=== PATIENT | female | born 1945 | race Caucasian/White ===

== ENCOUNTER → 2019-11-12 08:17 | Outpatient (CLI) | payer MEDICARE, SELFPAY ==
[2019-11-12 09:39] LABS: Alanine Aminotransferase 14 IU/L (<35); Albumin 4.3 g/dL (3.5-5.0); Albumin Globulin Ratio 1.3 (1.0-2.8); Alkaline Phosphatase 80 U/L (38-126); Aspartate Aminotransferase 23 IU/L (14-36); BUN Creatinine Ratio 14.1 (6-22); Bilirubin Total 0.4 mg/dL (0.2-1.3); Blood Urea Nitrogen 9 mg/dL (7-17); Calcium 9.6 mg/dL (8.4-10.2); Carbon Dioxide 24 mmol/L (22-32); Chloride 107 mmol/L (98-107); Cholesterol 284 mg/dL (140-199); Estimated Glomerular Filt Rate > 60.0 mL/min (>60); Globulin 3.3 g/dL (1.7-4.1); Glucose 107 mg/dL (80-110); HDL Cholesterol 42 mg/dL (40-60); HEMOLYSIS < 15 (0-50); LDL Cholesterol Calculated 180 mg/dL (<100); Potassium 4.6 mmol/L (3.4-5.1); Sodium 139 mmol/L (137-145); Total Protein 7.6 g/dL (6.3-8.2); Triglycerides 309 mg/dL (35-150)
[2019-11-12 10:16] LABS: Free T4, Direct Thyroxine 1.09 ng/dL (0.78-2.19)
[2019-11-12 10:29] LABS: Thyroid Stimulating Hormone 3.61 uIU/mL (0.47-4.68)
[2019-11-13 07:12] LABS: Triiodothyronine T3 Total 94 ng/dL (71-180)
== END ==
PROVIDERS: Referring Provider Internal Medicine; Visit Provider Internal Medicine
DX: I10 Essential (primary) hypertension (principal); E03.9 Hypothyroidism, unspecified; E78.5 Hyperlipidemia, unspecified
CPT/HCPCS: 36415; 80053; 80061; 84439; 84443; 84480

== ENCOUNTER → 2020-02-14 12:01 | Outpatient (CLI) | payer MEDICARE, SELFPAY ==
[2020-02-14 12:44] LABS: Hemoglobin A1C% w Est Avg Glu 5.1 % (4.0-6.0)
[2020-02-14 12:51] LABS: Erythrocyte Sedimentation Rate 8 MM/HR (0-20)
[2020-02-14 12:52] LABS: Alanine Aminotransferase 29 IU/L (<35); Albumin 4.1 g/dL (3.5-5.0); Albumin Globulin Ratio 1.1 (1.0-2.8); Alkaline Phosphatase 107 U/L (38-126); Aspartate Aminotransferase 24 IU/L (14-36); BUN Creatinine Ratio 14.1 (6-22); Bilirubin Total 0.7 mg/dL (0.2-1.3); Blood Urea Nitrogen 10 mg/dL (7-17); C-Reactive Protein Quant 4.9 mg/dL (<1.0); Calcium 8.9 mg/dL (8.4-10.2); Carbon Dioxide 25 mmol/L (22-32); Chloride 102 mmol/L (98-107); Estimated Glomerular Filt Rate > 60.0 mL/min (>60); Globulin 3.6 g/dL (1.7-4.1); Glucose 112 mg/dL (80-110); HEMOLYSIS < 15 (0-50); Potassium 4.6 mmol/L (3.4-5.1); Sodium 134 mmol/L (137-145); Total Protein 7.7 g/dL (6.3-8.2)
[2020-02-14 12:57] LABS: Add Manual Diff / Slide Review NO; Basophils Absolute Auto 100 /uL (0-100); Basophils Percent Auto 0.9 % (0-2); Eosinophils Absolute Auto 200 /uL (0-450); Eosinophils Percent Auto 1.5 % (2-4); Hematocrit 34.2 % (36-46); Hemoglobin 11.9 g/dL (12.0-16.0); Lymphocytes Absolute Auto 1400 /uL (1100-4500); Lymphocytes Percent Auto 13.5 % (25-40); Mean Corpuscular HGB Conc 34.7 % (30-36); Mean Corpuscular Hemoglobin 30.4 PG (26-34); Mean Corpuscular Volume 87.5 fL (80-100); Monocytes Absolute Auto 800 /uL (0-900); Monocytes Percent Auto 7.8 % (3-14); Neutrophils Absolute Auto 7800 /uL (1500-7000); Neutrophils Percent Auto 76.3 % (50-75); Platelet Count 285 X10^3/uL (150-400); Red Cell Distribution Width 13.2 % (11.6-14.8); White Blood Cell Count 10.2 X10^3/uL (4.5-11.0)
[2020-02-14 13:03] LABS: Procalcitonin < 0.05 ng/mL (<0.5)
[2020-02-14 13:43] LABS: TSH w/ Reflex to FT4 2.04 uIU/mL (0.47-4.68)
== END ==
PROVIDERS: PCP Physician Assistant; Referring Provider Physician Assistant; Visit Provider Physician Assistant
DX: R52 Pain, unspecified (principal); N30.01 Acute cystitis with hematuria
CPT/HCPCS: 36415; 80053; 83036; 84145; 84443; 85025; 85651; 86140; 87086

== ENCOUNTER 2020-02-22 17:40 | Emergency (ER) | payer MEDICARE, SELFPAY ==
[2020-02-22] VITALS (13 sets, daily range): BP systolic 107–134; BP diastolic 55–86; PULSE 69–92; RESP 14–35; TEMP 37.2; O2SAT 97–100; BMI 32.6
--- NOTE | 2020-02-22 18:24 | DI.RAD.S_ITS ---
PROCEDURE: XR ACUTE ABDOMEN SERIES INDICATIONS: Abdominal pain, back pain TECHNIQUE: One view chest and two views of the abdomen were acquired. COMPARISON: None. FINDINGS: Surgical changes and devices: None. Chest: Minimal hazy opacity at the left lung base. Heart size is normal. No pleural effusions. No pneumoperitoneum. Suspect small hiatal hernia. Abdomen: Scattered small bowel and colonic gas. No suspicious calcifications. Visualized solid organ contours appear normal. Bones: No suspicious bony lesions. Coarse calcification in the region of the left buttocks may represent an injection granuloma. IMPRESSION: 1. Hazy opacity at the left lung base. Favor atelectasis over aspiration or pneumonia. 2. Nonobstructive bowel gas pattern. Dictated by: Gilmer Carlson M.D. on 02/22/2020 at 20:15 Approved by: Gilmer Carlson M.D. on 02/22/2020 at 20:16
[2020-02-22 18:47] LABS: Creatine Kinase 34 U/L (30-135); Lactate (Lactic Acid) 1.2 mmol/L (0.7-2.1); Lipase 204 U/L (23-300); Troponin I < 0.012 ng/mL (0.01-0.034)
[2020-02-22 18:56] LABS: Add Manual Diff / Slide Review NO; Basophils Absolute Auto 0 /uL (0-100); Basophils Percent Auto 0.5 % (0-2); Eosinophils Absolute Auto 200 /uL (0-450); Eosinophils Percent Auto 2.1 % (2-4); Hematocrit 34.2 % (36-46); Hemoglobin 11.5 g/dL (12.0-16.0); Lymphocytes Absolute Auto 1400 /uL (1100-4500); Lymphocytes Percent Auto 14.5 % (25-40); Mean Corpuscular HGB Conc 33.8 % (30-36); Mean Corpuscular Hemoglobin 29.6 PG (26-34); Mean Corpuscular Volume 87.7 fL (80-100); Monocytes Absolute Auto 600 /uL (0-900); Neutrophils Absolute Auto 7700 /uL (1500-7000); Neutrophils Percent Auto 76.9 % (50-75); Platelet Count 356 X10^3/uL (150-400); Red Cell Distribution Width 12.8 % (11.6-14.8); White Blood Cell Count 9.9 X10^3/uL (4.5-11.0)
[2020-02-22] MEDS: KETOROLAC 60 MG/2 ML VIAL 15 MG IV (19:13)
[2020-02-22] MEDS: SODIUM CHLORIDE 0.9% 1,000 ML 1000 ML IV (19:13)
[2020-02-22] MEDS: LIDOCAINE PATCH 1 EACH ADH..PATCH TOP (19:14)
--- NOTE | 2020-02-22 19:40 | ED.NECK ---
HPI - Neck Pain/Injury General Chief Complaint: Abdominal Pain Stated Complaint: Abdominal pain Time Seen by Provider: 02/22/20 17:52 Source: patient Mode of arrival: Ambulatory Limitations: no limitations History of Present Illness HPI Narrative: 74F non smoker without significant medical history presents with her daughter and the chief complaint of right sided neck pain for the past few days. She denies any injury or neurologic complaint such as numbness, tingling, weakness or other. In the big picture she has felt unwell for a few weeks. It started with lower abdominal discomfort and flank pain and she was seen at the walk in clinic and given Toradol. She had a urine POC which was concerning but culture demonstrated no findings. She denies runny nose, sore throat or cough. She denies any chest pain or shortness of breath. She denies any ongoing abdominal pain or flank pain. MD complaint: neck pain Onset (ago): day(s) Place: home Radiation: right lateral Severity: moderate Quality: burning and sharp Duration: constant Relieving factors: remaining still Exacerbating factors: movement of neck Associated symptoms: none Treatments prior to arrival: none Related Data Previous Rx's Medication Instructions Recorded amoxicillin-pot clavulanate 1 tab PO BID #20 tab 02/22/20 [Augmentin] lidocaine [Lidoderm] 1 patch TOP DAILY #15 each 02/22/20 Allergies Allergy/AdvReac Type Severity Reaction Status Date / Time No Known Drug Allergies Allergy Verified 02/22/20 17:48 Review of Systems Constitutional Constitutional: Denies chills, Denies fatigue, Denies fever(s), Denies frequent falls, Denies lethargy and Denies weakness Eyes Eyes: Denies change in vision, Denies eye discharge, Denies irritation and Denies loss of vision ENT Ears, Nose, Mouth, and Throat: Denies change in voice, Denies dizziness, Reports neck pain, Denies sore throat and Denies throat swelling Cardiovascular Cardiovascular: Denies chest pain, Denies irregular heart rhythm, Denies lightheadedness, Denies palpitations, Denies dyspnea, Denies dyspnea on exertion and Denies orthopnea Respiratory Respiratory: Denies cough, Denies dyspnea, Denies dyspnea on exertion and Denies wheezing Gastrointestinal Gastrointestinal: Denies abdominal pain, Denies change in bowel habits, Denies diarrhea, Denies nausea and Denies vomiting Musculoskeletal Musculoskeletal: Reports neck pain and Denies numbness Integumentary/Breasts Skin/Breast: Denies pruritus, Denies erythema, Denies rash and Denies wounds Neurologic Neurologic: Denies behavioral changes, Denies confusion, Denies dizziness, Denies frequent falls, Denies loss of vision, Denies numbness and Denies weakness Psychiatric Psychiatric: Denies anxiety, Denies behavioral changes, Denies confusion, Denies depression, Denies homicidal ideation and Denies suicidal ideation Endocrine Endocrine: Denies fatigue, Denies flushing and Denies palpitations Hematologic/Lymphatic Hematologic/Lymphatic: Denies easy bruising Allergic/Immunologic Allergic/Immunologic: Denies urticaria, Denies throat swelling and Denies wheezing Patient History Medical History (Updated 02/22/20 @ 21:40 by Thanh Castro DO) Generalized body aches (Acute) UTI (urinary tract infection) (Acute) Social History Smoking Status: Never smoker Smoking Status: Never smoker alcohol intake frequency: holidays/special occasions only Substance Use Type: does not use Exam Narrative Exam Narrative: GENERAL: [74] year old patient appears stated age. Well-nourished, well-developed patient, in mild distress. HEAD: Atraumatic. Normocephalic. EYES: Pupils equal round and reactive. Extraocular motions intact. No scleral icterus. No injection or drainage. ENT: Nose without bleeding, purulent drainage. Throat without erythema, tonsillar hypertrophy or exudate. Airway patent. NECK: Trachea midline. Tenderness with range of motion and palpation of the right-sided paraspinal musculature. No midline or bony tenderness, no step-offs or crepitance. No pain turning her head to the right. No pain with axial loading. No associated upper extremity numbness, tingling, or weakness. CARDIOVASCULAR: Regular rate and rhythm without murmurs, gallops, or rubs. RESPIRATORY: Faint crackles in left base. No tachypnea or increased work of breathing. No supplemental oxygen requirements GASTROINTESTINAL: Abdomen soft, non-tender, nondistended. EXTREMITIES: No edema or joint tenderness. BACK: Nontender without deformity or crepitance. No flank tenderness. NEURO: AOx3. SKIN: No rash or erythema of visible areas Initial Vital Signs Initial Vital Signs: Vital Signs Temperature 99.0 F 02/22/20 17:40 Pulse Rate 92 H 02/22/20 17:40 Respiratory Rate 14 02/22/20 17:40 Blood Pressure 134/86 02/22/20 17:40 Pulse Oximetry 99 02/22/20 17:40 Course Orders Ordered: ED Orders 02/22/20 18:05 Complete Blood Count AUTO DIFF Stat Lactate (Lactic Acid) Stat Lipase Stat Troponin & CK Cardiac Panel Stat 02/22/20 18:12 EKG-12 Lead Stat 02/22/20 18:24 XR acute abdomen series Stat 02/22/20 19:19 Comprehensive Metabolic Panel Stat 02/22/20 20:27 COVID19 -ED/INPAT/OR/L&D Stat Discontinued Medications Sodium Chloride (Normal Saline 0.9%) 1,000 mls @ 1,000 mls/hr IV BOLUS ONE Stop: 02/22/20 19:51 Last Infusion: 02/22/20 20:23 Dose: 0 mls/hr Documented by: Admin: 02/22/20 19:13 Dose: 1,000 mls/hr Documented by: DASH Ceftriaxone Sodium/Dextrose (Rocephin) 1 gm in 50 mls @ 100 mls/hr IV NOW ONE Stop: 02/22/20 21:05 Last Infusion: 02/22/20 21:12 Dose: 100 mls/hr Documented by: Admin: 02/22/20 20:42 Dose: 100 mls/hr Documented by: DASH Ketorolac Tromethamine (Toradol) 15 mg IV NOW ONE Stop: 02/22/20 18:53 Last Admin: 02/22/20 19:13 Dose: 15 mg Documented by: DASH Lidocaine (Lidoderm) 1 each TOP NOW ONE Stop: 02/22/20 19:01 Last Admin: 02/22/20 19:14 Dose: 1 each Documented by: DASH Vital Signs Vital signs: Vital Signs - 8 hr 02/22/20 17:40 02/22/20 17:48 02/22/20 17:50 Temperature 99.0 F Pulse Rate 92 H 82 81 Respiratory Rate 14 17 20 Blood Pressure 134/86 128/79 Pulse Oximetry 99 99 02/22/20 18:00 02/22/20 18:30 02/22/20 19:00 Temperature Pulse Rate 79 74 70 Respiratory Rate 24 24 33 H Blood Pressure Pulse Oximetry 98 100 100 02/22/20 19:30 02/22/20 19:45 02/22/20 19:46 Temperature Pulse Rate 69 72 73 Respiratory Rate 22 24 35 H Blood Pressure 127/64 127/64 Pulse Oximetry 100 100 100 02/22/20 20:14 02/22/20 20:15 02/22/20 20:30 Temperature Pulse Rate 77 78 75 Respiratory Rate 23 23 18 Blood Pressure 131/60 107/56 L Pulse Oximetry 97 98 97 MDM - Neck Pain/Injury Lab Data Result diagrams: 02/22/20 18:05 02/22/20 19:19 Labs: Lab Results 02/22/20 02/22/20 02/22/20 Range/Units 18:05 18:05 18:05 WBC 9.9 (4.5-11.0) X10^3/uL RBC 3.90 L (4.0-5.2) X10^6/uL Hgb 11.5 L (12.0-16.0) g/dL Hct 34.2 L (36-46) % MCV 87.7 (80-100) fL MCH 29.6 (26-34) PG MCHC 33.8 (30-36) % RDW 12.8 (11.6-14.8) % Plt Count 356 (150-400) X10^3/uL Neut % (Auto) 76.9 H (50-75) % Lymph % (Auto) 14.5 L (25-40) % Lagrange % (Auto) 6.0 (3-14) % Eos % (Auto) 2.1 (2-4) % Baso % (Auto) 0.5 (0-2) % Neut # (Auto) 7700 H (5415-4675) /uL Lymph # (Auto) 1400 (9992-1626) /uL [place] # (Auto) 600 (0-900) /uL Eos # (Auto) 200 (0-450) /uL Baso # (Auto) 0 (0-100) /uL Sodium (137-145) mmol/L Potassium (3.4-5.1) mmol/L Chloride (98-107) mmol/L Carbon Dioxide (22-32) mmol/L BUN (7-17) mg/dL Creatinine (0.52-1.04) mg/dL Estimated GFR (>60) mL/min BUN/Creatinine Ratio (6-22) Glucose (80-110) mg/dL Lactate 1.2 (0.7-2.1) mmol/L Calcium (8.4-10.2) mg/dL Total Bilirubin (0.2-1.3) mg/dL AST (14-36) IU/L ALT (<35) IU/L Alkaline Phosphatase (38-126) U/L Total Creatine Kinase 34 (30-135) U/L CK-MB (CK-2) TNP CK-MB (CK-2) Rel Index TNP Troponin I < 0.012 (0.01-0.034) ng/mL Total Protein (6.3-8.2) g/dL Albumin (3.5-5.0) g/dL Globulin (1.7-4.1) g/dL Albumin/Globulin Ratio (1.0-2.8) Lipase 204 (23-300) U/L COVID-19 PCR (Negative) 02/22/20 02/22/20 Range/Units 19:19 20:27 WBC (4.5-11.0) X10^3/uL RBC (4.0-5.2) X10^6/uL Hgb (12.0-16.0) g/dL Hct (36-46) % MCV (80-100) fL MCH (26-34) PG MCHC (30-36) % RDW (11.6-14.8) % Plt Count (150-400) X10^3/uL Neut % (Auto) (50-75) % Lymph % (Auto) (25-40) % Lagrange % (Auto) (3-14) % Eos % (Auto) (2-4) % Baso % (Auto) (0-2) % Neut # (Auto) (5147-2443) /uL Lymph # (Auto) (5299-4405) /uL [place]range # (Auto) (0-900) /uL Eos # (Auto) (0-450) /uL Baso # (Auto) (0-100) /uL Sodium 136 L (137-145) mmol/L Potassium 4.1 (3.4-5.1) mmol/L Chloride 105 (98-107) mmol/L Carbon Dioxide 28 (22-32) mmol/L BUN 9 (7-17) mg/dL Creatinine 0.70 (0.52-1.04) mg/dL Estimated GFR > 60.0 (>60) mL/min BUN/Creatinine Ratio 12.9 (6-22) Glucose 97 (80-110) mg/dL Lactate (0.7-2.1) mmol/L Calcium 8.8 (8.4-10.2) mg/dL Total Bilirubin 0.5 (0.2-1.3) mg/dL AST 25 (14-36) IU/L ALT 24 (<35) IU/L Alkaline Phosphatase 91 (38-126) U/L Total Creatine Kinase (30-135) U/L CK-MB (CK-2) CK-MB (CK-2) Rel Index Troponin I (0.01-0.034) ng/mL Total Protein 6.8 (6.3-8.2) g/dL Albumin 3.6 (3.5-5.0) g/dL Globulin 3.2 (1.7-4.1) g/dL Albumin/Globulin Ratio 1.1 (1.0-2.8) Lipase (23-300) U/L COVID-19 PCR Negative (Negative) Urine Dip Bedside Urine Glucose Negative Bedside Urine Bilirubin - Negative Bedside Urine Ketone - Negative Urine Specific Bertrand 1.015 Bedside Urine Occult Blood - Negative Bedside Urine pH 7.5 Bedside Urine Protein - Negative Bedside Urine Urobilinogen - Negative Bedside Urine Nitrite - Negative Bedside Urine Leukocytes - Negative Esterase Imaging Data Chest x-ray: Radiologist's Impression: Samaria Pierre 74 [address] 1945 [place] [address] XRay Report Signed Patient: Samaria Pierre CMR#: [id number] : 5Acct:[id number] Age/Sex: 74 / FDate of Service: 02/22/20 Loc: ED Accession Number: [id number] Procedure: XR acute abdomen series Ordering Provider: Thanh Castro D.O. PROCEDURE: XR ACUTE ABDOMEN SERIES INDICATIONS: Abdominal pain, back pain TECHNIQUE: One view chest and two views of the abdomen were acquired. COMPARISON: None. FINDINGS: Surgical changes and devices: None. Chest: Minimal hazy opacity at the left lung base. Heart size is normal. No pleural effusions. No pneumoperitoneum. Suspect small hiatal hernia. Abdomen: Scattered small bowel and colonic gas. No suspicious calcifications. Visualized solid organ contours appear normal. Bones: No suspicious bony lesions. Coarse calcification in the region of the left buttocks may represent an injection granuloma. IMPRESSION: 1. Hazy opacity at the left lung base. Favor atelectasis over aspiration or pneumonia. 2. Nonobstructive bowel gas pattern. Dictated by: Gilmer Carlson M.D. on 02/22/2020 at 20:15 Approved by: Gilmer Carlson M.D. on 02/22/2020 at 20:16 [facility] Narrative Medical decision making narrative: Right-sided paraspinal neck pain likely inflammatory or spastic in nature, no pain turning her head to the right with shortening of the muscle belly. Other diagnoses such as meningitis considered but thought unlikely given lack of characteristic history or physical exam findings. Mild, likely early pneumonia noted on chest x-ray, faint crackles on exam. No signs of sepsis and certainly no sign of respiratory distress. Abdomen, soft and nontender on exam, reassuring labs and imaging. Extensive discussion at the bedside with patient and family and all questions have been answered to their apparent satisfaction. They understand the need for close follow-up, establishing care with a local primary care provider, and return precautions to the emergency department. Discharge Plan Departure Patient Disposition: Home Clinical Impression: Muscle spasms of neck Pneumonia Qualifiers: Pneumonia type: due to unspecified organism Laterality: left Lung location: lower lobe of lung Qualified Code(s): J18.9 - Pneumonia, unspecified organism Instructions: DI for Pneumonia -- Adult, DI for Neck Pain Activity Restrictions/Additional Instructions: *You have been diagnosed with [early pneumonia in the base of your left lung, muscle spasms in her neck.] *What to do: *Take medications as directed. Tonight you were given Rocephin 1 mg through the IV to initiate the treatment of your pneumonia. Additionally, you were given Toradol 15 mg IV to help with the aches and pains you mention. Finally, we put a lighted derm patch on your neck to help with the pain. You may take tylenol and/or motrin for aches and pains and it would be gonzalez to consider taking over the counter probiotics to help offset the potential GI consequences of taking antibiotics. * I have included contact information for the [facility] resource line, please call them tomorrow morning and let them know that you were seen in the emergency department and we a vast that you call them for help in establishing a primary care provider. *Return to ER if you should have any new, worsening or concerning symptoms, such as [difficulty breathing, chest pain, fever greater than 101, shaking chills, other bothersome symptoms] Prescriptions: New lidocaine [Lidoderm] 5 % adhesive patch,medicated 1 patch TOP DAILY Qty: 15 RF: 0 amoxicillin-pot clavulanate [Augmentin] 875-125 mg tablet 1 tab PO BID Qty: 20 RF: 0 Referrals: [facility] [Outside] Ivonne Bonilla PA-C [Primary Care Provider] -
[2020-02-22 20:06] LABS: Alanine Aminotransferase 24 IU/L (<35); Albumin 3.6 g/dL (3.5-5.0); Albumin Globulin Ratio 1.1 (1.0-2.8); Alkaline Phosphatase 91 U/L (38-126); Aspartate Aminotransferase 25 IU/L (14-36); BUN Creatinine Ratio 12.9 (6-22); Bilirubin Total 0.5 mg/dL (0.2-1.3); Blood Urea Nitrogen 9 mg/dL (7-17); Calcium 8.8 mg/dL (8.4-10.2); Carbon Dioxide 28 mmol/L (22-32); Chloride 105 mmol/L (98-107); Estimated Glomerular Filt Rate > 60.0 mL/min (>60); Globulin 3.2 g/dL (1.7-4.1); Glucose 97 mg/dL (80-110); HEMOLYSIS < 15 (0-50); Potassium 4.1 mmol/L (3.4-5.1); Sodium 136 mmol/L (137-145); Total Protein 6.8 g/dL (6.3-8.2)
--- NOTE | 2020-02-22 20:09 | PC.NURSE ---
pt ambulated to the bathroom with a steady gait
[2020-02-22] MEDS: CEFTRIAXONE 1 GM/50 ML FROZ.PIGGY IV (20:42)
[2020-02-22 20:48] LABS: COVID19 -Nasal RAPID Negative (Negative)
== END 2020-02-22 21:49 | disposition home or self-care (01) ==
PROVIDERS: Emergency Medicine; Emergency Provider Emergency Medicine; PCP Physician Assistant
DX: M62.838 Other muscle spasm (principal); J18.9 Pneumonia, unspecified organism
CPT/HCPCS: 36415; 74022; 80053; 81003; 82550; 83605; 83690; 84484; 85025; 87635; 93005; 93010; 96361; 96365; 96375; 99284; J1885

== ENCOUNTER → 2020-05-16 16:21 | Outpatient (CLI) | payer MEDICARE, SELFPAY ==
[2020-05-16 17:01] LABS: Influenza A - CEPHEID Flu A NEGATIVE (NEGATIVE); Influenza B - CEPHEID Flu B NEGATIVE (NEGATIVE)
[2020-05-16 17:20] LABS: COVID19 -Nasal RAPID Negative (Negative)
== END ==
PROVIDERS: PCP Internal Medicine; Visit Provider Physician Assistant
DX: Z20.822 Contact with and (suspected) exposure to COVID-19 (principal); R50.9 Fever, unspecified; N34.3 Urethral syndrome, unspecified
CPT/HCPCS: 87086; 87502; 87635

== ENCOUNTER 2020-06-23 13:10 | Inpatient (IN) | payer MEDICARE, SELFPAY ==
[2020-06-23] VITALS (20 sets, daily range): BP systolic 102–127; BP diastolic 46–69; PULSE 72–85; RESP 11–33; TEMP 36.2–37.7; O2SAT 81–100; BMI 32.5
--- NOTE | 2020-06-23 | PATH_ITS ---
[facility] Accession Number: [id number] . 01 Material submitted: . PART A: sigmoid colon - SIGMOID COLON PART B: colon - ILEUM, SMALL BOWEL . 01 Clinical history: . A: SIGMOID COLON, STITCH PROXIMAL END . 02 Diagnosis: A. Sigmoid Colon, Segmental Resection: Metastatic, poorly differentiated carcinoma, with an immunophenotype consistent with a Mullerian primary, favor ovarian phenotype. Carcinoma extends to serosal surface with perforation and serositis. Diverticulosis. Separately submitted fragments of fibroadipose tissue with chronic inflammation and neutrophilic abscess; negative for neoplasm. Please see comment. . B. Ileum, Segmental Resection: Small bowel with serosal inflammation and fibrinous adhesions. No evidence of neoplasm. [facility] 06/30/2020 1612 Local . 02 Comment: Four tumor nodules are identified. One of 13 pericolorectal lymph nodes is positive for metastatic carcinoma. . As part of routine supplier quality manager, Dr. Robledo also reviewed part A of this case and agrees with the interpretation. Dr. Berger discussed preliminary results of high grade carcinoma with Dr. Biswas on 06/29/2020 at 12 PM. . 02 Electronically signed: . Juana Berger MD, Pathologist NPI- [id number] . 01 Gross description: . A. The specimen is received in formalin, labeled sigmoid colon and consists of a 12 cm in length by 2.5 cm in diameter partially opened portion of colon with a suture designated proximal end. Both margins are stapled. The serosa is lazo-pink and smooth with a 6.0 x 5.0 x 2.5 cm disrupted hemorrhagic area coming to within 3.0 cm from the proximal margin and 7.5 cm from the distal margin. There is an abundant amount of attached adipose tissue. Opening reveals a 6.0 x 5.0 x 3.2 cm lazo-pink to lazo-green hemorrhagic and necrotic mass located 3.0 cm from the proximal margin and 7.5 cm from the distal margin. The mass extends to the muscularis propria into the attached adipose tissue to a maximum depth of 2.2 cm, abutting the serosa (in the area of disruption) and coming to within 5.0 m from the mesenteric margin. The remaining mucosa is lazo-pink with normal mucosal folds. There are multiple diverticula without the specimen. Sectioning through the adipose tissue reveals multiple lymph nodes ranging from 0.2 to 1.0 cm. Multiple additional lazo-pink to lazo-yellow fragments of soft tissue are received within the container measuring 5.0 x 4.0 x 3.0 cm in aggregate. [employer] sections are submitted. . A1: proximal margin, novelties sales representative perpendicular sections (blue). A2: distal margin, novelties sales representative perpendicular sections (black). A3: closest mesenteric margin, novelties sales representative perpendicular section (blue). A4-A6: mass in relation to serosa and area of disruption (blue). A7-A8: full-thickness section of mass, bisected. A9-A10: additional sections of mass. A11: novelties sales representative diverticulum. A12: one lymph node, serially sectioned. A13: intact candidate lymph nodes. A14: novelties sales representative additional tissue fragments. A15: additional intact lymph nodes following gross aid fixation. A16: 5 additional potential lymph nodes A17: 1 bisected potential lymph node A18: 1 bisected potential lymph node. A19: 5 additional potential lymph nodes. B. The specimen is received in formalin, labeled ileum, small bowel and consists of a 5.5 cm in length by 2.5 cm in diameter partially incised portion of small intestine with two stapled margins. The serosa is lazo-pink and smooth with focal areas of hemorrhage and adherent purulent exudate. Opening reveals a lazo-green mucosa with normal mucosal folds. The wall thickness measures 0.2 cm. A 0.4 x 0.3 x 0.3 cm lymph node is identified within the attached adipose tissue. [employer] sections are submitted. . B1: novelties sales representative stapled margins, perpendicular sections (blue and black). B2: novelties sales representative small intestine with purulent exudate. B3: one bisected lymph node. ([id number]) B4-6: Additional novelties sales representative sections. /MRV 06/30/2020 1612 Local . 02 Microscopic: . Immunohistochemical stains were performed on block A8 in order to further characterize the cells of interest. All control stains showed appropriate reactivity. . Results: Immunohistochemical stains were performed on block A8 in order to further characterize the cells of interest. All control stains showed appropriate reactivity. . TRINA: Uniformly positive. CK7: Negative. CK20: Negative. SATB2: Negative. CDX2: Negative. PAX8: Uniformly positive. WT1: Variably positive. Estrogen Receptor: Positive. P53: Diffuse nuclear staining, greater than 80%. Thyroglobulin: Negative. TTF-1: Negative. CD10: Negative. ALEX-3: Negative. MLH1: Intact nuclear expression. MSH2: Intact nuclear expression. MSH6: Intact nuclear expression. PMS2: Intact nuclear expression. . 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 The organ specific markers for colon, thyroid and bladder are not expressed. There is no loss of expression of mismatch repair proteins, MLH1, MSH2, MSH6 or PMS2 with intact internal and on-slide external controls. . * This test was developed and its performance characteristics determined by [employer]. It has not been cleared or approved by the U.S. Food and Drug Administration. The FDA has determined that such clearance or approval is not necessary. This test is used for clinical purposes. It should not be regarded as investigational or for research. . 02 Pathologist provided ICD-10: C78.5 . 02 CPT . 860347, 563630, F36909, X33348 Performed at: 01 [facility] [address] [place] [address], [place], [place] [id number] MD Ja Schmid MD Phone: [phone] Performed at: 02 [facility] [address] [place], [place] [id number] MD Juana Berger MD Phone: [phone]
--- NOTE | 2020-06-23 14:33 | ED.ABDPAIN ---
HPI - Abdominal Pain General Chief Complaint: Abdominal Pain Stated Complaint: lower abd pains, fever Time Seen by Provider: 06/23/20 13:50 Source: patient Mode of arrival: Ambulatory Limitations: no limitations History of Present Illness HPI narrative: Patient is a 74-year-old freddie female history of hypertension hypothyroid presenting with right lower quadrant pain ongoing for the last 5 days. She says it actually started across her lower abdomen and then localized in the right lower quadrant. She actually made an urgent fly rail operator appointment who she saw today day. It was determined not to be a fly rail operator issue seeing as though her abdomen was quite bloated she was sent to the ED for further evaluation. She says she has had significant decrease in appetite she has only had 1 banana hand very little to drink. She says she had fever only for 1 day however the patient seems to be getting worse. She has not had nausea or vomiting. She had 1 bowel movement that was not bloody. She has had no previous abdominal surgeries. MD complaint: abdominal pain Onset (ago): day(s) (5) Pain Consistency: constant Quality: stabbing Relieving factors: nothing Exacerbating factors: nothing Related Data Home Medications Medication Instructions Recorded Confirmed cholecalciferol (vitamin D3) 50 50 mcg PO DAILY 03/06/20 06/23/20 mcg (2,000 unit) capsule levothyroxine 25 mcg tablet 25 mcg PO DAILY 03/06/20 06/23/20 rosuvastatin 5 mg tablet 5 mg PO DAILY 03/06/20 06/23/20 Previous Rx's Medication Instructions Recorded carvedilol 3.125 mg tablet 3.125 mg PO BID #180 tab 05/08/20 Allergies Allergy/AdvReac Type Severity Reaction Status Date / Time No Known Drug Allergies Allergy Verified 06/23/20 17:27 Review of Systems Review of Systems ROS Unobtainable: All systems reviewed & are unremarkable except as noted in HPI and below Constitutional Constitutional: Denies chills, Denies fever(s), Denies lethargy and Denies weakness ENT Ears, Nose, Mouth, and Throat: Denies change in voice, Denies dizziness, Denies neck pain and Denies sore throat Cardiovascular Cardiovascular: Denies chest pain, Denies syncope, Denies irregular heart rhythm, Denies lightheadedness, Denies palpitations and Denies orthopnea Gastrointestinal Gastrointestinal: Reports as per HPI Genitourinary Genitourinary: Denies urinary hesitancy and Denies urinary urgency Genitourinary: Denies urinary hesitancy and Denies urinary urgency Musculoskeletal Musculoskeletal: Denies back pain, Denies myalgias and Denies neck pain Integumentary/Breasts Skin/Breast: Denies pruritus, Denies erythema, Denies rash and Denies wounds Neurologic Neurologic: Denies dizziness, Denies syncope and Denies weakness Endocrine Endocrine: Denies palpitations Patient History Medical History Acquired hypothyroidism Chicken pox Essential hypertension Febrile illness Has 3 children Measles Mixed hyperlipidemia UTI (urinary tract infection) Vision disorder Family History Father No problems noted. Mother Hypertension Grandfather Pneumonia Social History household members: other Smoking Status: Never smoker alcohol intake: current Smoking Status: Never smoker alcohol intake frequency: holidays/special occasions only Substance Use Type: does not use Exam Initial Vital Signs Initial Vital Signs: Vital Signs Temperature 99.8 F H 06/23/20 13:29 Pulse Rate 82 06/23/20 13:29 Respiratory Rate 16 06/23/20 13:29 Blood Pressure 112/66 06/23/20 13:29 Pulse Oximetry 97 06/23/20 13:29 GENERAL: Well-appearing, well-nourished and in no acute distress. HEENT: Head atraumatic,EOMI, pupils reactive, face symmetric, moist mucous membranes CARDIOVASCULAR: Regular rate and rhythm without murmurs, rubs or gallops. RESPIRATORY: Breath sounds equal bilaterally, no wheezes rales or rhonchi. ABDOMEN: Soft, distended tender in right lower quadrant hyperactive bowel sounds no guarding or rebound EXTREMITIES: Normal range of motion, no clubbing or edema. Neurovascularly intact NEUROLOGICAL: Alert and oriented x4.Normal gait and speech. SKIN: Warm, dry, no laceration, no petechiae, no rashes or lesions. Course Orders Ordered: ED Orders 06/23/20 13:34 EKG-12 Lead Stat 06/23/20 14:27 Complete Blood Count AUTO DIFF Stat Comprehensive Metabolic Panel Stat Lactate (Lactic Acid) Stat Lipase Stat Partial Thromboplastin Time Stat Prothrombin Time INR Stat 06/23/20 14:39 CT abdomen pelvis w con Stat 06/23/20 15:22 Urine Microscopic Stat 06/23/20 16:17 COVID19 Stat Fentanyl (Fentanyl 100 Mcg/2 Ml Inj) 0 mcg IV Q5MIN PRN PRN Reason: Pain, Severe (7-10) Hydromorphone HCl (Hydromorphone 2 Mg Inj) 0 mg IV Q5MIN PRN PRN Reason: Pain, Mild (1-3) Lactated Ringer's (Lactated Ringers) 1,000 mls @ 42 mls/hr IV CONT JU Last Admin: 06/23/20 17:37 Dose: 42 mls/hr Documented by: VINCE Lactated Ringer's (Lactated Ringers) 1,000 mls @ 120 mls/hr IV CONT JU Ondansetron HCl (Ondansetron 4 Mg/2 Ml Inj) 4 mg IV NOW PRN PRN Reason: Nausea And Vomiting Oxycodone HCl (Oxycodone Ir 5 Mg Tablet) 5 mg PO PACUNOW PRN PRN Reason: Mild or moderate pain Discontinued Medications Bupivacaine HCl/Epinephrine Bitart (Bupivacaine 0.5% W/ Epi (Pf) 30 Ml Vial) 30 ml INJ NOW ONE Stop: 06/23/20 18:37 Last Admin: 06/23/20 18:37 Dose: 30 ml Documented by: NOLAN Piperacillin/Tazobactam/Dextrose (Zosyn) 3.375 gm in 50 mls @ 100 mls/hr IV NOW ONE Stop: 06/23/20 16:28 Last Infusion: 06/23/20 16:58 Dose: 0 mls/hr Documented by: Admin: 06/23/20 16:17 Dose: 100 mls/hr Documented by: GUS Vital Signs Vital signs: Vital Signs - 8 hr 06/23/20 13:29 06/23/20 13:49 06/23/20 14:00 Temperature 99.8 F H Pulse Rate 82 84 81 Respiratory Rate 16 33 H 27 H Blood Pressure 112/66 Pulse Oximetry 97 94 96 06/23/20 14:01 06/23/20 14:30 06/23/20 15:00 Temperature Pulse Rate 81 80 80 Respiratory Rate 27 H 16 24 Blood Pressure 117/59 L 114/55 L 111/56 L Pulse Oximetry 95 97 93 MDM - Abdominal Pain Lab Data Attestation: I reviewed the patient's lab results. Result diagrams: 06/23/20 14:27 06/23/20 14:27 Labs: Lab Results 06/23/20 06/23/20 06/23/20 Range/Units 14:27 14:27 14:27 WBC 13.1 H (4.5-11.0) X10^3/uL RBC 3.51 L (4.0-5.2) X10^6/uL Hgb 10.4 L (12.0-16.0) g/dL Hct 30.1 L (36-46) % MCV 85.7 (80-100) fL MCH 29.7 (26-34) PG MCHC 34.7 (30-36) % RDW 14.0 (11.6-14.8) % Plt Count 270 (150-400) X10^3/uL Neut % (Auto) 80.7 H (50-75) % Lymph % (Auto) 10.3 L (25-40) % Hitchcock % (Auto) 6.8 (3-14) % Eos % (Auto) 0.7 L (2-4) % Baso % (Auto) 1.5 (0-2) % Neut # (Auto) 02790 H (5612-7888) /uL Lymph # (Auto) 1400 (5078-5809) /uL Hitchcock # (Auto) 900 (0-900) /uL Eos # (Auto) 100 (0-450) /uL Baso # (Auto) 200 H (0-100) /uL PT 14.9 H (10.1-12.7) SECONDS INR 1.3 (0.9-1.3) APTT 25 L (26.4-36.2) SECONDS Sodium 130 L (137-145) mmol/L Potassium 3.9 (3.4-5.1) mmol/L Chloride 96 L (98-107) mmol/L Carbon Dioxide 26 (22-32) mmol/L BUN 14 (7-17) mg/dL Creatinine 0.73 (0.52-1.04) mg/dL Estimated GFR > 60.0 (>60) mL/min BUN/Creatinine Ratio 19.2 (6-22) Glucose 99 (80-110) mg/dL Lactate (0.7-2.1) mmol/L Calcium 8.8 (8.4-10.2) mg/dL Total Bilirubin 0.7 (0.2-1.3) mg/dL AST 27 (14-36) IU/L ALT 19 (<35) IU/L Alkaline Phosphatase 87 (38-126) U/L Total Protein 7.4 (6.3-8.2) g/dL Albumin 4.0 (3.5-5.0) g/dL Globulin 3.4 (1.7-4.1) g/dL Albumin/Globulin Ratio 1.2 (1.0-2.8) Lipase 95 (23-300) U/L Urine RBC (0-5/HPF) Urine WBC (0-5/HPF) Ur Squamous Epith Cells (0-5/HPF) Ur Transition Epith Cell (0-5/HPF) Urine Bacteria (None) Urine Mucus (Negative) Ur Culture Indicated? SARS-CoV-2 (PCR) (Negative) 06/23/20 06/23/20 06/23/20 Range/Units 14:27 15:22 16:17 WBC (4.5-11.0) X10^3/uL RBC (4.0-5.2) X10^6/uL Hgb (12.0-16.0) g/dL Hct (36-46) % MCV (80-100) fL MCH (26-34) PG MCHC (30-36) % RDW (11.6-14.8) % Plt Count (150-400) X10^3/uL Neut % (Auto) (50-75) % Lymph % (Auto) (25-40) % Hitchcock % (Auto) (3-14) % Eos % (Auto) (2-4) % Baso % (Auto) (0-2) % Neut # (Auto) (6493-4759) /uL Lymph # (Auto) (5061-6224) /uL Hitchcock # (Auto) (0-900) /uL Eos # (Auto) (0-450) /uL Baso # (Auto) (0-100) /uL PT (10.1-12.7) SECONDS INR (0.9-1.3) APTT (26.4-36.2) SECONDS Sodium (137-145) mmol/L Potassium (3.4-5.1) mmol/L Chloride (98-107) mmol/L Carbon Dioxide (22-32) mmol/L BUN (7-17) mg/dL Creatinine (0.52-1.04) mg/dL Estimated GFR (>60) mL/min BUN/Creatinine Ratio (6-22) Glucose (80-110) mg/dL Lactate 1.1 (0.7-2.1) mmol/L Calcium (8.4-10.2) mg/dL Total Bilirubin (0.2-1.3) mg/dL AST (14-36) IU/L ALT (<35) IU/L Alkaline Phosphatase (38-126) U/L Total Protein (6.3-8.2) g/dL Albumin (3.5-5.0) g/dL Globulin (1.7-4.1) g/dL Albumin/Globulin Ratio (1.0-2.8) Lipase (23-300) U/L Urine RBC 0-1/hpf (0-5/HPF) Urine WBC 1-5/hpf (0-5/HPF) Ur Squamous Epith Cells 10-30 /hpf H (0-5/HPF) Ur Transition Epith Cell 1-5/hpf (0-5/HPF) Urine Bacteria Few (2-10) H (None) Urine Mucus 2+ H (Negative) Ur Culture Indicated? Cult not indicated SARS-CoV-2 (PCR) Negative (Negative) Point of care testing: Urine Dip Bedside Urine Glucose Negative Bedside Urine Bilirubin - Negative Bedside Urine Ketone + 15 Urine Specific [place] 1.015 Bedside Urine Occult Blood ++ Bedside Urine pH 6 Bedside Urine Protein +/- 15 Bedside Urine Urobilinogen - Negative Bedside Urine Nitrite - Negative Bedside Urine Leukocytes - Negative Esterase Imaging Data CT scan - abdomen/pelvis: Radiologist's Impression: PROCEDURE: CT ABDOMEN PELVIS W CON INDICATIONS: RLQ pain 5 days bloating TECHNIQUE: After the administration of intravenous contrast, 5 mm thick sections acquired from the diaphragm to the symphysis. 5 mm coronal and sagittal reformats were acquired. For radiation dose reduction, the following was used: automated exposure control, adjustment of mA and/or kV according to patient size. COMPARISON: None. FINDINGS: Image quality: Excellent. ABDOMEN: Lung bases: Lung bases are clear. Heart size is normal. Solid organs: A subtle low-density right lobe liver lesion measuring approximately 1.8 cm on image 15/2 is suspicious for a possible metastatic lesion. There is also a subtle small hypodensity in the right lobe of the liver on image 24/2, of uncertain etiology. Gallbladder is unremarkable. Biliary system is non dilated. Pancreas enhances normally. Spleen is normal in size and enhancement. No adrenal nodules. Kidneys demonstrate normal size and enhancement, without hydronephrosis. Peritoneum and bowel: There is a markedly abnormal appearance of the proximal sigmoid, which likely represents the presence of a necrotic wall neoplasm extending into the surrounding fat with a large defect in the normal wall of the sigmoid and associated perforation with abscess. The presumed neoplasm measures approximately 3.5 x 5.4 cm. The abscess measures approximately 4.9 x 3.9 cm. There is thickening of the fundus of the bladder which is likely a secondary inflammatory phenomenon secondary to the adjacent abscess. There is no air in the bladder. Nodes and vessels: No retroperitoneal or mesenteric adenopathy by size criteria. Aorta and inferior vena cava are normal in size. Miscellaneous: No ventral hernias. PELVIS: Genitourinary: Bladder wall thickness is normal. Miscellaneous: No inguinal hernias or adenopathy. Bones: No suspicious bony lesions. No vertebral body compression fractures. IMPRESSION: 1. 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 2. Question hepatics metastatic disease. Comment: Findings were discussed with Dr. Darby at the time of study dictation on 06/23/2020 at 1531 hours. Additional comment: Consider multiphase MRI of the liver on a nonemergent basis to evaluate the liver lesions. Dictated by: Margarito Felipe M.D. on 06/23/2020 at 15:26 ECG Data Attestation: I personally reviewed and interpreted this ECG as follows: Prior ECG tracings: available for review Interpretation: Normal sinus rhythm a rate 81, a AL interval 160 QRS 89 QTC 392 T-wave inversion noted in lead v3 and v2 similar to previous EKG MDM Narrative Medical decision making narrative: Patient is found to have perforation on her CT but is overall hemodynamically stable. I have called is in spoken with patient and her son on speaker phone. Updated them on test results and need for emergent surgery. Son Jose Enrique [phone] Campbell updated on CT results hand patient's symptoms. She will take patient to the OR this evening and recommends Zosyn. It seems the patient has had some abdominal discomfort since May. She was seen evaluated at walk-in clinic thought to have UTI and started on Bactrim however urine did not grow bacteria at that time. Discharge Plan Departure Patient Disposition: Admitted As Inpatient Clinical Impression: Perforated sigmoid colon Admit Date/Time: 06/23/20 16:47 Admit Provider: Yoli Biswas
--- NOTE | 2020-06-23 14:39 | DI.CT.S_ITS ---
PROCEDURE: CT ABDOMEN PELVIS W CON INDICATIONS: RLQ pain 5 days bloating TECHNIQUE: After the administration of intravenous contrast, 5 mm thick sections acquired from the diaphragm to the symphysis. 5 mm coronal and sagittal reformats were acquired. For radiation dose reduction, the following was used: automated exposure control, adjustment of mA and/or kV according to patient size. COMPARISON: None. FINDINGS: Image quality: Excellent. ABDOMEN: Lung bases: Lung bases are clear. Heart size is normal. Solid organs: A subtle low-density right lobe liver lesion measuring approximately 1.8 cm on image 15/2 is suspicious for a possible metastatic lesion. There is also a subtle small hypodensity in the right lobe of the liver on image 24/2, of uncertain etiology. Gallbladder is unremarkable. Biliary system is non dilated. Pancreas enhances normally. Spleen is normal in size and enhancement. No adrenal nodules. Kidneys demonstrate normal size and enhancement, without hydronephrosis. Peritoneum and bowel: There is a markedly abnormal appearance of the proximal sigmoid, which likely represents the presence of a necrotic wall neoplasm extending into the surrounding fat with a large defect in the normal wall of the sigmoid and associated perforation with abscess. The presumed neoplasm measures approximately 3.5 x 5.4 cm. The abscess measures approximately 4.9 x 3.9 cm. There is thickening of the fundus of the bladder which is likely a secondary inflammatory phenomenon secondary to the adjacent abscess. There is no air in the bladder. Nodes and vessels: No retroperitoneal or mesenteric adenopathy by size criteria. Aorta and inferior vena cava are normal in size. Miscellaneous: No ventral hernias. PELVIS: Genitourinary: Bladder wall thickness is normal. Miscellaneous: No inguinal hernias or adenopathy. Bones: No suspicious bony lesions. No vertebral body compression fractures. IMPRESSION: 1. 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 2. Question hepatics metastatic disease. Comment: Findings were discussed with Dr. Darby at the time of study dictation on 06/23/2020 at 1531 hours. Additional comment: Consider multiphase MRI of the liver on a nonemergent basis to evaluate the liver lesions. Dictated by: Margarito Felipe M.D. on 06/23/2020 at 15:26 Approved by: Margarito Felipe M.D. on 06/23/2020 at 15:39
[2020-06-23 14:48] LABS: INR 1.3 (0.9-1.3); Prothrombin Time 14.9 SECONDS (10.1-12.7)
[2020-06-23 14:51] LABS: PTT Partial Thromboplastin Tim 25 SECONDS (26.4-36.2)
[2020-06-23 14:54] LABS: Lactate (Lactic Acid) 1.1 mmol/L (0.7-2.1)
[2020-06-23 14:55] LABS: Alanine Aminotransferase 19 IU/L (<35); Albumin Globulin Ratio 1.2 (1.0-2.8); Alkaline Phosphatase 87 U/L (38-126); Aspartate Aminotransferase 27 IU/L (14-36); BUN Creatinine Ratio 19.2 (6-22); Bilirubin Total 0.7 mg/dL (0.2-1.3); Blood Urea Nitrogen 14 mg/dL (7-17); Calcium 8.8 mg/dL (8.4-10.2); Carbon Dioxide 26 mmol/L (22-32); Chloride 96 mmol/L (98-107); Estimated Glomerular Filt Rate > 60.0 mL/min (>60); Globulin 3.4 g/dL (1.7-4.1); Glucose 99 mg/dL (80-110); HEMOLYSIS < 15 (0-50); Lipase 95 U/L (23-300); Potassium 3.9 mmol/L (3.4-5.1); Sodium 130 mmol/L (137-145); Total Protein 7.4 g/dL (6.3-8.2)
[2020-06-23 15:01] LABS: Add Manual Diff / Slide Review NO; Basophils Absolute Auto 200 /uL (0-100); Basophils Percent Auto 1.5 % (0-2); Eosinophils Absolute Auto 100 /uL (0-450); Eosinophils Percent Auto 0.7 % (2-4); Hematocrit 30.1 % (36-46); Hemoglobin 10.4 g/dL (12.0-16.0); Lymphocytes Absolute Auto 1400 /uL (1100-4500); Lymphocytes Percent Auto 10.3 % (25-40); Mean Corpuscular HGB Conc 34.7 % (30-36); Mean Corpuscular Hemoglobin 29.7 PG (26-34); Mean Corpuscular Volume 85.7 fL (80-100); Monocytes Absolute Auto 900 /uL (0-900); Monocytes Percent Auto 6.8 % (3-14); Neutrophils Absolute Auto 10600 /uL (1500-7000); Neutrophils Percent Auto 80.7 % (50-75); Platelet Count 270 X10^3/uL (150-400); Red Blood Cell Count 3.51 X10^6/uL (4.0-5.2); White Blood Cell Count 13.1 X10^3/uL (4.5-11.0)
[2020-06-23 16:02] LABS: Bacteria Urine Few (2-10); Culture Indicated Urine Cult Not Indicated; Mucus Urine 2+ (Negative); RBC Urine 0-1/HPF (0-5/HPF); Squamous Epithelial Cell Urine 10-30 /HPF (0-5/HPF); Transitional Epi Cells Urine 1-5/HPF (0-5/HPF); WBC Urine 1-5/HPF (0-5/HPF)
[2020-06-23] MEDS: PIPERACILLIN-TAZO 3.375 GM/50 ML FROZ.PIGGY IV (16:17)
--- NOTE | 2020-06-23 16:39 | P.HP_ITS ---
History of Present Illness History of Present Illness Date Patient Seen: 06/23/20 Time Patient Seen: 16:39 Chief complaint: lower abd pains, fever Narrative: This is a 74 yo woman with history of hypothyroid, hypertension, and obesity (BMI 32). She came into the ER this afternoon with c/o five days of mid abdominal pain. This is the 3rd time she has had this pain. She says that on the 2 previous times she was given antibiotics at the Urgent Care, for a puta tive urinary tract infection/bladder infection. The pain did resolve each time after getting antibiotics. She says the pain began this time about 5 days ago. It was generalized abdominal pain, most significant in the left and right lower quadrants. She went in to see Dr. Mcgregor today thinking it may be a customer liaison issue. Dr. Mcgregor directed her to the ER. She has never had a colonoscopy. She has never had any abdominal surgery. She denies any heart or lung problems, other than her hypertension. In the ER she was found to have a white blood cell count of 13.1 with a left shift. CT scan shows a large perforated mass coming off of the sigmoid colon, suspicious for a perforated cancer. ROS: Constitutional: Denies chills, Denies fever(s), Denies lethargy and Denies weakness Ears, Nose, Mouth, and Throat: Denies change in voice, Denies dizziness, Denies neck pain and Denies sore throat Cardiovascular: Denies chest pain, Denies syncope, Denies irregular heart rhythm, Denies lightheadedness, Denies palpitations and Denies orthopnea Gastrointestinal: Reports as per HPI Genitourinary: Denies urinary hesitancy and Denies urinary urgency Musculoskeletal: Denies back pain, Denies myalgias and Denies neck pain Skin/Breast: Denies pruritus, Denies erythema, Denies rash and Denies wounds Neurologic: Denies dizziness, Denies syncope and Denies weakness Psych: denies hallucinations, delusions; denies anxiety, depression PE: GENERAL: Well groomed and cooperative. Appears stated age. Answers questions promptly and appropriately. Vital signs noted. HENT: Normocephalic, atraumatic. Hearing intact. EYES: Conjunctiva pink, sclera white, no periorbital swelling. CARDIOVASCULAR: Regular rate. No pedal edema. RESPIRATORY: Non-tachypneic, breathing comfortably on room air. GASTROINTESTINAL: Abdomen soft and non-distended GENITALURINARY: No flank tenderness. MUSCULOSKELETAL: Equal tone and mass bilaterally. SKIN: Warm, dry, soft, appropriate color for ethnicity. No other lesions, rashes, or wounds. NEURO: Alert and Oriented X 3. No gross sensory deficits, or cognitive issues. PSYCH: Appropriate affect and mood. Patient History Medical History Acquired hypothyroidism Chicken pox Essential hypertension Febrile illness Has 3 children Measles Mixed hyperlipidemia UTI (urinary tract infection) Vision disorder Family & Social History Family History Father No problems noted. Mother Hypertension Grandfather Pneumonia Safety & Behavioral: Feels Safe in Current Yes Environment Been Physically Hurt or No Threatened By a Person Tobacco & Substance use: Smoking Status Never smoker alcohol intake frequency holiday/special occasion Substance Use Type does not use Meds Home Medications and Allergies Home Medications Medication Instructions Recorded Confirmed Type cholecalciferol (vitamin D3) 50 50 mcg PO DAILY 03/06/20 06/23/20 History mcg (2,000 unit) capsule levothyroxine 25 mcg tablet 25 mcg PO DAILY 03/06/20 06/23/20 History rosuvastatin 5 mg tablet 5 mg PO DAILY 03/06/20 06/23/20 History carvedilol 3.125 mg tablet 3.125 mg PO BID #180 tab 05/08/20 06/23/20 Rx Allergies Allergy/AdvReac Type Severity Reaction Status Date / Time No Known Drug Allergies Allergy Verified 06/23/20 13:33 Exam Vital Signs (past 8 hours): - 06/23/20 13:29 06/23/20 13:49 06/23/20 14:00 Temperature 99.8 F H Pulse Rate 82 84 81 Respiratory Rate 16 33 H 27 H Blood Pressure 112/66 Pulse Oximetry 97 94 96 06/23/20 14:01 06/23/20 14:30 06/23/20 15:00 Temperature Pulse Rate 81 80 80 Respiratory Rate 27 H 16 24 Blood Pressure 117/59 L 114/55 L 111/56 L Pulse Oximetry 95 97 93 Oxygen Delivery Method Room Air Objective Imaging CT scan - abdomen: Radiologist's impression: [address] [id number] Scan ReportSigned Patient: Samaria Pierre CMR#: [id number]: 5Acct:[id number]/Sex: 74 / FDate of Service: 06/23/20Loc: EDAccession Number: [id number] Procedure: CT abdomen pelvis w con Ordering Provider: Wendy Darby D.O. PROCEDURE: CT ABDOMEN PELVIS W CON INDICATIONS: RLQ pain 5 days bloating TECHNIQUE: After the administration of intravenous contrast, 5 mm thick sections acquired from the diaphragm to the symphysis. 5 mm coronal and sagittal reformats were acquired. For radiation dose reduction, the following was used: automated exposure control, adjustment of mA and/or kV according to patient size. COMPARISON: None. FINDINGS: Image quality: Excellent. ABDOMEN: Lung bases: Lung bases are clear. Heart size is normal. Solid organs: A subtle low-density right lobe liver lesion measuring approximately 1.8 cm on image 15/2 is suspicious for a possible metastatic lesion. There is also a subtle small hypodensity in the right lobe of the liver on image 24/2, of uncertain etiology. Gallbladder is unremarkable. Biliary system is non dilated. Pancreas enhances normally. Spleen is normal in size and enhancement. No adrenal nodules. Kidneys demonstrate normal size and enhancement, without hydronephrosis. Peritoneum and bowel: There is a markedly abnormal appearance of the proximal sigmoid, which likely represents the presence of a necrotic wall neoplasm extending into the surrounding fat with a large defect in the normal wall of the sigmoid and associated perforation with abscess. The presumed neoplasm measures approximately 3.5 x 5.4 cm. The abscess measures approximately 4.9 x 3.9 cm. There is thickening of the fundus of the bladder which is likely a secondary inflammatory phenomenon secondary to the adjacent abscess. There is no air in the bladder. Nodes and vessels: No retroperitoneal or mesenteric adenopathy by size criteria. Aorta and inferior vena cava are normal in size. Miscellaneous: No ventral hernias. PELVIS: Genitourinary: Bladder wall thickness is normal. Miscellaneous: No inguinal hernias or adenopathy. Bones: No suspicious bony lesions. No vertebral body compression fractures. IMPRESSION: 1. 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 2. Question hepatics metastatic disease. Comment: Findings were discussed with Dr. Darby at the time of study dictation on 06/23/2020 at 1531 hours. Additional comment: Consider multiphase MRI of the liver on a nonemergent basis to evaluate the liver lesions. Dictated by: Margarito Felipe M.D. on 06/23/2020 at 15:26 Approved by: Margarito Felipe M.D. on 06/23/2020 at 15:39 Labs Result Diagrams: 06/23/20 14:27 06/23/20 14:27 Labs: Laboratory Results - last 24 hr 06/23/20 06/23/20 06/23/20 14:27 14:27 14:27 WBC 13.1 H RBC 3.51 L Hgb 10.4 L Hct 30.1 L MCV 85.7 MCH 29.7 MCHC 34.7 RDW 14.0 Plt Count 270 Neut % (Auto) 80.7 H Lymph % (Auto) 10.3 L [place] % (Auto) 6.8 Eos % (Auto) 0.7 L Baso % (Auto) 1.5 Neut # (Auto) 88873 H Lymph # (Auto) 1400 [place] # (Auto) 900 Eos # (Auto) 100 Baso # (Auto) 200 H PT 14.9 H INR 1.3 APTT 25 L Sodium 130 L Potassium 3.9 Chloride 96 L Carbon Dioxide 26 BUN 14 Creatinine 0.73 Estimated GFR > 60.0 BUN/Creatinine Ratio 19.2 Glucose 99 Lactate Calcium 8.8 Total Bilirubin 0.7 AST 27 ALT 19 Alkaline Phosphatase 87 Total Protein 7.4 Albumin 4.0 Globulin 3.4 Albumin/Globulin Ratio 1.2 Lipase 95 Urine RBC Urine WBC Ur Squamous Epith Cells Ur Transition Epith Cell Urine Bacteria Urine Mucus Ur Culture Indicated? 06/23/20 06/23/20 14:27 15:22 WBC RBC Hgb Hct MCV MCH MCHC RDW Plt Count Neut % (Auto) Lymph % (Auto) [place] % (Auto) Eos % (Auto) Baso % (Auto) Neut # (Auto) Lymph # (Auto) [place] # (Auto) Eos # (Auto) Baso # (Auto) PT INR APTT Sodium Potassium Chloride Carbon Dioxide BUN Creatinine Estimated GFR BUN/Creatinine Ratio Glucose Lactate 1.1 Calcium Total Bilirubin AST ALT Alkaline Phosphatase Total Protein Albumin Globulin Albumin/Globulin Ratio Lipase Urine RBC 0-1/hpf Urine WBC 1-5/hpf Ur Squamous Epith Cells 10-30 /hpf H Ur Transition Epith Cell 1-5/hpf Urine Bacteria Few (2-10) H Urine Mucus 2+ H Ur Culture Indicated? Cult not indicated Assessment & Plan Assessment and plan (1) Perforated sigmoid colon: Status: Acute (2) Essential hypertension: Status: Chronic (3) Acquired hypothyroidism: Status: Chronic Assessment & Plan narrative: This is a 74-year-old woman with history of several episodes of abdominal pain, who came into the ER today was found to have a looks like a perforated colon cancer. Risks and benefits of laparotomy, colon resection, colostomy, possible on-table colonoscopy were discussed including risk of bleeding, infection, damage to nearby structures, need for additional procedures, advanced colon cancer, prolonged recovery, need for additional treatments such as chemotherapy, radiation, or additional surgery. I with the patient and her son was on the phone as well. They verbalized agreement and understanding of this plan. Plan: NPO, IV fluids, preop COVID test IV antibiotics Proceed to the OR as soon as possible for laparotomy, bowel resection, possible colostomy, possible colonoscopy COVID-19 COVID-19 status: Negative Result date/Date tested (Pos, Neg/Pending): 06/23/20 Time Spent With Patient Time with patient: 25 - 35 minutes Quality VTE Deep Vein Thrombosis/Pulmonary Embolism Present on Admission: No
[2020-06-23 16:47] LABS: COVID19 -Nasal RAPID Negative (Negative)
[2020-06-23] MEDS: LACTATED RINGERS 1,000 ML 42 ML IV ×2 (17:37→19:30)
--- NOTE | 2020-06-23 18:33 | SUR.OPER ---
Lithotomy on padded OR bed. [place] Pad Positioner under torso. Head on pillow, arms padded and tucked at sides. Legs secured in padded yellow fins stirrups.
[2020-06-23] MEDS: BUPIVACAINE 0.5% W/ EPI (PF) 30 ML VIAL INJ ×2 (18:37→20:47)
[2020-06-23] MEDS: METHYLENE BLUE 50 MG/10 ML VIAL 80 MG INJ (20:02)
[2020-06-23] MEDS: BUPIVACAINE LIPOSOME 266 MG/20 ML VIAL INJ (20:47)
--- NOTE | 2020-06-23 21:51 | P.OP_ITS ---
Operative Date/Time/Diagnoses Date of procedure: 06/23/20 Time of procedure: 21:51 Pre-op diagnosis: Perforated colon cancer Post-op diagnosis: other (Perforated colon cancer, with associated abscess, invading anterior abdominal wall and bladder, with adherent small bowel) Procedure & Clinicians Procedure: Emergency exploratory laparotomy, sigmoid colectomy, end colostomy (Herminia's procedure), small-bowel resection with enteroenterostomy; modifier 22 Same procedure as scheduled: Yes Indications: This is a 74-year-old woman who came into the ER with severe abdominal pain, and was found to have a perforated colon cancer on CT scan. She was taken emergently to the OR because of high risk of sepsis and . 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 A loop of mid ileum was densely adherent to the sigmoid cancer, and had to be resected. The sigmoid colon was found to be invading into the abdominal wall, and possibly the bladder. Specimen(s): other (Sigmoid colon, small intestine, abdominal wall) Applied: drain(s) (19 round Shaheed drain) Estimated Blood Loss (mL): 75 Blood products transfused: none Procedure in detail: The patient was brought into the operating room and placed supine on the OR table. Sequential compression devices were placed on both legs and turned on. Appropriate perioperative antibiotics were given prior to the start of surgery. General anesthesia was induced the patient was intubated. The patient was placed in low lithotomy, modified Danis Rasmussen position. Milligan catheter was placed in sterile fashion in the bladder. The abdomen was prepped and draped in sterile fashion. Surgical time-out was conducted. Local anesthetic was injected under the skin in the lower midline and a 25 cm vertical midline incision was made in the skin at this site. Dissection was carried down through very thick subcutaneous fat to the fascia. The subcutaneous fat was approximately 3 in thick. Once we reached the fascia, a hard mass was palpable beneath the abdominal wall. Careful dissection was continued through the fascia, the muscle, and dividing the posterior fascia and opening the peritoneum. The peritoneum was opened for the full length of the incision, and at the lower end of the incision we found that the colon was densely adherent and was invading into the abdominal wall just to the left of the lower midline. The Bookwalter was positioned, and most of the small bowel was packed into the upper abdomen, however there was a loop of small bowel densely adherent to the colon mass which was adherent and invading into the abdominal wall. The small bowel was carefully dissected free from the colon mass, and was found to be severely damaged from invading cancer, and dense adhesions. All of the small bowel was then packed into the upper abdomen and attention was turned to the sigmoid colon mass. With gentle pressure I carefully took down the mass from i ts adherence to the anterior abdominal wall. Upon doing so, an abscess cavity was entered, and thick murky fluid was suctioned out. A specimen of this fluid was sent for culture. Once all of the pus was suctioned out, the mass was bluntly taken down from the abdominal wall with gentle finger fracture. Once it was finally freed from the abdominal wall, I took down the white line of Toldt along the left gutter, and palpated the mass to identify its proximal and distal extent. I dissected down dividing the very thick mesentery associated with the rectum in order to elevate the involved colon out of the pelvis. Once the entire part of the involved sigmoid colon was elevated, I divided it using to 75 mm blue loads of KIM stapler. The thickened mesentery was divided using LigaSure, and the entire mass and associated colon was passed off the field. Hemostasis was achieved using LigaSure and cautery. Attention was then turned to the anterior abdominal wall, which was severely damaged by the invading colon cancer, and it was unclear whether the bladder was involved. The bladder felt very firm and thickened, and the entire abdominal wall in this area felt very firm and thickened. Was not entirely clear whether this is inflammatory reaction, or all of it is invading cancer. I suspect that a significant portion of this is inflammatory reaction. I took a segment of the abdominal wall, and dissected it free and passed off the table for pathology. We filled the bladder with methylene blue and saline, and I saw no leakage from the wound. At this point I felt it was prudent to cauterize the wound for hemostasis, but not do any extensive dissection, since it was not entirely clear how much of this is cancer and how much is inflammatory reaction, and whether dissecting all of this out would actually contribute to her survival. At this point hemostasis was achieved on the wound, and a piece of Interceed was placed over the abdominal wall wound to prevent adherence of the small bowel to this wound. Attention was then turned to the small bowel, I ran the entire small bowel and found no other injured bowel other than the segment that had been invaded by the colon cancer and adherent to the colon cancer. This segment was about 30 cm from the terminal ileum. A 10 cm segment was resected using 2 blue loads of KIM stapler 75 mm. The mesentery was divided with LigaSure. A [id number] functional end-to-end anastomosis was created using blue load of KIM stapler, and over-sewing the open ends with 3-0 PDS, and dunking the ends with 3-0 silk Lembert sutures. I then reached up and palpated the stomach and identified the NG tube was in good position. I palpated the liver, and could not feel any palpable metastatic disease. I then placed a 19 round Shaheed drain in the pelvis, exiting through the abdominal wall in the right lower quadrant. This was secured with 3-0 nylon suture. At this point local anesthetic was injected into the fascial incision using 0.5% Marcaine with epi for a total of 40 mL for the case, and 20 mL of Exparel. The stapled end of the descending colon was then brought up to the abdominal wall and an appropriate position on the left mid upper abdomen, and an ostomy incision was performed at that site. A circular incision in the skin was then carried down to the fascia, and the fascia was opened in a cruciate fashion in the anterior fascia, and the muscle was split deep to that, and then the peritoneum was opened with cautery. I was able to fit 2 fingers in the opening, and I brought up the end of the descending colon through that site. The abdominal wall was very thick, making it difficult to bring up the ostomy, but we did bring it up without any significant tension, and it appeared relatively well blood supplied. The fascia was then closed with running 0 PDS, and reinforced with 0 Vicryl [id number], and the skin was closed with skin lena. The colostomy was then brooked in the usual fashion, and an ostomy appliance was placed. The Milligan was left in place. Needle sponge and instrument counts were correct x2 at the end of the procedure. The patient tolerated the procedure well. Patient was awakened from anesthesia and extubated. She was transferred to the postanesthesia care unit in stable condition. Complications: none Post-operative Condition: stable Disposition: PACU
[2020-06-24] VITALS (9 sets, daily range): BP systolic 99–143; BP diastolic 52–74; PULSE 63–76; RESP 15–19; TEMP 35.8–36.7; O2SAT 94–98; BMI 32.5
--- NOTE | 2020-06-24 00:33 | PC.NURSE ---
Evening Shift Note- Patient arrived to room via bed from PACU at 2240. Patient awake and oriented to self. Speech mumbled. IV fluids started, SCD's applied, Tele monitor placed and paperwork filled out, NG tube set to low intermit suction as ordered, continuous pulse ox applied. Attempted to teach patient about call pike, patient will need reorienting. Bed alarm activated for safety.
[2020-06-24] MEDS: PIPERACILLIN-TAZO 3.375 GM/50 ML FROZ.PIGGY IV ×5 (01:40→21:45)
[2020-06-24] MEDS: SODIUM CHLORIDE 0.9% 1,000 ML 100 ML IV ×3 (01:41→21:51)
[2020-06-24] MEDS: ACETAMINOPHEN 325 MG TABLET 650 MG PO ×3 (01:41→11:58)
[2020-06-24] MEDS: MORPHINE 4 MG/ML INJ IV ×3 (04:12→18:08)
[2020-06-24 05:51] LABS: BUN Creatinine Ratio 22.8 (6-22); Blood Urea Nitrogen 13 mg/dL (7-17); Calcium 8.1 mg/dL (8.4-10.2); Carbon Dioxide 27 mmol/L (22-32); Chloride 101 mmol/L (98-107); Estimated Glomerular Filt Rate > 60.0 mL/min (>60); Glucose 165 mg/dL (80-110); HEMOLYSIS < 15 (0-50); Magnesium 2.2 mg/dL (1.6-2.3); Phosphorous 4.1 mg/dL (2.8-4.1); Sodium 134 mmol/L (137-145)
[2020-06-24 06:43] LABS: Add Manual Diff / Slide Review NO; Basophils Absolute Auto 0 /uL (0-100); Basophils Percent Auto 0.1 % (0-2); Eosinophils Absolute Auto 0 /uL (0-450); Hematocrit 29.5 % (36-46); Hemoglobin 10.1 g/dL (12.0-16.0); Lymphocytes Absolute Auto 300 /uL (1100-4500); Lymphocytes Percent Auto 2.6 % (25-40); Mean Corpuscular HGB Conc 34.1 % (30-36); Mean Corpuscular Hemoglobin 28.9 PG (26-34); Mean Corpuscular Volume 84.7 fL (80-100); Monocytes Absolute Auto 400 /uL (0-900); Monocytes Percent Auto 3.2 % (3-14); Neutrophils Absolute Auto 11400 /uL (1500-7000); Neutrophils Percent Auto 94.1 % (50-75); Platelet Count 243 X10^3/uL (150-400); Red Blood Cell Count 3.48 X10^6/uL (4.0-5.2); Red Cell Distribution Width 14.1 % (11.6-14.8); White Blood Cell Count 12.1 X10^3/uL (4.5-11.0)
--- NOTE | 2020-06-24 07:03 | DI.RAD.S_ITS ---
PROCEDURE: XR CHEST 1V INDICATIONS: NGT position TECHNIQUE: One view of the chest was acquired. COMPARISON: [facility], CT, CT ABDOMEN PELVIS W CON, 06/23/2020, 15:03. FINDINGS: Surgical changes and devices: The gastric tube can be seen overlying the proximal stomach. Lungs and pleura: Low lung volumes are noted. This causes a crowded appearance to the lung markings and limits evaluation. Mediastinum: Mediastinal contours appear normal. Heart size is normal. Bones and chest wall: No suspicious bony lesions. Age-appropriate bony degenerative changes are seen. Overlying soft tissues appear unremarkable. IMPRESSION: The tip of the gastric tube is seen overlying the proximal stomach. Low lung volumes. Dictated by: Lake Moore M.D. on 06/24/2020 at 7:07 Approved by: Lake Moore M.D. on 06/24/2020 at 7:10
[2020-06-24 07:07] LABS: Procalcitonin 0.49 ng/mL (<0.5)
--- NOTE | 2020-06-24 08:49 | P.PN_ITS ---
Subjective Subjective Date Patient Seen: 06/24/20 Time Patient Seen: 10:05 Interval history: Pain controlled with IV morphine; pt denies nausea. No gas or stool in the ostomy bag. Exam Vital Signs (past 8 hours): - 06/24/20 04:13 06/24/20 06:24 06/24/20 07:19 Temperature 97.9 F 96.4 F L Pulse Rate 76 63 66 Respiratory Rate 18 16 19 Blood Pressure 117/52 L 99/58 L Pulse Oximetry 97 95 97 Oxygen Delivery Method Room Air Oxygen Flow Rate 1 Narrative Exam Narrative: GENERAL: Alert, comfortable. Appears stated age. Answers questions promptly and appropriately. Vital signs noted. HENT: Normocephalic, atraumatic. Hearing intact. NGT in place and sumping. CARDIOVASCULAR: Regular rate. No pedal edema. RESPIRATORY: Non-tachypneic, breathing comfortably on room air. GASTROINTESTINAL: Abdomen soft and non-distended; appropriately TTP, dressings c/d/i, ostomy maroon, budded, no gas or stool in the bag; kalli drain with serosanguinous output GENITALURINARY: No flank tenderness. lacey in place with clear urine MUSCULOSKELETAL: Equal tone and mass bilaterally. SKIN: Warm, dry, soft, appropriate color for ethnicity. No other lesions, rashes, or wounds. NEURO: Alert and Oriented X 3. No gross sensory deficits, or cognitive issues. PSYCH: Appropriate affect and mood. Objective Labs Result Diagrams: 06/24/20 05:15 06/24/20 05:09 Labs: Laboratory Results - last 24 hr 06/23/20 06/23/20 06/23/20 14:27 14:27 14:27 WBC 13.1 H RBC 3.51 L Hgb 10.4 L Hct 30.1 L MCV 85.7 MCH 29.7 MCHC 34.7 RDW 14.0 Plt Count 270 Neut % (Auto) 80.7 H Lymph % (Auto) 10.3 L [place] % (Auto) 6.8 Eos % (Auto) 0.7 L Baso % (Auto) 1.5 Neut # (Auto) 19401 H Lymph # (Auto) 1400 [place] # (Auto) 900 Eos # (Auto) 100 Baso # (Auto) 200 H PT 14.9 H INR 1.3 APTT 25 L Sodium 130 L Potassium 3.9 Chloride 96 L Carbon Dioxide 26 BUN 14 Creatinine 0.73 Estimated GFR > 60.0 BUN/Creatinine Ratio 19.2 Glucose 99 Lactate Calcium 8.8 Phosphorus Magnesium Total Bilirubin 0.7 AST 27 ALT 19 Alkaline Phosphatase 87 Total Protein 7.4 Albumin 4.0 Globulin 3.4 Albumin/Globulin Ratio 1.2 Lipase 95 Procalcitonin Urine RBC Urine WBC Ur Squamous Epith Cells Ur Transition Epith Cell Urine Bacteria Urine Mucus Ur Culture Indicated? SARS-CoV-2 (PCR) 06/23/20 06/23/20 06/23/20 14:27 15:22 16:17 WBC RBC Hgb Hct MCV MCH MCHC RDW Plt Count Neut % (Auto) Lymph % (Auto) [place] % (Auto) Eos % (Auto) Baso % (Auto) Neut # (Auto) Lymph # (Auto) [place] # (Auto) Eos # (Auto) Baso # (Auto) PT INR APTT Sodium Potassium Chloride Carbon Dioxide BUN Creatinine Estimated GFR BUN/Creatinine Ratio Glucose Lactate 1.1 Calcium Phosphorus Magnesium Total Bilirubin AST ALT Alkaline Phosphatase Total Protein Albumin Globulin Albumin/Globulin Ratio Lipase Procalcitonin Urine RBC 0-1/hpf Urine WBC 1-5/hpf Ur Squamous Epith Cells 10-30 /hpf H Ur Transition Epith Cell 1-5/hpf Urine Bacteria Few (2-10) H Urine Mucus 2+ H Ur Culture Indicated? Cult not indicated SARS-CoV-2 (PCR) Negative 06/24/20 06/24/20 06/24/20 05:09 05:15 05:45 WBC 12.1 H RBC 3.48 L Hgb 10.1 L Hct 29.5 L MCV 84.7 MCH 28.9 MCHC 34.1 RDW 14.1 Plt Count 243 Neut % (Auto) 94.1 H Lymph % (Auto) 2.6 L [place] % (Auto) 3.2 Eos % (Auto) 0.0 L Baso % (Auto) 0.1 Neut # (Auto) 32254 H Lymph # (Auto) 300 L [place] # (Auto) 400 Eos # (Auto) 0 Baso # (Auto) 0 PT INR APTT Sodium 134 L Potassium 4.0 Chloride 101 Carbon Dioxide 27 BUN 13 Creatinine 0.57 Estimated GFR > 60.0 BUN/Creatinine Ratio 22.8 H Glucose 165 H Lactate Calcium 8.1 L Phosphorus 4.1 Magnesium 2.2 Total Bilirubin AST ALT Alkaline Phosphatase Total Protein Albumin Globulin Albumin/Globulin Ratio Lipase Procalcitonin 0.49 Urine RBC Urine WBC Ur Squamous Epith Cells Ur Transition Epith Cell Urine Bacteria Urine Mucus Ur Culture Indicated? SARS-CoV-2 (PCR) [facility] Medical History Acquired hypothyroidism Chicken pox Essential hypertension Febrile illness Has 3 children Measles Mixed hyperlipidemia UTI (urinary tract infection) Vision disorder Family History Father No problems noted. Mother Hypertension Grandfather Pneumonia Social History household members: other Smoking Status: Never smoker alcohol intake: current Assessment & Plan Assessment and plan (1) Perforated sigmoid colon: Status: Acute (2) Essential hypertension: Status: Chronic (3) Acquired hypothyroidism: Status: Chronic (4) Obesity (BMI 30.0-34.9): Problem details: The patient's abdominal obesity significantly increased the complexity and difficulty of her laparotomy and to bring up her end colostomy, because her abdominal wall was 2-3 inches thick. Her obesity also complicates her post op course because it increases the risk of wound infection, hernia, fascial dehiscense, ostomy ischemia, and ostomy retraction. Status: Acute (5) Colon cancer: Problem details: Perforated sigmoid colon cancer with local invasion into the anterior abdominal wall and invasion into a loop of small bowel. Pt will need to recover from surgery, and then have staging workup. Status: Acute (6) Abdominal wall defect: Status: Acute (7) Peritoneal abscess: Status: Acute Assessment & Plan narrative: This is a 74-year-old woman who is post op day 1 from laparotomy, sigmoid resection, evacuation of abdominal abscess associated with perforation of the colon, small bowel resection, and end colostomy creation. The ostomy looks ok, but has not produced any gas or stool yet. The patient is bothered by the NGT, but we will need to leave it in until she puts out something from the ostomy. It is protecting the small bowel anastomosis at this point. We can give her PO meds through the tube and clamp it 30 minutes for meds and for ambulation. Once she can ambulate the lacey can be removed. She may wear an abdominal binder for support during ambulation, and we will ask PT to work with her to help with ambulation. Plan: NPO except for ice chips and meds IV fluids daily labs DVT ppx with heparin and SCDs IV antibiotics, will continue zosyn and await culture results from OR Ambulate as tolerated Abdominal binder as needed for ambulation Ostomy teaching COVID-19 COVID-19 status: Negative Result date/Date tested (Pos, Neg/Pending): 06/23/20 Time Spent With Patient Time with patient: 25 - 35 minutes Quality VTE Deep Vein Thrombosis/Pulmonary Embolism Present on Admission: No
--- NOTE | 2020-06-24 09:30 | PC.NURSE ---
Day shift: Per Dr Ordaz the order for RN to collect fluid was done in OR. That order has been d/c'd at this time.
[2020-06-24] MEDS: HEPARIN 5,000 UNIT/ML VIAL 5000 UNIT SUBCUT ×2 (09:59→21:45)
[2020-06-24] MEDS: PANTOPRAZOLE 40 MG VIAL IV (09:59)
[2020-06-24] MEDS: GABAPENTIN 300 MG CAPSULE PO ×2 (10:00→21:45)
[2020-06-24] MEDS: BENZOCAINE/MENTHOL 1 LOZ PKT 1 EACH PO ×2 (11:25→21:45)
--- NOTE | 2020-06-24 11:32 | PT.IIE ---
Current Diagnoses Malignant neoplasm of colon, unspecified (06/23/20) Hypothyroidism, unspecified (06/23/20) Obesity, unspecified (06/23/20) Essential (primary) hypertension (06/23/20) Perforation of intestine (nontraumatic) (06/23/20) Peritoneal abscess (06/23/20) Surgery Performed Operation Date: 06/23/20 07:00 <No data on this case meets the specified criteria> Operation Date: 06/23/20 17:30 Actual Procedures p Exploratory Laparotomy GEN with sigmoid and small bowel resection and colostomy - Yoli Biswas MD Medical History (Last Reviewed 06/24/20 @ 10:11 by Yoli Biswas MD) Acquired hypothyroidism Chicken pox Essential hypertension Febrile illness Has 3 children Measles Mixed hyperlipidemia UTI (urinary tract infection) Vision disorder Physical Therapy Inpatient Evaluation/Re-Eval M1 PT/OT-IP Prior Functional Status Start: 06/24/20 13:59 Freq: NEEDED Status: Active Protocol: Document 06/24/20 11:32 AB (Rec: 06/24/20 14:09 AB [email or web address]) Medical Review Prior Functional Status Medical History Reviewed Yes Diet/Fluid Consistency NPO Communication able to make needs known Mobility and Gait pt stated that she is independent with all mobilities and ambulation without AD Social History Household Members other Living Arrangements RV Number of Floors (Floors) Two Floors Number of Stairs To Enter/Railing? pt plans to stay at her niece' s house upon d/c and stated that her niece will be able to assist her. info will be regarding pt's niece's house set up 14 steps L rail to bed room level 3 steps R rail to enter Additional Social History Comment pt stated that her niece just renovated their house and pt does not know regarding toilet /shower set up M2 PT-IP Current Condition Start: 06/24/20 13:59 Freq: NEEDED Status: Active Protocol: Document 06/24/20 11:32 AB (Rec: 06/24/20 14:09 AB [email or web address]) Physical Therapy Current Condition Current Condition Evaluation Date 06/24/20 Treatment Diagnosis s/p colectomy; difficulty in walking Onset Date 06/23/20 Precautions Abdominal Surgery Precautions Log Roll,Lifting Restrictions, Gait Belt above Incisional Area M3 PT-IP Subjective Start: 06/24/20 13:59 Freq: NEEDED Status: Active Protocol: Document 06/24/20 11:32 AB (Rec: 06/24/20 14:09 AB [id number]) Subjective Physical Therapy Visit Type Type Initial Evaluation Visit Start Time 11:32 Visit Stop Time 12:08 Total Visit Minutes 36 Number of LIGHTER CAPTAIN Visits 0 Physical Therapy Visit Comments Patient Comments pt is agreeable to do PT Therapy Pain Assessment Pain When Pain Assessed During Mobility Pain Present Pain Present Pain Reported Location abd Scale Used pain scale not stated M4 PT-IP Mobility and Gait Start: 06/24/20 13:59 Freq: NEEDED Status: Active Protocol: Document 06/24/20 11:32 AB (Rec: 06/24/20 14:09 AB [id number]) PT-Bed Mobility Assessment Rolling Type of Rolling Log Rolling Level of Assist Minimal Assistance Supine to Sit Supine to Sit Minimal Assistance PT-Transfer Assessment Sit to and From Stand Sit to and from Stand Contact Guard Assistance,1 Person Assistance,Use of Upper Extremities Equipment Transfer Assistive Device Gait Belt,Front Wheeled Walker Orthotic/Prosthetic Devices or Brace: No Transfers Transfer Destination Chair Transfer Technique ambulated using FWW Transfer Ability Level of Assist Contact Guard Assistance,1 Person Assistance,Use of Upper Extremities Comments Mobility Comments educated pt regarding abdominal precautions and log roll bed mobility. pt completed supine to sit SBA with use of bed rail. pt was able to sit on EOB SBA. initial c/o dizziness but dissipated. completed sit to stand CGA and ambulated in room ~ 80 ft using FWW CGA. agreed to sit up on chair. call light and table placed within reach. Gait Assessment Gait Gait Assistance Required: Contact Guard Assist Distance (Feet) 80 Able to Maintain Weight Bearing Status Yes During Gait Assistive Devices Assistive Device Gait Belt,Front Wheeled Walker Orthotic/Prosthetic Devices or Brace: No Gait Deviations General Gait Pattern Decreased Stride Length, Decreased Feet Clearance Factors Limiting Gait Function Factors Limiting Gait Function Decreased Activity Tolerance, Decreased Strength,Limited Range of Motion,Pain,Poor Balance,Poor Safety Awareness PT-Balance Assessment Sitting Balance and Reactions Static Sitting Balance Ability Good Dynamic Sitting Balance Ability Good Standing Balance and Reactions Static Standing Balance Ability Fair Dynamic Standing Balance Ability Fair Device Used FWW M5 PT-IP Objective Assessments Start: 06/24/20 13:59 Freq: NEEDED Status: Active Protocol: Document 06/24/20 11:32 AB (Rec: 06/24/20 14:09 AB [email or web address]) Orientation Orientation/Cognition Level of Alertness Alert Orientation Name,Place,Situation Language Function Ability No Deficits Noted Safety Awareness Understands Safety Issues Memory Description No Deficits Noted Gross Range of Motion Lower Extremity ROM Assessment Within Functional Limits Strength Lower Extremity Strength Assessment Within Functional Limits Coordination Assessment Gross Coordination Gross Coordination WNL Sensation Assessment Sensation Gross Sensation WNL Muscle Tone Muscle Tone WNL Yes M6 PT-IP Treatment Start: 06/24/20 13:59 Freq: NEEDED Status: Active Protocol: Document 06/24/20 11:32 AB (Rec: 06/24/20 14:09 AB [id number]) Physical Therapy Treatment Education Education Provided Precautions,Safety M7 PT-IP Assessment and Plan Start: 06/24/20 13:59 Freq: NEEDED Status: Active Protocol: Document 06/24/20 11:32 AB (Rec: 06/24/20 14:09 AB [email or web address]) PT Summary Assessment and Plan Potential Rehabilitation Potential Good Status of Condition at Evaluation Evolving Summary Impairments Pain,ROM,Strength,Balance, Coordination,Sensation,Tone, Cognition,Bed Mobility, Transfers,Gait,Activity Tolerance Assessment Summary pt requiring CGA with mobility . pt will likely progress during hospital stay and plans to go home with her niece to assist her. will continue to assess progress. Goals Bed Mobility Goal Independent Transfer Goal Independent,Front Wheeled Walker Gait Goal Independent,Front Wheel Walker Gait Distance 150 Other Goals improve ambulation without AD 250 ft mod i up/down 3 steps R rails; 14 steps L rail SBA Days to Meet Goals 10 Frequency of Treatment Frequency Of Treatment Once a Day Treatment Plan Physical Therapy Treatment Plan Bed Mobility Training,Transfer Training,Gait Training, Therapeutic Exercise,Balance Retraining,Post Op Education, Discharge Planning,Hot or Cold Pack,Neuromuscular Re-ed, Coordination Retraining Recommendations To Nursing Amount of Assist Needed 1 Person Assist Discharge Recommendations PT Discharge Recommendations Home with Assistance,Home Health Equipment Needed for Home Before FWW if not safe withotu AD Discharge Transportation Needs at Discharge Private Vehicle
--- NOTE | 2020-06-24 11:32 | PC.NURSE ---
Day shift: Pt having 7/10 pain RUQ. Medicated per JUL. Pt to get OOB w/ PT at this time (1130) and if Pt moves well the [facility] will be d/c'd per . NG to suction and patent. Pt denies any nausea. Given Cepacol throat lozenge for c/o throat pain. Makes needs known proper. Call light in reach. Will continue w/ plan of care.
--- NOTE | 2020-06-24 15:36 | CM.IDA ---
Initial DCP Assessment Note Patient is a 74 yo female, has been traveling in her RV, visiting family and friends, presents w/ongoing sickness and fever and found to have a perforated sigmoid colon and now post op day 1 from laparotomy, sigmoid resection, evacuation of abdominal abscess associated with perforation of the colon, small bowel resection, and end colostomy creation PCP: Dr Manuel Dawson Payer: DAVIS RUELAS Spoke w/ Dr Biswas this morning, she suspects that patient likely has an advanced colon cancer but she will need to see oncology for f/u and staging. Dr Biswas states patient will require Ostomy teaching by herself and nursing staff, unless a contracted Ostomy Nurse is available at ([facility] Met w/patient to introduce role. Patient is in very good spirits. Patient is from [place] and reviews some of her life history w/this QUALITY CONTROL. Patient has spent the last few months traveling in her RV w/her dog Nithin. Patient has been indp, active, and has 3 adult children, one in [place], one in [place] and one in [place]. Patient plans to DC with her leighann Mera who lives in [place], near the [facility]. Leighann Mera Day P# [phone] is taking care of patient's dog and will plan to transport patient back to her home to care for her. Address: [address] [place] [address] This QUALITY CONTROL asks if patient is nervous about upcoming recovery process, management of new ostomy, and f/u w/oncology... and patient states she has never been sick in her life, that she has lived a good life and feels if it's my time it's my time. Patient states she is not scared at this time maybe I'm in denial, I don't know! Discussed home health nursing and patient thought this would be beneficial. This QUALITY CONTROL unable to get F2F signed and make HH referral today ([facility] ?). DCP team will need to follow closely as medical POC unfolds. JAHAIRA Chavez Discharge Planning/Care Management CM Discharge Assessment Start: 06/24/20 15:34 Freq: Status: Active Protocol: Document 06/24/20 15:34 TAMAR (Rec: 06/24/20 15:36 JW [id number]) Discharge Planning Assessment Assigned Records Custodian JAHAIRA Ramsey DPOA/Assigned Designee Name leighann Mejia Contact Information [phone] Advance Directives? No History Provided By Patient Prior Living Arrangements RV Household Members other Type of transporation used prior to Drives own vehicle admit Independent with ADL's Yes Is patient alert and oriented? Yes Patient/Family Preference Home with Home Health
[2020-06-24] MEDS: LEVOTHYROXINE INJ 100 MCG/5 ML VIAL 12.5 MCG IV (17:40)
[2020-06-25] VITALS (7 sets, daily range): BP systolic 110–144; BP diastolic 57–75; PULSE 63–78; RESP 14–18; TEMP 35.2–37.3; O2SAT 95–96
[2020-06-25] MEDS: ACETAMINOPHEN 325 MG TABLET 650 MG PO ×3 (00:24→13:13)
[2020-06-25] MEDS: PIPERACILLIN-TAZO 3.375 GM/50 ML FROZ.PIGGY IV (04:46)
[2020-06-25 06:09] LABS: BUN Creatinine Ratio 28.6 (6-22); Blood Urea Nitrogen 14 mg/dL (7-17); Calcium 7.8 mg/dL (8.4-10.2); Carbon Dioxide 28 mmol/L (22-32); Chloride 106 mmol/L (98-107); Estimated Glomerular Filt Rate > 60.0 mL/min (>60); Glucose 129 mg/dL (80-110); HEMOLYSIS < 15 (0-50); Magnesium 2.6 mg/dL (1.6-2.3); Phosphorous 2.6 mg/dL (2.8-4.1); Potassium 3.5 mmol/L (3.4-5.1); Sodium 138 mmol/L (137-145)
[2020-06-25 06:20] LABS: Add Manual Diff / Slide Review NO; Basophils Absolute Auto 0 /uL (0-100); Basophils Percent Auto 0.1 % (0-2); Eosinophils Absolute Auto 0 /uL (0-450); Hematocrit 26.3 % (36-46); Lymphocytes Absolute Auto 500 /uL (1100-4500); Lymphocytes Percent Auto 4.5 % (25-40); Mean Corpuscular HGB Conc 34.4 % (30-36); Mean Corpuscular Hemoglobin 29.2 PG (26-34); Monocytes Absolute Auto 600 /uL (0-900); Monocytes Percent Auto 5.5 % (3-14); Neutrophils Absolute Auto 9200 /uL (1500-7000); Neutrophils Percent Auto 89.9 % (50-75); Platelet Count 287 X10^3/uL (150-400); Red Blood Cell Count 3.09 X10^6/uL (4.0-5.2); Red Cell Distribution Width 14.1 % (11.6-14.8); White Blood Cell Count 10.2 X10^3/uL (4.5-11.0)
[2020-06-25] MEDS: POTASSIUM PHOSPHATE 15 MMOL in DEXTROSE 5% IN WATER 250 ML 63.75 ML IV ×2 (07:45→17:13)
--- NOTE | 2020-06-25 09:10 | P.PN_ITS ---
Subjective Subjective Date Patient Seen: 06/25/20 Time Patient Seen: 09:23 Interval history: No acute events overnight. There is some equivocal report of possible gas in the bag overnight, but the patient does not recall this happening. She says she has been up and walking, and has spoken to all of her family in [place], and has been sitting up in the chair, and her pain has been reasonably well controlled with just Tylenol. Exam Vital Signs (past 8 hours): - 06/25/20 05:30 06/25/20 07:59 Temperature 97.6 F 98.1 F Pulse Rate 63 66 Respiratory Rate 14 18 Blood Pressure 110/57 L 115/65 Pulse Oximetry 95 95 Oxygen Delivery Method Room Air Oxygen Flow Rate 0 Narrative Exam Narrative: GENERAL: Alert, comfortable. Appears stated age. Answers questions promptly and appropriately. Vital signs noted. HENT: Normocephalic, atraumatic. Hearing intact. NGT in place and sumping. CARDIOVASCULAR: Regular rate. No pedal edema. RESPIRATORY: Non-tachypneic, breathing comfortably on room air. GASTROINTESTINAL: Abdomen soft and non-distended; appropriately TTP, incision c/d/i, ostomy maroon, budded, no gas or stool in the bag; kalli drain with serosanguinous output GENITALURINARY: No flank tenderness. MUSCULOSKELETAL: Equal tone and mass bilaterally. SKIN: Warm, dry, soft, appropriate color for ethnicity. No other lesions, rashes, or wounds. NEURO: Alert and Oriented X 3. No gross sensory deficits, or cognitive issues. PSYCH: Appropriate affect and mood. Objective Labs Result Diagrams: 06/25/20 05:38 06/25/20 05:38 Labs: Laboratory Results - last 24 hr 06/25/20 06/25/20 05:38 05:38 WBC 10.2 RBC 3.09 L Hgb 9.0 L Hct 26.3 L MCV 85.0 MCH 29.2 MCHC 34.4 RDW 14.1 Plt Count 287 Neut % (Auto) 89.9 H Lymph % (Auto) 4.5 L [place] % (Auto) 5.5 Eos % (Auto) 0.0 L Baso % (Auto) 0.1 Neut # (Auto) 9200 H Lymph # (Auto) 500 L [place] # (Auto) 600 Eos # (Auto) 0 Baso # (Auto) 0 Sodium 138 Potassium 3.5 Chloride 106 Carbon Dioxide 28 BUN 14 Creatinine 0.49 L Estimated GFR > 60.0 BUN/Creatinine Ratio 28.6 H Glucose 129 H Calcium 7.8 L Phosphorus 2.6 L D Magnesium 2.6 H PFSH Medical History Acquired hypothyroidism Chicken pox Essential hypertension Febrile illness Has 3 children Measles Mixed hyperlipidemia UTI (urinary tract infection) Vision disorder Family History Father No problems noted. Mother Hypertension Grandfather Pneumonia Social History household members: other Smoking Status: Never smoker alcohol intake: current Assessment & Plan Assessment and plan (1) Perforated sigmoid colon: Status: Acute (2) Essential hypertension: Status: Chronic (3) Acquired hypothyroidism: Status: Chronic (4) Obesity (BMI 30.0-34.9): Problem details: The patient's abdominal obesity significantly increased the complexity and difficulty of her laparotomy and to bring up her end colostomy, because her abdominal wall was 2-3 inches thick. Her obesity also complicates her post op course because it increases the risk of wound infection, hernia, fascial dehiscense, ostomy ischemia, and ostomy retraction. Status: Acute (5) Colon cancer: Problem details: Perforated sigmoid colon cancer with local invasion into the anterior abdominal wall and invasion into a loop of small bowel. Pt will need to recover from surgery, and then have staging workup. Status: Acute (6) Abdominal wall defect: Status: Acute (7) Peritoneal abscess: Status: Acute Assessment & Plan narrative: This is a 74-year-old woman who is post op day 2 from laparotomy, sigmoid resection, evacuation of abdominal abscess associated with perforation of the colon, small bowel resection, and end colostomy creation. The ostomy looks ok, but has not produced any gas or stool yet. We will need to leave the NG tube in until she puts out something from the ostomy. It is protecting the small bowel anastomosis at this point. We can continue to give her PO meds through the tube and clamp it 30 minutes for meds and for ambulation. She should continue to ambulate as much as possible. She may wear an abdominal binder for support during ambulation. We will replace her phosphorus, as it is low. We will continue of things largely the same until she has some return of bowel function Plan: NPO except for ice chips and meds IV fluids daily labs Replete phos Recheck BMP and phos this afternoon DVT ppx with heparin and SCDs DC antibiotics, as procalcitonin was normal, and white count has come down to normal Ambulate as tolerated Abdominal binder as needed for ambulation Ostomy teaching COVID-19 COVID-19 status: Negative Result date/Date tested (Pos, Neg/Pending): 06/23/20 Time Spent With Patient Time with patient: 25 - 35 minutes Quality VTE Deep Vein Thrombosis/Pulmonary Embolism Present on Admission: No
[2020-06-25] MEDS: PANTOPRAZOLE 40 MG VIAL IV (09:17)
[2020-06-25] MEDS: GABAPENTIN 300 MG CAPSULE PO (09:17)
[2020-06-25] MEDS: HEPARIN 5,000 UNIT/ML VIAL 5000 UNIT SUBCUT ×2 (09:17→21:35)
[2020-06-25] MEDS: BENZOCAINE/MENTHOL 1 LOZ PKT 1 EACH PO ×3 (10:22→21:36)
--- NOTE | 2020-06-25 11:10 | PT.IPTN ---
Current Diagnoses Malignant neoplasm of colon, unspecified (06/23/20) Hypothyroidism, unspecified (06/23/20) Obesity, unspecified (06/23/20) Essential (primary) hypertension (06/23/20) Perforation of intestine (nontraumatic) (06/23/20) Peritoneal abscess (06/23/20) Surgery Performed Operation Date: 06/23/20 07:00 <No data on this case meets the specified criteria> Operation Date: 06/23/20 17:30 Actual Procedures p Exploratory Laparotomy GEN with sigmoid and small bowel resection and colostomy - Yoli Biswas MD Physical Therapy Treatment Note M2 PT-IP Current Condition Start: 06/24/20 13:59 Freq: NEEDED Status: Active Protocol: Document 06/24/20 11:32 AB (Rec: 06/24/20 14:09 AB [id number]) Physical Therapy Current Condition Current Condition Evaluation Date 06/24/20 Treatment Diagnosis s/p colectomy; difficulty in walking Onset Date 06/23/20 Precautions Abdominal Surgery Precautions Log Roll,Lifting Restrictions, Gait Belt above Incisional Area M3 PT-IP Subjective Start: 06/24/20 13:59 Freq: NEEDED Status: Active Protocol: Document 06/25/20 10:51 HIRAM (Rec: 06/25/20 11:10 HIRAM [id number]) Subjective Physical Therapy Visit Type Type Treatment Note Visit Start Time 10:14 Visit Stop Time 11:00 Total Visit Minutes 46 Physical Therapy Visit Comments Patient Comments pt is agreeable to do PT Therapy Pain Assessment Pain When Pain Assessed During Mobility Pain Present Pain Present Pain Reported M4 PT-IP Mobility and Gait Start: 06/24/20 13:59 Freq: NEEDED Status: Active Protocol: Document 06/25/20 10:51 HIRAM (Rec: 06/25/20 11:10 HIRAM [id number]) PT-Transfer Assessment Sit to and From Stand Sit to and from Stand Contact Guard Assistance,1 Person Assistance,Use of Upper Extremities Equipment Transfer Assistive Device Gait Belt,Front Wheeled Walker Orthotic/Prosthetic Devices or Brace: No Transfers Transfer Destination Chair Transfer Technique ambulated using FWW Transfer Ability Level of Assist Contact Guard Assistance,1 Person Assistance,Use of Upper Extremities Comments Mobility Comments Pt required assist with IV lines but able to transfer from chair to BSC and again to chair after ambulation with CGA and use of UEs. Gait Assessment Gait Gait Assistance Required: Standby Assistance,Contact Guard Assist,1 Person Assist Distance (Feet) 400 Able to Maintain Weight Bearing Status Yes During Gait Assistive Devices Assistive Device None,Straight Cane,Front Wheeled Walker Orthotic/Prosthetic Devices or Brace: No Gait Deviations General Gait Pattern Decreased Stride Length, Decreased Feet Clearance Factors Limiting Gait Function Factors Limiting Gait Function Decreased Activity Tolerance, Decreased Strength,Limited Range of Motion,Pain,Poor Balance Comments Gait Comments Pt ambulated in hallway x2 laps around entire acute valencia SBA and CGA and assist with IV pole. Pt ambulated without AD SBA 100' in hallway prior to returning to room. Pt is steady with slight lateral sway and shortened steps. Returned to chair with all needs within reach. M5 PT-IP Objective Assessments Start: 06/24/20 13:59 Freq: NEEDED Status: Active Protocol: Document 06/24/20 11:32 AB (Rec: 06/24/20 14:09 AB [email or web address]) Orientation Orientation/Cognition Level of Alertness Alert Orientation Name,Place,Situation Language Function Ability No Deficits Noted Safety Awareness Understands Safety Issues Memory Description No Deficits Noted Gross Range of Motion Lower Extremity ROM Assessment Within Functional Limits Strength Lower Extremity Strength Assessment Within Functional Limits Coordination Assessment Gross Coordination Gross Coordination WNL Sensation Assessment Sensation Gross Sensation WNL Muscle Tone Muscle Tone WNL Yes M6 PT-IP Treatment Start: 06/24/20 13:59 Freq: NEEDED Status: Active Protocol: Document 06/25/20 10:51 HIRAM (Rec: 06/25/20 11:10 HIRAM [id number]) Physical Therapy Treatment Education Education Provided Precautions,Safety M7 PT-IP Assessment and Plan Start: 06/24/20 13:59 Freq: NEEDED Status: Active Protocol: Document 06/25/20 10:51 HIRAM (Rec: 06/25/20 11:10 HIRAM [id number]) PT Summary Assessment and Plan Potential Rehabilitation Potential Good Status of Condition at Evaluation Evolving Summary Impairments Pain,ROM,Strength,Balance, Coordination,Sensation,Tone, Cognition,Bed Mobility, Transfers,Gait,Activity Tolerance Assessment Summary Pt progressing well with ambulation distance and ability. She was able to ambulate in hallway roughly 100 feet without AD and SBA. Goals Bed Mobility Goal Independent Transfer Goal Independent,Front Wheeled Walker Gait Goal Independent,Front Wheel Walker Gait Distance 150 Other Goals improve ambulation without AD 250 ft mod i up/down 3 steps R rails; 14 steps L rail SBA Days to Meet Goals 10 Frequency of Treatment Frequency Of Treatment Once a Day Treatment Plan Physical Therapy Treatment Plan Bed Mobility Training,Transfer Training,Gait Training, Therapeutic Exercise,Balance Retraining,Post Op Education, Discharge Planning,Hot or Cold Pack,Neuromuscular Re-ed, Coordination Retraining Other Recommendations and Next Treatment stair training and progressing Focus distance w/o AD Recommendations To Nursing Amount of Assist Needed 1 Person Assist Discharge Recommendations PT Discharge Recommendations Home with Assistance,Home Health
--- NOTE | 2020-06-25 12:07 | PC.NURSE ---
Day shift: Pt denies pain and did not want the Tylenol at noon today. Ambulated in the halls w/ PT and tolerated very well. Denies any nausea. Colostomy bag patent w/ no stool or flatus present as this is written ([id number]). Pt remains in good spirits and has been very talkative today. NG tube patent and set per MD instructions. Makes need known proper. Is sitting in chair now and doing stuff w/ her IPhone. Call light in reach. Voiding ok. Tolerating IV fluids. Remains on room air w/ good O2 sats. Will continue w/ plan of care.
--- NOTE | 2020-06-25 13:07 | CM.DPC ---
DCP HH Planning: Per Surgeon, pt seems to have adequate pain control and has been ambulating halls but still no ostomy output so will continue with NGT for now and wait for ostomy function confirmation and bedside teaching. Per PT, recommending home with assist and HH. Pt in quite good spirits still and no HH preference after reviewing HH Choice List and SW made [facility] referral based on vendor calendar and confirmed that they cover [place], [place] ([facility] is [facility]) where pt will discharge to when stable to her [facility] for a while for the additional assist as pt resides in her RV currently traveling to see family and friends. SW faxed clinicals to [facility] for review and completed F2F but missed Surgeon today to get signature on F2F. Plan: SW to follow closely for Surgeon signature on F2F for PT/RN at d/c at [facility] for strengthening and new ostomy care and for pt's progress with ostomy output prior to d/c. JAHAIRA Giron
[2020-06-25] MEDS: SODIUM CHLORIDE 0.9% 1,000 ML 100 ML IV ×2 (13:13→23:36)
[2020-06-25 15:09] LABS: Blood Urea Nitrogen 11 mg/dL (7-17); Calcium 8.2 mg/dL (8.4-10.2); Carbon Dioxide 30 mmol/L (22-32); Chloride 106 mmol/L (98-107); Estimated Glomerular Filt Rate > 60.0 mL/min (>60); Glucose 106 mg/dL (80-110); HEMOLYSIS < 15 (0-50); Magnesium 2.7 mg/dL (1.6-2.3); Phosphorous 2.4 mg/dL (2.8-4.1); Potassium 3.4 mmol/L (3.4-5.1); Sodium 139 mmol/L (137-145)
[2020-06-25] MEDS: LEVOTHYROXINE INJ 100 MCG/5 ML VIAL 12.5 MCG IV (17:13)
[2020-06-26 00:09] VITALS: BP 134/73; PULSE 76; RESP 18; TEMP 36.4; O2SAT 96
[2020-06-26] MEDS: ACETAMINOPHEN 325 MG TABLET 650 MG PO ×4 (01:26→19:31)
[2020-06-26] MEDS: MORPHINE 2 MG/ML INJ IV (02:56)
[2020-06-26 03:49] VITALS: BP 129/87; PULSE 74; RESP 18; TEMP 36.6; O2SAT 96
[2020-06-26 07:36] LABS: Add Manual Diff / Slide Review NO; Basophils Absolute Auto 0 /uL (0-100); Basophils Percent Auto 0.3 % (0-2); Eosinophils Absolute Auto 0 /uL (0-450); Eosinophils Percent Auto 0.1 % (2-4); Hematocrit 26.7 % (36-46); Hemoglobin 9.3 g/dL (12.0-16.0); Lymphocytes Absolute Auto 1100 /uL (1100-4500); Lymphocytes Percent Auto 17.6 % (25-40); Mean Corpuscular HGB Conc 34.8 % (30-36); Mean Corpuscular Hemoglobin 31.2 PG (26-34); Mean Corpuscular Volume 89.7 fL (80-100); Monocytes Absolute Auto 500 /uL (0-900); Monocytes Percent Auto 7.8 % (3-14); Neutrophils Absolute Auto 4800 /uL (1500-7000); Neutrophils Percent Auto 74.2 % (50-75); Platelet Count 299 X10^3/uL (150-400); Red Blood Cell Count 2.97 X10^6/uL (4.0-5.2); White Blood Cell Count 6.5 X10^3/uL (4.5-11.0)
[2020-06-26 07:49] LABS: BUN Creatinine Ratio 16.7 (6-22); Blood Urea Nitrogen 7 mg/dL (7-17); Calcium 7.8 mg/dL (8.4-10.2); Carbon Dioxide 29 mmol/L (22-32); Chloride 108 mmol/L (98-107); Estimated Glomerular Filt Rate > 60.0 mL/min (>60); Glucose 86 mg/dL (80-110); HEMOLYSIS < 15 (0-50); Magnesium 2.2 mg/dL (1.6-2.3); Phosphorous 2.4 mg/dL (2.8-4.1); Potassium 3.3 mmol/L (3.4-5.1); Sodium 140 mmol/L (137-145)
[2020-06-26 08:00] VITALS: BP 126/76; PULSE 67; RESP 16; TEMP 36.4; O2SAT 95
--- NOTE | 2020-06-26 09:31 | PT.IPTN ---
Current Diagnoses Malignant neoplasm of colon, unspecified (06/23/20) Hypothyroidism, unspecified (06/23/20) Obesity, unspecified (06/23/20) Essential (primary) hypertension (06/23/20) Perforation of intestine (nontraumatic) (06/23/20) Peritoneal abscess (06/23/20) Surgery Performed Operation Date: 06/23/20 07:00 <No data on this case meets the specified criteria> Operation Date: 06/23/20 17:30 Actual Procedures p Exploratory Laparotomy GEN with sigmoid and small bowel resection and colostomy - Yoli Biswas MD Physical Therapy Treatment Note M2 PT-IP Current Condition Start: 06/24/20 13:59 Freq: NEEDED Status: Active Protocol: Document 06/24/20 11:32 AB (Rec: 06/24/20 14:09 AB [email or web address]) Physical Therapy Current Condition Current Condition Evaluation Date 06/24/20 Treatment Diagnosis s/p colectomy; difficulty in walking Onset Date 06/23/20 Precautions Abdominal Surgery Precautions Log Roll,Lifting Restrictions, Gait Belt above Incisional Area M3 PT-IP Subjective Start: 06/24/20 13:59 Freq: NEEDED Status: Active Protocol: Document 06/26/20 08:53 LJ (Rec: 06/26/20 09:31 LJ [id number]) Subjective Physical Therapy Visit Type Type Treatment Note Visit Start Time 08:53 Visit Stop Time 09:10 Total Visit Minutes 17 Physical Therapy Visit Comments Patient Comments pt is agreeable to do PT Therapy Pain Assessment Pain When Pain Assessed During Mobility Pain Present Pain Present Pain Reported M4 PT-IP Mobility and Gait Start: 06/24/20 13:59 Freq: NEEDED Status: Active Protocol: Document 06/26/20 08:53 LJ (Rec: 06/26/20 09:31 LJ [id number]) PT-Transfer Assessment Sit to and From Stand Sit to and from Stand Contact Guard Assistance,1 Person Assistance,Use of Upper Extremities Equipment Transfer Assistive Device Gait Belt Orthotic/Prosthetic Devices or Brace: No Transfer Ability Level of Assist Contact Guard Assistance,1 Person Assistance,Use of Upper Extremities Comments Mobility Comments Pt free from IV during tx. Safely transfered sit<>stand from/to chair using UEs with good control. Pt stood for several seconds prior to biginning ambulation to gently stretch her abdominal muscules. She stood without support without LOB or wobbling Gait Assessment Gait Gait Assistance Required: Standby Assistance,Contact Guard Assist,1 Person Assist Distance (Feet) 400 Able to Maintain Weight Bearing Status Yes During Gait Assistive Devices Assistive Device Gait Belt Orthotic/Prosthetic Devices or Brace: No Gait Deviations General Gait Pattern Decreased Stride Length, Decreased Feet Clearance Factors Limiting Gait Function Factors Limiting Gait Function Decreased Activity Tolerance, Decreased Strength,Limited Range of Motion,Pain Comments Gait Comments Pt ambulated in hallway around acute care floor without AD. Pace has gotten slightly faster than yesterday and pt is steady on her feet even with limited motion of her head due to NG tube. Able to carry on conversation while walking. Stair Climbing Assessment Evaluation Level of Assist On Stairs Standby Assistance Devices Stair Climbing Assistive Devices Left Railing,Right Railing Technique/Endurance Stair Climbing Direction Ascend and Descend Stair Climbing Technique Step Over Step Number of Steps Climbed 3 Stair Climbing Set # Repetitions (reps) 2 Comments Stair Climbing Comments Pt had no trouble using stairs while lightly holding onto rails. M5 PT-IP Objective Assessments Start: 06/24/20 13:59 Freq: NEEDED Status: Active Protocol: Document 06/24/20 11:32 AB (Rec: 06/24/20 14:09 AB [email or web address]) Orientation Orientation/Cognition Level of Alertness Alert Orientation Name,Place,Situation Language Function Ability No Deficits Noted Safety Awareness Understands Safety Issues Memory Description No Deficits Noted Gross Range of Motion Lower Extremity ROM Assessment Within Functional Limits Strength Lower Extremity Strength Assessment Within Functional Limits Coordination Assessment Gross Coordination Gross Coordination WNL Sensation Assessment Sensation Gross Sensation WNL Muscle Tone Muscle Tone WNL Yes M6 PT-IP Treatment Start: 06/24/20 13:59 Freq: NEEDED Status: Active Protocol: Document 06/26/20 08:53 LJ (Rec: 06/26/20 09:31 LJ [id number]) Physical Therapy Treatment Education Education Provided Precautions,Safety Other Treatments Other Treatment Performed education on safe techniques to gently stretch core musculature. M7 PT-IP Assessment and Plan Start: 06/24/20 13:59 Freq: NEEDED Status: Active Protocol: Document 06/26/20 08:53 LJ (Rec: 06/26/20 09:31 LJ [id number]) PT Summary Assessment and Plan Potential Rehabilitation Potential Good Status of Condition at Evaluation Evolving Summary Impairments Pain,ROM,Strength,Balance, Coordination,Sensation,Tone, Cognition,Bed Mobility, Transfers,Gait,Activity Tolerance Assessment Summary Pt not using AD for 400+' ambulation. Able to use stairs without difficulty. She has met current PT goals and would benefit from continued therapy to address improving her balance and strength to return her to her previous functional level after reassessment. Goals Bed Mobility Goal Independent Transfer Goal Independent,Front Wheeled Walker Gait Goal Independent,Front Wheel Walker Gait Distance 150 Other Goals improve ambulation without AD 250 ft mod i up/down 3 steps R rails; 14 steps L rail SBA Days to Meet Goals 10 Frequency of Treatment Frequency Of Treatment Once a Day Treatment Plan Physical Therapy Treatment Plan Bed Mobility Training,Transfer Training,Gait Training, Therapeutic Exercise,Balance Retraining,Post Op Education, Discharge Planning,Hot or Cold Pack,Neuromuscular Re-ed, Coordination Retraining Other Recommendations and Next Treatment advanced balance training Focus core musculature rehab Recommendations To Nursing Amount of Assist Needed 1 Person Assist Discharge Recommendations PT Discharge Recommendations Home with Assistance,Home Health Transportation Needs at Discharge Private Vehicle
[2020-06-26] MEDS: POTASSIUM PHOSPHATE 15 MMOL in DEXTROSE 5% IN WATER 250 ML 63.75 ML IV (09:34)
[2020-06-26] MEDS: PANTOPRAZOLE 40 MG VIAL IV (09:35)
[2020-06-26] MEDS: BENZOCAINE/MENTHOL 1 LOZ PKT 1 EACH PO ×2 (09:51→23:31)
[2020-06-26] MEDS: HEPARIN 5,000 UNIT/ML VIAL 5000 UNIT SUBCUT ×2 (09:59→23:25)
--- NOTE | 2020-06-26 10:46 | PC.NURSE ---
Day shift: The 2 IV fluids given this AM caused burning sensation at IV site. Fluids slowed and pain still present. SENIOR UX DESIGNER Rose Mary asked if IV could be started but she stated the veins did not look good. Dr Welch contacted and made aware. Phone order taken and placed for 2 lumen PICC. At this time K+ phos fluid is running at 500ml/hr w/ NS at 50ml/hr and Pt is tolerating well. Per PICC RN the PICC will be placed today at approx 1530. Will continue to monitor and continue w/ plan of care. Pt sitting in chair at this time (1050) w/ no c/o pain or discomfort. Call ligt in reach.
[2020-06-26 12:30] VITALS: BP 140/80; PULSE 73; RESP 16; TEMP 36.9; O2SAT 95
[2020-06-26 15:21] VITALS: BP 148/77; PULSE 78; RESP 18; TEMP 36.7; O2SAT 98
--- NOTE | 2020-06-26 15:36 | CM.DPC ---
DCP Continued: EMERGENCY MANAGEMENT SPECIALIST Student met with patient received sitting in chair she was pleasant alert and oriented. Educated on role of SW in d/c planning and provided contact number. Patient reported she prefers to d/c home with leighann Mera who will provide transportation. She is aware potential D/C date of 06/27/20. Patient anticipates being able to navigate entry into home environment. Patient continues to be in agreement to HH ([facility] has been contacted) for RN/PT. Provided RN with F2F for Dr. Campbell to sign. PLAN: CM Team to continue to follow patient. Will call [facility] upon D/C. JAHAIRA Schmidt MSW Student
[2020-06-26] MEDS: POTASSIUM CHLORIDE 30 MEQ in SODIUM CHLORIDE 0.9% 250 ML 88.333 ML IV (16:26)
--- NOTE | 2020-06-26 18:36 | P.PN_ITS ---
Subjective Subjective Date Patient Seen: 06/26/20 Time Patient Seen: 18:36 Interval history: The patient was seen earlier today and again this evening. Her NG bothers her nose but she has been up to the bathroom. No bowel function. No ostomy output that is apparent to her. Has pain but it seems to be reasonably controlled. Exam Vital Signs (past 8 hours): - 06/26/20 12:30 06/26/20 15:21 Temperature 98.4 F 98.1 F Pulse Rate 73 78 Respiratory Rate 16 18 Blood Pressure 140/80 148/77 H Pulse Oximetry 95 98 Oxygen Delivery Method Room Air Oxygen Flow Rate 0 Narrative Exam Narrative: Dressing is intact. Lungs are clear. Good effort when sitting up. Good movement of air into the bases. Heart regular rate and rhythm. Abdomen is distended soft. Ostomy is little dusky but it seems to be viable. No output. Midline dressing was left intact. There was a small amount of blood staining on it. Objective Labs Result Diagrams: 06/26/20 07:25 06/26/20 07:25 Labs: Laboratory Results - last 24 hr 06/26/20 06/26/20 07:25 07:25 WBC 6.5 RBC 2.97 L Hgb 9.3 L Hct 26.7 L MCV 89.7 D MCH 31.2 MCHC 34.8 RDW 14.0 Plt Count 299 Neut % (Auto) 74.2 Lymph % (Auto) 17.6 L [place] % (Auto) 7.8 Eos % (Auto) 0.1 L Baso % (Auto) 0.3 Neut # (Auto) 4800 Lymph # (Auto) 1100 [place] # (Auto) 500 Eos # (Auto) 0 Baso # (Auto) 0 Sodium 140 Potassium 3.3 L Chloride 108 H Carbon Dioxide 29 BUN 7 Creatinine 0.42 L Estimated GFR > 60.0 BUN/Creatinine Ratio 16.7 Glucose 86 Calcium 7.8 L Phosphorus 2.4 L Magnesium 2.2 PFSH Medical History Acquired hypothyroidism Chicken pox Essential hypertension Febrile illness Has 3 children Measles Mixed hyperlipidemia UTI (urinary tract infection) Vision disorder Family History Father No problems noted. Mother Hypertension Grandfather Pneumonia Social History household members: other Smoking Status: Never smoker alcohol intake: current Assessment & Plan Post-op Postoperative Procedures: Procedures Operation Date: 06/23/20 07:00 <No data on this case meets the specified criteria> Operation Date: 06/23/20 17:30 Actual Procedures Side Surgeon p Exploratory Laparotomy GEN with sigmoid and small bowel resection and colostomy Yoli Biswas MD Postoperative status narrative: Culture results noted. She appears to be on appropriate antibiotics. If does not continue to improve would consider adding additional anaerobic coverage. However at present she seems to be doing okay. Her white blood cell count is down. Still has a preponderance of segs. Patient had a PICC line placed as she was not tolerating infusions of potassium well. Postoperative plan narrative: Seems to be doing okay. Will have to keep a cautious eye on the ostomy. Repeat labs in the morning. Pain seems to be adequately controlled Quality VTE Deep Vein Thrombosis/Pulmonary Embolism Present on Admission: No
[2020-06-26] MEDS: MORPHINE 4 MG/ML INJ IV (19:32)
[2020-06-26 20:28] VITALS: BP 133/74; PULSE 80; RESP 18; TEMP 36.8; O2SAT 96
[2020-06-26] MEDS: POTASSIUM CHLORIDE 30 MEQ in SODIUM CHLORIDE 0.9% 250 ML 88.33 ML IV (23:25)
[2020-06-27] VITALS (8 sets, daily range): BP systolic 114–156; BP diastolic 69–87; PULSE 72–81; RESP 15–18; TEMP 36.1–36.9; O2SAT 94–97
[2020-06-27] MEDS: METOPROLOL TARTRATE 5 MG/5 ML INJ IV ×4 (01:48→21:45)
[2020-06-27] MEDS: ACETAMINOPHEN 325 MG TABLET 650 MG PO ×2 (05:42)
[2020-06-27 06:23] LABS: Add Manual Diff / Slide Review NO; Basophils Absolute Auto 0 /uL (0-100); Basophils Percent Auto 0.3 % (0-2); Eosinophils Absolute Auto 100 /uL (0-450); Eosinophils Percent Auto 1.2 % (2-4); Hematocrit 27.7 % (36-46); Hemoglobin 9.4 g/dL (12.0-16.0); Lymphocytes Absolute Auto 1300 /uL (1100-4500); Lymphocytes Percent Auto 20.9 % (25-40); Mean Corpuscular HGB Conc 34.1 % (30-36); Monocytes Absolute Auto 400 /uL (0-900); Monocytes Percent Auto 6.8 % (3-14); Neutrophils Absolute Auto 4200 /uL (1500-7000); Neutrophils Percent Auto 70.8 % (50-75); Platelet Count 331 X10^3/uL (150-400); Red Blood Cell Count 3.14 X10^6/uL (4.0-5.2); Red Cell Distribution Width 14.1 % (11.6-14.8)
[2020-06-27 06:33] LABS: Alanine Aminotransferase 18 IU/L (<35); Alkaline Phosphatase 91 U/L (38-126); Aspartate Aminotransferase 32 IU/L (14-36); BUN Creatinine Ratio 12.2 (6-22); Bilirubin Total 0.2 mg/dL (0.2-1.3); Blood Urea Nitrogen 5 mg/dL (7-17); Calcium 8.3 mg/dL (8.4-10.2); Carbon Dioxide 29 mmol/L (22-32); Chloride 107 mmol/L (98-107); Estimated Glomerular Filt Rate > 60.0 mL/min (>60); Globulin 2.9 g/dL (1.7-4.1); Glucose 83 mg/dL (80-110); HEMOLYSIS < 15 (0-50); Phosphorous 3.1 mg/dL (2.8-4.1); Potassium 3.9 mmol/L (3.4-5.1); Sodium 139 mmol/L (137-145); Total Protein 5.9 g/dL (6.3-8.2)
--- NOTE | 2020-06-27 06:42 | PC.NURSE ---
Pt. refused to take thyroid pill. States yesterday the pill I took stays in my throat, I don't want to swallow a pill. Will report to day RN.
[2020-06-27] MEDS: HEPARIN 5,000 UNIT/ML VIAL 5000 UNIT SUBCUT ×2 (09:07→22:20)
[2020-06-27] MEDS: PANTOPRAZOLE 40 MG VIAL IV (09:07)
[2020-06-27] MEDS: SODIUM CHLORIDE 0.9% 1,000 ML 100 ML IV ×2 (09:07→21:00)
--- NOTE | 2020-06-27 10:05 | PT.IPTN ---
Current Diagnoses Malignant neoplasm of colon, unspecified (06/23/20) Hypothyroidism, unspecified (06/23/20) Obesity, unspecified (06/23/20) Essential (primary) hypertension (06/23/20) Perforation of intestine (nontraumatic) (06/23/20) Peritoneal abscess (06/23/20) Surgery Performed Operation Date: 06/23/20 07:00 <No data on this case meets the specified criteria> Operation Date: 06/23/20 17:30 Actual Procedures p Exploratory Laparotomy GEN with sigmoid and small bowel resection and colostomy - Yoli Biswas MD Physical Therapy Treatment Note M2 PT-IP Current Condition Start: 06/24/20 13:59 Freq: NEEDED Status: Active Protocol: Document 06/24/20 11:32 AB (Rec: 06/24/20 14:09 AB [id number]) Physical Therapy Current Condition Current Condition Evaluation Date 06/24/20 Treatment Diagnosis s/p colectomy; difficulty in walking Onset Date 06/23/20 Precautions Abdominal Surgery Precautions Log Roll,Lifting Restrictions, Gait Belt above Incisional Area M3 PT-IP Subjective Start: 06/24/20 13:59 Freq: NEEDED Status: Active Protocol: Document 06/27/20 10:05 AB (Rec: 06/27/20 11:57 AB [id number]) Subjective Physical Therapy Visit Type Type Treatment Note Visit Start Time 10:05 Visit Stop Time 10:33 Total Visit Minutes 28 Number of UNDER TRIMMER Visits 0 Physical Therapy Visit Comments Patient Comments pt is agreeable to do PT Therapy Pain Assessment Pain When Pain Assessed During Mobility Pain Present Pain Present Pain Reported Location abd Scale Used pain scale not stated Pain Management Techniques Distraction,Modification of Treatment,Re-positioning, Timing of Activity with Medications M4 PT-IP Mobility and Gait Start: 06/24/20 13:59 Freq: NEEDED Status: Active Protocol: Document 06/27/20 10:05 AB (Rec: 06/27/20 11:57 AB [id number]) PT-Bed Mobility Assessment Rolling Type of Rolling Log Rolling Level of Assist Minimal Assistance Supine to Sit Supine to Sit Minimal Assistance,Head of Bed Elevated,Bedrails Sit to Supine Sit to Supine Head of Bed Elevated PT-Transfer Assessment Sit to and From Stand Sit to and from Stand Standby Assistance Equipment Transfer Assistive Device Gait Belt Orthotic/Prosthetic Devices or Brace: No Transfers Transfer Destination Toilet Transfer Technique ambulated without AD Comments Mobility Comments requested nurse to clamp NG tube for PT to ambulate pt in hallway. reviewed abdominal precautions with pt and log roll. pt stated that she does not know that she has to do log roll bed mobility. Pt completed supine to sit min A and cues for log roll bed mobility. pt stated that they just put in PICC line and was told not to put any strain on RUE for 72 hours therefore, pt was not able to use RUE during bed mobility and requiring more assistance. pt completed sit to stand SBA and ambulated to the toilet without AD SBA. was able to complete toileting without assistance. ambulated towards the sink without AD SBA and was able to maintain standing balance without AD SBA while completing handwashing. pt ambulated in the hallway towards the stairs and completed up/down steps initially using B rails and completed again with just one rail SBA. pt ambulated more in the hallway ~ 500 ft SBA without AD SBA. pt went back to her room. refused to sit on chair and stated that the chair is uncomfortable and makes her back hurt. completed sit to supine log roll min A and cues. positioned in bed. call light and table placed within reach . Gait Assessment Gait Gait Assistance Required: Standby Assistance Distance (Feet) 500 Able to Maintain Weight Bearing Status Yes During Gait Assistive Devices Assistive Device None,Gait Belt Orthotic/Prosthetic Devices or Brace: No Factors Limiting Gait Function Factors Limiting Gait Function Decreased Activity Tolerance, Decreased Strength,Pain Stair Climbing Assessment Evaluation Level of Assist On Stairs Standby Assistance Devices Stair Climbing Assistive Devices Left Railing,Right Railing Technique/Endurance Stair Climbing Direction Ascend and Descend Stair Climbing Technique Step Over Step Number of Steps Climbed 3 Stair Climbing Set # Repetitions (reps) 2 Comments Stair Climbing Comments pls refer to mobility section for details M5 PT-IP Objective Assessments Start: 06/24/20 13:59 Freq: NEEDED Status: Active Protocol: Document 06/24/20 11:32 AB (Rec: 06/24/20 14:09 AB [id number]) Orientation Orientation/Cognition Level of Alertness Alert Orientation Name,Place,Situation Language Function Ability No Deficits Noted Safety Awareness Understands Safety Issues Memory Description No Deficits Noted Gross Range of Motion Lower Extremity ROM Assessment Within Functional Limits Strength Lower Extremity Strength Assessment Within Functional Limits Coordination Assessment Gross Coordination Gross Coordination WNL Sensation Assessment Sensation Gross Sensation WNL Muscle Tone Muscle Tone WNL Yes M6 PT-IP Treatment Start: 06/24/20 13:59 Freq: NEEDED Status: Active Protocol: Document 06/27/20 10:05 AB (Rec: 06/27/20 11:57 AB [id number]) Physical Therapy Treatment Education Education Provided Precautions,Safety M7 PT-IP Assessment and Plan Start: 06/24/20 13:59 Freq: NEEDED Status: Active Protocol: Document 06/27/20 10:05 AB (Rec: 06/27/20 11:57 AB [id number]) PT Summary Assessment and Plan Potential Rehabilitation Potential Good Summary Impairments Pain,ROM,Strength,Balance, Coordination,Sensation,Tone, Cognition,Bed Mobility, Transfers,Gait,Activity Tolerance Progress Towards Goals Progressing Toward Goals Assessment Summary pt requiring min A with mobility but only requires SBA for transfers and ambulation without AD. pt plans to go to her niece's house and stated that she can stay on main level of the house and does not need to go upstairs. will continue to assess progress. Goals Bed Mobility Goal Independent Transfer Goal Independent Gait Goal Independent Gait Distance 300 Other Goals up/down 3 steps R rails; 14 steps L rail SBA Days to Meet Goals 10 Frequency of Treatment Frequency Of Treatment Once a Day Treatment Plan Physical Therapy Treatment Plan Bed Mobility Training,Transfer Training,Gait Training, Therapeutic Exercise,Balance Retraining,Post Op Education, Discharge Planning,Hot or Cold Pack,Neuromuscular Re-ed, Coordination Retraining Recommendations To Nursing Amount of Assist Needed 1 Person Assist Discharge Recommendations PT Discharge Recommendations Home with Assistance,Home Health Transportation Needs at Discharge Private Vehicle
--- NOTE | 2020-06-27 12:04 | DIET.PN ---
Addendum entered by Liliana Jennings 06/27/20 12:20: Recc initiating continuous TPN conservatively @ 15mL/h for first 12h, titrating up by 10-20mL q12h as tolerated until reaching goal rate of 80mL/h. Please watch for refeeding syndrome and replete Mg, K+ and phos per surgery. Goal feeding provides 1,689kcal (20kcal/kg) and 96g PRO (1.2g/kg) with total TPN volume of 1,920mL. 2. Recc holding lipids until pt at goal rate, then give 250mL IVFE every other day adding 500kcals each. 3. Daily weights please Original Note: Dietary Progress Note Assessment: 74y vegetarian F d4 s/p emergency colon resection for perforated invasive sigmoid colon cancer referred to nutrition for TPN reccs. Pt had not eaten more than water and orange juice the 5d prior to emergency surgery and has not had return of bowel function for a total of 9d with no meaningful POs. Pt has PICC placed and is high risk for refeeding syndrome. Pts K+ and phos have been low, Mg high to normal. HT: 157.4cm WT: 80.7kg UBW: 83.4kg (-3.3% over 5d per [facility] records, severe) BMI: 32.6 Labs: hgb 9.4 L, BUN 5 L, Cr 0.41 L MNA: 11 @ risk Vaibhav: 23 Nutrition Diagnosis: Severe Acute PCM r/t inadequate oral intake and new dx perforated invasive sigmoid colon cancer aeb 3.3% unintentional weight loss in <1w (severe), no meaningful oral intake x9d, new ostomy without return of bowl function, surgery requesting TPN initiation. Interventions: 1. Recc initiating continuous TPN conservatively @ 15mL/h for first 12h, titrating up by 10-20mL q12h as tolerated until reaching goal rate of 80mL/h. Please watch for refeeding syndrome and replete Mg, K+ and phos per surgery. Goal feeding provides 1,689kcal (20kcal/kg) and 96g PRO (1.2g/kg) with total TPN volume of 1,920mL. 2. Recc holding lipids until pt at goal rate, then give 250mL IVFE every other day adding 500kcals each. 3. Daily weights please Diet Order: NPO EER: 1700kcal (20kcal/kg, overweight PCM), 96g PRO (1.2g/kg per PCM, post-surgical) Monitoring/Evaluations: feed tolerance, rate advancement, weights, labs
[2020-06-27] MEDS: BENZOCAINE/MENTHOL 1 LOZ PKT 1 EACH PO ×2 (12:34→17:21)
[2020-06-27] MEDS: ACETAMINOPHEN SUSP 650 MG/20.3 ML UDC PO (12:45)
--- NOTE | 2020-06-27 14:32 | P.PN_ITS ---
Subjective Subjective Date Patient Seen: 06/27/20 Time Patient Seen: 09:02 Interval history: This is a 74-year-old woman who is postop day 4 status post emergency laparotomy and sigmoid colectomy for perforated colon cancer with abscess, invading the abdominal wall. Her pain is well controlled. She still has NG tube in. She denies nausea. She denies any flatus in the bag. Exam Vital Signs (past 8 hours): - 06/27/20 08:05 06/27/20 11:59 Temperature 97.6 F 98.4 F Pulse Rate 75 80 Respiratory Rate 15 17 Blood Pressure 143/79 H 151/78 H Pulse Oximetry 96 96 Oxygen Delivery Method Room Air Oxygen Flow Rate 0 Narrative Exam Narrative: GENERAL: Alert, comfortable. Appears stated age. Answers questions promptly and appropriately. Vital signs noted. HENT: Normocephalic, atraumatic. Hearing intact. NGT in place and sumping. CARDIOVASCULAR: Regular rate. No pedal edema. RESPIRATORY: Non-tachypneic, breathing comfortably on room air. GASTROINTESTINAL: Abdomen soft and non-distended; appropriately TTP, incision c/d/i, ostomy maroon, budded, no gas or stool in the bag; kalli drain with serosanguinous output, digitized ostomy during exam. GENITALURINARY: No flank tenderness. MUSCULOSKELETAL: Equal tone and mass bilaterally. SKIN: Warm, dry, soft, appropriate color for ethnicity. No other lesions, rashes, or wounds. NEURO: Alert and Oriented X 3. No gross sensory deficits, or cognitive issues. PSYCH: Appropriate affect and mood. Objective Labs Result Diagrams: 06/27/20 06:10 06/27/20 06:10 Labs: Laboratory Results - last 24 hr 06/27/20 06/27/20 06:10 06:10 WBC 6.0 RBC 3.14 L Hgb 9.4 L Hct 27.7 L MCV 88.0 MCH 30.0 MCHC 34.1 RDW 14.1 Plt Count 331 Neut % (Auto) 70.8 Lymph % (Auto) 20.9 L [place] % (Auto) 6.8 Eos % (Auto) 1.2 L Baso % (Auto) 0.3 Neut # (Auto) 4200 Lymph # (Auto) 1300 [place] # (Auto) 400 Eos # (Auto) 100 Baso # (Auto) 0 Sodium 139 Potassium 3.9 Chloride 107 Carbon Dioxide 29 BUN 5 L Creatinine 0.41 L Estimated GFR > 60.0 BUN/Creatinine Ratio 12.2 Glucose 83 Calcium 8.3 L Phosphorus 3.1 Magnesium 2.0 Total Bilirubin 0.2 AST 32 ALT 18 Alkaline Phosphatase 91 Total Protein 5.9 L Albumin 3.0 L Globulin 2.9 Albumin/Globulin Ratio 1.0 [facility] Medical History Acquired hypothyroidism Chicken pox Essential hypertension Febrile illness Has 3 children Measles Mixed hyperlipidemia UTI (urinary tract infection) Vision disorder Family History Father No problems noted. Mother Hypertension Grandfather Pneumonia Social History household members: other Smoking Status: Never smoker alcohol intake: current Assessment & Plan Assessment and plan (1) Perforated sigmoid colon: Status: Acute (2) Essential hypertension: Status: Chronic (3) Acquired hypothyroidism: Status: Chronic (4) Obesity (BMI 30.0-34.9): Problem details: The patient's abdominal obesity significantly increased the complexity and difficulty of her laparotomy and to bring up her end colostomy, because her abdominal wall was 2-3 inches thick. Her obesity also complicates her post op course because it increases the risk of wound infection, hernia, fascial dehiscense, ostomy ischemia, and ostomy retraction. Status: Acute (5) Colon cancer: Problem details: Perforated sigmoid colon cancer with local invasion into the anterior abdominal wall and invasion into a loop of small bowel. Pt will need to recover from surgery, and then have staging workup. Status: Acute (6) Abdominal wall defect: Status: Acute (7) Peritoneal abscess: Status: Acute Assessment & Plan narrative: This is a 74-year-old woman who is post op day 4 from laparotomy, sigmoid resection, evacuation of abdominal abscess associated with perforation of the colon, small bowel resection, and end colostomy creation. The ostomy looks ok, but has not produced any gas or stool yet. We will need to leave the NG tube in until she puts out something from the ostomy. It is protecting the small bowel anastomosis at this point. She got a PICC line yesterday for difficult IV access. Today we will start TPN through the PICC line. We will recheck her labs tonight a few hours after starting TPN, and again in the morning, to watch for significant changes in her electrolytes/repeating syndrome. Who scoped approximately 9 days without food this point (5 days prior to surgery, in 4 days since surgery). Plan: NPO except for ice chips and meds IV fluids daily labs DVT ppx with heparin and SCDs Ambulate as tolerated Abdominal binder as needed for ambulation Ostomy teaching COVID-19 COVID-19 status: Negative Result date/Date tested (Pos, Neg/Pending): 06/23/20 Time Spent With Patient Time with patient: 25 - 35 minutes Quality VTE Deep Vein Thrombosis/Pulmonary Embolism Present on Admission: No
--- NOTE | 2020-06-27 16:01 | DI.RAD.S_ITS ---
PROCEDURE: XR KUB INDICATIONS: Evaluate bowel for ileus/obstructive picture TECHNIQUE: One view of the abdomen acquired. COMPARISON: [facility], CR, XR CHEST FOR PICC 1V, 06/26/2020, 17:18. [facility], CR, XR CHEST 1V, 06/24/2020, 7:39. [facility], CT, CT ABDOMEN PELVIS W CON, 06/23/2020, 15:03. FINDINGS: Surgical changes and devices: There is a nasogastric tube with the tip curled inside epigastric area. Skin lena are seen at midline. A catheter projecting to the lower abdomen, presumably a surgical drain. Bowel: Small intestine is mildly distended measuring up to 3.6 cm. There is a small amount of colonic gas in the cecum. Soft tissues: No suspicious abdominal calcifications. Visualized solid organ contours appear normal in size. Bones: No suspicious bony lesions. IMPRESSION: Mild small bowel dilation. Differential diagnosis include ileus versus partial obstruction. Dictated by: Jd Whittington M.D. on 06/27/2020 at 16:53 Approved by: Jd Whittington M.D. on 06/27/2020 at 16:55
[2020-06-27] MEDS: MORPHINE 4 MG/ML INJ IV ×2 (17:14→22:25)
[2020-06-27] MEDS: LEVOTHYROXINE 25 MCG TABLET PO (17:21)
[2020-06-27] MEDS: AA 5 %/CALCIUM/LYTES/DEXT 20 % 1,000 ML with MULTIVITAMIN 10 ML, TRACE ELEMENTS 1 ML 15 ML IV (17:53)
[2020-06-27 18:49] LABS: BUN Creatinine Ratio 12.5 (6-22); Blood Urea Nitrogen 5 mg/dL (7-17); Calcium 8.4 mg/dL (8.4-10.2); Carbon Dioxide 28 mmol/L (22-32); Chloride 107 mmol/L (98-107); Estimated Glomerular Filt Rate > 60.0 mL/min (>60); Glucose 77 mg/dL (80-110); Phosphorous 3.4 mg/dL (2.8-4.1); Sodium 136 mmol/L (137-145)
[2020-06-27 18:50] LABS: HEMOLYSIS 107 (0-50)
[2020-06-27 22:33] LABS: Magnesium 2.1 mg/dL (1.6-2.3)
[2020-06-27 22:34] LABS: BUN Creatinine Ratio 8.5 (6-22); Blood Urea Nitrogen 4 mg/dL (7-17); Calcium 8.6 mg/dL (8.4-10.2); Carbon Dioxide 26 mmol/L (22-32); Chloride 106 mmol/L (98-107); Estimated Glomerular Filt Rate > 60.0 mL/min (>60); Glucose 251 mg/dL (80-110); HEMOLYSIS < 15 (0-50); Potassium 3.8 mmol/L (3.4-5.1); Sodium 136 mmol/L (137-145)
[2020-06-28] VITALS (8 sets, daily range): BP systolic 125–144; BP diastolic 73–96; PULSE 68–81; RESP 15–20; TEMP 36.1–37.1; O2SAT 93–98
[2020-06-28] MEDS: METOPROLOL TARTRATE 5 MG/5 ML INJ IV ×3 (03:12→13:29)
[2020-06-28] MEDS: LEVOTHYROXINE 25 MCG TABLET PO (06:47)
[2020-06-28 06:58] LABS: BUN Creatinine Ratio 13.2 (6-22); Blood Urea Nitrogen 5 mg/dL (7-17); Calcium 8.6 mg/dL (8.4-10.2); Carbon Dioxide 26 mmol/L (22-32); Chloride 105 mmol/L (98-107); Estimated Glomerular Filt Rate > 60.0 mL/min (>60); Glucose 100 mg/dL (80-110); HEMOLYSIS < 15 (0-50); Phosphorous 3.3 mg/dL (2.8-4.1); Potassium 3.8 mmol/L (3.4-5.1); Sodium 136 mmol/L (137-145)
--- NOTE | 2020-06-28 07:19 | DI.RAD.S_ITS ---
PROCEDURE: FL SMALL BOWEL FOLLOW THROUGH INDICATIONS: delayed return of bowel function COMPARISON: None. FINDINGS: KUB: Colostomy and enteric tube present. A abdominal surgical drain is present. Skin lena present. Small bowel: There is normal transit time of barium through the small bowel. Contrast reaches the colon by the 2 hour 15 minutes time point. No definite transition point is seen Small bowel loops are of normal caliber throughout. Mucosal folds are smooth and of normal thickness. No strictures, intraluminal masses, or extrinsic mass effects are noted. IMPRESSION: No transition point identified. Dictated by: Tavon Tena M.D. on 06/28/2020 at 12:14 Approved by: Tavon Tena M.D. on 06/28/2020 at 12:42
[2020-06-28] MEDS: PANTOPRAZOLE 40 MG VIAL IV (08:03)
[2020-06-28] MEDS: HEPARIN 5,000 UNIT/ML VIAL 5000 UNIT SUBCUT ×2 (08:03→21:20)
[2020-06-28] MEDS: MORPHINE 2 MG/ML INJ IV (10:59)
--- NOTE | 2020-06-28 11:02 | DIET.PN ---
Dietary Progress Note Pt tolerating TPN, rate advanced by NOC nurse to 30mL/hr. Still no return of bowel function. Refeeding labs WNL. Nutrition Diagnosis: Ongoing Severe Acute PCM r/t inadequate oral intake and new dx perforated invasive sigmoid colon cancer aeb 3.3% unintentional weight loss in <1w (severe), no meaningful oral intake x9d, new ostomy without return of bowl function, surgery requesting TPN initiation. Interventions: 1. Continue titrating continuous TPN conservatively @ 30mL/h for first 12h, titrating up by 10-20mL q12h as tolerated until reaching goal rate of 80mL/h. Please watch for refeeding syndrome and replete Mg, K+ and phos per surgery. Goal feeding provides 1,689kcal (20kcal/kg) and 96g PRO (1.2g/kg) with total TPN volume of 1,920mL. 2. Recc holding lipids until pt at goal rate, then give 250mL IVFE every other day adding 500kcals each. 3. Daily weights please Diet Order: NPO EER: 1700kcal (20kcal/kg, overweight PCM), 96g PRO (1.2g/kg per PCM, post-surgical) Monitoring/Evaluations: feed tolerance, rate advancement, weights, labs
--- NOTE | 2020-06-28 11:09 | PT-IP ANOTE ---
Pt refused to participate with therapy this am due to increased abdominal pain 7-8/10 pain, just recently had a GI diagnostic, requested and received pain meds from nursing to assist with pain control. Pt stated she normally does alot of walking but can't at this time. SKI PATROL DIRECTOR verbalized understanding and provided education benefits of mobiltiy within pain control which patient understood. SKI PATROL DIRECTOR suggested will return in pm to reassess mobility.
--- NOTE | 2020-06-28 11:47 | PM.PN.1 ---
Subjective Subjective Date Patient Seen: 06/28/20 Time Patient Seen: 17:03 Interval history: No acute events overnight. No gas in the bag this morning. Small-bowel follow-through was performed today and copious stool was then seen in the ostomy bag shortly thereafter. NG tube was removed. Patient is gradually advancing her diet. Exam Vital Signs (past 8 hours): - 06/28/20 03:54 06/28/20 08:45 Temperature 97.5 F L Pulse Rate 68 81 Respiratory Rate 17 Blood Pressure 134/75 134/96 H Pulse Oximetry 98 Oxygen Delivery Method Room Air Oxygen Flow Rate 0 Narrative Exam Narrative: GENERAL: Alert, comfortable. Appears stated age. Answers questions promptly and appropriately. Vital signs noted. HENT: Normocephalic, atraumatic. Hearing intact. CARDIOVASCULAR: Regular rate. No pedal edema. RESPIRATORY: Non-tachypneic, breathing comfortably on room air. GASTROINTESTINAL: Abdomen soft and non-distended; appropriately TTP, incision c/d/i, ostomy maroon, budded, copious stool in the bag MUSCULOSKELETAL: Equal tone and mass bilaterally. SKIN: Warm, dry, soft, appropriate color for ethnicity. No other lesions, rashes, or wounds. NEURO: Alert and Oriented X 3. No gross sensory deficits, or cognitive issues. PSYCH: Appropriate affect and mood. Objective Labs Result Diagrams: 06/27/20 06:10 06/28/20 16:00 Labs: Laboratory Results - last 24 hr 06/27/20 06/27/20 06/27/20 18:10 18:10 20:10 Sodium 136 L 136 L Potassium TNP 3.8 Chloride 107 106 Carbon Dioxide 28 26 BUN 5 L 4 L Creatinine 0.40 L 0.47 L Estimated GFR > 60.0 > 60.0 BUN/Creatinine Ratio 12.5 8.5 Glucose 77 L 251 H D Calcium 8.4 8.6 Phosphorus 3.4 Magnesium 2.0 06/27/20 06/28/20 06/28/20 20:10 05:45 05:45 Sodium 136 L Potassium 3.8 Chloride 105 Carbon Dioxide 26 BUN 5 L Creatinine 0.38 L Estimated GFR > 60.0 BUN/Creatinine Ratio 13.2 Glucose 100 D Calcium 8.6 Phosphorus 3.3 Cancelled Magnesium 2.1 2.0 [facility] Medical History Acquired hypothyroidism Chicken pox Essential hypertension Febrile illness Has 3 children Measles Mixed hyperlipidemia UTI (urinary tract infection) Vision disorder Family History Father No problems noted. Mother Hypertension Grandfather Pneumonia Social History household members: other Smoking Status: Never smoker alcohol intake: current Assessment & Plan Assessment and plan (1) Perforated sigmoid colon: Status: Acute (2) Essential hypertension: Status: Chronic (3) Acquired hypothyroidism: Status: Chronic (4) Obesity (BMI 30.0-34.9): Problem details: The patient's abdominal obesity significantly increased the complexity and difficulty of her laparotomy and to bring up her end colostomy, because her abdominal wall was 2-3 inches thick. Her obesity also complicates her post op course because it increases the risk of wound infection, hernia, fascial dehiscense, ostomy ischemia, and ostomy retraction. Status: Acute (5) Colon cancer: Problem details: Perforated sigmoid colon cancer with local invasion into the anterior abdominal wall and invasion into a loop of small bowel. Pt will need to recover from surgery, and then have staging workup. Status: Acute (6) Abdominal wall defect: Status: Acute (7) Peritoneal abscess: Status: Acute Assessment & Plan narrative: This is a 74-year-old woman who is post op day 5 from laparotomy, sigmoid resection, evacuation of abdominal abscess associated with perforation of the colon, small bowel resection, and end colostomy creation. She is now having stool output from the ostomy and her NG tube has been removed. She has begun ostomy teaching, and she is still on TPN. We will keep her on TPN until she has good tolerance of p.o. intake and is close to discharge. Plan: P.o. clears, advanced as tolerated DC IV fluids daily labs DVT ppx with heparin and SCDs Ambulate as tolerated Abdominal binder as needed for ambulation Ostomy teaching Continue TPN for now COVID-19 COVID-19 status: Negative Result date/Date tested (Pos, Neg/Pending): 06/23/20 Time Spent With Patient Time with patient: 25 - 35 minutes Quality VTE Deep Vein Thrombosis/Pulmonary Embolism Present on Admission: No
--- NOTE | 2020-06-28 14:12 | PT-IP ANOTE ---
Pt refused PT. stated that she they did lots of tests with her this morning and has 4 xrays one and just has lots of pain and wants to just rest but wants to do PT tomorrow. will f/u tomorrow.
[2020-06-28 14:49] LABS: PTT Partial Thromboplastin Tim 30 SECONDS (26.4-36.2)
[2020-06-28 16:58] LABS: BUN Creatinine Ratio 11.9 (6-22); Blood Urea Nitrogen 5 mg/dL (7-17); Carbon Dioxide 29 mmol/L (22-32); Chloride 109 mmol/L (98-107); Estimated Glomerular Filt Rate > 60.0 mL/min (>60); Glucose 131 mg/dL (80-110); HEMOLYSIS < 15 (0-50); Magnesium 2.1 mg/dL (1.6-2.3); Phosphorous 3.2 mg/dL (2.8-4.1); Potassium 3.7 mmol/L (3.4-5.1); Sodium 140 mmol/L (137-145)
[2020-06-28] MEDS: INSULIN ASPART 100 UNIT/ML INSULN PEN SUBCUT (17:19)
[2020-06-28] MEDS: ACETAMINOPHEN SUSP 650 MG/20.3 ML UDC PO (17:32)
[2020-06-28] MEDS: FAT EMULSIONS 50 GM/250 ML EMULSION IV (18:35)
[2020-06-28] MEDS: AA 5 %/CALCIUM/LYTES/DEXT 20 % 1,500 ML with MULTIVITAMIN 10 ML, TRACE ELEMENTS 1 ML 60 ML IV (18:35)
[2020-06-29] VITALS (8 sets, daily range): BP systolic 133–150; BP diastolic 75–95; PULSE 70–94; RESP 14–20; TEMP 36.1–36.9; O2SAT 95–99
[2020-06-29] MEDS: METOPROLOL TARTRATE 5 MG/5 ML INJ IV (03:53)
[2020-06-29 06:03] LABS: BUN Creatinine Ratio 21.1 (6-22); Blood Urea Nitrogen 8 mg/dL (7-17); Calcium 8.7 mg/dL (8.4-10.2); Carbon Dioxide 29 mmol/L (22-32); Chloride 107 mmol/L (98-107); Estimated Glomerular Filt Rate > 60.0 mL/min (>60); Glucose 142 mg/dL (80-110); HEMOLYSIS < 15 (0-50); Magnesium 1.9 mg/dL (1.6-2.3); Phosphorous 3.3 mg/dL (2.8-4.1); Potassium 3.2 mmol/L (3.4-5.1); Sodium 138 mmol/L (137-145)
[2020-06-29] MEDS: HEPARIN 5,000 UNIT/ML VIAL 5000 UNIT SUBCUT ×2 (07:46→21:12)
[2020-06-29] MEDS: ACETAMINOPHEN SUSP 650 MG/20.3 ML UDC PO (07:46)
[2020-06-29] MEDS: carvediloL 3.125 MG TABLET PO ×2 (07:46→21:11)
[2020-06-29] MEDS: INSULIN ASPART 100 UNIT/ML INSULN PEN SUBCUT ×3 (07:47→17:32)
[2020-06-29] MEDS: LEVOTHYROXINE 25 MCG TABLET PO (07:47)
--- NOTE | 2020-06-29 08:20 | PC.NURSE ---
Addendum entered by Vickie Day R.N. 06/29/20 12:45: Changed ostomy wafer and bag, stoma has two black areas of tissue noted and one dime sized area of pink tissue. Dr Biswas aware. Original Note: Patient alert, oriented rates pain to RLQ 8/10, requesting tylenol, 650mg oral suspension given. Pain described as sharp. BT+, patient passing flatus, ostomy with liquid brown stool. SBA to bathroom, gait steady.
[2020-06-29] MEDS: PANTOPRAZOLE 40 MG TABLET PO (08:31)
[2020-06-29] MEDS: POTASSIUM CHLORIDE 30 MEQ in SODIUM CHLORIDE 0.9% 250 ML 88.333 ML IV ×2 (08:31→11:52)
--- NOTE | 2020-06-29 10:09 | PM.PN.1 ---
Subjective Subjective Date Patient Seen: 06/29/20 Time Patient Seen: 10:29 Interval history: No acute events overnight. Copious stool output last night. Pt tolerating some clears but reports minimal appetite. Exam Vital Signs (past 8 hours): - 06/29/20 03:30 06/29/20 03:53 06/29/20 08:18 Temperature 97.1 F L 97.0 F L Pulse Rate 70 80 72 Respiratory Rate 18 20 Blood Pressure 143/79 H 145/79 H 142/92 H Pulse Oximetry 95 98 Oxygen Delivery Method Room Air Oxygen Flow Rate 0 Narrative Exam Narrative: GENERAL: Alert, comfortable. Appears stated age. Answers questions promptly and appropriately. Vital signs noted. HENT: Normocephalic, atraumatic. Hearing intact. CARDIOVASCULAR: Regular rate. No pedal edema. RESPIRATORY: Non-tachypneic, breathing comfortably on room air. GASTROINTESTINAL: Abdomen soft and non-distended; appropriately TTP, incision c/d/i, ostomy dark maroon; BARBARA drain removed during exam MUSCULOSKELETAL: Equal tone and mass bilaterally. SKIN: Warm, dry, soft, appropriate color for ethnicity. No other lesions, rashes, or wounds. NEURO: Alert and Oriented X 3. No gross sensory deficits, or cognitive issues. PSYCH: Appropriate affect and mood. Objective Labs Result Diagrams: 06/27/20 06:10 06/29/20 05:30 Labs: Laboratory Results - last 24 hr 06/28/20 06/28/20 06/29/20 14:38 16:00 05:30 APTT 30 D Sodium 140 138 Potassium 3.7 3.2 L Chloride 109 H 107 Carbon Dioxide 29 29 BUN 5 L 8 Creatinine 0.42 L 0.38 L Estimated GFR > 60.0 > 60.0 BUN/Creatinine Ratio 11.9 21.1 Glucose 131 H 142 H Calcium 9.0 8.7 Phosphorus 3.2 3.3 Magnesium 2.1 1.9 [facility] Medical History Acquired hypothyroidism Chicken pox Essential hypertension Febrile illness Has 3 children Measles Mixed hyperlipidemia UTI (urinary tract infection) Vision disorder Family History Father No problems noted. Mother Hypertension Grandfather Pneumonia Social History household members: other Smoking Status: Never smoker alcohol intake: current Assessment & Plan Assessment and plan (1) Perforated sigmoid colon: Status: Acute (2) Essential hypertension: Status: Chronic (3) Acquired hypothyroidism: Status: Chronic (4) Obesity (BMI 30.0-34.9): Problem details: The patient's abdominal obesity significantly increased the complexity and difficulty of her laparotomy and to bring up her end colostomy, because her abdominal wall was 2-3 inches thick. Her obesity also complicates her post op course because it increases the risk of wound infection, hernia, fascial dehiscense, ostomy ischemia, and ostomy retraction. Status: Acute (5) Colon cancer: Problem details: Perforated sigmoid colon cancer with local invasion into the anterior abdominal wall and invasion into a loop of small bowel. Pt will need to recover from surgery, and then have staging workup. Status: Acute (6) Abdominal wall defect: Status: Acute (7) Peritoneal abscess: Status: Acute Assessment & Plan narrative: This is a 74-year-old woman who is post op day 6 from laparotomy, sigmoid resection, evacuation of abdominal abscess associated with perforation of the colon, small bowel resection, and end colostomy creation. She is now having stool output from the ostomy and tolerating a little bit of clears. She does not have much appetite. BARBARA drain was removed today. Pathologist reports preliminarily that the findings are consistent with cancer, but the type of cancer is not primary colon and is not clear yet from the studies that have been done on it. Plan: P.o. clears, advanced as tolerated daily labs DVT ppx with heparin and SCDs Ambulate as tolerated Abdominal binder as needed for ambulation Ostomy teaching Continue TPN for now COVID-19 COVID-19 status: Negative Result date/Date tested (Pos, Neg/Pending): 06/23/20 Time Spent With Patient Time with patient: 25 - 35 minutes Quality VTE Deep Vein Thrombosis/Pulmonary Embolism Present on Admission: No
--- NOTE | 2020-06-29 10:31 | CM.DPC ---
DCP Planning: Per Surgeon, pt remains on TPN until closer to d/c which likely will be this w/e or Friday if pt continues to make progress. Pt still on clear liquids but no NG tube anymore and dietary following closely and working with pt. Per PT, pt ambulating well and pt's plan is still to her niece's house in [facility] at d/c for extra support at d/c. Surgeon agreeable with ILEANA RN but PT not needed and signed the F2F and SW updated that Joan TEJEDA confirmed this morning that they will begin working on getting ostomy supplies ready for pt in case she discharges over the weekend but pt may need a day or two of supplies sent with her at d/c from hospital. SW updated freelance copywriter and CM Yam Curer Rayne on the plan for ostomy supplies for d/c. Plan: SW to follow for plan of home with [facility] in [place] and new Joan TEJEDA RN for ostomy care and supplies when medically stable. F2F, orders, and d/c summary need to be faxed to Joan at d/c. JAHAIRA Giron
--- NOTE | 2020-06-29 12:35 | PT.IPTN ---
Current Diagnoses Malignant neoplasm of colon, unspecified (06/23/20) Hypothyroidism, unspecified (06/23/20) Obesity, unspecified (06/23/20) Essential (primary) hypertension (06/23/20) Perforation of intestine (nontraumatic) (06/23/20) Peritoneal abscess (06/23/20) Surgery Performed Operation Date: 06/23/20 07:00 <No data on this case meets the specified criteria> Operation Date: 06/23/20 17:30 Actual Procedures p Exploratory Laparotomy GEN with sigmoid and small bowel resection and colostomy - Yoli Biswas MD Physical Therapy Treatment Note M2 PT-IP Current Condition Start: 06/24/20 13:59 Freq: NEEDED Status: Active Protocol: Document 06/24/20 11:32 AB (Rec: 06/24/20 14:09 AB [email or web address]) Physical Therapy Current Condition Current Condition Evaluation Date 06/24/20 Treatment Diagnosis s/p colectomy; difficulty in walking Onset Date 06/23/20 Precautions Abdominal Surgery Precautions Log Roll,Lifting Restrictions, Gait Belt above Incisional Area M3 PT-IP Subjective Start: 06/24/20 13:59 Freq: NEEDED Status: Active Protocol: Document 06/29/20 12:35 AB (Rec: 06/29/20 13:19 AB [email or web address]) Subjective Physical Therapy Visit Type Type Treatment Note Visit Start Time 12:35 Visit Stop Time 13:03 Total Visit Minutes 28 Number of LOG CHECK SCALER Visits 0 Physical Therapy Visit Comments Patient Comments pt is agreeable to do PT Therapy Pain Assessment Pain When Pain Assessed At Rest Pain Present Pain Present Pain Reported Location abd Intensity 2 Pain Management Techniques Distraction,Modification of Treatment,Re-positioning, Timing of Activity with Medications M4 PT-IP Mobility and Gait Start: 06/24/20 13:59 Freq: NEEDED Status: Active Protocol: Document 06/29/20 12:35 AB (Rec: 06/29/20 13:19 AB [email or web address]) PT-Bed Mobility Assessment Supine to Sit Supine to Sit Standby Assistance,Head of Bed Elevated,Bedrails Sit to Supine Sit to Supine Minimal Assistance PT-Transfer Assessment Sit to and From Stand Sit to and from Stand Standby Assistance Equipment Transfer Assistive Device Gait Belt Orthotic/Prosthetic Devices or Brace: No Transfers Transfer Destination Toilet Transfer Technique ambulated using FWW Transfer Ability Level of Assist Standby Assistance Comments Mobility Comments pt agreed to do PT. educated pt on log roll bed mobility and stated that she can do it but then pt manages her bed and elevated HOB up for supine to sit and used bed rail SBA. pt stated that she has to use the toilet and completed sit to stand SBA and ambulated to the toilet without AD SBA. pt was able to complete hygiene care without assistance. ambulated towards the sink SBA and was able to maintain standing SBA without AD while completing handwashing. ambulated in the hallway ~ 500 ft SBA without AD with slow daria and guarded steps but without LOB. completed up/down steps using 1 rail x 2 set SBA. educated pt on importance of log roll bed mobility. completed sit to supine log roll min A and max cues. pt stated that she is tired and wants to rest and to do bed mobility training tomorrow. positioned pt in bed. call light and table placed within reach. pt also mentioned about an abdominal binder and wants it on tomorrow for ambulation. nurse stated that abdominal binder is for comfort. Gait Assessment Gait Gait Assistance Required: Standby Assistance Distance (Feet) 500 Able to Maintain Weight Bearing Status Yes During Gait Assistive Devices Assistive Device None,Gait Belt Orthotic/Prosthetic Devices or Brace: No Gait Deviations General Gait Pattern Antalgic,Decreased Stride Length,Decreased Feet Clearance Factors Limiting Gait Function Factors Limiting Gait Function Decreased Activity Tolerance, Decreased Strength,Pain,Poor Balance Stair Climbing Assessment Evaluation Level of Assist On Stairs Standby Assistance Devices Stair Climbing Assistive Devices Left Railing,Right Railing Technique/Endurance Stair Climbing Direction Ascend and Descend Stair Climbing Technique Step Over Step Number of Steps Climbed 3 Stair Climbing Set # Repetitions (reps) 1 Comments Stair Climbing Comments completed steps using R rail and completed another set using L rail SBA M5 PT-IP Objective Assessments Start: 06/24/20 13:59 Freq: NEEDED Status: Active Protocol: Document 06/24/20 11:32 AB (Rec: 06/24/20 14:09 AB [email or web address]) Orientation Orientation/Cognition Level of Alertness Alert Orientation Name,Place,Situation Language Function Ability No Deficits Noted Safety Awareness Understands Safety Issues Memory Description No Deficits Noted Gross Range of Motion Lower Extremity ROM Assessment Within Functional Limits Strength Lower Extremity Strength Assessment Within Functional Limits Coordination Assessment Gross Coordination Gross Coordination WNL Sensation Assessment Sensation Gross Sensation WNL Muscle Tone Muscle Tone WNL Yes M6 PT-IP Treatment Start: 06/24/20 13:59 Freq: NEEDED Status: Active Protocol: Document 06/29/20 12:35 AB (Rec: 06/29/20 13:19 AB [email or web address]) Physical Therapy Treatment Education Education Provided Precautions,Safety M7 PT-IP Assessment and Plan Start: 06/24/20 13:59 Freq: NEEDED Status: Active Protocol: Document 06/29/20 12:35 AB (Rec: 06/29/20 13:19 AB [email or web address]) PT Summary Assessment and Plan Potential Rehabilitation Potential Good Summary Impairments Pain,ROM,Strength,Balance, Cognition,Bed Mobility, Transfers,Gait,Activity Tolerance Progress Towards Goals Progressing Toward Goals Assessment Summary pt is doing well with mobility but continues to require assist with bed mobility. will continue PT intervention to work towards goals. pt plans to go home and her niece to assist her. pt stated that her niece has set up a bed on main level of the house and that she does not need to climb up 1 flight of steps. Goals Bed Mobility Goal Independent Transfer Goal Independent Gait Goal Independent Gait Distance 500 Other Goals up/down 3 steps R rails Days to Meet Goals 10 Frequency of Treatment Frequency Of Treatment Once a Day Treatment Plan Physical Therapy Treatment Plan Bed Mobility Training,Transfer Training,Gait Training, Therapeutic Exercise,Balance Retraining,Post Op Education, Discharge Planning,Hot or Cold Pack,Neuromuscular Re-ed, Coordination Retraining Recommendations To Nursing Amount of Assist Needed 1 Person Assist Discharge Recommendations PT Discharge Recommendations Home with Assistance,Home Health Transportation Needs at Discharge Private Vehicle
[2020-06-29] MEDS: OXYCODONE IR 5 MG TABLET PO ×3 (15:30→23:36)
[2020-06-29] MEDS: AA 5 %/CALCIUM/LYTES/DEXT 20 % 2,000 ML with MULTIVITAMIN 10 ML, TRACE ELEMENTS 1 ML 80 ML IV (17:33)
--- NOTE | 2020-06-29 23:47 | PC.NURSE ---
Ostomy Teaching Ostomy teaching for discharge home done with this patient to nurses best ability. Patient given booklet on ostomy teaching and step by step chart/diagram on changing appliance. This RN offered patient to change appliance with nurse supervision. Patient declined this shift, patient expressed being exhausted from long day and previous appliance change earlier due to leakage. Patient agreeable to teaching and one appliance change with nurse supervision prior to discharge. Patient given take home packet with supplies to bridge until home health visit. These supplies included stoma measuring guide, skin prep packages, several ostomy wafers/bags, Stomahesive powder, Stomahesive paste and ostomy appliance belt. Demonstrated/described use of all supplies. Questions/concerns answered to nurses best ability. Take home package at patients bedside.
[2020-06-30 04:15] VITALS: BP 127/89; PULSE 75; RESP 16; TEMP 36.9; O2SAT 94
--- NOTE | 2020-06-30 05:27 | PC.NURSE ---
Labs drawn from PICC line. Cap changed and heparin flushed. Pt tolerated well.
[2020-06-30 05:49] LABS: BUN Creatinine Ratio 27.3 (6-22); Blood Urea Nitrogen 12 mg/dL (7-17); Calcium 8.7 mg/dL (8.4-10.2); Carbon Dioxide 30 mmol/L (22-32); Chloride 108 mmol/L (98-107); Estimated Glomerular Filt Rate > 60.0 mL/min (>60); Glucose 108 mg/dL (80-110); HEMOLYSIS < 15 (0-50); Phosphorous 4.1 mg/dL (2.8-4.1); Potassium 3.6 mmol/L (3.4-5.1); Sodium 138 mmol/L (137-145)
[2020-06-30] MEDS: PANTOPRAZOLE 40 MG TABLET PO (06:09)
[2020-06-30] MEDS: LEVOTHYROXINE 25 MCG TABLET PO (06:09)
[2020-06-30 07:47] VITALS: BP 127/59; PULSE 78; RESP 22; TEMP 36.8; O2SAT 96
[2020-06-30] MEDS: carvediloL 3.125 MG TABLET PO ×2 (09:13→20:57)
[2020-06-30] MEDS: HEPARIN 5,000 UNIT/ML VIAL 5000 UNIT SUBCUT ×2 (10:19→20:57)
[2020-06-30] MEDS: INSULIN ASPART 100 UNIT/ML INSULN PEN SUBCUT (10:20)
--- NOTE | 2020-06-30 11:28 | PC.NURSE ---
Patient A/O x 4, ambulating to restroom with SBA using FWW. Patient colostomy intact, minimal drainage noted around dressing, draining kierra, liquid stool. Stoma is sunken, dark red with areas of purple/black. Patient c/o pain in abdomen with palpitation. BT absent in RLQ, hypoactive in other quadrants.Incision is CDI, partially covered with duoderm to prevent irritation if colostomy leaks. TPN infusing, MD ordered titration of 10mls/hour. Starting at 1020 decreased TPN 80mls/hour to 70mls/hour, at 1145 60mls/hour, at 1250 50mls/hour. Patient still does not have much of an appetite. Attempted to place abdominal binder when working with PT. Patient unable to toleratea size. SCD's removed for an hour. Reapplied bilaterally. Call light in reach.
--- NOTE | 2020-06-30 11:32 | PT.IPTN ---
Current Diagnoses Malignant neoplasm of colon, unspecified (06/23/20) Hypothyroidism, unspecified (06/23/20) Obesity, unspecified (06/23/20) Essential (primary) hypertension (06/23/20) Perforation of intestine (nontraumatic) (06/23/20) Peritoneal abscess (06/23/20) Surgery Performed Operation Date: 06/23/20 07:00 <No data on this case meets the specified criteria> Operation Date: 06/23/20 17:30 Actual Procedures p Exploratory Laparotomy GEN with sigmoid and small bowel resection and colostomy - Yoli Biswas MD Physical Therapy Treatment Note M2 PT-IP Current Condition Start: 06/24/20 13:59 Freq: NEEDED Status: Active Protocol: Document 06/24/20 11:32 AB (Rec: 06/24/20 14:09 AB [email or web address]) Physical Therapy Current Condition Current Condition Evaluation Date 06/24/20 Treatment Diagnosis s/p colectomy; difficulty in walking Onset Date 06/23/20 Precautions Abdominal Surgery Precautions Log Roll,Lifting Restrictions, Gait Belt above Incisional Area M3 PT-IP Subjective Start: 06/24/20 13:59 Freq: NEEDED Status: Active Protocol: Document 06/30/20 11:00 CLB (Rec: 06/30/20 12:27 CLB [id number]) Subjective Physical Therapy Visit Type Type Treatment Note Visit Start Time 11:00 Visit Stop Time 11:32 Total Visit Minutes 32 Number of WOOL CLEANER Visits 1 Physical Therapy Visit Comments Patient Comments pt is agreeable to do PT Therapy Pain Assessment Pain When Pain Assessed At Rest Pain Present Pain Present Pain Reported M4 PT-IP Mobility and Gait Start: 06/24/20 13:59 Freq: NEEDED Status: Active Protocol: Document 06/30/20 11:00 CLB (Rec: 06/30/20 12:27 CLB [id number]) PT-Bed Mobility Assessment Rolling Type of Rolling Log Rolling Level of Assist Standby Assistance Supine to Sit Supine to Sit Standby Assistance,Head of Bed Elevated,Bedrails Sit to Supine Sit to Supine Standby Assistance,Head of Bed Elevated PT-Transfer Assessment Sit to and From Stand Sit to and from Stand Standby Assistance Equipment Transfer Assistive Device Gait Belt Orthotic/Prosthetic Devices or Brace: No Transfers Transfer Destination Bed,Toilet Transfer Technique ambulated without AD Transfer Ability Level of Assist Standby Assistance Comments Mobility Comments Pt in bed wanting to get up for a walk, needing to use BR. Pt requires SBA for all mobility during bed moblity, transfers and gait. Pt ambulated in [place] ~500ft w/o AD . Pt has steady gait requiring assist with IV pole. Pt returned to room requiring SBA to get back into bed. Left pt in bed with all needs within reach alarm on. Gait Assessment Gait Gait Assistance Required: Standby Assistance Distance (Feet) 500 Able to Maintain Weight Bearing Status Yes During Gait Assistive Devices Assistive Device None,Gait Belt Orthotic/Prosthetic Devices or Brace: No Gait Deviations General Gait Pattern Antalgic,Decreased Stride Length,Decreased Feet Clearance Factors Limiting Gait Function Factors Limiting Gait Function Decreased Activity Tolerance, Decreased Strength,Pain,Poor Balance Stair Climbing Assessment Evaluation Level of Assist On Stairs Standby Assistance Devices Stair Climbing Assistive Devices Right Railing Technique/Endurance Stair Climbing Direction Ascend and Descend Stair Climbing Technique Step Over Step Number of Steps Climbed 3 Stair Climbing Set # Repetitions (reps) 2 Comments Stair Climbing Comments step over step using right rail ascending/descending M5 PT-IP Objective Assessments Start: 06/24/20 13:59 Freq: NEEDED Status: Active Protocol: Document 06/24/20 11:32 AB (Rec: 06/24/20 14:09 AB [email or web address]) Orientation Orientation/Cognition Level of Alertness Alert Orientation Name,Place,Situation Language Function Ability No Deficits Noted Safety Awareness Understands Safety Issues Memory Description No Deficits Noted Gross Range of Motion Lower Extremity ROM Assessment Within Functional Limits Strength Lower Extremity Strength Assessment Within Functional Limits Coordination Assessment Gross Coordination Gross Coordination WNL Sensation Assessment Sensation Gross Sensation WNL Muscle Tone Muscle Tone WNL Yes M6 PT-IP Treatment Start: 06/24/20 13:59 Freq: NEEDED Status: Active Protocol: Document 06/29/20 12:35 AB (Rec: 06/29/20 13:19 AB [email or web address]) Physical Therapy Treatment Education Education Provided Precautions,Safety M7 PT-IP Assessment and Plan Start: 06/24/20 13:59 Freq: NEEDED Status: Active Protocol: Document 06/30/20 11:00 CLB (Rec: 06/30/20 12:27 CLB [id number]) PT Summary Assessment and Plan Potential Rehabilitation Potential Good Summary Impairments Pain,ROM,Strength,Balance, Cognition,Bed Mobility, Transfers,Gait,Activity Tolerance Progress Towards Goals Progressing Toward Goals Assessment Summary Pt improving with mobility able to get LE's onto bed SBA with HOB elevated. Goals Bed Mobility Goal Independent Transfer Goal Independent Gait Goal Independent Gait Distance 500 Other Goals up/down 3 steps R rails Days to Meet Goals 10 Frequency of Treatment Frequency Of Treatment Once a Day Treatment Plan Physical Therapy Treatment Plan Bed Mobility Training,Transfer Training,Gait Training, Therapeutic Exercise,Balance Retraining,Post Op Education, Discharge Planning,Hot or Cold Pack,Neuromuscular Re-ed, Coordination Retraining Recommendations To Nursing Amount of Assist Needed 1 Person Assist Discharge Recommendations PT Discharge Recommendations Home with Assistance,Home Health Transportation Needs at Discharge Private Vehicle
[2020-06-30 11:39] VITALS: BP 113/69; PULSE 78; RESP 20; TEMP 36.5; O2SAT 97
--- NOTE | 2020-06-30 12:05 | P.PN_ITS ---
Subjective Subjective Date Patient Seen: 06/30/20 Time Patient Seen: 17:00 Interval history: No acute events overnight. Patient has decided that she is not comfortable managing her ostomy at home with her niece, and she would like to have more help with by staying in a long term facility until she is able to manage independently. She is tolerating small amounts of p.o., but taking in very little generally. Exam Vital Signs (past 8 hours): - 06/30/20 04:15 06/30/20 07:47 06/30/20 11:39 Temperature 98.5 F 98.2 F 97.7 F Pulse Rate 75 78 78 Respiratory Rate 16 22 20 Blood Pressure 127/89 127/59 L 113/69 Pulse Oximetry 94 96 97 Oxygen Delivery Method Room Air Oxygen Flow Rate 0 Narrative Exam Narrative: GENERAL: Alert, comfortable. Appears stated age. Answers questions promptly and appropriately. Vital signs noted. HENT: Normocephalic, atraumatic. Hearing intact. CARDIOVASCULAR: Regular rate. No pedal edema. RESPIRATORY: Non-tachypneic, breathing comfortably on room air. GASTROINTESTINAL: Abdomen soft and non-distended; appropriately TTP, incision c/d/i, ostomy is p/p/p, has dark maroon mucosa, with a few patches of necrosis in friable mucosa. Ostomy appears viable, and is patent on digital exam MUSCULOSKELETAL: Equal tone and mass bilaterally. SKIN: Warm, dry, soft, appropriate color for ethnicity. No other lesions, rashes, or wounds. NEURO: Alert and Oriented X 3. No gross sensory deficits, or cognitive issues. PSYCH: Appropriate affect and mood. Objective Labs Result Diagrams: 06/27/20 06:10 06/30/20 05:05 Labs: Laboratory Results - last 24 hr 06/30/20 05:05 Sodium 138 Potassium 3.6 Chloride 108 H Carbon Dioxide 30 BUN 12 Creatinine 0.44 L Estimated GFR > 60.0 BUN/Creatinine Ratio 27.3 H Glucose 108 Calcium 8.7 Phosphorus 4.1 Magnesium 2.0 PFSH Medical History Acquired hypothyroidism Chicken pox Essential hypertension Febrile illness Has 3 children Measles Mixed hyperlipidemia UTI (urinary tract infection) Vision disorder Family History Father No problems noted. Mother Hypertension Grandfather Pneumonia Social History household members: other Smoking Status: Never smoker alcohol intake: current Assessment & Plan Assessment and plan (1) Perforated sigmoid colon: Status: Acute (2) Essential hypertension: Status: Chronic (3) Acquired hypothyroidism: Status: Chronic (4) Obesity (BMI 30.0-34.9): Problem details: The patient's abdominal obesity significantly increased the complexity and difficulty of her laparotomy and to bring up her end colostomy, because her abdominal wall was 2-3 inches thick. Her obesity also complicates her post op course because it increases the risk of wound infection, hernia, fascial dehiscense, ostomy ischemia, and ostomy retraction. Status: Acute (5) Colon cancer: Problem details: Perforated sigmoid colon cancer with local invasion into the anterior abdominal wall and invasion into a loop of small bowel. Pt will need to recover from surgery, and then have staging workup. Status: Acute (6) Abdominal wall defect: Status: Acute (7) Peritoneal abscess: Status: Acute Assessment & Plan narrative: This is a 74-year-old woman who is post op day 7 from laparotomy, sigmoid resection, evacuation of abdominal abscess associated with perforation of the colon, small bowel resection, and end colostomy creation. She is now having stool output from the ostomy and tolerating a little bit of clears. She does not have much appetite. Pathologist reports preliminarily that the findings are consistent with cancer, but the type of cancer is not primary colon and is not clear yet from the studies that have been done on it. Update on pathology report today indicates that it may be an ovarian primary. Final pathology results pending. The patient is currently advancing her diet, but tolerating very little p.o.. We are weaning off her TPN, as tolerated. If she is not able to take in adequate p.o., some may continue to need the TPN. Tonight will be a trial run to see if we can get her off of it and have her eating and drinking adequately. She is not capable of managing her ostomy at home, nor does she have any family this able to manage it. At this point she will need transfer to long term facility for further management until she is able to care for the ostomy independently. Plan: P.o. clears in fulls as tolerated daily labs DVT ppx with heparin and SCDs Ambulate as tolerated Continue Ostomy teaching Wean off TPN COVID-19 COVID-19 status: Negative Result date/Date tested (Pos, Neg/Pending): 06/23/20 Time Spent With Patient Time with patient: 25 - 35 minutes Quality VTE Deep Vein Thrombosis/Pulmonary Embolism Present on Admission: No
--- NOTE | 2020-06-30 12:17 | PC.NURSE ---
carvedilol was given with the nurse
--- NOTE | 2020-06-30 13:57 | DIET.PN ---
Dietary Progress Note RD educated pt on ostomy diet using ostomy booklet including list of approved foods and foods to be avoided for the next 4-6w. Pt feels comfortable she can follow diet. Because pt is vegetarian and needs low residue diet while at hospital, went over menu, pts preferences and came up with list of acceptable foods. Pt is being titrated off of TPN today to encourage PO intake. Pt endorses not being hungry, likely due to 100% of needs being met by TPN. Pt will eat dairy and fish so okay for plain yogurt, salmon, salmon salad, cheese. Pt happy to drink ONS Eyad to support her protein needs for healing.
--- NOTE | 2020-06-30 14:07 | CM.DPNOTE ---
Addendum entered by Rayne Shaffer R.N. 06/30/20 18:04: Just stopped into patient's room to explain that I spoke to Bryce (son) by phone and updated him, but when I stopped in the room Bryce was there. He was moving her RV and stopped in because he was missing a second cormier. While talking to the patient it became clear that she did not intend to continue seeing physicians or receiving care her at after her discharge because driving would be too much of a hardship on her family. I asked her if she would prefer us looking into SNF options closer to [place] or [place]? Patient was uncertain what to do. I explained that she didn't have to decide tonight. She and Bryce could talk more about options and [employer] desk will continue to follow daily. I did explain that the sooner we have a plan for location the better for DCP purposes and they explained they understood. I also encouraged her to talk to her physicians about her need to find medical care/follow up closer to her new home. She and son agreed to start discussing future care with family and physicians. Addendum entered by Rayne Shaffer R.N. 06/30/20 16:20: Spoke to son and True about discharge plan to SNF. Both are supportive of the plan at this time. Armida at has the referral and is pursuing an authorization from [facility]. Original Note: Spoke with patient this morning with an intent to verify discharge plan that was identified earlier in patient visit: Home [facility] [place], [place] with . She has some concern about her ability to change her colostomy at this point in her recovery due to it's location. After discussing home care versus SNF patient decides she wants to rehab at a SNF... she feels additional healing time and assistance with the tricky colostomy would be of help since leighann is not medical and very squeamish about medical things. This patient is also requesting a local SNF so that she can make her ONC appointment with Dr. Hart. is able to get her to initial appointments but not necessarily ongoing appointments due to their staffing restrictions. Upon my leaving this first discussion patient was going to speak to son about what he thought about this new plan.
[2020-06-30 16:05] VITALS: BP 143/84; PULSE 83; RESP 17; TEMP 36.8; O2SAT 98
[2020-06-30 20:50] VITALS: BP 126/89; PULSE 84; RESP 17; TEMP 36.8; O2SAT 98
[2020-06-30] MEDS: OXYCODONE IR 5 MG TABLET PO (20:56)
[2020-06-30] MEDS: MORPHINE 2 MG/ML INJ IV (21:01)
[2020-07-01] VITALS (7 sets, daily range): BP systolic 108–127; BP diastolic 62–88; PULSE 75–93; RESP 14–17; TEMP 36.4–37; O2SAT 96–98
--- NOTE | 2020-07-01 00:36 | PC.NURSE ---
2305 Received safe hand-off report. The patient is lying supine with HOB elevated to 30 degrees. She is AOx4, is on room air and has a right upper arm PICC line that is saline-locked. She denies pain at the moment. Her colostomy is somewhat retracted, red and pink with some black/necrotic tissue, and beefy; drainage is light with green/brown liquid. Colostomy bag and incision are CDI. She has recently been taken off TPN, but [facility] blood sugar order remains active. HS blood sugar was not checked, so we checked her BG at 0035 which was 107. She has not had much of an appetite the past few days, so we will continue to monitor for s/s of hypoglycemia. The patient expressed concern to me that she felt there was a miscommunication or lack of understanding from the palliative care nurse today. The patient wants to make clear that her intentions are to stay locally in [place] at a SNF until her cancer diagnosis and treatment plan are figured out and then would eventually like to transfer her care to [place] where her son lives.
[2020-07-01] MEDS: LEVOTHYROXINE 25 MCG TABLET PO (06:05)
[2020-07-01] MEDS: PANTOPRAZOLE 40 MG TABLET PO (06:05)
[2020-07-01] MEDS: carvediloL 3.125 MG TABLET PO ×2 (08:52→20:36)
[2020-07-01] MEDS: HEPARIN 5,000 UNIT/ML VIAL 5000 UNIT SUBCUT ×2 (08:53→20:36)
--- NOTE | 2020-07-01 10:49 | PT-IP ANOTE ---
Pt refused stating she was too tired.
--- NOTE | 2020-07-01 11:30 | PC.NURSE ---
Patient A/O x 4, shift change noted colostomy drainage under incision dressing. Sx incision cleaned, free of redness, drainge or warmth. Redressed superior aspect with Xeroform, duoderm. Skin barrier and pouch changed. Patient tolerated. Denies pain at this time. BT hypoactive x 4. Patient refusing SCD's. PICC line intact. Saline locked.
--- NOTE | 2020-07-01 12:11 | PT-IP ANOTE ---
Checked on pt a second time, pt states she is feeling really sad and doesn't want to do anything right now.
--- NOTE | 2020-07-01 12:16 | PM.PNPO.1 ---
Subjective Subjective Date Patient Seen: 07/01/20 Time Patient Seen: 10:16 Interval history: No acute overnight events. Awaiting discharge to [facility] rehab . No pain, no nausea, minimal appetitie. ostomy producing scant stool. Exam Vital Signs (past 8 hours): - 07/01/20 08:10 Temperature 98.1 F Pulse Rate 76 Respiratory Rate 14 Blood Pressure 121/69 Pulse Oximetry 97 Oxygen Delivery Method Room Air Oxygen Flow Rate 0 Narrative Exam Narrative: Gen -elderly woman alert and oriented no distress Abdomen-soft, midline incision CDI. Ostomy appliance removed, necrotic mucosa with areas of viable pink mucosa. Digitized-patent, structurally intact. Objective Labs Result Diagrams: 06/27/20 06:10 06/30/20 05:05 PFSH Medical History Acquired hypothyroidism Chicken pox Essential hypertension Febrile illness Has 3 children Measles Mixed hyperlipidemia UTI (urinary tract infection) Vision disorder Family History Father No problems noted. Mother Hypertension Grandfather Pneumonia Social History household members: other Smoking Status: Never smoker alcohol intake: current Assessment & Plan Post-op Postoperative Procedures: Procedures Operation Date: 06/23/20 07:00 <No data on this case meets the specified criteria> Operation Date: 06/23/20 17:30 Actual Procedures Side Surgeon p Exploratory Laparotomy GEN with sigmoid and small bowel resection and colostomy Yoli Biswas MD Postoperative plan narrative: 74F sp hartmans and small bowel resection for perforated bowel secondary to ovarian cancer. Making a slow recovery. #Ischemic mucosa of ostomy-monitor, would not return to the operating room at this time as it is patent and functioning #Diet-advance to soft low fiber #Disposition-Possible SNF Friday. Continue ostomy teaching #VTE prophylaxis-SCDs and SQH Quality VTE Deep Vein Thrombosis/Pulmonary Embolism Present on Admission: No
--- NOTE | 2020-07-01 14:55 | CM.DPNOTE ---
DCP Cont Reviewed chart. Spoke to Armida at [facility], SNF authorization is still in process through [facility], patient's [facility] policy is managed by [facility]. Returned call to Ramirez at [facility] P# [phone] option 2, then 3 then 1. Ref # [id number]. Ramirez was not available so spoke w/Kimberley Vance, discussed this auth request- case being sent to medical transcription radiology for review d/t patient's ability to ambulate SBA. Attempted to clarify that patient's clinical need was far greater than her therapy need- patient requires senior care care to manage her new ostomy and wound site, patient has admitted to not feeling confident about taking care of this ostomy and does not have family willing or able to handle ostomy care. Kimberley made note of this conversation. Kimberley expected the medical transcription radiology through this managed M[facility] plan might request a peer to peer, this [employer] suggested the hat ironer surgeon may feel comfortable doing this, however, the [employer] working Friday would need to discuss this w/hat ironer surgeon. Updated Armida at [facility]. Attempted to meet w/patient and she was sleeping soundly. Notes indicate patient was told she has Ovarian CA today by Dr Sanford and refused therapies this afternoon, wanted to rest. RN Yari states patient really would like to DC to SNF and feels strongly she would benefit from SNF level of care to heal and get assist w/ostomy management before her return home w/family. PASRR completed in anticipation of SNF upon DC, [employer] team will be following closely for coordination of DCP. If SNF auth is declined, another discussion about home w/family, HH services and outpatient f/u will need to happen, ideally w/assist from surgeon and nursing team (re: home ostomy management). TAMAR
[2020-07-02 05:27] LABS: BUN Creatinine Ratio 28.1 (6-22); Blood Urea Nitrogen 16 mg/dL (7-17); Carbon Dioxide 29 mmol/L (22-32); Chloride 102 mmol/L (98-107); Estimated Glomerular Filt Rate > 60.0 mL/min (>60); Glucose 108 mg/dL (80-110); HEMOLYSIS < 15 (0-50); Magnesium 2.1 mg/dL (1.6-2.3); Phosphorous 4.3 mg/dL (2.8-4.1); Potassium 4.1 mmol/L (3.4-5.1); Sodium 134 mmol/L (137-145)
[2020-07-02 05:45] VITALS: BP 131/67; PULSE 79; RESP 16; TEMP 36.6; O2SAT 96
[2020-07-02] MEDS: PANTOPRAZOLE 40 MG TABLET PO (06:07)
[2020-07-02] MEDS: LEVOTHYROXINE 25 MCG TABLET PO (06:07)
--- NOTE | 2020-07-02 08:27 | PC.NURSE ---
Addendum entered by Yari Graves R.N. 07/02/20 12:59: Patient aware of discharge to SNF today, patient verbalizes she is happy to continue her care at [facility] and will feel much more comfortable with assistance managing her new colostomy. Wound care performed. Minimal drainage noted seeping under the colostomy wafer. Cleaned and secured with duoderm. Patient tolerated. PICC line removed. Patient tolerated. Report given to Simona at [facility]. Patient discharged via wheelchair with facility designee. Original Note: Patient A/O x 4, abdomen is soft, mild distention, BT active x 4, patient also reports abdominal grumblings. Colostomy is draining, intact, seeping noted on the medial aspect of dsg. Incision partially covered with duoderm. Patient denies pain. Patient ambulating in the room and through halls with this RN. Patient on RA, lungs clear. VS WNL. Patient is eating breakfast. Call light in reach.
[2020-07-02 08:37] VITALS: BP 138/74; PULSE 83; RESP 18; TEMP 36.6; O2SAT 98
[2020-07-02] MEDS: carvediloL 3.125 MG TABLET PO (08:54)
[2020-07-02] MEDS: HEPARIN 5,000 UNIT/ML VIAL 5000 UNIT SUBCUT (08:55)
[2020-07-02 11:00] VITALS: BP 124/66; PULSE 78; RESP 18; TEMP 36.5; O2SAT 96
--- NOTE | 2020-07-02 11:07 | PM.DS.1 ---
History of Present Illness History of Present Illness Date Patient Seen: 07/02/20 Time Patient Seen: 11:15 Chief complaint: lower abd pains, fever Narrative: 74-year-old female history of obesity hypothyroidism and hypertension who presented to the emergency room with several days worsening abdominal pain. CT abdomen pelvis demonstrated perforated sigmoid colon with an associated abscess and mass. Discharge Providers Provider Date of admission: 06/23/20 16:47 Discharge Date: 07/02/20 Primary care physician: Manuel Dawson MD Consults: 06/23/20 22:45 Consult to Discharge Planning Routine Comment: patient needs ostomy supplies set up for home Consult to Ostomy Specialist Routine Comment: Consulting Provider: 06/24/20 08:46 Consult to Physical Therapy Evaluate & Treat Comment: needs mobilization, ambulation Physician Instructions: Evaluate and Treat Discharge provider: Mani Sanford MD Summary Hospital Course Discharge Diagnosis: Metastatic ovarian cancer Obesity Hypertension Hypothyroidism Peritoneal abscess Colonic perforation Severe acute protein calorie malnutrition Hospital Course: Patient underwent a Herminia's procedure and small-bowel resection 06/23/20. She was found to have perforated sigmoid colon secondary to malignancy, that additionally involved a loop of small bowel and the anterior abdominal wall. Postoperatively she had a slow recovery and return of bowel function. Given her severe acute protein calorie malnutrtion she was supported with TPN for several day. Pathology demonstrates metastatic ovarian carcinoma. On the date of discharge 07/02/20 she is tolerant of a low residue diet and has a productive ostomy. Her pain is well controlled. She will be discharging to a [facility] facility given her inability to independently manage her ostomy and need for physical rehabilitation. Exam Vital Signs (past 8 hours): - 07/02/20 05:45 07/02/20 08:37 Temperature 97.8 F 97.8 F Pulse Rate 79 83 Respiratory Rate 16 18 Blood Pressure 131/67 138/74 Pulse Oximetry 96 98 Oxygen Delivery Method Room Air Oxygen Flow Rate 0 Narrative Exam Narrative: General obese elderly woman alert oriented no acute distress Chest nonlabored respirations Abdomen midline incision clean dry intact with lena. Ostomy is productive of stool. Extremities warm well perfused Objective Labs Result Diagrams: 06/27/20 06:10 07/02/20 05:00 Labs: Laboratory Results - last 24 hr 07/02/20 05:00 Sodium 134 L Potassium 4.1 Chloride 102 Carbon Dioxide 29 BUN 16 Creatinine 0.57 Estimated GFR > 60.0 BUN/Creatinine Ratio 28.1 H Glucose 108 Calcium 9.0 Phosphorus 4.3 H Magnesium 2.1 [facility] Medical History Acquired hypothyroidism Chicken pox Essential hypertension Febrile illness Has 3 children Measles Mixed hyperlipidemia UTI (urinary tract infection) Vision disorder Family History Father No problems noted. Mother Hypertension Grandfather Pneumonia Social History household members: other Smoking Status: Never smoker alcohol intake: current Discharge Plan Discharge Plan Patient Disposition: Home Provider Discharge Comment: Discharge comment: Drink plenty of water to keep yourself hydrated. If you feel dry mouth or notice your urine becomes darker, increase your fluid intake. Pain management: Take your prescription pain medication as needed so you are able to cough, take deep breaths, sleep well, and get up to walk around. You should also use Tylenol as needed for pain, as well as NSAID's such as Aleve, Advil, Ibuprofen if you are able to do so without stomach upset. Make sure to take NSAID's with food. Do not take more than the recommended dose of each. Activity: Keep active with light activity such as gentle exercise and taking walks. Avoid lifting over 10lbs, abdominal core work, or very strenuous activity. Avoid being sedentary for prolonged periods. You may shower. After showering, keep a dry dressing over your incisional wounds as needed. If you notice any redness or drainage from the wounds, call our office and speak to Dr. Biswas, or the doctor sales operations analyst. Other concerns: If you have any other concerns about your surgery or post operative care, please call the surgeon's office number and speak to the office nurse or the surgeon sales operations analyst. Emergencies: If you become ill with significant chest pain, shortness of breath, significant bleeding, or other life threatening symptoms, please call 911 or go to the ER right away. Ostomy care: Continue to follow the verbal and written instructions given by the nurse regarding care and management of your ostomy site. Contact the wound care nurse at [facility] [phone] in order to continue ostomy care, support, and teaching as an outpatient. Contact your local assigned home health provider for ongoing ostomy assistance at home and ostomy care supplies. Discharge orders & Medications Prescriptions: Continued carvedilol 3.125 mg tablet 3.125 mg PO BID Qty: 180 RF: 3 cholecalciferol (vitamin D3) 50 mcg (2,000 unit) capsule 50 mcg PO DAILY RF: 0 rosuvastatin [Crestor] 5 mg tablet 5 mg PO DAILY RF: 0 levothyroxine 25 mcg tablet 25 mcg PO DAILY RF: 0 Follow up/Referrals: Pinky Mcgregor MD [Physician] - Manuel Dawson MD [Primary Care Provider] - Yoli Biswas MD [Physician] - (Please contact [facility] to make a follow up appointment to see Dr. Biswas in the office some time during the week of July 10-. ) Diet/Activity/Treatments Diet: Diet as Tolerated Diet comment: Low fiber/low residual diet Skin/Wound/Dressing Care Report to your healthcare provider any signs of infection, such as:: chills, fever, night sweats, increased pain, unusual drainage and unusual redness Visit Report/Discharge Packet Instructions: How to Care for Your Colostomy or Ileostomy, Low-Fiber/Low-Residue Diet, DI for Prescription Opioid Use, Colostomy / Ileostomy, [facility]: Wound Care Discharge Data Primary Care Provider: Manuel Dawson Quality VTE Deep Vein Thrombosis/Pulmonary Embolism Present on Admission: No
[2020-07-02 12:22] LABS: COVID19 -Nasal RAPID Negative (Negative)
--- NOTE | 2020-07-02 12:58 | CM.DANOTE ---
DCP/Assessment: Reviewed chart. Received phone call from October at [facility] she reports that she has received SNF authorization. Placed call to attending surgeon/Dr. Sanford. He arrives at [facility] to round and reports that he will medically clear patient for discharge today. Orders obtained and faxed to [facility] for admit. October reports that they can pick patient up at approximately 1:30pm. Met with patient explained role. Patient aware and agreeable to transfer to [facility] today. Copy of [facility] provided to patient. RN given number to call report. No additional needs identified. Patient will notify family. Name/number of facility provided to patient. P: [facility] today. JAHAIRA Schmidt
== END 2020-07-02 13:50 | DRG 329 ==
LOC: ED 16:22 → AC 16:51
PROVIDERS: Specialist; Surgery; Admitting Provider Surgery; Emergency Provider Emergency Medicine; PCP Internal Medicine; Referring Provider Emergency Medicine; Visit Provider Surgery
PROC: 0DTN0ZZ Resection of Sigmoid Colon, Open Approach (ICD-10-PCS; CPT 49000; principal; 2020-06-23 17:30)
DX: C78.5 Secondary malignant neoplasm of large intestine and rectum (principal); K63.1 Perforation of intestine (nontraumatic); K65.1 Peritoneal abscess; E43 Unspecified severe protein-calorie malnutrition; C79.11 Secondary malignant neoplasm of bladder; C56.9 Malignant neoplasm of unspecified ovary; Z68.32 Body mass index [BMI] 32.0-32.9, adult; I10 Essential (primary) hypertension; E89.0 Postprocedural hypothyroidism; E78.2 Mixed hyperlipidemia; Z20.822 Contact with and (suspected) exposure to COVID-19
CPT/HCPCS: 36415; 36569; 36592; 71045; 74018; 74177; 74250; 80048; 80053; 81003; 81015; 82962; 83605; 83690; 83735; 84100; 84145; 85025; 85610; 85730; 87070; 87075; 87186; 87205; 87635; 93005; 93010; 94762; 96365; 97116; 97162; 97530; 99283; 99285; C9803; B4185; B4189; C9113; C9290; J1100; J1170; J1642; J1644; J2270; J2405; J2543; J2704; J3480; Q9968

== ENCOUNTER 2020-07-04 16:00 | Inpatient (IN) | payer MEDICARE, SELFPAY ==
--- NOTE | 2020-07-04 | DI.CT.S_ITS ---
PROCEDURE: CT ABDOMEN PELVIS W CON INDICATIONS: suspect wound infection vs fascial dehiscence TECHNIQUE: After the administration of intravenous contrast, 5 mm thick sections acquired from the diaphragm to the symphysis. 5 mm coronal and sagittal reformats were acquired. For radiation dose reduction, the following was used: automated exposure control, adjustment of mA and/or kV according to patient size. COMPARISON: [facility], CT, CT ABDOMEN PELVIS W CON, 06/23/2020, 15:03. FINDINGS: Image quality: Excellent. ABDOMEN: Lung bases: Lung bases are clear. Heart size is normal. There is a small hiatal hernia. Solid organs: There is a small nonspecific curvilinear hypodensity peripherally in segment 8 of the right hepatic lobe. A small ill-defined hypodensities also demonstrated posteriorly in segment 6 measuring up to approximately 0.9 cm. There is a linear peripheral hypodensity also noted in segment 6 laterally. The findings are similar to the prior study. No subcapsular fluid collections. There is hypodensity along the falciform ligament in the left hepatic lobe likely representing focal fatty infiltration. The gallbladder appears within normal limits without calcified gallstones. Biliary system is non-dilated. Pancreas enhances normally. No peripancreatic fat stranding or fluid collections. No pancreatic duct dilatation. The spleen is normal in size. No adrenal nodules. Kidneys demonstrate no hydronephrosis. Peritoneum and bowel: Postsurgical changes are demonstrated status post partial colectomy with a diverting left abdominal colostomy. There is fluid and fat stranding anteriorly in the pelvis within the surgical bed extending to the bladder dome. There is a small loculated thick-walled collection within this region measuring approximately 0.8 x 2.6 x 1.3 cm likely representing a small abscess. This extends anteriorly to the abdominal wall and inferiorly to the bladder dome. No intraperitoneal free air. Nodes and vessels: No retroperitoneal or mesenteric adenopathy by size criteria. Aorta and inferior vena cava are normal in size. Miscellaneous: Postsurgical changes are demonstrated within the ventral abdominal wall inferiorly with subcutaneous fat stranding and loculated subcutaneous fluid deep to the midline incision site measuring approximately 2.9 x 4.3 x 7.5 cm which may represent a postsurgical hematoma or seroma versus abscess. There is also asymmetric enlargement of the right rectus abdominus muscle with internal heterogeneous enhancement. The findings may represent an intramuscular hematoma or myositis. There is a hypoattenuating region medially measuring up to 2.2 x 1.8 cm in transverse dimension which is nonspecific but may reflect a phlegmon. PELVIS: Genitourinary: There is wall thickening along the anterior bladder dome adjacent to inflammatory changes in the anterior pelvis. Miscellaneous: No inguinal hernias or adenopathy. Bones: No suspicious bony lesions. No vertebral body compression fractures. IMPRESSION: 1. Postsurgical changes demonstrated status post partial colectomy with a left diverting colostomy. Inflammatory changes are demonstrated in the surgical bed within the anterior pelvis with a small thick-walled collection likely representing an abscess. 2. Subcutaneous fluid collection deep to the incision site in the ventral abdominal wall is nonspecific and may represent a hematoma/seroma versus an abscess. 3. Asymmetric enlargement of the right rectus abdominus muscle with heterogeneous enhancement may reflect an intramuscular hematoma or myositis. Dictated by: Ja Jennings M.D. on 07/04/2020 at 16:51 Approved by: Ja Jennings M.D. on 07/04/2020 at 17:09
[2020-07-04 14:26] VITALS: BMI 32.5
[2020-07-04 16:25] VITALS: BP 131/72; PULSE 83; RESP 16; TEMP 37
[2020-07-04 16:48] VITALS: BMI 31.0
[2020-07-04] MEDS: PIPERACILLIN-TAZO 2.25 GM/50 ML FROZ.PIGGY IV ×2 (17:41→22:56)
[2020-07-04] MEDS: LACTATED RINGERS 1,000 ML 100 ML IV (17:41)
[2020-07-04 17:53] LABS: Lactate (Lactic Acid) 1.2 mmol/L (0.7-2.1)
[2020-07-04 17:54] LABS: Blood Urea Nitrogen 10 mg/dL (7-17); Calcium 8.8 mg/dL (8.4-10.2); Carbon Dioxide 28 mmol/L (22-32); Chloride 103 mmol/L (98-107); Estimated Glomerular Filt Rate > 60.0 mL/min (>60); Glucose 109 mg/dL (80-110); HEMOLYSIS 30 (0-50); Magnesium 2.1 mg/dL (1.6-2.3); Potassium 4.4 mmol/L (3.4-5.1); Sodium 136 mmol/L (137-145)
[2020-07-04 18:10] LABS: Procalcitonin 0.06 ng/mL (<0.5)
[2020-07-04] MEDS: VANCOMYCIN 1,500 MG/300 ML PIGGYBACK 200 MG IV (18:14)
[2020-07-04 18:35] LABS: Add Manual Diff / Slide Review NO; Basophils Absolute Auto 100 /uL (0-100); Basophils Percent Auto 0.5 % (0-2); Eosinophils Absolute Auto 300 /uL (0-450); Eosinophils Percent Auto 1.7 % (2-4); Lymphocytes Absolute Auto 2000 /uL (1100-4500); Lymphocytes Percent Auto 12.5 % (25-40); Mean Corpuscular HGB Conc 33.7 % (30-36); Mean Corpuscular Hemoglobin 29.3 PG (26-34); Mean Corpuscular Volume 86.9 fL (80-100); Monocytes Absolute Auto 1300 /uL (0-900); Monocytes Percent Auto 8.5 % (3-14); Neutrophils Absolute Auto 12200 /uL (1500-7000); Neutrophils Percent Auto 76.8 % (50-75); Platelet Count 464 X10^3/uL (150-400); Red Blood Cell Count 1.71 X10^6/uL (4.0-5.2); Red Cell Distribution Width 14.2 % (11.6-14.8); White Blood Cell Count 15.9 X10^3/uL (4.5-11.0)
[2020-07-04 19:03] LABS: COVID19 -Nasal RAPID Negative (Negative)
--- NOTE | 2020-07-04 19:12 | PC.NURSE ---
Critical Lab Value called to Dr Scott. H/H 09/15. Orders given for repeat H&H, Type and Cross for 2 Units PRBC. Transfuse both units if repeat draw is less than or equal to initial draw.
[2020-07-04 19:17] LABS: Hematocrit 26.6 % (36-46); Hemoglobin 8.9 g/dL (12.0-16.0)
[2020-07-04 19:20] LABS: Hematocrit 14.9 % (36-46)
[2020-07-04 19:25] VITALS: BP 115/67; PULSE 76; RESP 16; TEMP 37.3; O2SAT 98
[2020-07-04 20:27] VITALS: BP 115/67; PULSE 76
[2020-07-04] MEDS: carvediloL 3.125 MG TABLET PO (20:27)
[2020-07-04 23:00] VITALS: BP 111/64; PULSE 74; RESP 16; TEMP 37; O2SAT 97
[2020-07-05] VITALS (20 sets, daily range): BP systolic 93–132; BP diastolic 37–74; PULSE 69–84; RESP 15–22; TEMP 35.8–37.1; O2SAT 91–98; BMI 31.0
[2020-07-05] MEDS: PIPERACILLIN-TAZO 2.25 GM/50 ML FROZ.PIGGY IV ×3 (05:47→22:41)
[2020-07-05] MEDS: LEVOTHYROXINE 25 MCG TABLET PO (05:48)
[2020-07-05 07:04] LABS: Add Manual Diff / Slide Review NO; Basophils Absolute Auto 0 /uL (0-100); Basophils Percent Auto 0.6 % (0-2); Eosinophils Absolute Auto 200 /uL (0-450); Hemoglobin 8.6 g/dL (12.0-16.0); Lymphocytes Absolute Auto 1400 /uL (1100-4500); Lymphocytes Percent Auto 16.9 % (25-40); Mean Corpuscular HGB Conc 34.6 % (30-36); Mean Corpuscular Hemoglobin 30.3 PG (26-34); Mean Corpuscular Volume 87.4 fL (80-100); Monocytes Absolute Auto 800 /uL (0-900); Monocytes Percent Auto 10.5 % (3-14); Neutrophils Absolute Auto 5600 /uL (1500-7000); Platelet Count 305 X10^3/uL (150-400); Red Blood Cell Count 2.86 X10^6/uL (4.0-5.2); Red Cell Distribution Width 14.5 % (11.6-14.8); White Blood Cell Count 8.1 X10^3/uL (4.5-11.0)
[2020-07-05 07:16] LABS: BUN Creatinine Ratio 11.3 (6-22); Blood Urea Nitrogen 6 mg/dL (7-17); Calcium 8.5 mg/dL (8.4-10.2); Carbon Dioxide 29 mmol/L (22-32); Chloride 104 mmol/L (98-107); Estimated Glomerular Filt Rate > 60.0 mL/min (>60); Glucose 108 mg/dL (80-110); HEMOLYSIS < 15 (0-50); Magnesium 1.9 mg/dL (1.6-2.3); Phosphorous 4.2 mg/dL (2.8-4.1); Potassium 3.5 mmol/L (3.4-5.1); Sodium 136 mmol/L (137-145)
--- NOTE | 2020-07-05 09:03 | P.PN_ITS ---
Subjective Subjective Date Patient Seen: 07/05/20 Time Patient Seen: 09:03 Interval history: No acute events overnight. Patient admitted for drainage from midline wound. She denies any significant pain. Denies fevers. Said she was having good ostomy output until yesterday. Exam Vital Signs (past 8 hours): - 07/05/20 03:53 07/05/20 08:27 Temperature 98.7 F 97.1 F L Pulse Rate 70 73 Respiratory Rate 16 21 Blood Pressure 121/59 L 109/64 Pulse Oximetry 96 97 Oxygen Delivery Method Room Air Oxygen Flow Rate 0 Narrative Exam Narrative: GENERAL: Alert, comfortable. Appears stated age. Answers questions promptly and appropriately. Vital signs noted. HENT: Normocephalic, atraumatic. Hearing intact. EYES: Conjunctiva pink, sclera white, no periorbital swelling. CARDIOVASCULAR: Regular rate. No pedal edema. RESPIRATORY: Non-tachypneic, breathing comfortably on room air. GASTROINTESTINAL: Abdomen soft and non-distended. [place] removed from lower midline incision during exam, with copious purulent drainage. Ostomy digitized during exam, with good patency to and beyond the fascia. Superficial necrosis, and mucocutaneous separation of the stoma GENITALURINARY: No flank tenderness. MUSCULOSKELETAL: Equal tone and mass bilaterally. SKIN: Warm, dry, soft, appropriate color for ethnicity. No other lesions, rashes, or wounds. NEURO: Alert and Oriented X 3. No gross sensory deficits, or cognitive issues. PSYCH: Appropriate affect and mood. Objective Imaging CT scan - abdomen: Radiologist's impression: [address] [id number] Scan ReportSigned Patient: Samaria Pierre CMR#: [id number]: 5Acct:[id number]/Sex: 74 / FDate of Service: 07/04/20Loc: [id number] Number: [id number] Procedure: CT abdomen pelvis w con Ordering Provider: Yoli Biswas MD PROCEDURE: CT ABDOMEN PELVIS W CON INDICATIONS: suspect wound infection vs fascial dehiscence TECHNIQUE: After the administration of intravenous contrast, 5 mm thick sections acquired from the diaphragm to the symphysis. 5 mm coronal and sagittal reformats were acquired. For radiation dose reduction, the following was used: automated exposure control, adjustment of mA and/or kV according to patient size. COMPARISON: [facility], CT, CT ABDOMEN PELVIS W CON, 06/23/2020, 15:03. FINDINGS: Image quality: Excellent. ABDOMEN: Lung bases: Lung bases are clear. Heart size is normal. There is a small hiatal hernia. Solid organs: There is a small nonspecific curvilinear hypodensity peripherally in segment 8 of the right hepatic lobe. A small ill-defined hypodensities also demonstrated posteriorly in segment 6 measuring up to approximately 0.9 cm. There is a linear peripheral hypodensity also noted in segment 6 laterally. The findings are similar to the prior study. No subcapsular fluid collections. There is hypodensity along the falciform ligament in the left hepatic lobe likely representing focal fatty infiltration. The gallbladder appears within normal limits without calcified gallstones. Biliary system is non-dilated. Pancreas enhances normally. No peripancreatic fat stranding or fluid collections. No pancreatic duct dilatation. The spleen is normal in size. No adrenal nodules. Kidneys demonstrate no hydronephrosis. Peritoneum and bowel: Postsurgical changes are demonstrated status post partial colectomy with a diverting left abdominal colostomy. There is fluid and fat stranding anteriorly in the pelvis within the surgical bed extending to the bladder dome. There is a small loculated thick-walled collection within this region measuring approxima tely 0.8 x 2.6 x 1.3 cm likely representing a small abscess. This extends anteriorly to the abdominal wall and inferiorly to the bladder dome. No intraperitoneal free air. Nodes and vessels: No retroperitoneal or mesenteric adenopathy by size criteria. Aorta and inferior vena cava are normal in size. Miscellaneous: Postsurgical changes are demonstrated within the ventral abdominal wall inferiorly with subcutaneous fat stranding and loculated subcutaneous fluid deep to the midline incision site measuring approximately 2.9 x 4.3 x 7.5 cm which may represent a postsurgical hematoma or seroma versus abscess. There is also asymmetric enlargement of the right rectus abdominus muscle with internal heterogeneous enhancement. The findings may represent an intramuscular hematoma or myositis. There is a hypoattenuating region medially measuring up to 2.2 x 1.8 cm in transverse dimension which is nonspecific but may reflect a phlegmon. PELVIS: Genitourinary: There is wall thickening along the anterior bladder dome adjacent to inflammatory changes in the anterior pelvis. Miscellaneous: No inguinal hernias or adenopathy. Bones: No suspicious bony lesions. No vertebral body compression fractures. IMPRESSION: 1. Postsurgical changes demonstrated status post partial colectomy with a left diverting colostomy. Inflammatory changes are demonstrated in the surgical bed within the anterior pelvis with a small thick-walled collection likely representing an abscess. 2. Subcutaneous fluid collection deep to the incision site in the ventral abdominal wall is nonspecific and may represent a hematoma/seroma versus an abscess. 3. Asymmetric enlargement of the right rectus abdominus muscle with heterogeneous enhancement may reflect an intramuscular hematoma or myositis. Dictated by: Ja Jennings M.D. on 07/04/2020 at 16:51 Approved by: Ja Jennings M.D. on 07/04/2020 at 17:09 Labs Result Diagrams: 07/05/20 06:50 07/05/20 06:50 Labs: Laboratory Results - last 24 hr 07/04/20 07/04/20 07/04/20 17:20 17:20 17:20 WBC 15.9 H RBC 1.71 L Hgb 5.0 L* Hct 14.9 L* MCV 86.9 MCH 29.3 MCHC 33.7 RDW 14.2 Plt Count 464 H Neut % (Auto) 76.8 H Lymph % (Auto) 12.5 L [place] % (Auto) 8.5 Eos % (Auto) 1.7 L Baso % (Auto) 0.5 Neut # (Auto) 96620 H Lymph # (Auto) 2000 [place] # (Auto) 1300 H Eos # (Auto) 300 Baso # (Auto) 100 Sodium 136 L Potassium 4.4 Chloride 103 Carbon Dioxide 28 BUN 10 Creatinine 0.50 L Estimated GFR > 60.0 BUN/Creatinine Ratio 20.0 Glucose 109 Lactate 1.2 Calcium 8.8 Phosphorus Magnesium 2.1 Procalcitonin SARS-CoV-2 (PCR) Blood Type Antibody Screen Crossmatch 07/04/20 07/04/20 07/04/20 17:20 18:10 19:10 WBC RBC Hgb 8.9 L Hct 26.6 L MCV MCH MCHC RDW Plt Count Neut % (Auto) Lymph % (Auto) [place] % (Auto) Eos % (Auto) Baso % (Auto) Neut # (Auto) Lymph # (Auto) [place] # (Auto) Eos # (Auto) Baso # (Auto) Sodium Potassium Chloride Carbon Dioxide BUN Creatinine Estimated GFR BUN/Creatinine Ratio Glucose Lactate Calcium Phosphorus Magnesium Procalcitonin 0.06 SARS-CoV-2 (PCR) Negative Blood Type Antibody Screen Crossmatch 07/04/20 07/05/20 07/05/20 19:10 06:50 06:50 WBC 8.1 RBC 2.86 L Hgb 8.6 L Hct 25.0 L MCV 87.4 MCH 30.3 MCHC 34.6 RDW 14.5 Plt Count 305 Neut % (Auto) 69.0 Lymph % (Auto) 16.9 L [place] % (Auto) 10.5 Eos % (Auto) 3.0 Baso % (Auto) 0.6 Neut # (Auto) 5600 Lymph # (Auto) 1400 [place] # (Auto) 800 Eos # (Auto) 200 Baso # (Auto) 0 Sodium 136 L Potassium 3.5 Chloride 104 Carbon Dioxide 29 BUN 6 L Creatinine 0.53 Estimated GFR > 60.0 BUN/Creatinine Ratio 11.3 Glucose 108 Lactate Calcium 8.5 Phosphorus 4.2 H Magnesium 1.9 Procalcitonin SARS-CoV-2 (PCR) Blood Type O Positive Antibody Screen Negative Crossmatch See Detail [facility] Medical History Acquired hypothyroidism Chicken pox Essential hypertension Febrile illness Has 3 children Measles Mixed hyperlipidemia UTI (urinary tract infection) Vision disorder Family History Father No problems noted. Mother Hypertension Grandfather Pneumonia Social History household members: other Smoking Status: Never smoker alcohol intake: current Assessment & Plan Assessment and plan (1) Status post Herminia procedure: Status: Acute (2) Ovarian cancer: Qualifiers: Laterality: unspecified laterality Qualified Code(s): C56.9 - Malignant neoplasm of unspecified ovary Status: Acute (3) Postoperative wound infection: Status: Acute (4) Obesity (BMI 30.0-34.9): Problem details: The patient's abdominal obesity significantly increased the complexity and difficulty of her laparotomy and to bring up her end colostomy, because her abdominal wall was 2-3 inches thick. Her obesity also complicates her post op course because it increases the risk of wound infection, hernia, fascial dehiscense, ostomy ischemia, and ostomy retraction. Status: Acute (5) Complication of ostomy: Status: Acute (6) Abdominal wall abscess: Status: Acute Assessment & Plan narrative: This is a 74-year-old woman who is about 2 weeks out from emergency laparotomy, washout of abscess, resection of perforated and obstructed colon, and end colostomy (Herminia's procedure). She was discharged to a nursing facility on Friday, and was brought back in yesterday, and seen in clinic. Concerning findings included drainage from the abdominal wall, and mucocutaneous separation of the colostomy. These are expected complications and someone who came in with a perforated colon, and has an abdominal wall which was nearly 3 in thick. However, she will need to go back to the operating room today for washout of her abdominal wound, and possible revision of her colostomy. I discussed this with the patient, and discussed the risks and benefits of surgery including bleeding, infection, damage to nearby structures, need for additional procedures, ongoing infection, hernia. The patient desires to proceed with surgery. Plan: NPO at 9:30 a.m. Hold heparin Hold MiraLax and Metamucil Plan for OR this afternoon for wound washout and possible ostomy revision COVID-19 COVID-19 status: Negative Result date/Date tested (Pos, Neg/Pending): 07/04/20 Time Spent With Patient Time with patient: Greater than 35 minutes (Including wound care, surgical discussion, and review of CT scan and lab findings) Quality VTE Deep Vein Thrombosis/Pulmonary Embolism Present on Admission: No
[2020-07-05] MEDS: CHOLECALCIFEROL (VITAMIN D3) 1,000 UNIT TABLET 2000 UNIT PO (09:42)
[2020-07-05] MEDS: ROSUVASTATIN 10 MG TABLET 5 MG PO (09:42)
[2020-07-05] MEDS: MAGNESIUM SULFATE 2 GM/50 ML PIGGYBACK IV (09:46)
[2020-07-05] MEDS: POTASSIUM CHLORIDE 40 MEQ in SODIUM CHLORIDE 0.9% 500 ML 130 ML IV (12:49)
--- NOTE | 2020-07-05 15:38 | CM.DANOTE ---
Patient is a 74 yo female who was admitted on 07/04/20 for bleeding. Pt has [facility] for insurance and her PCP is Dr. Dawson. EMR was reviewed. Per Surgeon, pt admitted for bleeding from her ostomy/wound and need for washout and possible revision to her colostomy tonight. SW met bedside with pt and explained role and pt confirms she just discharged to [facility] from [facility] on 07/02/20 and was having good ostomy output until yesterday and still states that she has no pain. Pt confirms that she is agreeable with return to [facility] rehab until she can have her conference call with Oncology in a few days towards determining her cancer and treatment options and then she will discharge to her son Victor Hugo's house in [place] still with ongoing outpt follow up for surgeon and oncology. Pt is hopeful to get a list of possible surgeons to establish with in [place] prior to d/c and SW encouraged her again to ask her current surgeon Dr. Biswas. Pt states she has been somewhat emotional during her stay and was very thankful for [employer] visit. Pt feels very strongly that she appreciates her care here at [facility] and is very thankful for the staff. Pt's son already retrieved her RV from [facility] parking lot after her recent d/c to SNF. SW called [facility] admissions and confirmed they can accept pt back at d/c without any current barriers. Plan: SW to follow closely for pt to d/c back to [facility] when medically stable prior to moving to her son's house in [place] and to follow for any further needs after surgical intervention tonight. JAHAIRA Giron Discharge Planning/Care Management CM Discharge Assessment Start: 07/05/20 15:36 Freq: Status: Active Protocol: Document 07/05/20 15:36 BF (Rec: 07/05/20 15:38 BF [id number]) Discharge Planning Assessment Assigned Powder Blender JAHAIRA Felix DPOA/Assigned Designee Name manjula Wu in [place] Advance Directives? Yes Advance Directives on File No History Provided By Patient,Medical Record Has Patient been admitted in last 30 Yes days? Comment recent d/c to [facility] on Prior Living Arrangements RV Household Members none Type of transporation used prior to Drives own vehicle admit Facility Name Admitted From: [facility] Willing to Return to Facility? Yes Independent with ADL's Yes: at baseline, not currently Is patient alert and oriented? Yes Needs Assistance With Grooming,Managing Medications Comment Support with new ostomy care and wound care Caregiver for Another No Patient/Family Preference Prison Facility Barriers to Discharge No Discharge Plan Prison Facility Transportation Arrangement [facility] to transport Referrals Initiated Prison Additional Comment Return to [facility] Medicare Choice List Provided Yes Has Agency SNF been contacted Yes Whiteboard Updated in Patient Room with Yes name and ext. # of Powder Blender Review Status In Process Please Provide Date Initial DC 07/05/20 Assessment Was Performed Next Review Type Continued Stay Review
--- NOTE | 2020-07-05 15:52 | PC.NURSE ---
Addendum entered by Perla Pinzon R.N. 07/05/20 21:59: Pt returned to room 207 from PACU wide awake and conversant. Denies pain, denies nausea. Encouraged pt to alert staff when needing/desiring pain medications. Dressing to midline abdomen is dry and intact with BARBARA drain intact. Stoma intact left abdomen with ostomy bag securely attached. Pt follows commands appropriately. Hypoactive bowel tones. BL calf scd's in place. Midline RUE accessed for pt's iv antibiotics. Taking clear liquids without difficulty. Milligan to gravity and draining clear, yellow urine. Contact precautions observed. Original Note: Pt taken to O.R. in bed by RN from O.R. Pt left room 207 awake, alert, conversant.
[2020-07-05] MEDS: LACTATED RINGERS 1,000 ML 42 ML IV (16:07)
--- NOTE | 2020-07-05 16:13 | DIET.PN ---
Addendum entered by Liliana Jennings 07/05/20 16:26: also plain yogurt. Pt dislikes regular ONS (clear vs. full liquid) because they are too sweet. Original Note: Dietary Progress Note RD visited c pt prior to leaving for OR. Pt reports SNF not following dietary reccs sent regarding low residue diet for new ostomy and pts vegetarian diet. Pt served meatballs and porkchops, caesar salad and other veggies. Pt says she has been eating many grilled cheese sandwiches. Kitchen will send Eyad bid providing 30g PRO c glutamine to support abdominal healing in addition to meal trays. Pt eats eggs, salmon, salmon salad. Pt requests information on ONS Eyad to purchase for continued consumption for next several weeks while healing, RD will send up prior to d/c. Pt planning to stay c her son who is also vegetarian eventually, and feels her nutrition needs will be met.
[2020-07-05] MEDS: PIPERACILLIN-TAZO 3.375 GM/50 ML FROZ.PIGGY IV (16:37)
--- NOTE | 2020-07-05 16:48 | SUR.OPER ---
Supine on padded OR bed, head on pillow, arms secured on padded arm boards at <90 degrees abduction, legs uncrossed, safety belt at thigh, tape over blanket over lower legs.
[2020-07-05] MEDS: BUPIVACAINE 0.5% W/ EPI (PF) 30 ML VIAL INJ (16:58)
[2020-07-05] MEDS: LACTATED RINGERS 1,000 ML 100 ML IV ×2 (17:52→22:39)
--- NOTE | 2020-07-05 18:35 | PM.OP.1 ---
Operative Date/Time/Diagnoses Date of procedure: 07/05/20 Time of procedure: 18:35 Pre-op diagnosis: Abdominal wall abscess, mucocutaneous separation of ostomy Post-op diagnosis: same Procedure & Clinicians Procedure: Abdominal wall washout and drain placement; ostomy revision Same procedure as scheduled: Yes Indications: This is a patient who came in two weeks ago with perforated cancer in her sigmoid colon. She had significant infection in her abdomen with an abscess and perforated colon. Since her original emergency surgery, she has developed an abscess with in her abdominal wall and mucocutaneous separation of her colostomy. Surgeon: Yoli Biswas Anesthesia Type: General Operative Notes Findings: 2cm x 3cm abscess cavity within the subcutaneous fat of her abdominal wall. Colostomy with intact well perfused colon, with superficial mucosal sloughing and mucocutaneous separation. Specimen(s): none sent Estimated Blood Loss (mL): 5 Procedure in detail: The patient was brought into the operating room and placed supine on the OR table. Sequential compression devices were placed on both legs and turned on. Appropriate perioperative antibiotics were given prior to the start of surgery. General anesthesia was induced the patient was intubated. Milligan catheter was placed in sterile fashion in the bladder. The abdomen was prepped and draped in sterile fashion. Surgical time-out was conducted. Lena were removed from the lower half of the midline incision. The skin and fat tissue were bluntly with purulent fluid found in the space superficial to the fascia. The abscess cavity was washed out and irrigated thoroughly. Hemostasis was achieved with cautery. I then placed a 19 round Shaheed drain in the abscess cavity, exiting through the abdominal wall in the right lower quadrant. This was secured with 3-0 nylon suture. The skin was closed over the drain with lena. At this point local anesthetic was injected into the skin and subcutaneous tissue surrounding the colostomy. Sutures were removed from the mucutaneous border, and the ostomy was bluntly from the surrounding subcutaneous tissue. The subcutaneous fat was dissected in a circumferential fashion to decrease the thickness of the abdominal wall. There was a small amount of sloughing mucosa removed from the surface of the ostomy which revealed well perfused mucosa. The ostomy was again brooked with good appositon of the mucocutaneous border. An ostomy appliance was placed. The Milligan was left in place. Needle sponge and instrument counts were correct x2 at the end of the procedure. The patient tolerated the procedure well. The patient was awakened from anesthesia and extubated. She was transferred to the postanesthesia care unit in stable condition. Complications: none Post-operative Condition: stable Disposition: PACU Plan for aftercare: Transfer back to acute care. Advance diet as tolerated.
--- NOTE | 2020-07-05 19:12 | SUR.PHASEI ---
Patient AAO x 3 and denies any pain or nausea. Tolerating ice chips without difficulty. VSS. Receiving nurse unable to take report at this time.
[2020-07-05] MEDS: VANCOMYCIN 1,500 MG/300 ML PIGGYBACK 200 MG IV (20:30)
[2020-07-06] VITALS (8 sets, daily range): BP systolic 103–111; BP diastolic 54–62; PULSE 67–73; RESP 15–18; TEMP 36.2–36.7; O2SAT 96–98
[2020-07-06] MEDS: PIPERACILLIN-TAZO 2.25 GM/50 ML FROZ.PIGGY IV (04:52)
[2020-07-06] MEDS: LEVOTHYROXINE 25 MCG TABLET PO (04:52)
[2020-07-06 05:34] LABS: BUN Creatinine Ratio 22.4 (6-22); Blood Urea Nitrogen 11 mg/dL (7-17); Calcium 8.6 mg/dL (8.4-10.2); Carbon Dioxide 27 mmol/L (22-32); Chloride 108 mmol/L (98-107); Estimated Glomerular Filt Rate > 60.0 mL/min (>60); Glucose 149 mg/dL (80-110); HEMOLYSIS 20 (0-50); Magnesium 2.2 mg/dL (1.6-2.3); Phosphorous 3.9 mg/dL (2.8-4.1); Potassium 4.3 mmol/L (3.4-5.1); Sodium 137 mmol/L (137-145)
[2020-07-06 05:44] LABS: Add Manual Diff / Slide Review NO; Basophils Absolute Auto 100 /uL (0-100); Basophils Percent Auto 0.8 % (0-2); Eosinophils Absolute Auto 0 /uL (0-450); Hematocrit 25.5 % (36-46); Hemoglobin 8.6 g/dL (12.0-16.0); Lymphocytes Absolute Auto 500 /uL (1100-4500); Lymphocytes Percent Auto 6.1 % (25-40); Mean Corpuscular HGB Conc 33.6 % (30-36); Mean Corpuscular Hemoglobin 28.7 PG (26-34); Mean Corpuscular Volume 85.3 fL (80-100); Monocytes Absolute Auto 100 /uL (0-900); Monocytes Percent Auto 1.1 % (3-14); Neutrophils Absolute Auto 8200 /uL (1500-7000); Platelet Count 315 X10^3/uL (150-400); Red Blood Cell Count 2.99 X10^6/uL (4.0-5.2); Red Cell Distribution Width 14.7 % (11.6-14.8); White Blood Cell Count 8.9 X10^3/uL (4.5-11.0)
--- NOTE | 2020-07-06 06:20 | PC.NURSE ---
Addendum entered by Lila Murillo R.N. 07/06/20 06:41: Pharmacist called just asking for us to check with the provider when they arrive to make sure they are aware that the patient's Zosyn dose keeps getting changed. She stated the dose is still appropriate for renal function but just thought it was odd that they keep changing the dose. Addendum entered by Lila Murillo R.N. 07/06/20 06:34: Pharmacy adjusted dose to be started at 1100. Original Note: Order for increased dose of Zosyn received at 0550 with start time of 0550; however, the previous dose had just finished infusing. Will find out from provider if needs to be right away or can be re-timed for 6 hours out for next infusion (Q6).
[2020-07-06] MEDS: LACTATED RINGERS 1,000 ML 100 ML IV (09:17)
[2020-07-06] MEDS: CHOLECALCIFEROL (VITAMIN D3) 1,000 UNIT TABLET 2000 UNIT PO (09:18)
[2020-07-06] MEDS: HEPARIN 5,000 UNIT/ML VIAL 5000 UNIT SUBCUT ×2 (09:18→21:04)
[2020-07-06] MEDS: ROSUVASTATIN 10 MG TABLET 5 MG PO (09:20)
[2020-07-06] MEDS: PIPERACILLIN-TAZO 3.375 GM/50 ML FROZ.PIGGY IV ×3 (11:38→22:42)
--- NOTE | 2020-07-06 11:56 | P.PN_ITS ---
Subjective Subjective Date Patient Seen: 07/06/20 Time Patient Seen: 10:00 Interval history: No acute events overnight. Pt reports gas in the bag and minimal pain. Exam Vital Signs (past 8 hours): - 07/06/20 05:00 07/06/20 08:51 07/06/20 09:22 Temperature 97.1 F L 97.3 F L Pulse Rate 69 72 72 Respiratory Rate 18 15 Blood Pressure 109/56 L 103/56 L 103/56 L Pulse Oximetry 96 97 Oxygen Delivery Method Room Air Oxygen Flow Rate 0 Narrative Exam Narrative: Gen: alert, non toxic CARDIOVASCULAR: Regular rate. No pedal edema. RESPIRATORY: Non-tachypneic, breathing comfortably on room air. GASTROINTESTINAL: Abdomen soft and non-distended. Ostomy p/p/p, incisions c/d/i, BARBARA drain with serosanguinous output. MUSCULOSKELETAL: Equal tone and mass bilaterally. SKIN: Warm, dry, soft, appropriate color for ethnicity. No other lesions, rashes, or wounds. NEURO: Alert and Oriented X 3. No gross sensory deficits, or cognitive issues. PSYCH: Appropriate affect and mood. Objective Labs Result Diagrams: 07/06/20 05:00 07/06/20 05:00 Labs: Laboratory Results - last 24 hr 07/06/20 07/06/20 05:00 05:00 WBC 8.9 RBC 2.99 L Hgb 8.6 L Hct 25.5 L MCV 85.3 MCH 28.7 MCHC 33.6 RDW 14.7 Plt Count 315 Neut % (Auto) 92.0 H D Lymph % (Auto) 6.1 L [place] % (Auto) 1.1 L Eos % (Auto) 0.0 L Baso % (Auto) 0.8 Neut # (Auto) 8200 H Lymph # (Auto) 500 L [place] # (Auto) 100 Eos # (Auto) 0 Baso # (Auto) 100 Sodium 137 Potassium 4.3 Chloride 108 H Carbon Dioxide 27 BUN 11 Creatinine 0.49 L Estimated GFR > 60.0 BUN/Creatinine Ratio 22.4 H Glucose 149 H Calcium 8.6 Phosphorus 3.9 Magnesium 2.2 PFSH Medical History Acquired hypothyroidism Chicken pox Essential hypertension Febrile illness Has 3 children Measles Mixed hyperlipidemia UTI (urinary tract infection) Vision disorder Family History Father No problems noted. Mother Hypertension Grandfather Pneumonia Social History household members: none Smoking Status: Never smoker alcohol intake: current Assessment & Plan Assessment and plan (1) Status post Herminia procedure: Status: Acute (2) Ovarian cancer: Qualifiers: Laterality: unspecified laterality Qualified Code(s): C56.9 - Malignant neoplasm of unspecified ovary Status: Acute (3) Postoperative wound infection: Status: Acute (4) Obesity (BMI 30.0-34.9): Problem details: The patient's abdominal obesity significantly increased the complexity and difficulty of her laparotomy and to bring up her end colostomy, because her abdominal wall was 2-3 inches thick. Her obesity also complicates her post op course because it increases the risk of wound infection, hernia, fascial dehiscense, ostomy ischemia, and ostomy retraction. Status: Acute (5) Complication of ostomy: Status: Acute (6) Abdominal wall abscess: Status: Acute Assessment & Plan narrative: This is a 74-year-old woman who is about 2 weeks out from emergency laparotomy, washout of abscess, resection of perforated and obstructed colon, and end colostomy (Herminia's procedure). She was discharged to a nursing facility on Friday, and was brought back in Friday, and seen in clinic. She was then admitted to the hospital, and evaluated with CT scan and labs. Cultures were taken from her midline wound. She was taken to the OR for washout of her abdominal abscess and revision of her colostomy. Plan: ADAT to low residual Continue abx until cultures final wound care as needed ostomy teaching ambulate remove lacey COVID-19 COVID-19 status: Negative Result date/Date tested (Pos, Neg/Pending): 07/04/20 Time Spent With Patient Time with patient: Greater than 35 minutes (Including wound care, surgical discussion, and review of CT scan and lab findings) Quality VTE Deep Vein Thrombosis/Pulmonary Embolism Present on Admission: No
--- NOTE | 2020-07-06 14:02 | CM.DPNOTE ---
Addendum entered by Juana De Leon, JAHAIRA 07/07/20 14:22: Patient now expected to DC Friday, updated October at [facility] who tells this GIS SOFTWARE ENGINEER the auth from [facility] has not been secured yet. Addendum entered by Juana De Leon, GIS SOFTWARE ENGINEER 07/06/20 14:33: Update: Patient may be medically ready for DC as soon as tomorrow, Dr Scott is covering the next few days. This GIS SOFTWARE ENGINEER is following closely; updated October at [facility]. Will be reviewing the following /October: Patient will DC w/ drain in, will need to follow low residual, vegetarian diet, will need Metamucil. JW Original Note: DCP Cont Spoke w/Dr Biswas this morning; patient is expected to DC back to [facility], for ongoing assist w/ostomy care and continued f/u w/Dr Biswas on an outpatient basis. DC is not expected in the next [address] Biswas requested that [facility] staff receive all dietary notes and instruction to aid in patient's success once DC from . Patient discussed in multidisciplinary rounds this AM amongst those who met patient during her last admission, question arose if using the Palliative Care service would benefit patient? Reviewed question- Palliative Care? with Dr Biswas...she did not feel this was appropriate as part of the medical POC. Patient is expected to f/u w/Oncology on an outpatient basis to discuss staging and prognosis. Following closely. TAMAR
--- NOTE | 2020-07-06 14:28 | DIET.PN ---
Addendum entered by Liliana Jennings 07/07/20 16:37: Pt has 15 day supply of ONS Eyad purchased through [employer] in her room to take to [facility] Original Note: Dietary Progress Note Assessment: 74y F c new colostomy s/p perforated sigmoid colon and new dx cancer readmitted from SNF for abdominal abcess. Pt is vegetarian and requires low residue diet for next 4w secondary to new colostomy. Pt requires high protein diet to support her protein calorie malnutrition and post-surgical healing. This note is to outline nutrition recommendations while at [facility], please provide protein food with each meal and snack from approved list below. Please follow low fiber diet x4 weeks including: grains: white or refined grains, white rice (<2g fiber/serving) dairy: all dairy okay vegetables: well-cooked without seeds or skins, <1c iceburg lettuce, strained vegetable juice, potatoes without skins fruit: pulp-free juice, peeled fruit, canned fruit, fresh fruit without seeds protein: peanut butter, eggs, salmon, dairy products such as yogurt Pt will purchase her own oral nutrition supplements to support her high protein needs including ONS Eyad twice per day providing 30% daily protein needs. This RD encouraging pt to add one ONS Ensure Max or Premier Protein daily for additional 30% protein. If so, pt to get at least 40g PRO/d from meal trays. 6oz yogurt= 6-12g 1 egg= 6g salmon= 10g per ounce 2 Tbs peanut butter= 8g 1 sl (1 oz) cheddar cheese= 7g Nutrition Diagnosis: Ongoing Severe Acute PCM r/t inadequate oral intake and new dx perforated invasive sigmoid colon cancer aeb 3.3% unintentional weight loss in <1w (severe), no meaningful oral intake x9d, new ostomy without return of bowl function, surgery requesting TPN initiation. EER: 1700kcal (20kcal/kg per overweight PCM), 96g PRO (1.2g/kg per PCM, post-surgical healing)
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
[2020-07-06] MEDS: VANCOMYCIN 1,500 MG/300 ML PIGGYBACK 200 MG IV (17:29)
--- NOTE | 2020-07-06 19:38 | PC.NURSE ---
Addendum entered by Perla Pinzon R.N. 07/06/20 21:52: Pt's midline surgical dressing remains clean, dry and intact. Addendum entered by Perla Pinzon R.N. 07/06/20 21:46: Ostomy bag with moderate amount liquid lazo colored stool. Shaheed drain with scant amount drainage. CEILING INSULATION BLOWER's provide ostomy care. Pt admits to RLQ pain like someone needing bread in my abdomen but declines any and all offers for analgesia. Original Note: Pt up into chair for evening meal. Tolerated slowly and well. Denies nausea. Admits to pain right lower abdominal quadrant 2/10 with sitting and states this is positional and will resolve with position change. Small amount brown liquid stool in ostomy bag. Stoma left abdominal quadrant beefy red. Midline surgical dressing is dry and intact. Returned to bed with minimal assistance with legs into bed. BL calf scd's replaced. IV antibiotics infusing as ordered to midline iv site RUE. Shaheed drain compressed with scant output to abdomen.
[2020-07-06] MEDS: PSYLLIUM HUSK 1 PACKET PO (21:04)
[2020-07-07] VITALS (8 sets, daily range): BP systolic 106–116; BP diastolic 62–70; PULSE 64–79; RESP 16–18; TEMP 36–36.7; O2SAT 96–98
--- NOTE | 2020-07-07 00:11 | PC.NURSE ---
Pt awake and alert lying quietly in bed watching television. Verbally interactive with staff. Denies pain. Light brown liquid stool in ostomy bag. Stoma to left abdominal quadrant beefy red in color. Midline abdominal surgical dressing is dry and intact. Shaheed drain compressed with scant amount drainage. Milligan to gravity secured to pt's right thigh. IV antibiotic completed to RUE midline access. Heparin flush and then locked. Abdomen is distended and puffy. Pt rehearses all the liquids has consumed orally this evening. BL calf scd's in place.
[2020-07-07] MEDS: PIPERACILLIN-TAZO 3.375 GM/50 ML FROZ.PIGGY IV (05:40)
[2020-07-07 06:43] LABS: Add Manual Diff / Slide Review NO; Basophils Absolute Auto 0 /uL (0-100); Basophils Percent Auto 0.5 % (0-2); Eosinophils Absolute Auto 0 /uL (0-450); Eosinophils Percent Auto 0.5 % (2-4); Hematocrit 24.8 % (36-46); Hemoglobin 8.5 g/dL (12.0-16.0); Lymphocytes Absolute Auto 1600 /uL (1100-4500); Lymphocytes Percent Auto 18.9 % (25-40); Mean Corpuscular HGB Conc 34.2 % (30-36); Mean Corpuscular Hemoglobin 30.8 PG (26-34); Mean Corpuscular Volume 90.1 fL (80-100); Monocytes Absolute Auto 600 /uL (0-900); Monocytes Percent Auto 6.5 % (3-14); Neutrophils Absolute Auto 6400 /uL (1500-7000); Neutrophils Percent Auto 73.6 % (50-75); Platelet Count 316 X10^3/uL (150-400); Red Blood Cell Count 2.75 X10^6/uL (4.0-5.2); Red Cell Distribution Width 14.4 % (11.6-14.8); White Blood Cell Count 8.7 X10^3/uL (4.5-11.0)
[2020-07-07 06:53] LABS: BUN Creatinine Ratio 30.4 (6-22); Blood Urea Nitrogen 17 mg/dL (7-17); Calcium 8.4 mg/dL (8.4-10.2); Carbon Dioxide 28 mmol/L (22-32); Chloride 109 mmol/L (98-107); Estimated Glomerular Filt Rate > 60.0 mL/min (>60); Glucose 89 mg/dL (80-110); HEMOLYSIS < 15 (0-50); Magnesium 2.2 mg/dL (1.6-2.3); Phosphorous 3.7 mg/dL (2.8-4.1); Potassium 3.8 mmol/L (3.4-5.1); Sodium 140 mmol/L (137-145)
[2020-07-07] MEDS: LEVOTHYROXINE 25 MCG TABLET PO (07:32)
--- NOTE | 2020-07-07 10:03 | P.PN_ITS ---
Subjective Subjective Date Patient Seen: 07/07/20 Time Patient Seen: 09:12 Interval history: S/p OR for wound wash out and stoma revision. new diagnosis of ovarian cancer. acute blood loss anemia. wound cultures are villareal sensitive. reports no pain, tolerating po. stoma is starting to fill up more. Exam Vital Signs (past 8 hours): - 07/07/20 06:19 07/07/20 07:55 Temperature 97.3 F L 96.8 F L Pulse Rate 69 64 Respiratory Rate 18 16 Blood Pressure 109/65 106/62 Pulse Oximetry 97 96 Oxygen Delivery Method Room Air Oxygen Flow Rate 0 Narrative Exam Narrative: comfortable and appropriate abd: soft, drain in place (serous). stoma functional with soft yellowish stool. Objective Labs Result Diagrams: 07/07/20 06:30 07/07/20 06:30 Labs: Laboratory Results - last 24 hr 07/07/20 07/07/20 06:30 06:30 WBC 8.7 RBC 2.75 L Hgb 8.5 L Hct 24.8 L MCV 90.1 D MCH 30.8 MCHC 34.2 RDW 14.4 Plt Count 316 Neut % (Auto) 73.6 Lymph % (Auto) 18.9 L [place] % (Auto) 6.5 Eos % (Auto) 0.5 L Baso % (Auto) 0.5 Neut # (Auto) 6400 Lymph # (Auto) 1600 [place] # (Auto) 600 Eos # (Auto) 0 Baso # (Auto) 0 Sodium 140 Potassium 3.8 Chloride 109 H Carbon Dioxide 28 BUN 17 Creatinine 0.56 Estimated GFR > 60.0 BUN/Creatinine Ratio 30.4 H Glucose 89 Calcium 8.4 Phosphorus 3.7 Magnesium 2.2 PFSH Medical History Acquired hypothyroidism Chicken pox Essential hypertension Febrile illness Has 3 children Measles Mixed hyperlipidemia UTI (urinary tract infection) Vision disorder Family History Father No problems noted. Mother Hypertension Grandfather Pneumonia Social History household members: none Smoking Status: Never smoker alcohol intake: current Assessment & Plan Assessment & Plan narrative: readmit for abdominal wound infection. POD 1 from wash out of wound and stoma revision. acute blood loss anemia normal WBC with villareal sensitive wound cultures. Plan: stop antibiotics, increase activity. repeat CBC in am and if WBC normal, then discharge to SNF COVID-19 COVID-19 status: Negative Time Spent With Patient Time with patient: 15-24 minutes Quality VTE Deep Vein Thrombosis/Pulmonary Embolism Present on Admission: No
[2020-07-07] MEDS: HEPARIN 5,000 UNIT/ML VIAL 5000 UNIT SUBCUT ×2 (10:08→21:39)
[2020-07-07] MEDS: PSYLLIUM HUSK 1 PACKET PO (10:09)
[2020-07-07] MEDS: CHOLECALCIFEROL (VITAMIN D3) 1,000 UNIT TABLET 2000 UNIT PO (10:09)
[2020-07-07] MEDS: polyethylene glycoL 3350 17 GM POWD.PACK PO (10:09)
[2020-07-07] MEDS: ROSUVASTATIN 10 MG TABLET 5 MG PO (10:10)
--- NOTE | 2020-07-07 14:54 | PC.NURSE ---
VSS. BP lower this morning at 106/62, held carvedilol. Denies pain. Colostomy red and beefy, output is brown liquid. Dressing cdi, BARBARA drain with serosanguineous drainage. Low fiber diet. On contact precautions.
--- NOTE | 2020-07-07 16:01 | PC.NURSE ---
Addendum entered by Perla Pinzon R.N. 07/07/20 23:41: Pt declines evening doses of metamucil and miralax. States stooling frequently and significant quantity in ostomy bag. States anxiety re overfilling bag. Pt does monitor output and calls staff for emptying as needed. No other concerns or complaints verbalized. Allowed to sleep as pt states needs to sleep. Tolerated evening meal well without difficulty. Original Note: Pt is in bed awake, alert, very talkative with staff. Denies pain, but admits to little bit of cramping and rubs RLQ. Bowel tones are hypoactive to RUQ and quiet to other quadrants. Stoma to left abdomen is draining liquid brown stool. Unable to visualize stoma d/t presence of stool. Shaheed drain is compressed with only scant drainage. Clear lungs throughout. Standby assistance into bathroom to void without difficulty. BL scd's replaced upon pt's return to bed. Call light available.
[2020-07-08 00:46] VITALS: BP 110/63; PULSE 75; RESP 16; TEMP 35.9
[2020-07-08] MEDS: LEVOTHYROXINE 25 MCG TABLET PO (05:54)
[2020-07-08 06:10] VITALS: BP 123/75; PULSE 74; RESP 16; TEMP 36.4
[2020-07-08 09:00] VITALS: BP 106/64; PULSE 83; RESP 16; TEMP 36.1; O2SAT 98
--- NOTE | 2020-07-08 09:22 | P.DS_ITS ---
History of Present Illness History of Present Illness Chief complaint: WOUND INFECTION Discharge Providers Provider Date of admission: 07/04/20 16:00 Discharge Date: 07/08/20 Primary care physician: Manuel Dawson MD Consults: 07/04/20 17:00 Consult to Pastoral Services Routine Comment: Per patient request 07/06/20 10:45 Consult to Dietitian, Adult Routine Comment: Pt [facility]. Says did not follow diet Reason For Exam: Pt vegetarian, new ostomy, confused on diet recs Discharge provider: Natali Scott MD Summary Hospital Course Discharge Diagnosis: wound infection post op Hospital Course: OR for wound washout with closure over drain. stoma revision. IV antibiotics given until cultures returned (no MRSA) and WBC normal. no need to continue antibiotics. Status at Discharge Cognitive/behavioral status at discharge: oriented Functional status at discharge: wheelchair bound Overall status at discharge: patient is progressing back to baseline Time Spent with Patient Time spent: Less than 30 minutes Exam Vital Signs (past 8 hours): - 07/08/20 06:10 Temperature 97.6 F Pulse Rate 74 Respiratory Rate 16 Blood Pressure 123/75 Oxygen Delivery Method Room Air Oxygen Flow Rate 0 GI Palpation: soft Other: stoma functioning well. drain serous, wound intact Psych Judgment: judgment good Objective Labs Result Diagrams: 07/07/20 06:30 07/07/20 06:30 [facility] Medical History Acquired hypothyroidism Chicken pox Essential hypertension Febrile illness Has 3 children Measles Mixed hyperlipidemia UTI (urinary tract infection) Vision disorder Family History Father No problems noted. Mother Hypertension Grandfather Pneumonia Social History household members: none Smoking Status: Never smoker alcohol intake: current Discharge Assessment & Plan Assessment and Plan Assessment: wound infection resolved. Plan of Treatment: Discharge to SNF with drain. Follow up with [facility] and oncology (for new diagnosis cancer) as arranged. Discharge Plan Discharge Plan Patient Disposition: SNF Transfer to: [facility] Provider Discharge Comment: Discharge comment: Drink plenty of water to keep yourself hydrated. If you feel dry mouth or notice your urine becomes darker, increase your fluid intake. Pain management: Take your prescription pain medication as needed so you are able to cough, take deep breaths, sleep well, and get up to walk around. You should also use Tylenol as needed for pain, as well as NSAID's such as Aleve, Advil, Ibuprofen if you are able to do so without stomach upset. Make sure to take NSAID's with food. Do not take more than the recommended dose of each. Activity: Keep active with light activity such as gentle exercise and taking walks. Avoid lifting over 10lbs, abdominal core work, or very strenuous activity. Avoid being sedentary for prolonged periods. You may shower. After showering, keep a dry dressing over your incisional wounds as needed. If you notice any redness or drainage from the wounds, call our office and speak to Dr. Biswas, or the doctor drywall professional. Other concerns: If you have any other concerns about your surgery or post operative care, please call the surgeon's office number and speak to the office nurse or the surgeon drywall professional. Emergencies: If you become ill with significant chest pain, shortness of breath, significant bleeding, or other life threatening symptoms, please call 911 or go to the ER right away. Ostomy care: Continue to follow the verbal and written instructions given by the nurse regarding care and management of your ostomy site. Contact the wound care nurse at [facility] [phone] in order to continue ostomy care, support, and teaching as an outpatient. Contact your local assigned home health provider for ongoing ostomy assistance at home and ostomy care supplies. Discharge orders & Medications Prescriptions: New Metamucil Fiber Singles 3.4 gram Powder In Packet 1 packet PO BID 100 Days Qty: 60 RF: 0 polyethylene glycol 3350 17 gram Powder In Packet 17 gm PO BID 100 Days Qty: 200 RF: 4 Continued carvedilol 3.125 mg tablet 3.125 mg PO BID Qty: 180 RF: 3 cholecalciferol (vitamin D3) 50 mcg (2,000 unit) capsule 50 mcg PO DAILY RF: 0 rosuvastatin [Crestor] 5 mg tablet 5 mg PO DAILY RF: 0 levothyroxine 25 mcg tablet 25 mcg PO DAILY RF: 0 Follow up/Referrals: Manuel Dawson MD [Primary Care Provider] - Stuart Mota MD [Physician] - (Appointment at 11AM on 07/11/2020) Yoli Biswas MD [Physician] - (07/12/2020 11:15AM at [facility]) Diet/Activity/Treatments Diet comment: Low residue, vegetarian (pt eats fish but no other animal meats) Activity: Ambulate as tolerated Visit Report/Discharge Packet Instructions: How to Care for Your Colostomy or Ileostomy, Low-Fiber/Low-Residue Diet, DI for Tarun-Yee Drains Discharge Data Primary Care Provider: Manuel Dawson VTE Deep Vein Thrombosis/Pulmonary Embolism Present on Admission: No
[2020-07-08] MEDS: ROSUVASTATIN 10 MG TABLET 5 MG PO (09:45)
[2020-07-08] MEDS: CHOLECALCIFEROL (VITAMIN D3) 1,000 UNIT TABLET 2000 UNIT PO (09:45)
[2020-07-08] MEDS: PSYLLIUM HUSK 1 PACKET PO ×2 (09:45→20:44)
[2020-07-08] MEDS: HEPARIN 5,000 UNIT/ML VIAL 5000 UNIT SUBCUT ×2 (09:45→20:44)
[2020-07-08 10:02] VITALS: BP 106/56; PULSE 84
--- NOTE | 2020-07-08 14:13 | CM.DPC ---
DCP Cont: Per Surgeon, pt is medically stable to d/c back to SNF today. Per admissions Laverne at [facility], she called pt's insurance [phone] ref#[id number] and inquired about auth and updated that pt ready for d/c from hospital but no auth yet. Insurance still reviewing and has all documentation they need. SW attempted to call insurance as well and left msg stating pt has discharge and requesting auth review. BHARATH updated RN and solar sales assessor that since no auth as of 1430 and [facility] can only accept at the latest 1500 then d/c orders may need to be cancelled. Plan: SW to follow closely for auth from pt's insurance for her to return to [facility] prior to moving into her son's house in [place] for additional assist and care while following up with outpt providers and oncology. JAHAIRA Giron
[2020-07-08 16:32] VITALS: BP 111/64; PULSE 79; RESP 20; TEMP 36.4; O2SAT 94
[2020-07-08 20:37] VITALS: BP 107/69; PULSE 79; RESP 15; TEMP 36.4; O2SAT 94
[2020-07-09] VITALS (7 sets, daily range): BP systolic 113–155; BP diastolic 61–98; PULSE 73–85; RESP 15–20; TEMP 35.9–36.9; O2SAT 95–99
[2020-07-09] MEDS: LEVOTHYROXINE 25 MCG TABLET PO (06:06)
--- NOTE | 2020-07-09 08:12 | PM.PN.1 ---
Subjective Subjective Date Patient Seen: 07/09/20 Time Patient Seen: 08:12 Interval history: discharge delayed due to insurance. no changes Exam Vital Signs (past 8 hours): - 07/09/20 04:36 Temperature 96.7 F L Pulse Rate 73 Respiratory Rate 16 Blood Pressure 138/83 Oxygen Delivery Method Room Air Oxygen Flow Rate 0 Objective ECG Impression: s/p drainage of abdominal wound and colostomy revision. ongoing anemia of acute blood loss and malnutrition that affects healing and immune system. Labs Result Diagrams: 07/07/20 06:30 07/07/20 06:30 [facility] Medical History Acquired hypothyroidism Chicken pox Essential hypertension Febrile illness Has 3 children Measles Mixed hyperlipidemia UTI (urinary tract infection) Vision disorder Family History Father No problems noted. Mother Hypertension Grandfather Pneumonia Social History household members: none Smoking Status: Never smoker alcohol intake: current Assessment & Plan Assessment & Plan narrative: supportive care, continue observing anemia w/o intervention. Malnutrition addressed with oral intake and nutrition consult. discharge today. Quality VTE Deep Vein Thrombosis/Pulmonary Embolism Present on Admission: No
[2020-07-09] MEDS: HEPARIN 5,000 UNIT/ML VIAL 5000 UNIT SUBCUT ×2 (09:00→20:09)
[2020-07-09] MEDS: PSYLLIUM HUSK 1 PACKET PO ×2 (09:00→20:09)
[2020-07-09] MEDS: carvediloL 3.125 MG TABLET PO ×2 (09:01→20:09)
[2020-07-09] MEDS: ROSUVASTATIN 10 MG TABLET 5 MG PO (09:01)
[2020-07-09] MEDS: CHOLECALCIFEROL (VITAMIN D3) 1,000 UNIT TABLET 2000 UNIT PO (09:01)
--- NOTE | 2020-07-09 14:30 | CM.DPC ---
DCP/continued: Reviewed chart. Patient currently with orders to return to SNF ([facility]) today. FLEA MARKET SELLER placed call to [facility] spoke with Laverne. She reports that she has submitted authorization request to [facility]. As of 3:00pm today no authorization has been received? FLEA MARKET SELLER hopeful that authorization to return to [facility]/SNF will be obtained in the next 24hrs. If not may need to consider other options. P: Pending authorization from [facility] for patient to return to [facility]. Laverne reports updated clinical has been sent to [facility] for review. Following closely. JAHAIRA Schmidt
--- NOTE | 2020-07-09 14:54 | PC.NURSE ---
Changed ostomy appliance. When pulling back adhesive, the hydrocolloid barrier appeared to be sticking to lena and pulling on incision line, pt reporting pain at that time. Incision site beneath barrier appeared to have dried drainage or moistened hydrocolloid residual from wafer, needing to be removed and cleaned. With 2 RN's, hydrocolloid wafer removed, lena remained in place. Ostomy appliances changed, used 45mm phalange as that fit better, avoiding covering the incision line. Stoma appeared beefy red, somewhat protruding, although pretty flush with the skin, sutures intact. Peristomal skin WNL, no breakdown noted. Gauze drsg changed distal to ostomy site, incision site appears intact, no erythema, lena present. Gauze pulled back from willie site insertion, appears erythemic, sutures in place, gauze reinforced with paper tape.
[2020-07-09] MEDS: OXYCODONE IR 5 MG TABLET PO (15:36)
[2020-07-09] MEDS: polyethylene glycoL 3350 17 GM POWD.PACK PO (21:36)
[2020-07-10] VITALS (9 sets, daily range): BP systolic 104–144; BP diastolic 59–83; PULSE 80–97; RESP 16–18; TEMP 36–37.3; O2SAT 95–99
--- NOTE | 2020-07-10 01:32 | PC.NURSE ---
Addendum entered by Lila Murillo R.N. 07/10/20 06:38: Shaheed drain had absolutely no output for NOC shift. Drain intact, un-kinked. Original Note: 2310 Received safe hand-off report. The patient is lying supine with HOB elevated to 15 degrees. She is AOx4, on room air and has a right midline basilic vein IV that is saline-locked. Her surgical incision is covered, CDI, shaheed drain intact and patent and ostomy appliance is in place, CDI. No s/s of distress.
[2020-07-10] MEDS: LEVOTHYROXINE 25 MCG TABLET PO (06:05)
--- NOTE | 2020-07-10 09:05 | PM.PN.1 ---
Subjective Subjective Date Patient Seen: 07/10/20 Time Patient Seen: 09:05 Interval history: No acute events overnight. Good stool output. Exam Vital Signs (past 8 hours): - 07/10/20 03:47 07/10/20 08:12 07/10/20 08:28 Temperature 98.1 F 97.1 F L 97.1 F L Pulse Rate 80 79 80 Respiratory Rate 16 16 Blood Pressure 138/76 131/71 131/71 Pulse Oximetry 99 95 95 Oxygen Delivery Method Room Air Oxygen Flow Rate 0 Narrative Exam Narrative: Gen: alert, non toxic CARDIOVASCULAR: Regular rate. No pedal edema. RESPIRATORY: Non-tachypneic, breathing comfortably on room air. GASTROINTESTINAL: Abdomen soft and non-distended. Ostomy p/p/p with thick brown stool in the bag, incisions c/d/i, BARBARA drain with scant serosanguinous output. Ostomy pouch not well adhered. Ostomy paste was applied on the umbilical side of the ostomy pouch. MUSCULOSKELETAL: Equal tone and mass bilaterally. SKIN: Warm, dry, soft, appropriate color for ethnicity. No other lesions, rashes, or wounds. NEURO: Alert and Oriented X 3. No gross sensory deficits, or cognitive issues. PSYCH: Appropriate affect and mood. Objective Labs Result Diagrams: 07/07/20 06:30 07/07/20 06:30 Labs: Laboratory Results - last 24 hr 07/04/20 19:10 Crossmatch See Detail [facility] Medical History Acquired hypothyroidism Chicken pox Essential hypertension Febrile illness Has 3 children Measles Mixed hyperlipidemia UTI (urinary tract infection) Vision disorder Family History Father No problems noted. Mother Hypertension Grandfather Pneumonia Social History household members: none Smoking Status: Never smoker alcohol intake: current Assessment & Plan Assessment and plan (1) Status post Herminia procedure: Status: Acute (2) Ovarian cancer: Qualifiers: Laterality: unspecified laterality Qualified Code(s): C56.9 - Malignant neoplasm of unspecified ovary Status: Acute (3) Postoperative wound infection: Status: Acute (4) Obesity (BMI 30.0-34.9): Problem details: The patient's abdominal obesity significantly increased the complexity and difficulty of her laparotomy and to bring up her end colostomy, because her abdominal wall was 2-3 inches thick. Her obesity also complicates her post op course because it increases the risk of wound infection, hernia, fascial dehiscense, ostomy ischemia, and ostomy retraction. Status: Acute (5) Complication of ostomy: Status: Acute (6) Abdominal wall abscess: Status: Acute Assessment & Plan narrative: This is a 74-year-old woman who is about 3 weeks out from emergency laparotomy, washout of abscess, resection of perforated and obstructed colon, and end colostomy (Herminia's procedure). She was discharged to a nursing facility eight days ago, and was brought back in six days ago, and seen in clinic. She was then admitted to the hospital, and evaluated with CT scan and labs. Cultures were taken from her midline wound. She was taken to the OR for washout of her abdominal abscess and revision of her colostomy. She has recovered well from surgery, is tolerating PO, and has good ostomy output. We were attempting to discharge her back to [facility], but her insurance would not allow it. The care coordinators are working with her family to discharge home. She has an oncology appointment tomorrow at 10:15AM with Dr. Mota. Plan: Continue current diet Amblate as tolerated dispo planning Onc appointment tomorrow whether inpatient or outpatient Ostomy care and teaching COVID-19 COVID-19 status: Negative Result date/Date tested (Pos, Neg/Pending): 07/04/20 Time Spent With Patient Time with patient: Greater than 35 minutes (Including wound care, discussion with patient, nurse, and licensed master social worker) Quality VTE Deep Vein Thrombosis/Pulmonary Embolism Present on Admission: No
[2020-07-10] MEDS: PSYLLIUM HUSK 1 PACKET PO (09:33)
[2020-07-10] MEDS: ROSUVASTATIN 10 MG TABLET 5 MG PO (09:34)
[2020-07-10] MEDS: carvediloL 3.125 MG TABLET PO ×2 (09:35→20:32)
[2020-07-10] MEDS: CHOLECALCIFEROL (VITAMIN D3) 1,000 UNIT TABLET 2000 UNIT PO (09:35)
[2020-07-10] MEDS: HEPARIN 5,000 UNIT/ML VIAL 5000 UNIT SUBCUT ×2 (09:36→20:35)
[2020-07-10] MEDS: polyethylene glycoL 3350 17 GM POWD.PACK PO (11:00)
--- NOTE | 2020-07-10 12:21 | PC.NURSE ---
Addendum entered by Sai Rooney R.N. 07/10/20 13:53: Patient had to have new ostomy change again. It was leaking around the sides, serous fluid from stitches. Patient had emesis out unmeasured. Original Note: Patient had change to ostomy appliance. Stoma past put on before appliance. Dr. Biswas prefers this to keep the ostomy from leaking. 45cm ostomy appliance put on, and new bag. It was leaking out of the sides.
--- NOTE | 2020-07-10 12:40 | PT.IIE ---
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) Obesity, unspecified (07/04/20) Cutaneous abscess of abdominal wall (07/04/20) Infection following a procedure, other surgical site, initial encounter (07/04/20) Colostomy status (07/04/20) Surgery Performed Operation Date: 07/05/20 16:00 Actual Procedures p Wound wash out, colostomy revision - Yoli Biswas MD Medical History (Last Reviewed 07/06/20 @ 19:57 by Yoli Biswas MD) Acquired hypothyroidism Chicken pox Essential hypertension Febrile illness Has 3 children Measles Mixed hyperlipidemia UTI (urinary tract infection) Vision disorder Physical Therapy Inpatient Evaluation/Re-Eval M1 PT/OT-IP Prior Functional Status Start: 07/10/20 11:53 Freq: NEEDED Status: Active Protocol: Document 07/10/20 12:39 AW (Rec: 07/10/20 13:10 AW [id number]) Medical Review Prior Functional Status Medical History Reviewed Yes Communication WNL. Pt wears glasses for distance and has astigmatism. Mobility and Gait Prior to colectomy and ostomy in June, pt was active and independent in all regards. She used a FWW briefly after surgery, but has not been using any AD in the past week but admits to weakness and limited activity tolerance affecting her mobility. Activities of Daily Living and IADL's Independent. Pt has been needing assist with showers with her new ostomy appliance and wound. Prior Functional Level (Other details) Pt has newly diagnosed ovarian cancer. Social History Household Members none Living Arrangements RV Number of Floors (Floors) One Floor Number of Stairs To Enter/Railing? When finished with treatment and rehab, pt plans to move to her son's home in [place]. Details in this note will refer to her son's home. There are 2 short steps to enter with unilateral railing. Home Environment Standard Height Toilet,Walk in Shower Home Equipment Grab Bars In Shower Employment Status Retired Additional Social History Comment Pt plans to stay with her son and his once she has finished treatment and rehab. 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 Prior to recent admission, pt lived alone in an and walked her dog daily. M2 PT-IP Current Condition Start: 07/10/20 11:53 Freq: NEEDED Status: Active Protocol: Document 07/10/20 12:39 AW (Rec: 07/10/20 13:10 AW [id number]) Physical Therapy Current Condition Current Condition Evaluation Date 07/10/20 Treatment Diagnosis abdominal wall abscess; difficulty in walking Onset Date 07/05/20 Precautions Abdominal Surgery Precautions Log Roll,Lifting Restrictions, Gait Belt above Incisional Area M3 PT-IP Subjective Start: 07/10/20 11:53 Freq: NEEDED Status: Active Protocol: Document 07/10/20 12:39 AW (Rec: 07/10/20 13:10 AW [id number]) Subjective Physical Therapy Visit Type Type Initial Evaluation Visit Start Time 12:00 Visit Stop Time 12:31 Total Visit Minutes 31 Physical Therapy Visit Comments Patient Comments Pt is willing to participate with PT Therapy Pain Assessment Pain When Pain Assessed During Mobility Pain Present Pain Present Pain Reported Location abd Scale Used not quantified M4 PT-IP Mobility and Gait Start: 07/10/20 11:53 Freq: NEEDED Status: Active Protocol: Document 07/10/20 12:39 AW (Rec: 07/10/20 13:10 AW [id number]) PT-Bed Mobility Assessment Supine to Sit Supine to Sit Standby Assistance Sit to Supine Sit to Supine Standby Assistance Scooting Scooting to Edge of Bed Standby Assistance PT-Transfer Assessment Sit to and From Stand Sit to and from Stand Standby Assistance,Contact Guard Assistance,1 Person Assistance,Use of Upper Extremities Equipment Transfer Assistive Device None,Gait Belt Orthotic/Prosthetic Devices or Brace: No Transfers Transfer Destination Bed,Chair Transfer Technique Stand Step Pivot Transfer Ability Level of Assist Standby Assistance,Contact Guard Assistance Comments Mobility Comments Pt was sitting up in the bed as PT arrived. She was able to scoot forward and stand without AD SBA. She ambulated around the foot of the bed SBA and transferred to and from the bed SBA. Once back on the edge of the bed, pt complained of increased pain and required CGA to stand. In standing, pt participated in static balance assessment before walking to the larkin a total of 100 feet with (+) SOB and deteriorating gait pattern with increasing distance requiring CGA. On return to the room, pt transferred back to the chair CGA. She was left with call light and all needs in reach. Gait Assessment Gait Gait Assistance Required: Standby Assistance,Contact Guard Assist Distance (Feet) 100 Able to Maintain Weight Bearing Status Yes During Gait Assistive Devices Assistive Device None,Gait Belt Orthotic/Prosthetic Devices or Brace: No Gait Deviations General Gait Pattern Antalgic,Decreased Stride Length,Decreased Feet Clearance,Flexed Trunk Factors Limiting Gait Function Factors Limiting Gait Function Decreased Activity Tolerance, Decreased Strength,Pain,Poor Balance Comments Gait Comments Pt ambulated with arms supporting her abdomen and no UE swing. Gait stability deteriorated within 100 feet and pt was (+) SOB. Stair Climbing Assessment Evaluation Level of Assist On Stairs Standby Assistance Devices Stair Climbing Assistive Devices Left Railing Technique/Endurance Stair Climbing Direction Ascend and Descend Stair Climbing Technique Step Over Step Number of Steps Climbed 3 Query Text: Stair Climbing Set # Repetitions (reps) 1 PT-Balance Assessment Sitting Balance and Reactions Static Sitting Balance Ability Good Dynamic Sitting Balance Ability Good Standing Balance and Reactions Static Standing Balance Ability Good Dynamic Standing Balance Ability Fair Device Used no AD Balance Tests Romberg WNL EO and EC M5 PT-IP Objective Assessments Start: 07/10/20 11:53 Freq: NEEDED Status: Active Protocol: Document 07/10/20 12:39 AW (Rec: 07/10/20 13:10 AW [id number]) Orientation Orientation/Cognition Level of Alertness Alert Orientation Name,Birthday,Day of Week, Place,Situation Language Function Ability No Deficits Noted Safety Awareness Understands Safety Issues Memory Description No Deficits Noted Gross Range of Motion Lower Extremity ROM Assessment Within Functional Limits Strength Lower Extremity Strength Assessment Bilaterally Impaired Hip 4-/5 Knee 5/5 Ankle 4+/5 Coordination Assessment Gross Coordination Gross Coordination WNL Sensation Assessment Sensation Gross Sensation WNL Muscle Tone Muscle Tone WNL Yes M6 PT-IP Treatment Start: 07/10/20 11:53 Freq: NEEDED Status: Active Protocol: Document 07/10/20 12:39 AW (Rec: 07/10/20 13:10 AW [id number]) Physical Therapy Treatment Exercises Exercises Ankle Pumps,Gluteal Sets,Quad Sets Education Education Provided Safety Other Treatments Other Treatment Performed Educated pt on role of PT, plan of care, and reinforced abdominal surgery precautions. M7 PT-IP Assessment and Plan Start: 07/10/20 11:53 Freq: NEEDED Status: Active Protocol: Document 07/10/20 12:39 AW (Rec: 07/10/20 13:10 AW [id number]) PT Summary Assessment and Plan Potential Rehabilitation Potential Good Status of Condition at Evaluation Stable Summary Impairments Pain,Strength,Balance,Bed Mobility,Transfers,Gait, Activity Tolerance Assessment Summary Samaria is a 74 yo woman seen for PT evaluation after being readmitted following colectomy in June with new abdominal wall abscess. She is independent in all regards at baseline. On evaluation, she required SBA to CGA for transfers and ambulation without AD. Gait stability deteriorated with 100 feet ambulation and patient was short of breath. Pt is deconditioned compared with her baseline functional status . In the context of functional decline and new ovarian cancer diagnosis, pt would benefit from subacute rehab to address strength and endurance deficits and to mitigate the potential of further decline associated with immobility. Goals Bed Mobility Goal Independent Transfer Goal Independent Gait Goal Independent Gait Distance 200 Other Goals - up/down 12 steps with unilateral rail IND Days to Meet Goals 5 Frequency of Treatment Frequency Of Treatment Once a Day Treatment Plan Physical Therapy Treatment Plan Bed Mobility Training,Transfer Training,Gait Training, Therapeutic Exercise,Balance Retraining,Post Op Education, Discharge Planning Other Recommendations and Next Treatment ambulation, ther ex Focus Precautions Abdominal Surgery Precautions Log Roll,Lifting Restrictions, Gait Belt above Incisional Area Recommendations To Nursing Amount of Assist Needed Standby Assistance,1 Person Assist Discharge Recommendations PT Discharge Recommendations Home with Assistance,Home Health,SNF Rehab Other Discharge Recommendations SNF vs home with HH depending on progress Transportation Needs at Discharge Private Vehicle,Wheelchair/ Cabulance
[2020-07-10] MEDS: OXYCODONE IR 5 MG TABLET PO ×2 (13:43→20:34)
--- NOTE | 2020-07-10 16:43 | CM.DPC ---
Addendum entered by Lalit Frost 07/10/20 16:44: Adding signatures JAHAIRA Schmidt MSW Student Original Note: DCP Continued: DANCE COSTUME DESIGNER student met with patient this date to discuss D/C options for tomorrow 1) D/C to [facility] pending authorization from insurance 2) D/C home with manjula Wu. JAHAIRA Schmidt has been working with insurance company all day to obtain authorization for patient to return to [facility] for treatment. Current Status insurance reports that medical geneticist at [facility] will need to do a [id number] for authorization. Dr. Biswas was called and made aware. Called manjula Wu this afternoon he is aware of the above and agreeable to take home. PLAN: Anticipate D/C from facility tomorrow 07/11/20. CM Team to continue following closely.
[2020-07-11] VITALS (25 sets, daily range): BP systolic 100–197; BP diastolic 57–93; PULSE 70–94; RESP 10–20; TEMP 36.4–37.5; O2SAT 93–100; BMI 31.0
--- NOTE | 2020-07-11 | PATH_ITS ---
[facility] Accession Number: [id number] . 01 Material submitted: . PART A: body - OMENTAL MASS PART B: body - OMENTUM PART C: body - OSTOMY . 01 Clinical history: . WOUND INFECTION . 02 Diagnosis: A. Omentum, Mass, Excision: Metastatic poorly differentiated carcinoma. . B. Omentum, Resection: Omentum with no evidence of neoplasm. . C. Ostomy, Takedown: 1. Metastatic poorly differentiated carcinoma. -Greatest dimension 4 mm. -Present within 1 mm of inked distal margin. 2. Denuded and ulcerated colonic mucosa involving proximal end. 3. Submucosal fibrosis and foreign body giant cells are present consistent with procedure related changes. MRV 07/14/2020 1501 Local . 02 Electronically signed: . Juana Berger MD, Pathologist NPI- [id number] . 01 Gross description: . A. The specimen is received in formalin, labeled omental mass and consists a 6.5 x 5.5 x 3.0 cm lazo-yellow lobulated portion of omentum with a 3.5 x 3.5 x 2.1 cm firm lazo mass which is inked blue and sectioned to reveal lazo-white focally hemorrhagic and necrotic cut surfaces. Associate sections are submitted in cassettes A1-A4. B. The specimen is received in formalin, labeled omentum and consists of a 16.0 x 11.0 x 4.0 cm lazo-yellow portion of omentum which is sectioned to reveal lazo-yellow lobulated cut surfaces. No masses or lesions are identified. Associate sections are submitted in cassettes B1-B2. C. The specimen is received in formalin, labeled ostomy and consists of a 5.5 x 4.0 x 3.0 cm portion of bowel with a 2.0 x 1.5 cm stoma plate. The mucosa and tissue surrounding the stoma is pink-red and irregular. Opening reveals a lazo-pink mucosa with normal mucosal folds. The wall thickness measures 0.2 cm. The margin is inked blue. Associate sections are submitted in cassettes C1-C2. (EA:[id number]) /MRV 07/12/2020 [facility] Local . 02 Pathologist provided ICD-10: C78.6 . 02 CPT . 809597, [id number], [id number] Performed at: 01 [facility] [address] [place] [address], [place], [place] [id number] MD Ja Schmid MD Phone: [phone] Performed at: 02 [facility] [address] [place], [place] [id number] MD Juana Berger MD Phone: [phone]
[2020-07-11] MEDS: LEVOTHYROXINE 25 MCG TABLET PO (06:53)
[2020-07-11] MEDS: SODIUM CHLORIDE 0.9% 1,000 ML 100 ML IV (08:00)
--- NOTE | 2020-07-11 09:36 | PM.PN.1 ---
Subjective Subjective Date Patient Seen: 07/11/20 Time Patient Seen: 09:36 Interval history: The patient has had increasing ostomy output, and increasing pain around the ostomy site, with leakage under the ostomy appliance. The nurses have had difficulty keeping an appliance on the site. Exam Vital Signs (past 8 hours): - 07/11/20 07:55 Temperature 98.9 F Pulse Rate 80 Respiratory Rate 19 Blood Pressure 143/75 H Pulse Oximetry 98 Oxygen Delivery Method Room Air Oxygen Flow Rate 0 Narrative Exam Narrative: Gen: alert, non toxic CARDIOVASCULAR: Regular rate. No pedal edema. RESPIRATORY: Non-tachypneic, breathing comfortably on room air. GASTROINTESTINAL: Abdomen soft and non-distended. Ostomy p/p/p with thick brown stool in the bag, copious leakage around the ostomy site, BARBARA drain with scant serosanguinous output. Ostomy pouch not well adhered. Mucocutaneous breakdown of the ostomy site. With stool leaking between the bowel and the skin. Ostomy pouch replaced with buildup of the surrounding abdominal wall. MUSCULOSKELETAL: Equal tone and mass bilaterally. SKIN: Warm, dry, soft, appropriate color for ethnicity. No other lesions, rashes, or wounds. NEURO: Alert and Oriented X 3. No gross sensory deficits, or cognitive issues. PSYCH: Appropriate affect and mood. Objective Labs Result Diagrams: 07/07/20 06:30 07/07/20 06:30 [facility] Medical History Acquired hypothyroidism Chicken pox Essential hypertension Febrile illness Has 3 children Measles Mixed hyperlipidemia UTI (urinary tract infection) Vision disorder Family History Father No problems noted. Mother Hypertension Grandfather Pneumonia Social History household members: none Smoking Status: Never smoker alcohol intake: current Assessment & Plan Assessment and plan (1) Status post Herminia procedure: Status: Acute (2) Ovarian cancer: Qualifiers: Laterality: unspecified laterality Qualified Code(s): C56.9 - Malignant neoplasm of unspecified ovary Status: Acute (3) Postoperative wound infection: Status: Acute (4) Obesity (BMI 30.0-34.9): Problem details: The patient's abdominal obesity significantly increased the complexity and difficulty of her laparotomy and to bring up her end colostomy, because her abdominal wall was 2-3 inches thick. Her obesity also complicates her post op course because it increases the risk of wound infection, hernia, fascial dehiscense, ostomy ischemia, and ostomy retraction. Status: Acute (5) Complication of ostomy: Status: Acute (6) Abdominal wall abscess: Status: Acute Assessment & Plan narrative: This is a 74-year-old woman who is about 3 weeks out from emergency laparotomy, washout of abscess, resection of perforated and obstructed colon, and end colostomy (Herminia's procedure). She was discharged to a nursing facility eight days ago, and was brought back in 7 days ago, and seen in clinic. She was then admitted to the hospital, and evaluated with CT scan and labs. Cultures were taken from her midline wound. She was taken to the OR for washout of her abdominal abscess and revision of her colostomy. She initially recovered well from that surgery, and was set up to return to [facility], however her insurance company would not pay for her to go back to [facility]. The nursing staff have been working hard to manage her ostomy, but it is been a difficult site due to ongoing breakdown of the mucocutaneous border and leakage of stool under the skin. Today recommended to the patient that we revise the ostomy entirely through an abdominal procedure and bringing up a new colostomy in a different site. The patient is hesitant to do this as she is concerned about her oncologic outcome, and would like to meet with the medical oncologist, with him she has an appointment at 11:00 a.m. today. I have had many many conversations with the patient during her time here, to explain that she needs to heal from the surgery before the oncologic issue can be addressed. However, it seems that this is the foremost concern in her mind, and she is very focused on going to the oncology appointment rather than to the operating room. I had a lengthy discussion with the patient in the room, with her nurse early this morning, and with the social welfare research worker again later this morning. Right now the patient continues to be very focused on going to her oncology appointment. I have asked the nursing staff to take her to the oncology appointment. I have ordered TPN, and will keep her NPO and on TPN to allow the ostomy to heal without any output coming through, until we get better healing of the ostomy. If she becomes septic, or if the ostomy completely retract into the abdomen, I will again recommend that we go to the operating room. Plan: NPO, IV fluids PICC line TPN For staff to workout transport to her oncology appointment Hold Metamucil, hold MiraLax, hold heparin COVID-19 COVID-19 status: Negative Result date/Date tested (Pos, Neg/Pending): 07/04/20 Time Spent With Patient Time with patient: Greater than 35 minutes (Ostomy care, multiple discussions with the patient, nurse, and social welfare research worker) Quality VTE Deep Vein Thrombosis/Pulmonary Embolism Present on Admission: No
--- NOTE | 2020-07-11 09:44 | ONC.MSW ---
Oncology Consult-Inpt coordination TORCH BRAZER received a call from TORCH BRAZER in Care Management, pt is now inpt. She is scheduled here in clinic today for an 11:00am consult, however pt is needing ostomy surgery, and there is a confilict re: pt not wanting the surgery, and wanting to speak with the Oncologist first. TORCH BRAZER spoke with Dr. Mota, who agreed to meet with pt on the floor today between 11-12:00. Will monitor continued coordination needs.
[2020-07-11 09:58] LABS: Blood Urea Nitrogen 13 mg/dL (7-17); Calcium 9.4 mg/dL (8.4-10.2); Carbon Dioxide 25 mmol/L (22-32); Chloride 107 mmol/L (98-107); Estimated Glomerular Filt Rate > 60.0 mL/min (>60); Glucose 104 mg/dL (80-110); HEMOLYSIS < 15 (0-50); Magnesium 2.1 mg/dL (1.6-2.3); Potassium 3.9 mmol/L (3.4-5.1); Sodium 136 mmol/L (137-145)
[2020-07-11 09:59] LABS: Phosphorous 4.1 mg/dL (2.8-4.1)
[2020-07-11 10:08] LABS: Add Manual Diff / Slide Review NO; Basophils Absolute Auto 100 /uL (0-100); Basophils Percent Auto 1.1 % (0-2); Eosinophils Absolute Auto 200 /uL (0-450); Eosinophils Percent Auto 3.4 % (2-4); Hematocrit 29.5 % (36-46); Lymphocytes Absolute Auto 1500 /uL (1100-4500); Lymphocytes Percent Auto 22.7 % (25-40); Mean Corpuscular HGB Conc 33.9 % (30-36); Mean Corpuscular Hemoglobin 29.4 PG (26-34); Mean Corpuscular Volume 86.5 fL (80-100); Monocytes Absolute Auto 700 /uL (0-900); Monocytes Percent Auto 9.9 % (3-14); Neutrophils Absolute Auto 4200 /uL (1500-7000); Neutrophils Percent Auto 62.9 % (50-75); Platelet Count 338 X10^3/uL (150-400); Red Blood Cell Count 3.41 X10^6/uL (4.0-5.2); Red Cell Distribution Width 15.3 % (11.6-14.8); White Blood Cell Count 6.6 X10^3/uL (4.5-11.0)
--- NOTE | 2020-07-11 10:32 | DI.RAD.S_ITS ---
PROCEDURE: XR CHEST FOR PICC 1V INDICATIONS: Chest Xray for PICC placement. COMPARISON: [facility], , XR CHEST FOR PICC 1V, 06/26/2020, 17:18. FINDINGS: PICC was placed by the intravenous therapy team from the left side. Fluoroscopic spot film demonstrates the tip of PICC projecting to the area of lower SVC. IMPRESSION: Tip of PICC projects to the area of the lower SVC. Dictated by: Loco Cast M.D. on 07/11/2020 at 10:57 Approved by: Loco Cast M.D. on 07/11/2020 at 10:57
--- NOTE | 2020-07-11 10:59 | CM.DANOTE ---
Addendum entered by Rayne Shaffer R.N. 07/11/20 12:52: Spoke with son Bryce to update him with today's POC here at . Bryce was on speaker phone and his Toby listened - although I was not aware until we were hanging up - at the end of conversation that I was on speaker phone. I advised that patient face time son when meeting with oncologist so that all were aware of information and had opportunity to ask questions about POC and plan to transfer all medical care to [facility] where pt. will be residing with Bryce. Addendum entered by Rayne Shaffer R.N. 07/11/20 12:48: I worked at length today with both patient and son Bryce. My goal with pt. was that she understood plan and that we were certain we were following her wishes with regard to surgery. By the close of the morning pt. expressed an agreement with the surgeon's plans with colostomy surgery this afternoon. Pt. was happy to be able to speak to oncologist first. Anel Landeros IV nurse was at during entire conversation about surgery and pt. agreeing to current POC. Anel was placing PICC line for TPN in hopes that this will better regulate nutrition and subsequent colostomy output as well as improve nutritional status. Original Note: DCP/continued: Reviewed EMR this AM. No call back this AM from [facility]/[place] re: authorization for SNF. Contact with insurance is Kimberley Guthrie # [phone] option #1 and ext# [phone] case reference# is [id number]. Received notification from staff engineer this AM that patient requiring another surgery for ostomy? Placed call to Dr. Ordaz this AM to obtain confirmation? RN reports patient indicating that she does not want surgery today. ENGINEERING SURVEYOR, ENGINEERING SURVEYOR graduate internship, and RN met with patient to discuss options. Patient very emotional at time of visit. Patient reports that she would prefer to be closer to family in [place] if more surgery needed. Patient adamantly declines surgery at time of ENGINEERING SURVEYOR visit at 9:00AM. RN instructed to call surgeon to provide information. ENGINEERING SURVEYOR provided above information to CM/Filler Spreader Lulu to assist with patient not wanting surgery and currently scheduled for surgery today. Message received from JANEY/Joan indicating Dr. Ordaz returned call and planning on surgery? During ENGINEERING SURVEYOR visit this AM, patient did provide ENGINEERING SURVEYOR with permission to call her son/Bryce. In addition, CM/senior category manager Lulu requested that ONC be called about patient's outpatient appointment today. Placed call to ONC and spoke with ENGINEERING SURVEYOR/Milagro. She confirms appointment today with Dr. Mota this AM. CM team requested that outpatient appointment with ONC occur inpatient. ENGINEERING SURVEYOR confirms with Milagro at ONC that this will occur inpatient between 11-12:00pm today. CM/senior category manager notified. P: Pending. At this time unclear if patient will be going to surgery. Patient expected to start on TPN today. JAHAIRA Schmidt
--- NOTE | 2020-07-11 11:52 | DIET.PN ---
Dietary Progress Note RD alerted by surgeon to restarting pts TPN to allow healing of ostomy site secondary to fecal leakage and difficult ostomy site. Pt's POs 50-75% since readmission, pt is pescatarian, pt drinking two ONS Eyad and one ONS Ensure Max daily providing 63% protein needs and 20% kcal needs in addition to meal trays. Meal trays are low residue c protein at each including: egg, yogurt, or salmon. Ht: 157.4cm Wt 77kg (-5% in 2w, severe) BMI 31.0 Nutrition Diagnosis: Ongoing Severe Acute PCM r/t inadequate oral intake and new dx perforated invasive sigmoid colon cancer aeb 5% unintentional weight loss in 2w (severe), pts PO diet causing issues c colostomy healing and fecal leakage, surgery requesting TPN initiation to allow safe healing of pt's surgical site. Interventions: 1. Initiate continuous TPN conservatively @ 40mL/h for first 12h, titrating up to goal rate of 80mL/h as tolerated. Goal feeding provides 1,689kcal (20kcal/kg) and 96g PRO (1.2g/kg) with total TPN volume of 1,920mL. 2. Recc 250mL IVFE lipids M, W, F providing additional 1,500kcals/week. 3. Daily weights please Diet Order: NPO EER: 1700kcal (20kcal/kg, overweight PCM), 96g PRO (1.2g/kg per PCM, post-surgical) Monitoring/Evaluations: feed tolerance, rate advancement, weights, labs. Consider allowing one 6oz ONS Eyad clear liquid supplement daily to stimulate enterocytes and provide AAs glutamine and arginine for surgical site healing.
--- NOTE | 2020-07-11 12:48 | PC.NURSE ---
Patient went to surgery at 1240. Patient was NPO since this AM.
--- NOTE | 2020-07-11 13:07 | PT-IP ANOTE ---
pt is not in her room and student nurse stated that pt went for her surgery. will f/u on pt after surgery.
[2020-07-11] MEDS: PIPERACILLIN-TAZO 3.375 GM/50 ML FROZ.PIGGY IV ×2 (13:18→21:04)
--- NOTE | 2020-07-11 13:56 | SUR.OPER ---
Supine on padded OR bed, head on pillow, arms secured on padded arm boards at <90 degrees abduction, legs uncrossed, pillow under knees, safety belt at thigh, tape over blanket over lower legs.
[2020-07-11] MEDS: BUPIVACAINE 0.5% W/ EPI (PF) 30 ML VIAL INJ (14:13)
--- NOTE | 2020-07-11 15:50 | P.OP_ITS ---
Operative Date/Time/Diagnoses Date of procedure: 07/11/20 Time of procedure: 15:50 Pre-op diagnosis: mucocutaneous separation and retraction of colostomy Post-op diagnosis: other (Mucucutaneous separation of colostomy, carcinomatosis, small bowel adhesions) Procedure & Clinicians Procedure: Resection and closure of sigmiod colostomy; creation of transverse loop colostomy; resection of omental metastatic deposit, lysis of adhesions; repair of small bowel serosa; closure and packing of old ostomy site Same procedure as scheduled: Yes Indications: Mucocutaneous separation of ostomy, retraction of ostomy Surgeon: Yoli Biswas Florist Helper: Mani Sanford Anesthesia Type: General Operative Notes Findings: Mucocutaneous separation of ostomy from skin, retraction of ostomy below skin level; metastatic deposit in omentum; adhesions of small bowel Specimen(s): other (omental mass; end colostomy; omentum) Estimated Blood Loss (mL): 25 Procedure in detail: The patient was brought into the operating room and placed supine on the OR table. Sequential compression devices were placed on both legs and turned on. Appropriate perioperative antibiotics were given prior to the start of surgery. General anesthesia was induced the patient was intubated. Milligan catheter was placed in sterile fashion in the bladder. The abdomen was prepped and draped in sterile fashion. Surgical time-out was conducted. Local anesthetic was injected under the skin in the upper midline and a 25 cm vertical midline incision was made in the skin at this site. Dissection was carried down through the thick subcutaneous fat to the fascia. The fascia was opened superior to the prior incision, and then dissected infe riorly to join the prior incision. Multiple loops of small bowel were found adhesed together along the peritoneal surface of the prior incisional closure. These adhesions were taken down carefully with blunt and sharp dissection using Metzenbaum scissors and finger fracture technique. Part of the posterior abdominal wall had to be taken down with the small bowel to avoid injuring the small bowel. There was a serosal tear which was unavoidable due to the patient's severe adhesions. It was repaired transversely with Lemberted silk sutures. This should not be considered a complication, rather it was inherent to the procedure and patient disease. All of the adhesions are expected in a patient who is two weeks out from emergency laparotomy for perforated colon with invasive cancer. We viewed the sigmoid colostomy from the inside of the abdomen and saw that it was densely adhesed with small bowel loops. I then pulled up the omentum and found a large area of caked omentum with a large roughly 3cm x 3cm x 3cm metastatic deposit. The metastatic deposit was resected from the omentum using Ligasure. This was passed off the table for pathology. Next, I located the transverse colon and pulled it up into the wound. I dissected it free from the greater omentum, and removed some of its epiploica so that it could be brought up as a loop colostomy. I then identified a segment of transverse colon that would come up easily to the abdominal wall, with which to make a transverse loop colostomy. I placed a 12 Fr red rubber catheter through the mesentery along the mesenteric border of the colon to be used as an ostomy bar. Attention was turned back to the sigmoid colon. The old ostomy was taken down using sharp and blunt dissection anteriorly and posteriorly. Once it was free, the small bowel adhesions were taken down until a clean segment of colon was identified, and the ostomy could be divided off. The end of the ostomy was transected and closed with 60mm green load TA stapler. The resected stoma was passed off the table for pathology. The stapled end of the descending colon was then oversewn with 3-0 silk Lemberted sutures. The fascia at the old ostomy site was closed with running number 1 PDS suture. Attention was then turned back to the transverse loop ostomy. A 2cm circular skin incision was made in the right upper quadrant in an appropriate position f or transverse loop colostomy. The subcutaneous fat was dissected down to the fascia, and the anterior fascia was opened in a cruciate fashion. The rectus muscle was split in the direction of its fibers, and the posterior fascia was opened with cautery wide enough for three fingers to come through the wound. The loop of transverse colon was then brought through the fascia gently until an adequate loop of colon was present at the skin surface for the colostomy to be made. I then closed the midline fascia with running number 1 PDS suture, and secured it into the suture from the lower midline incision. The skin was then closed at the midline with skin lena, and covered with a blue towel. The looped ostomy was brooked in the usual fashion and the 12 Fr red rubber catheter was sutured to itself as an ostomy bar. The ostomy pouch was positioned over the ostomy site in the usual fashion, and the skin incisions and drain site were dressed with 4x4's and tape. The old ostomy site was i rrigated and packed with 1/2 iodoform gauze and covered with a dry dressing. Needle, sponge, and instrument counts were correct x2 at the end of the procedure. The patient tolerated the procedure well. Patient was awakened from anesthesia and extubated. She was transferred to the postanesthesia care unit in stable condition. Complications: none Post-operative Condition: stable Disposition: PACU Plan for aftercare: epidural to be placed in the PACU and patient to be transferred to ICU
[2020-07-11] MEDS: fentaNYL 100 MCG/2 ML INJ IV ×2 (16:09→16:19)
--- NOTE | 2020-07-11 16:45 | PM.PROC.1 ---
Procedures Date/Time Date of procedure: 07/11/20 Time of procedure: 16:05 General Procedure description: Thoracic epidural placed in PACU after ostomy revision by Dr. Biswas. Patient positioned in right lateral decub. Given 100mcg fentanyl for procedural pain control. Skin was washed with chlorhexidine. Sterile drapes, hat, mask and sterile gloves used for procedure. 1% lidocaine injected for skin anesthesia. Using 18ga Tuohy, epidural space was located between T7 and T8. HANH occured at 7cm using low resistance syringe and sterile saline. Catheter was threaded to 12cm. After negative aspiration, 3mL test dose of 1.5% lidocaine with epi was injected. Patient HR remained at 85 with no spinal effect. Catheter was secured to skin with tegaderm and medipore tape. 8mL 0.125% bupivacaine was hand bolused through epidural catheter. Patient got good dermatomal pain relief with reduction in BP from 170/95 to 145/65. Infusion pump was started at 6ml/hr with PCEA push button programmed to deliver 4mL with a 15min lockout. Patient tolerated the procedure ok and got good pain relief.
--- NOTE | 2020-07-11 16:56 | SUR.PHASEI ---
RECIEVED PT MOANING AND RESTLESS WITH SEVERE PAIN IN ABDOMEN, MEDICATED WITH DR GOSS AT BEDSIDE, EPIDURAL INSERTED BY DR GOSS, AT PRESENT PT APPEARS MUCH MORE RELAXED AND DENIES PAIN AT THIS TIME, PT DENIES AND NAUSEA, NGT TO LISX,
--- NOTE | 2020-07-11 17:50 | SUR.PHASEI ---
UNABLE TO CHART PACU ASSESSMENT VISIT FROM 5 DAYS AGO OVERRIDES TODAYS CHARTING, NOTIFIED MICHELLE TRAYLOR, JOSE NARRATIVE CHART FOR PACU CHARTING AND NOTIFY I.T. TOMORROW. DR GRIMM CALLED- NO ANSWER, PAGED AND WAITING FOR RETURN CALL TO NOTIFY HER OF PTS STOMA GOING FROM RED AND BEEFY UPON ADMIT TO PACU THEN TURNING PINKISH AND DUSKY WITH SMALL CLOTS NOTED. MIDLINE ABDOMINAL DRESSING WITH DRAINAGE NOTED, WILL NOTIFY DR GRIMM AFTER EPIDURAL INSERTION PT BECAME MORE RELAXED AND DENIED PAIN AFTER THAT, DERMATONE LEVEL NOTED AT T 4. EPIDURAL INFUSING BY PUMP ORDERED .NO C/O OF NAUSEA, NGT REMAINED ON LOW INTERMITTENT SX WITH SCANT RETURN, AKINS SECURELY ATTACHED TO LEG AND DRAINING CLEAR LIGHT YELLOW URINE, IV PATENT AND INFUSING. PT TRANSPORTED WITH RN, MONITOR AND O2 TO ICU, BEDSIDE REPORT GIVEN WITH HAND OFF OF CARE TO FIELD CHECKER
[2020-07-11] MEDS: FENT 2MCG/ML BUPIV 0.125% EPI 200 MCG/100 ML PLAST..BAG 6 MCG EPIDURAL (17:51)
[2020-07-11] MEDS: SODIUM CHLORIDE 0.9% 1,000 ML 60 ML IV (18:08)
[2020-07-11] MEDS: AA 5 %/CALCIUM/LYTES/DEXT 20 % 1,000 ML with MULTIVITAMIN 10 ML, TRACE ELEMENTS 1 ML 40 ML IV (18:25)
--- NOTE | 2020-07-11 18:50 | DI.RAD.S_ITS ---
PROCEDURE: XR CHEST 1V INDICATIONS: right side pleuritic pain TECHNIQUE: One view of the chest was acquired. COMPARISON: [facility], CR, XR CHEST FOR PICC 1V, 07/11/2020, 10:36. FINDINGS: Surgical changes and devices: Nasogastric tube is present distal tip projecting below the left hemidiaphragm. It is noted than the side port projects approximately at or immediately distal to the gastroesophageal junction. Left PICC line is unchanged. Lungs and pleura: Lungs are clear. No pleural effusions or pneumothorax. Mediastinum: Mediastinal contours appear normal. Heart size is enlarged. Bones and chest wall: No suspicious bony lesions. Overlying soft tissues appear unremarkable. IMPRESSION: No acute pulmonary process. Support lines as above. Slight advancement of nasogastric tube is recommended. Dictated by: Jerri Kulkarni M.D. on 07/11/2020 at 19:23 Approved by: Jerri Kulkarni M.D. on 07/11/2020 at 19:24
[2020-07-11] MEDS: carvediloL 3.125 MG TABLET PO (21:05)
[2020-07-11] MEDS: ONDANSETRON 4 MG/2 ML INJ IV (22:25)
[2020-07-12] VITALS (16 sets, daily range): BP systolic 83–124; BP diastolic 50–63; PULSE 80–93; RESP 16–27; TEMP 36.7–37.1; O2SAT 92–96
[2020-07-12] MEDS: PIPERACILLIN-TAZO 3.375 GM/50 ML FROZ.PIGGY IV ×4 (02:36→19:24)
[2020-07-12 04:52] LABS: BUN Creatinine Ratio 18.3 (6-22); Blood Urea Nitrogen 11 mg/dL (7-17); Calcium 8.5 mg/dL (8.4-10.2); Carbon Dioxide 24 mmol/L (22-32); Chloride 106 mmol/L (98-107); Estimated Glomerular Filt Rate > 60.0 mL/min (>60); Glucose 179 mg/dL (80-110); HEMOLYSIS < 15 (0-50); Phosphorous 3.6 mg/dL (2.8-4.1); Potassium 3.7 mmol/L (3.4-5.1); Sodium 136 mmol/L (137-145)
[2020-07-12 05:06] LABS: Add Manual Diff / Slide Review NO; Basophils Absolute Auto 0 /uL (0-100); Basophils Percent Auto 0.3 % (0-2); Eosinophils Absolute Auto 0 /uL (0-450); Eosinophils Percent Auto 0.1 % (2-4); Hematocrit 27.4 % (36-46); Hemoglobin 9.3 g/dL (12.0-16.0); Lymphocytes Absolute Auto 1000 /uL (1100-4500); Lymphocytes Percent Auto 10.5 % (25-40); Mean Corpuscular Hemoglobin 29.3 PG (26-34); Mean Corpuscular Volume 86.2 fL (80-100); Monocytes Absolute Auto 1000 /uL (0-900); Neutrophils Absolute Auto 7700 /uL (1500-7000); Neutrophils Percent Auto 79.1 % (50-75); Platelet Count 286 X10^3/uL (150-400); Red Blood Cell Count 3.18 X10^6/uL (4.0-5.2); Red Cell Distribution Width 15.2 % (11.6-14.8); White Blood Cell Count 9.8 X10^3/uL (4.5-11.0)
[2020-07-12] MEDS: FENT 2MCG/ML BUPIV 0.125% EPI 200 MCG/100 ML PLAST..BAG 6 MCG EPIDURAL ×2 (05:09→15:37)
--- NOTE | 2020-07-12 06:15 | DI.RAD.S_ITS ---
PROCEDURE: XR CHEST 1V INDICATIONS: ng tube position TECHNIQUE: One view of the chest was acquired. COMPARISON: [facility], , XR CHEST 1V, 07/11/2020, 18:57. FINDINGS: Surgical changes and devices: Nasogastric tube appears slightly retracted compared to prior exam. Lungs and pleura: Lungs are clear. No pleural effusions or pneumothorax. Mediastinum: Mediastinal contours appear normal. Heart size is enlarged. Bones and chest wall: No suspicious bony lesions. Overlying soft tissues appear unremarkable. IMPRESSION: Nasogastric tube appears slightly retracted. Forward advancement 5-6 cm is recommended. The above findings are concordant with preliminary report. Dictated by: Jerri Kulkarni M.D. on 07/12/2020 at 9:25 Approved by: Jerri Kulkarni M.D. on 07/12/2020 at 9:26
--- NOTE | 2020-07-12 08:55 | DIET.PN ---
Addendum entered by Liliana Jennings 07/12/20 10:59: Pt is on TPN as she is high risk for surgical site infection. Pt is NPO. If pts diet changes, 100% of nourishments to come from kitchen, not nourishment fridges on floor and to be okayed by RD secondary to surgical reccs. Original Note: Dietary Progress Note RD alerted by surgeon to restarting pts TPN to allow healing of ostomy site secondary to fecal leakage and difficult ostomy site. Pt's POs 50-75% since readmission, pt is pescatarian, pt drinking two ONS Eyad and one ONS Ensure Max daily providing 63% protein needs and 20% kcal needs in addition to meal trays. Meal trays are low residue c protein at each including: egg, yogurt, or salmon. Ht: 157.4cm Wt 77kg (-5% in 2w, severe, on top of 3% weight loss in 5d prior admit) BMI 31.0 Nutrition Diagnosis: Severe Acute PCM r/t inadequate oral intake and new dx perforated invasive sigmoid colon cancer aeb 5% unintentional weight loss in 2w (severe) on top of 3% unintentional weight loss the week prior (severe), pt having 3rd abdominal surgery in three weeks due to healing complications, currently NPO c NG tube to lis requiring TPN. Interventions: 1. Initiate continuous TPN conservatively @ 40mL/h for first 12h, titrating up to goal rate of 80mL/h as tolerated. Goal feeding provides 1,689kcal (20kcal/kg) and 96g PRO (1.2g/kg) with total TPN volume of 1,920mL. 2. Recc 250mL IVFE lipids M, W, F providing additional 1,500kcals/week. 3. Daily weights please Diet Order: NPO EER: 1700kcal (20kcal/kg, overweight PCM), 96g PRO (1.2g/kg per PCM, post-surgical) Monitoring/Evaluations: feed tolerance, rate advancement, weights, labs. Consider allowing one 6oz ONS Eyad clear liquid supplement daily to stimulate enterocytes and provide AAs glutamine and arginine for surgical site healing.
--- NOTE | 2020-07-12 09:44 | P.PN_ITS ---
Subjective Subjective Date Patient Seen: 07/12/20 Time Patient Seen: 09:44 Interval history: No acute events overnight. The patient says she feels like she was kicked by a horse. She denies shortness of breath, nausea, abdominal pain. Her complaint is Pain along the lower right chest wall. Exam Vital Signs (past 8 hours): - 07/12/20 02:00 07/12/20 03:00 07/12/20 04:00 Temperature Pulse Rate 86 93 H 86 Respiratory Rate 25 H 23 17 Blood Pressure 108/56 L 110/59 L 124/59 L Pulse Oximetry 93 93 94 07/12/20 05:00 07/12/20 06:00 07/12/20 07:00 Temperature 98.2 F Pulse Rate 84 87 84 Respiratory Rate 23 17 27 H Blood Pressure 114/55 L 117/56 L 111/60 Pulse Oximetry 93 95 94 07/12/20 08:00 Temperature 98.2 F Pulse Rate 84 Respiratory Rate 20 Blood Pressure 113/60 Pulse Oximetry 92 Oxygen Delivery Method Room Air Oxygen Flow Rate 4 Narrative Exam Narrative: Gen: alert, fatigued appearing, non toxic HEENT: NG tube in place and sumping, with scant bilious fluid in canister CARDIOVASCULAR: Regular rate. No pedal edema. RESPIRATORY: Non-tachypneic, breathing comfortably on room air. GASTROINTESTINAL: Abdomen soft and non-distended. Right side Ostomy pink, edematous, and budded, BARBARA drain with scant serosanguinous output. Midline incision clean and intact with some serosanguineous drainage on the dressing. Old ostomy site clean with packing in place MUSCULOSKELETAL: Equal tone and mass bilaterally. SKIN: Warm, dry, soft, appropriate color for ethnicity. No other lesions, rashes, or wounds. NEURO: Alert and Oriented X 3. No gross sensory deficits, or cognitive issues. PSYCH: Appropriate affect and mood. Objective Imaging Chest x-ray: Radiologist's impression: No acute process, NG tube needs to be advanced 5 cm Labs Result Diagrams: 07/12/20 04:21 07/12/20 04:21 Labs: Laboratory Results - last 24 hr 07/11/20 07/11/20 07/11/20 09:31 09:31 09:31 WBC 6.6 RBC 3.41 L Hgb 10.0 L Hct 29.5 L MCV 86.5 D MCH 29.4 MCHC 33.9 RDW 15.3 H Plt Count 338 Neut % (Auto) 62.9 Lymph % (Auto) 22.7 L [place] % (Auto) 9.9 Eos % (Auto) 3.4 Baso % (Auto) 1.1 Neut # (Auto) 4200 Lymph # (Auto) 1500 [place] # (Auto) 700 Eos # (Auto) 200 Baso # (Auto) 100 Sodium 136 L Potassium 3.9 Chloride 107 Carbon Dioxide 25 BUN 13 Creatinine 0.50 L Estimated GFR > 60.0 BUN/Creatinine Ratio 26.0 H Glucose 104 Calcium 9.4 Phosphorus 4.1 Magnesium 2.1 07/12/20 07/12/20 04:21 04:21 WBC 9.8 RBC 3.18 L Hgb 9.3 L Hct 27.4 L MCV 86.2 MCH 29.3 MCHC 34.0 RDW 15.2 H Plt Count 286 Neut % (Auto) 79.1 H Lymph % (Auto) 10.5 L [place] % (Auto) 10.0 Eos % (Auto) 0.1 L Baso % (Auto) 0.3 Neut # (Auto) 7700 H Lymph # (Auto) 1000 L [place] # (Auto) 1000 H Eos # (Auto) 0 Baso # (Auto) 0 Sodium 136 L Potassium 3.7 Chloride 106 Carbon Dioxide 24 BUN 11 Creatinine 0.60 Estimated GFR > 60.0 BUN/Creatinine Ratio 18.3 Glucose 179 H Calcium 8.5 Phosphorus 3.6 Magnesium 2.0 PFSH Medical History Acquired hypothyroidism Chicken pox Essential hypertension Febrile illness Has 3 children Measles Mixed hyperlipidemia UTI (urinary tract infection) Vision disorder Family History Father No problems noted. Mother Hypertension Grandfather Pneumonia Social History household members: none Smoking Status: Former smoker alcohol intake: current Assessment & Plan Assessment and plan (1) Complication of ostomy: Problem details: The patient was taken back to the operating room yesterday for another attempt to revise her mucocutaneous separation of the ostomy. We were not able to revise the sigmoid colostomy, and so it was taken down, and a transverse loop colostomy was made on the right side. Metastatic deposit was found in the omentum and sent for pathology. Patient currently has an NG tube, BARBARA drain, epidural, PICC line with TPN running, ostomy bar, ostomy pouch, and Milligan catheter in place. Plan: Continue TPN at goal rate, with lipids 3 times a week Will add 5 units of insulin to TPN today Continue epidural for now, we will attempt ambulation tomorrow with PT Packing changed daily starting tomorrow NG tube until there is gas in the back Continue Zosyn for now due to gross spillage into the old ostomy site Incentive spirometer, DVT prophylaxis with Lovenox, Daily labs, Will remove Milligan when patient is up to ambulate GI prophylaxis of Protonix Home meds Status: Acute (2) Status post Herminia procedure: Status: Acute (3) Obesity (BMI 30.0-34.9): Problem details: The patient's abdominal obesity significantly increased the complexity and difficulty of her laparotomy and to bring up her end colostomy, because her abdominal wall was 2-3 inches thick. Her obesity also complicates her post op course because it increases the risk of wound infection, hernia, fascial dehiscense, ostomy ischemia, and ostomy retraction. Status: Acute (4) Malnutrition: Problem details: The patient came in on June 23 with 5 days of really not eating very much at all. She has had prolonged periods of fasting because of surgery, and bowel recovery after surgery. She is significantly behind nutritionally at this point and has significant protein calorie malnutrition, for which she is being put back on TPN at this time. I believe her malnutrition has affected her ability to heal from surgery, and has significantly impacted her hospital course. Status: Acute Quality VTE Deep Vein Thrombosis/Pulmonary Embolism Present on Admission: No
--- NOTE | 2020-07-12 10:34 | PC.NURSE ---
pt refused to ambulate offer pt to sit on the edge of the bed pt refused as well pt said she is in pain.
[2020-07-12] MEDS: PANTOPRAZOLE 40 MG VIAL IV (11:02)
[2020-07-12] MEDS: ENOXAPARIN 40 MG/0.4 ML SYRINGE SUBCUT (11:02)
[2020-07-12] MEDS: carvediloL 3.125 MG TABLET PO (11:02)
[2020-07-12] MEDS: LIDOCAINE PATCH 1 EACH ADH..PATCH TOP (11:05)
--- NOTE | 2020-07-12 11:35 | PT-IP ANOTE ---
pt refused PT and stated that she has bilateral rib pain and tried to sit up this morning but was unable to to pain. agreed for PT to check on her later today.
--- NOTE | 2020-07-12 12:40 | PC.NURSE ---
Late nursing note: Note should have been typed on
--- NOTE | 2020-07-12 12:40 | PC.NURSE ---
Late note, note should have been typed up about the patient at 07/11/20. Patient had been seen by Dr. Biswas in the AM, Stoma was assessed to be sinking. Dr. Biswas had me help with building up area around stoma for placement of a new colostomy appliance, appliances had to be changed a few times per shift since they kept leaking. Dr. Biswas told patient she may need surgery again to fix the colostomy. After Dr. Biswas left the patient was in tears. When asked what was wrong, she was distraught and said, I don't want surgery again. She was tearful about it happening again and was worried about her cancer diagnosis, and the fact that she was going to miss her appt. with the oncologist. She was also worried because she if she were to have anymore procedures, she wanted to be in [place] closer to her son. In regards to her wishes, I notified care management about the patient's desire to not go though anymore surgical procedures. Theresechandra Parisi SHANK STITCHER was notified and talked with patient and I in her room. Patient continued to be adamant and say I don't' want to have another surgery. After Therese left, patient and I had a conversation about calling her son to see what his thoughts were. With the patient, her son, and I on the phone together, we talked about the patient's fears and concerns about another surgery. We talked about if there was an option for patient to come closer to [place] to have another procedure done if needed so she could be near her family. It was agreed to by patient and son, that their wishes were for patient to be closer to family for any surgical procedures that needed to be done. Patient continued to be tearful and distraught about the thought of more surgical procedures being done. Care management let Dr. Biswas know what patient's wishes were. Dr. Biswas talked to the patient and son about procedure, when patient left for surgery at [address] [facility], I was witness to Dr. Biswas talking to patient about doing the least invasive procedure possible. Patient was reassured by this.
--- NOTE | 2020-07-12 13:53 | PT-IP ANOTE ---
checked on pt and continues to refuse due to pain. pt stated that she already got her pain meds but still has a lot of pain and just wants to rest at this time.
--- NOTE | 2020-07-12 15:17 | PC.NURSE ---
pt calm and cooperative later in shift, initially refusing to turn or move much at all- did change dressing to old ostomy site ( left) midline incision open to air with slight covering and lena visible- ostomy site with red-rubber bridge visible with pink beefy with sero-sang drainage - advanced ngt approx 5cm and resecured on nose - willie drain patent few bowel tones lower quads- epidural remains effective at 6ml/h with occassional fortune teller use
[2020-07-12] MEDS: LACTATED RINGERS 1,000 ML 100 ML IV (15:38)
--- NOTE | 2020-07-12 15:58 | CM.DPC ---
DCP/continued: Reviewed chart. Patient underwent surgery on 05-14-20. Patient now in room# 228. Spoke with RN/Edith this AM and she reports patient currently on TPN, epidural and has NG tube. Colostomy relocated. EYELET MAKER briefly met patient this AM to offer support. Patient alert, oriented and in good spirits. Patient requesting EYELET MAKER assist with obtaining her belonging from [place]. Spoke with Armida at [facility] and she will check on the most appropriate way to retrieve patient's belongings. Per patient, if SNF needed when medically stable.she wants to be closer to [facility] zip code [phone]. At this time it is unclear when patient will be medically stable. Will need new authorization from [facility] for SNF. Contact at [facility] is Kimberley Vance [phone] option 1 ext# [phone]. Due to caseload/high acuity today EYELET MAKER unable to find out from health contact which facilities would be contracted. P: Pending. Hopeful patient will be authorized to go to SNF at time of d/c? Other options include patient going home with son and Home Health in [place]. JAHAIRA Schmidt
[2020-07-12] MEDS: KETOROLAC 30 MG/ML VIAL 15 MG IV ×2 (17:36→23:13)
[2020-07-12] MEDS: AA 5 %/CALCIUM/LYTES/DEXT 20 % 2,000 ML with MULTIVITAMIN 10 ML, TRACE ELEMENTS 1 ML, I... 83.794 ML IV (17:50)
[2020-07-12] MEDS: FAT EMULSIONS 50 GM/250 ML EMULSION IV (17:51)
[2020-07-12] MEDS: MORPHINE 4 MG/ML INJ IV (19:24)
[2020-07-12] MEDS: SODIUM CHLORIDE 0.9% FLUSH 10 ML IV (21:36)
--- NOTE | 2020-07-12 22:29 | PC.NURSE ---
Pt alert and oriented x4 this shift, able to move side to side slowly but independently. MS 4 mg IVP given once for breakthrough pain, now pt painfree. VSS, O2 sats 94% on room air. Colostomy bag emptied of 25ml dark brown liquid and some air noted in bag. abd dressing dry and intact to midline incision. NG to LIS with scant bile colored drainage. Milligan to bag draining clear yellow urine. call light in reach.
[2020-07-13] VITALS (7 sets, daily range): BP systolic 98–121; BP diastolic 55–59; PULSE 72–85; RESP 13–26; TEMP 36–37.2; O2SAT 95–100
[2020-07-13] MEDS: PIPERACILLIN-TAZO 3.375 GM/50 ML FROZ.PIGGY IV ×4 (02:19→20:08)
[2020-07-13] MEDS: LACTATED RINGERS 1,000 ML 100 ML IV (02:19)
[2020-07-13 05:44] LABS: BUN Creatinine Ratio 31.4 (6-22); Blood Urea Nitrogen 16 mg/dL (7-17); Calcium 8.2 mg/dL (8.4-10.2); Carbon Dioxide 27 mmol/L (22-32); Chloride 107 mmol/L (98-107); Estimated Glomerular Filt Rate > 60.0 mL/min (>60); Glucose 161 mg/dL (80-110); HEMOLYSIS < 15 (0-50); Magnesium 2.1 mg/dL (1.6-2.3); Phosphorous 3.2 mg/dL (2.8-4.1); Sodium 137 mmol/L (137-145)
[2020-07-13 06:00] LABS: Add Manual Diff / Slide Review NO; Basophils Absolute Auto 0 /uL (0-100); Basophils Percent Auto 0.5 % (0-2); Eosinophils Absolute Auto 200 /uL (0-450); Hemoglobin 7.8 g/dL (12.0-16.0); Lymphocytes Absolute Auto 900 /uL (1100-4500); Lymphocytes Percent Auto 13.5 % (25-40); Mean Corpuscular HGB Conc 33.5 % (30-36); Mean Corpuscular Volume 86.7 fL (80-100); Monocytes Absolute Auto 800 /uL (0-900); Monocytes Percent Auto 12.2 % (3-14); Neutrophils Absolute Auto 4600 /uL (1500-7000); Neutrophils Percent Auto 70.8 % (50-75); Platelet Count 186 X10^3/uL (150-400); Red Blood Cell Count 2.69 X10^6/uL (4.0-5.2); Red Cell Distribution Width 15.6 % (11.6-14.8); White Blood Cell Count 6.6 X10^3/uL (4.5-11.0)
[2020-07-13] MEDS: KETOROLAC 30 MG/ML VIAL 15 MG IV ×3 (06:02→16:50)
[2020-07-13 06:03] LABS: Hematocrit 23.3 % (36-46)
[2020-07-13] MEDS: FENT 2MCG/ML BUPIV 0.125% EPI 200 MCG/100 ML PLAST..BAG 6 MCG EPIDURAL (06:17)
--- NOTE | 2020-07-13 06:35 | PC.NURSE ---
Dr. Biswas updated on overnight events and patient status. Flatus and stool in ostomy appliance - verbal order to D/C NGT; completed. Trial sips of clears - so far tolerating well. Pain well controlled on epidural. IVF LR @ 100 mL/hour stopped per order. K-rider infusing for K+ 3.0.
[2020-07-13] MEDS: POTASSIUM CHLORIDE 30 MEQ in SODIUM CHLORIDE 0.9% 250 ML 88.333 ML IV ×2 (06:43→11:08)
[2020-07-13] MEDS: PANTOPRAZOLE 40 MG VIAL IV (09:03)
--- NOTE | 2020-07-13 09:05 | CM.DPNOTE ---
Addendum entered by Joan Santos 07/14/20 14:26: Called the 3 facilities below and here is an update: 1) [facility]: Spoke to William, Admissions person, and he received fax for referral. He said his facility will be performing a Covid check on Friday, 07/17 due to a couple of employees that tested positive for Covid. May be able to accept pt on 07/19 if no Covid positive patient/employees. Their fax number: [phone]. 2) [facility]: Spoke to admissions person, Tiffany, and she is reviewing information and will contact Nereida on Friday, 07/16, to let her know if they can accept pt. . 3) [facility]: Spoke to admissions person, Chloe, , and she will review information and respond back to us. . (Disregard the phone number listed below, it does not work.) Addendum entered by JAHAIRA Chavez 07/13/20 15:19: According to research by Joan Lao on patient's SNF benefit in the [facility] area: 1)[facility], , [address] [place], [place] 2)[facility], , [address] [place], [place] 3)[facility], , [address] [facility] These are all contracted SNF with [facility] Benefit details: [phone] Will plan to discuss w/patient and family. JW Original Note: Per Nereida, I called Kimberley Pinky [phone] option [phone], ext. [phone], and left a vm asking for contracted SNF's from [facility] to [place] [id number]. Her vm says she is at home. I asked for this information to be sent today. Joan Santos CM Asst.
--- NOTE | 2020-07-13 09:56 | PT.IIE ---
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) Unspecified protein-calorie malnutrition (07/04/20) Obesity, unspecified (07/04/20) Cutaneous abscess of abdominal wall (07/04/20) Infection following a procedure, other surgical site, initial encounter (07/04/20) Colostomy status (07/04/20) Surgery Performed Operation Date: 07/05/20 16:00 Actual Procedures p Wound wash out, colostomy revision - Yoli Biswas MD Operation Date: 07/11/20 11:45 Actual Procedures p Laparotomy, bowel resection, ostomy creation - Yoli Biswas MD Medical History (Last Reviewed 07/12/20 @ 11:36 by Yoli Biswas MD) Acquired hypothyroidism Chicken pox Essential hypertension Febrile illness Has 3 children Measles Mixed hyperlipidemia UTI (urinary tract infection) Vision disorder Physical Therapy Inpatient Re-Evaluation M1 PT/OT-IP Prior Functional Status Start: 07/10/20 11:53 Freq: NEEDED Status: Active Protocol: Document 07/13/20 09:55 AW (Rec: 07/13/20 10:37 AW [id number]) Medical Review Prior Functional Status Medical History Reviewed Yes Communication WNL. Pt wears glasses for distance and has astigmatism. Mobility and Gait Prior to colectomy and ostomy in June, pt was active and independent in all regards. She used a FWW briefly after surgery, but has not been using any AD in the past week but admits to weakness and limited activity tolerance affecting her mobility. Activities of Daily Living and IADL's Independent. Pt has been needing assist with showers with her new ostomy appliance and wound. Prior Functional Level (Other details) Pt has newly diagnosed ovarian cancer. Social History Household Members none Living Arrangements RV Number of Floors (Floors) One Floor Number of Stairs To Enter/Railing? When finished with treatment and rehab, pt plans to move to her son's home in [place]. Details in this note will refer to her son's home. There are 2 short steps to enter with unilateral railing. Home Environment Standard Height Toilet,Walk in Shower Home Equipment Grab Bars In Shower Employment Status Retired Additional Social History Comment Pt plans to stay with her son and his once she has finished treatment and rehab. 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 Prior to recent admission, pt lived alone in an RV and walked her dog daily. M2 PT-IP Current Condition Start: 07/10/20 11:53 Freq: NEEDED Status: Active Protocol: Document 07/13/20 09:55 AW (Rec: 07/13/20 10:37 AW [id number]) Physical Therapy Current Condition Current Condition Evaluation Date 07/13/20 Treatment Diagnosis revision colostomy; difficulty in walking Onset Date 07/05/20 Precautions Abdominal Surgery Precautions Log Roll,Lifting Restrictions, Gait Belt above Incisional Area M3 PT-IP Subjective Start: 07/10/20 11:53 Freq: NEEDED Status: Active Protocol: Document 07/13/20 09:55 AW (Rec: 07/13/20 10:37 AW [id number]) Subjective Physical Therapy Visit Type Type Re-Evaluation Visit Start Time 09:12 Visit Stop Time 09:55 Total Visit Minutes 43 Notes 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 TPN feeds transitioning to clears Number of DERMATOLOGY SALES REPRESENTATIVE Visits 0 Physical Therapy Visit Comments Patient Comments Pt is willing to participate with PT Therapy Pain Assessment Pain When Pain Assessed During Mobility Pain Present Pain Present Denied Pain Location abd Scale Used not quantified M4 PT-IP Mobility and Gait Start: 07/10/20 11:53 Freq: NEEDED Status: Active Protocol: Document 07/13/20 09:55 AW (Rec: 07/13/20 10:37 AW [id number]) PT-Bed Mobility Assessment Rolling Type of Rolling Log Rolling Level of Assist Minimal Assistance Supine to Sit Supine to Sit Maximum Assistance,1 Person Assistance Sit to Supine Sit to Supine Moderate Assistance,1 Person Assistance,Head of Bed Elevated Scooting Scooting to Edge of Bed Standby Assistance Scooting Up and Down in Bed Minimal Assistance PT-Transfer Assessment Sit to and From Stand Sit to and from Stand Contact Guard Assistance, Minimal Assistance,1 Person Assistance,Use of Upper Extremities Equipment Transfer Assistive Device None,Gait Belt Orthotic/Prosthetic Devices or Brace: No Transfers Transfer Destination Bed Transfer Technique Stand Step Pivot Transfer Ability Level of Assist Minimal Assistance,1 Person Assistance,Use of Upper Extremities Comments Mobility Comments Pt was lying in the bed as PT arrived. With bed flat, pt completed log roll to her left side min A x 1 and then requried max A x 1 for SL to sit transition. She scooted herself to EOB and stood min A x 1 to assist with multiple lines and SAS DEVELOPER for steadiness. She ambulated to the sink and stood 5 minutes to complete hygiene with CGA for balance. She then ambulated to the window and back to the bed. She required mod assist to return to supine via reverse log roll. Pt was positioned with all monitors reconnected. She was bleeding from her abdominal surgical site. RN was aware. Gait Assessment Gait Gait Assistance Required: Contact Guard Assist,Minimum Assistance,1 Person Assist Distance (Feet) 15 Assistive Devices Assistive Device None,Gait Belt Orthotic/Prosthetic Devices or Brace: No Gait Deviations General Gait Pattern Antalgic,Decreased Stride Length,Decreased Feet Clearance,Flexed Trunk Factors Limiting Gait Function Factors Limiting Gait Function Decreased Activity Tolerance, Decreased Strength,Pain,Poor Balance Comments Gait Comments Pt required CGA to min assist for management of multiple lines. Stair Climbing Assessment Comments Stair Climbing Comments Not assessed. PT-Balance Assessment Sitting Balance and Reactions Static Sitting Balance Ability Fair Dynamic Sitting Balance Ability Fair Standing Balance and Reactions Static Standing Balance Ability Fair Dynamic Standing Balance Ability Fair Device Used no AD M5 PT-IP Objective Assessments Start: 07/10/20 11:53 Freq: NEEDED Status: Active Protocol: Document 07/13/20 09:55 AW (Rec: 07/13/20 10:37 AW [id number]) Orientation Orientation/Cognition Level of Alertness Alert Orientation Name,Age,Birthday,Month,Date, Year,Day of Week,Place, Situation Language Function Ability No Deficits Noted Safety Awareness Understands Safety Issues Memory Description No Deficits Noted Gross Range of Motion Lower Extremity ROM Assessment Within Functional Limits Strength Lower Extremity Strength Assessment Bilaterally Impaired Hip 4-/5 Knee 4/5 Ankle 4+/5 Coordination Assessment Gross Coordination Gross Coordination WNL Sensation Assessment Sensation Gross Sensation WNL Muscle Tone Muscle Tone WNL Yes M6 PT-IP Treatment Start: 07/10/20 11:53 Freq: NEEDED Status: Active Protocol: Document 07/13/20 09:55 AW (Rec: 07/13/20 10:37 AW [id number]) Physical Therapy Treatment Education Education Provided Safety Other Treatments Other Treatment Performed Educated pt on role of PT, plan of care, importance of continued mobility, and reinforced abdominal surgery precautions. M7 PT-IP Assessment and Plan Start: 07/10/20 11:53 Freq: NEEDED Status: Active Protocol: Document 07/13/20 09:55 AW (Rec: 07/13/20 10:37 AW [id number]) PT Summary Assessment and Plan Potential Rehabilitation Potential Good Status of Condition at Evaluation Evolving Summary Impairments Pain,Strength,Balance,Bed Mobility,Transfers,Gait, Activity Tolerance Assessment Summary Samaria presents for re- evaluation following revision colostomy - her second surgery during this hospitalization. She is independent in all regards at baseline. On evaluation, she required CGA to mod assist for bed mobility , transfers, and ambulation without AD. Gait stability is affected by abdominal pain and weakness. She is refusing assistive device. Pt will require SNF rehab to address strength and endurance deficits and to mitigate the potential of further decline associated with immobility. If pt improves during this stay and discharges to her son's house, home health will be required. Goals Bed Mobility Goal Standby Assistance Transfer Goal Standby Assistance Gait Goal Standby Assistance,Front Wheel Walker Gait Distance 100 Other Goals - improve ambulation to 100 feet without AD SBA IF going home - up/down 12 steps with unilateral rail SBA Days to Meet Goals 8 Frequency of Treatment Frequency Of Treatment Once a Day Treatment Plan Physical Therapy Treatment Plan Bed Mobility Training,Transfer Training,Gait Training, Therapeutic Exercise,Balance Retraining,Post Op Education, Discharge Planning Other Recommendations and Next Treatment ambulation with or without AD Focus Precautions Abdominal Surgery Precautions Log Roll,Lifting Restrictions, Gait Belt above Incisional Area Recommendations To Nursing Amount of Assist Needed 1 Person Assist Discharge Recommendations PT Discharge Recommendations SNF Rehab Other Discharge Recommendations SNF vs home with HH depending on progress Transportation Needs at Discharge Wheelchair/Cabulance
--- NOTE | 2020-07-13 12:03 | DIET.PN ---
Dietary Progress Note Pt c ostomy output, NG removed. Pt tolerating TPN running at full rate, K+ repleting for drop to 3.0 this am, phos and mg WNL. Nutrition Diagnosis: Severe Acute PCM r/t inadequate oral intake and new dx perforated invasive sigmoid colon cancer aeb 5% unintentional weight loss in 2w (severe) on top of 3% unintentional weight loss the week prior (severe), pt having 3rd abdominal surgery in three weeks due to healing complications, currently NPO c NG tube to lis requiring TPN. Interventions: 1. Initiate continuous TPN conservatively @ 40mL/h for first 12h, titrating up to goal rate of 80mL/h as tolerated. Goal feeding provides 1,760kcal (103%) and 96g PRO (104%) with total TPN volume of 2L. 2. Recc 250mL IVFE lipids M, W, F providing additional 1,500kcals/week. 3. Daily weights please Diet Order: NPO EER: 1700kcal (20kcal/kg, overweight PCM), 96g PRO (1.2g/kg per PCM, post-surgical) Monitoring/Evaluations: feed tolerance, rate advancement, weights, labs. Consider allowing one 6oz ONS Eyad clear liquid supplement daily to stimulate enterocytes and provide AAs glutamine and arginine for surgical site healing.
--- NOTE | 2020-07-13 12:13 | PC.NURSE ---
1130- Dsg change per MD. Pt tolerated well. Discussed plan of care with pt/MD at bedside. V/O received to stop epidural infusion, monitor for increased pain. Goal is to d/c epidural analgesia today. MD spoke with anesthesia and agreed to dc lacey cath now. MD states pt may transfer to acute care status now. Continue telemetry monitoring for now. Reported pt's request to have scheduled pain rx changed to PRN. Awaiting orders.
--- NOTE | 2020-07-13 14:15 | P.PN_ITS ---
Subjective Subjective Date Patient Seen: 07/13/20 Time Patient Seen: 14:15 Interval history: Patient feeling better today. Gas in the bag, NG tube removed this morning, pain is better controlled. Exam Vital Signs (past 8 hours): - 07/13/20 08:00 07/13/20 12:00 Temperature 97.8 F 97.8 F Pulse Rate 72 79 Respiratory Rate 15 26 H Blood Pressure 98/55 L 111/58 L Pulse Oximetry 98 97 Oxygen Delivery Method Room Air Oxygen Flow Rate 0 Narrative Exam Narrative: Gen: alert, fatigued appearing, non toxic HEENT: NG tube in place and sumping, with scant bilious fluid in canister CARDIOVASCULAR: Regular rate. No pedal edema. RESPIRATORY: Non-tachypneic, breathing comfortably on room air. GASTROINTESTINAL: Abdomen soft and non-distended. Right side Ostomy pink, edematous, and budded, with gas and stool in the bag. BARBARA drain with scant serosanguinous output. Midline incision clean and intact with some serosanguineous drainage on the dressing. Old ostomy site clean with packing in place MUSCULOSKELETAL: Equal tone and mass bilaterally. SKIN: Warm, dry, soft, appropriate color for ethnicity. No other lesions, rashes, or wounds. Objective Labs Result Diagrams: 07/13/20 14:30 07/13/20 14:30 Labs: Laboratory Results - last 24 hr 07/13/20 07/13/20 07/13/20 05:06 05:06 06:32 WBC 6.6 RBC 2.69 L Hgb 7.8 L Hct 23.3 L MCV 86.7 MCH 29.0 MCHC 33.5 RDW 15.6 H Plt Count 186 Neut % (Auto) 70.8 Lymph % (Auto) 13.5 L Ch[place]ot % (Auto) 12.2 Eos % (Auto) 3.0 Baso % (Auto) 0.5 Neut # (Auto) 4600 Lymph # (Auto) 900 L [place]ot # (Auto) 800 Eos # (Auto) 200 Baso # (Auto) 0 Sodium 137 Potassium 3.0 L Chloride 107 Carbon Dioxide 27 BUN 16 Creatinine 0.51 L Estimated GFR > 60.0 BUN/Creatinine Ratio 31.4 H Glucose 161 H Calcium 8.2 L Phosphorus 3.2 Magnesium 2.1 Blood Type O Positive Antibody Screen Negative [facility] Medical History Acquired hypothyroidism Chicken pox Essential hypertension Febrile illness Has 3 children Measles Mixed hyperlipidemia UTI (urinary tract infection) Vision disorder Family History Father No problems noted. Mother Hypertension Grandfather Pneumonia Social History household members: none Smoking Status: Former smoker alcohol intake: current Assessment & Plan Assessment and plan (1) Complication of ostomy: Problem details: Patient is postop day 2 from take back for mucocutaneous separation of her colostomy, and had laparotomy, creation of a new ostomy on the right side, takedown of the old ostomy, and packing of the old ostomy site. A Metastatic deposit was also found in the omentum and sent for pathology. NG tube was removed this morning, and epidural was turned off for 4 hours today. The patient tolerated having the epidural off, and we have asked Anesthesia to remove the epidural this evening. Milligan was removed today, and the patient has been ambulating. She is started on clears and has been tolerating clears fairly well. Plan: Continue TPN at goal rate, with lipids 3 times a week 5 units of insulin to TPN daily Packing changed daily Continue Zosyn for now due to gross spillage into the old ostomy site Incentive spirometer, DVT prophylaxis with Lovenox (held today for low platelets and hemoglobin), Daily labs GI prophylaxis of Protonix Home meds Ambulate as tolerated Wound care Slowly advance diet Status: Acute (2) Status post Herminia procedure: Status: Acute (3) Obesity (BMI 30.0-34.9): Problem details: The patient's abdominal obesity significantly increased the complexity and difficulty of her laparotomy and to bring up her end colostomy, because her abdominal wall was 2-3 inches thick. Her obesity also complicates her post op course because it increases the risk of wound infection, hernia, fascial de hiscense, ostomy ischemia, and ostomy retraction. Status: Acute (4) Severe protein-calorie malnutrition: Problem details: The patient came in on June 23 with 5 days of really not eating very much at all. She has had prolonged periods of fasting because of surgery, and bowel recovery after surgery. She is significantly behind nutritionally at this point and has significant protein calorie malnutrition, for which she is being put back on TPN at this time. I believe her malnutrition has affected her ability to heal from surgery, and has significantly impacted her hospital course. Status: Acute Quality VTE Deep Vein Thrombosis/Pulmonary Embolism Present on Admission: No
[2020-07-13 14:40] LABS: Add Manual Diff / Slide Review NO; Basophils Absolute Auto 0 /uL (0-100); Basophils Percent Auto 0.4 % (0-2); Eosinophils Absolute Auto 300 /uL (0-450); Eosinophils Percent Auto 4.2 % (2-4); Hematocrit 23.6 % (36-46); Lymphocytes Absolute Auto 1100 /uL (1100-4500); Lymphocytes Percent Auto 16.3 % (25-40); Mean Corpuscular HGB Conc 33.7 % (30-36); Mean Corpuscular Hemoglobin 29.9 PG (26-34); Mean Corpuscular Volume 88.7 fL (80-100); Monocytes Absolute Auto 800 /uL (0-900); Monocytes Percent Auto 12.3 % (3-14); Neutrophils Absolute Auto 4500 /uL (1500-7000); Neutrophils Percent Auto 66.8 % (50-75); Platelet Count 204 X10^3/uL (150-400); Red Blood Cell Count 2.66 X10^6/uL (4.0-5.2); Red Cell Distribution Width 15.3 % (11.6-14.8); White Blood Cell Count 6.8 X10^3/uL (4.5-11.0)
[2020-07-13 14:52] LABS: BUN Creatinine Ratio 41.7 (6-22); Blood Urea Nitrogen 20 mg/dL (7-17); Calcium 8.5 mg/dL (8.4-10.2); Carbon Dioxide 27 mmol/L (22-32); Chloride 109 mmol/L (98-107); Estimated Glomerular Filt Rate > 60.0 mL/min (>60); Glucose 109 mg/dL (80-110); HEMOLYSIS < 15 (0-50); Magnesium 2.1 mg/dL (1.6-2.3); Phosphorous 2.5 mg/dL (2.8-4.1); Potassium 3.9 mmol/L (3.4-5.1); Sodium 138 mmol/L (137-145)
[2020-07-13] MEDS: POTASSIUM PHOSPHATE 15 MMOL in DEXTROSE 5% IN WATER 250 ML 63.75 ML IV (17:33)
[2020-07-13] MEDS: AA 5 %/CALCIUM/LYTES/DEXT 20 % 2,000 ML with MULTIVITAMIN 10 ML, TRACE ELEMENTS 1 ML, I... 83.794 ML IV (18:00)
[2020-07-13] MEDS: ACETAMINOPHEN 325 MG TABLET 650 MG PO (21:35)
[2020-07-14] VITALS (7 sets, daily range): BP systolic 111–120; BP diastolic 61–77; PULSE 72–85; RESP 16–18; TEMP 36.5–37.3; O2SAT 98–99
[2020-07-14] MEDS: PIPERACILLIN-TAZO 3.375 GM/50 ML FROZ.PIGGY IV ×3 (01:28→14:41)
[2020-07-14] MEDS: KETOROLAC 30 MG/ML VIAL 15 MG IV ×2 (01:28→14:41)
[2020-07-14 05:16] LABS: Blood Urea Nitrogen 16 mg/dL (7-17); Calcium 8.3 mg/dL (8.4-10.2); Carbon Dioxide 28 mmol/L (22-32); Chloride 109 mmol/L (98-107); Estimated Glomerular Filt Rate > 60.0 mL/min (>60); Glucose 137 mg/dL (80-110); HEMOLYSIS < 15 (0-50); Magnesium 2.1 mg/dL (1.6-2.3); Phosphorous 3.6 mg/dL (2.8-4.1); Potassium 3.6 mmol/L (3.4-5.1); Sodium 138 mmol/L (137-145)
[2020-07-14] MEDS: MORPHINE 4 MG/ML INJ IV ×2 (05:17→12:50)
[2020-07-14 05:28] LABS: Add Manual Diff / Slide Review NO; Basophils Absolute Auto 0 /uL (0-100); Basophils Percent Auto 0.8 % (0-2); Eosinophils Absolute Auto 500 /uL (0-450); Eosinophils Percent Auto 9.2 % (2-4); Hemoglobin 7.8 g/dL (12.0-16.0); Lymphocytes Absolute Auto 1000 /uL (1100-4500); Lymphocytes Percent Auto 18.4 % (25-40); Mean Corpuscular HGB Conc 33.8 % (30-36); Mean Corpuscular Hemoglobin 28.8 PG (26-34); Mean Corpuscular Volume 85.2 fL (80-100); Monocytes Absolute Auto 600 /uL (0-900); Monocytes Percent Auto 10.9 % (3-14); Neutrophils Absolute Auto 3400 /uL (1500-7000); Neutrophils Percent Auto 60.7 % (50-75); Platelet Count 203 X10^3/uL (150-400); Red Blood Cell Count 2.69 X10^6/uL (4.0-5.2); Red Cell Distribution Width 15.6 % (11.6-14.8); White Blood Cell Count 5.6 X10^3/uL (4.5-11.0)
[2020-07-14] MEDS: LEVOTHYROXINE 25 MCG TABLET PO (05:47)
[2020-07-14] MEDS: POTASSIUM CHLORIDE 40 MEQ in SODIUM CHLORIDE 0.9% 500 ML 130 ML IV (06:00)
[2020-07-14] MEDS: CHOLECALCIFEROL (VITAMIN D3) 1,000 UNIT TABLET 2000 UNIT PO (08:34)
[2020-07-14] MEDS: ROSUVASTATIN 10 MG TABLET 5 MG PO (08:34)
[2020-07-14] MEDS: PANTOPRAZOLE 40 MG VIAL IV (08:34)
[2020-07-14] MEDS: ACETAMINOPHEN 325 MG TABLET 650 MG PO ×2 (08:36→17:47)
--- NOTE | 2020-07-14 11:44 | PC.NURSE ---
Addendum entered by Yari Graves R.N. 07/14/20 15:31: Colostomy emptied and patient education given. Encouraged patient to place bag herself, patient refusing at this time d/t pain. Will continue to encourage. Addendum entered by Yari Graves R.N. 07/14/20 14:18: Epidural removed by ICU nurse. Tip intact. Patient tolerated. Patient up with PT. C/O pain 8/10 with ambulation. Administered Morphine 4mg IV prior to activity will folow. Patient up to restroom, voiding. Original Note: Patient A/O x 4 this AM. Ambulated to restroom with 1 p assist. Patient refused walker. Patient splinting abdomen with pillow, colostomy intact, stoma dark red, protruding, kierra colored liquid drainage noted in pouch, flatus present. Abdominal dressing is CDI. BARBARA intact, minimal serosang drainage noted. Epidural intact, site is free of redness, warmth or streaking. PICC in LUE is CDI. TPN infusing at 83.7 cc/hr. K+ infusing at 130cc/hr. RUE midline is patent, CDI. Patient reports constant dull pain in abdomen, PRN tylenol administered, crushed per patient request. Patient up to chair with assist. Call light in reach
--- NOTE | 2020-07-14 11:51 | PT-IP ANOTE ---
checked on pt and pt refused PT. stated that she has a lot of pain but she does not want to take her strong pain medications. stated that she got up twice with the nurses to use the toilet and she sat up for a few minutes on the chair but unable to tolerate much and went back to bed. stated that she might try in the afternoon.
--- NOTE | 2020-07-14 11:51 | PT-IP ANOTE ---
checked on pt and pt refused PT. stated that she has a lot of pain but she does not want to take her strong pain medications. stated that she got up twice with the nurses to use the toilet and she sat up for a few minutes on the chair but unable to tolerate much and went back to bed. will f/u tomorrow.
--- NOTE | 2020-07-14 14:28 | PT.IPTN ---
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) Unspecified severe protein-calorie malnutrition (07/04/20) Unspecified protein-calorie malnutrition (07/04/20) Obesity, unspecified (07/04/20) Cutaneous abscess of abdominal wall (07/04/20) Infection following a procedure, other surgical site, initial encounter (07/04/20) Colostomy status (07/04/20) Surgery Performed Operation Date: 07/05/20 16:00 Actual Procedures p Wound wash out, colostomy revision - Yoli Biswas MD Operation Date: 07/11/20 11:45 Actual Procedures p Laparotomy, bowel resection, ostomy creation - Yoli Biswas MD Physical Therapy Treatment Note M2 PT-IP Current Condition Start: 07/10/20 11:53 Freq: NEEDED Status: Active Protocol: Document 07/14/20 14:30 MA (Rec: 07/14/20 14:53 MA [id number]) Physical Therapy Current Condition Current Condition Evaluation Date 07/13/20 Treatment Diagnosis revision colostomy; difficulty in walking Onset Date 07/05/20 Precautions Abdominal Surgery Precautions Log Roll,Lifting Restrictions, Gait Belt above Incisional Area M3 PT-IP Subjective Start: 07/10/20 11:53 Freq: NEEDED Status: Active Protocol: Document 07/14/20 14:30 MA (Rec: 07/14/20 14:53 MA [id number]) Subjective Physical Therapy Visit Type Type Treatment Note Visit Start Time 13:57 Visit Stop Time 14:28 Total Visit Minutes 31 Number of PENOLOGY PROFESSOR Visits 1 Physical Therapy Visit Comments Patient Comments Nurses in room removing epidural. Pt willing to work with therapy since I'm already up and need to use the bathroom. Therapy Pain Assessment Pain When Pain Assessed During Mobility Pain Present Pain Present Pain Reported Location abd Intensity 10 Scale Used Numeric (0 - 10) Description Cramping,Pulling,Tightness Pain Behaviors Holding Area Pain Management Techniques Distraction,Re-positioning, Timing of Activity with Medications M4 PT-IP Mobility and Gait Start: 07/10/20 11:53 Freq: NEEDED Status: Active Protocol: Document 07/14/20 14:30 MA (Rec: 07/14/20 14:53 MA [id number]) PT-Bed Mobility Assessment Rolling Type of Rolling Log Rolling Level of Assist Contact Guard Assistance Sit to Supine Sit to Supine Moderate Assistance,1 Person Assistance,Head of Bed Elevated Scooting Scooting to Edge of Bed Minimal Assistance Scooting Up and Down in Bed Minimal Assistance PT-Transfer Assessment Sit to and From Stand Sit to and from Stand Contact Guard Assistance, Minimal Assistance,1 Person Assistance,Use of Upper Extremities Equipment Transfer Assistive Device None,Gait Belt Orthotic/Prosthetic Devices or Brace: No Transfers Transfer Destination Bed,Toilet Transfer Technique Stand Step Pivot Transfer Ability Level of Assist Minimal Assistance,1 Person Assistance,Use of Upper Extremities Comments Mobility Comments Pt was seated EOB with nurses removing epidural as PENOLOGY PROFESSOR arrived. Pt need grab bar on bed and hand hold assist to pull herself to EOB so feet could touch floor. Pt was able to stand using single hand hold assistance. See gait for ambulation. upon returning to bed, pt needed moderate assistance for bilateral LEs during sit<>Sidelying. CGA for log rolling from left side to supine. Pt denied therapist assistance scooting down toward foot of bed but allowed reverse trendelenberg bed position to assist her scooting. Gait Assessment Gait Gait Assistance Required: Contact Guard Assist,Minimum Assistance,1 Person Assist Distance (Feet) 25 Assistive Devices Assistive Device None,Gait Belt Gait Deviations General Gait Pattern Antalgic,Decreased Stride Length,Decreased Feet Clearance,Flexed Trunk Factors Limiting Gait Function Factors Limiting Gait Function Decreased Activity Tolerance, Decreased Strength,Pain,Poor Balance Comments Gait Comments Pt required PENOLOGY PROFESSOR hand hold assistance with other hand grabbing for stable objects in room to assist her walking. She walked 10 feet to bathroom and was able to transfer to/ from toilet using grab bar with CGA. Once off toilet she was more stable, needing only CGA to walk 5 feet to room window where she worked on balancing and thoracic extension, occassionally touching wall for support when her side began to hurt. Pt then walked 10 feet back to bed. See mobility above PT-Balance Assessment Sitting Balance and Reactions Static Sitting Balance Ability Good Dynamic Sitting Balance Ability Fair Standing Balance and Reactions Static Standing Balance Ability Fair Dynamic Standing Balance Ability Fair Device Used no AD Comments Other Balance Tests/Deviations/Treatment Worked on static standing : balance at room window with pt occassionally touching wall for support. Verbal cues for thoracic extension. CGA during balance M5 PT-IP Objective Assessments Start: 07/10/20 11:53 Freq: NEEDED Status: Active Protocol: Document 07/13/20 09:55 AW (Rec: 07/13/20 10:37 AW [id number]) Orientation Orientation/Cognition Level of Alertness Alert Orientation Name,Age,Birthday,Month,Date, Year,Day of Week,Place, Situation Language Function Ability No Deficits Noted Safety Awareness Understands Safety Issues Memory Description No Deficits Noted Gross Range of Motion Lower Extremity ROM Assessment Within Functional Limits Strength Lower Extremity Strength Assessment Bilaterally Impaired Hip 4-/5 Knee 4/5 Ankle 4+/5 Coordination Assessment Gross Coordination Gross Coordination WNL Sensation Assessment Sensation Gross Sensation WNL Muscle Tone Muscle Tone WNL Yes M6 PT-IP Treatment Start: 07/10/20 11:53 Freq: NEEDED Status: Active Protocol: Document 07/14/20 14:30 MA (Rec: 07/14/20 14:53 MA [id number]) Physical Therapy Treatment Education Education Provided Precautions,Safety Other Treatments Other Treatment Performed Reminded pt of abdominal precautions and importance of working with PT M7 PT-IP Assessment and Plan Start: 07/10/20 11:53 Freq: NEEDED Status: Active Protocol: Document 07/14/20 14:30 MA (Rec: 07/14/20 14:53 MA [id number]) PT Summary Assessment and Plan Potential Rehabilitation Potential Good Status of Condition at Evaluation Evolving Summary Impairments Pain,Strength,Balance,Bed Mobility,Transfers,Gait, Activity Tolerance Assessment Summary Samaria denied PT in the AM but was willing to walk to the bathroom and stand by the window in the afternoon since nursing was already getting her up to disconnect epidural. She had 10/10 pain while moving but requested to stand by the window where she was distracted from pain by talking. She is able to stand CGA, occassionally reaching out to wall when abdominal pain increases. She states that she already walked a bit with nursing in the AM and feels she does much better in the mornings than afternoons. She initially needs single hand hold assitance when ambulating but is able to ambulate CGA after moving a bit. She is limited due to abdominal pain and needs moderate assistance to return sit<>supine in bed. Goals Bed Mobility Goal Standby Assistance Transfer Goal Standby Assistance Gait Goal Standby Assistance,Front Wheel Walker Gait Distance 100 Other Goals - improve ambulation to 100 feet without AD SBA IF going home - up/down 12 steps with unilateral rail SBA Days to Meet Goals 8 Frequency of Treatment Frequency Of Treatment Once a Day Treatment Plan Physical Therapy Treatment Plan Bed Mobility Training,Transfer Training,Gait Training, Therapeutic Exercise,Balance Retraining,Post Op Education, Discharge Planning Other Recommendations and Next Treatment Plan on AM therapy, Focus coordinating with nurse for pain medications; assess stairs and increase gait distance next session Precautions Abdominal Surgery Precautions Log Roll,Lifting Restrictions, Gait Belt above Incisional Area Recommendations To Nursing Amount of Assist Needed 1 Person Assist Discharge Recommendations PT Discharge Recommendations SNF Rehab Other Discharge Recommendations SNF vs home with HH depending on progress Transportation Needs at Discharge Wheelchair/Cabulance
--- NOTE | 2020-07-14 15:05 | DIET.PN ---
Dietary Progress Note Pt continues to tolerate TPN 2L continuous c IVFE M, W, F. Pt tolerating clear liquid diet including ONS Eyad bid. RD to check in c pt if still here after weekend. Feel free to contact dietary c any questions or concerns [phone] over weekend
--- NOTE | 2020-07-14 16:04 | PC.NURSE ---
Addendum entered by Perla Pinzon R.N. 07/15/20 15:18: Addendum: 07/14 evening shift note -- Dr. Welch placed large allevyn dressing to pt's left abdomen, not aquacel. Addendum entered by Perla Pinzon R.N. 07/14/20 21:06: One assist to commode to void. Returned to bed with minimal assistance. Able to position self in bed. No output in colostomy bag or kalli drain. Flatus present in ostomy bag. Pt denies pain or need for pain medications. States able to sleep. Pillow provided to abdomen for abdominal splinting. TPN and lipids infusing as ordered to LUE PICC without difficulty. BL calf scd's replaced. Addendum entered by Perla Pinzon R.N. 07/14/20 19:05: Dr. Welch in to see patient this evening and change pt's dressing. Pt reports was not painful. Able to transfer with one assist to commode for void. States moving easier and with greater comfort this evening. Positive for flatus in ostomy bag. Large aquacel dressing to left abdomen with coversite to right abdomen in place. Clean and dry. Original Note: Pt resting quietly in bed with pillow to abdomen. Rouses easily to movement in room. Reports constant pain level to abdomen 2/10 but states this is tolerable and states no treatment needed. Reports increase in abdominal pain with movement and activity. Requests pain medications prior to mobilization to toilet later in shift. SCD's currently off and pt reports prefers this at this time but will accept @ hs. Encouraged leg movement BL and pt provides return demonstration while in bed. TPN infusing without difficulty to LUE PICC line without difficulty. Pt denies nausea. Scant amount liquid stool in ostomy bag to right abdominal quadrant. Bowel tones are present. Pt does report gas pain when it occurs 8/10. Warm blanket to feet per request and allowed to rest. Encouraged I.S. use when able and pt reports able to perform to 500. Breath sounds are clear throughout all lung rodriguez.
[2020-07-14] MEDS: AA 5 %/CALCIUM/LYTES/DEXT 20 % 2,000 ML with MULTIVITAMIN 10 ML, TRACE ELEMENTS 1 ML, I... 83.794 ML IV (17:32)
[2020-07-14] MEDS: FAT EMULSIONS 50 GM/250 ML EMULSION IV (17:34)
[2020-07-14] MEDS: CYCLOBENZAPRINE 10 MG TABLET PO (17:47)
--- NOTE | 2020-07-14 18:30 | P.PN_ITS ---
Subjective Subjective Date Patient Seen: 07/14/20 Time Patient Seen: 18:30 Interval history: The patient is post revision of an ostomy. She now has a loop in the right upper abdomen. She is feeling very well this afternoon. Pain is controlled. There is been a lot of ostomy output which was recently emptied. She was glad to be able to see the zoltan Singh and enjoyed the day through the window. Exam Vital Signs (past 8 hours): - 07/14/20 12:00 07/14/20 15:15 Temperature 99.2 F 98.0 F Pulse Rate 73 85 Respiratory Rate 17 16 Blood Pressure 111/64 120/66 Pulse Oximetry 98 98 Oxygen Delivery Method Room Air Oxygen Flow Rate 0 Narrative Exam Narrative: Lungs are clear. Ostomy is pink. Swelling is minimal. A bar at ostomy is in place. A change the dressings. The midline is intact. No cellulitis. The old ostomy site is open and has health the appearing tissue. It was repacked. New dressings were applied. Ostomy was left in place. Objective Labs Result Diagrams: 07/14/20 04:45 07/14/20 04:45 Labs: Laboratory Results - last 24 hr 07/14/20 07/14/20 04:45 04:45 WBC 5.6 RBC 2.69 L Hgb 7.8 L Hct 23.0 L MCV 85.2 D MCH 28.8 MCHC 33.8 RDW 15.6 H Plt Count 203 Neut % (Auto) 60.7 Lymph % (Auto) 18.4 L [place] % (Auto) 10.9 Eos % (Auto) 9.2 H Baso % (Auto) 0.8 Neut # (Auto) 3400 Lymph # (Auto) 1000 L [place] # (Auto) 600 Eos # (Auto) 500 H Baso # (Auto) 0 Sodium 138 Potassium 3.6 Chloride 109 H Carbon Dioxide 28 BUN 16 Creatinine 0.50 L Estimated GFR > 60.0 BUN/Creatinine Ratio 32.0 H Glucose 137 H Calcium 8.3 L Phosphorus 3.6 D Magnesium 2.1 PFSH Medical History Acquired hypothyroidism Chicken pox Essential hypertension Febrile illness Has 3 children Measles Mixed hyperlipidemia UTI (urinary tract infection) Vision disorder Family History Father No problems noted. Mother Hypertension Grandfather Pneumonia Social History household members: none Smoking Status: Former smoker alcohol intake: current Assessment & Plan Post-op Postoperative Procedures: Procedures Operation Date: 07/05/20 16:00 Actual Procedures Side Surgeon p Wound wash out, colostomy revision Yoli Biswas MD Operation Date: 07/11/20 11:45 Actual Procedures Side Surgeon p Laparotomy, bowel resection, ostomy creation Yoli Biswas MD Postoperative status narrative: Patient seems to be doing well right now. Tolerating p.o. without difficulty. Labs and vital signs noted. Postoperative plan narrative: Resume at Lovenox tomorrow. Continue dressing changes. Ostomy care. Not sure her living conditions here. She was actually in route to floor in a camper with her dog. She travels around the country like that visiting family. PT note was reviewed. She may require an SNF temporarily at discharge to learn how to do with her ostomy and to get strengthened. Labs ordered for the morning. Tolerating TPN. Will add a multiple vitamin with minerals p.o.. Quality VTE Deep Vein Thrombosis/Pulmonary Embolism Present on Admission: No
[2020-07-15] VITALS (8 sets, daily range): BP systolic 103–125; BP diastolic 60–74; PULSE 81–89; RESP 14–20; TEMP 36.3–37.2; O2SAT 97–99
[2020-07-15] MEDS: MORPHINE 4 MG/ML INJ IV (02:57)
[2020-07-15 05:24] LABS: Add Manual Diff / Slide Review NO; Basophils Absolute Auto 100 /uL (0-100); Basophils Percent Auto 2.4 % (0-2); Eosinophils Absolute Auto 600 /uL (0-450); Eosinophils Percent Auto 10.6 % (2-4); Hematocrit 23.3 % (36-46); Hemoglobin 7.8 g/dL (12.0-16.0); Lymphocytes Absolute Auto 1100 /uL (1100-4500); Mean Corpuscular HGB Conc 33.6 % (30-36); Mean Corpuscular Hemoglobin 28.6 PG (26-34); Mean Corpuscular Volume 85.3 fL (80-100); Monocytes Absolute Auto 400 /uL (0-900); Neutrophils Absolute Auto 3200 /uL (1500-7000); Platelet Count 238 X10^3/uL (150-400); Red Blood Cell Count 2.73 X10^6/uL (4.0-5.2); Red Cell Distribution Width 15.8 % (11.6-14.8); White Blood Cell Count 5.5 X10^3/uL (4.5-11.0)
[2020-07-15 05:36] LABS: BUN Creatinine Ratio 34.8 (6-22); Blood Urea Nitrogen 16 mg/dL (7-17); Calcium 8.4 mg/dL (8.4-10.2); Carbon Dioxide 28 mmol/L (22-32); Chloride 107 mmol/L (98-107); Estimated Glomerular Filt Rate > 60.0 mL/min (>60); Glucose 119 mg/dL (80-110); HEMOLYSIS < 15 (0-50); Magnesium 1.9 mg/dL (1.6-2.3); Potassium 3.8 mmol/L (3.4-5.1); Sodium 138 mmol/L (137-145)
[2020-07-15] MEDS: LEVOTHYROXINE 25 MCG TABLET PO (06:31)
[2020-07-15] MEDS: OXYCODONE IR 5 MG TABLET PO ×4 (08:35→21:05)
[2020-07-15] MEDS: KETOROLAC 30 MG/ML VIAL 15 MG IV (08:35)
[2020-07-15] MEDS: ENOXAPARIN 40 MG/0.4 ML SYRINGE SUBCUT (08:43)
[2020-07-15] MEDS: ROSUVASTATIN 10 MG TABLET 5 MG PO (08:43)
[2020-07-15] MEDS: PANTOPRAZOLE 40 MG VIAL IV (08:44)
[2020-07-15] MEDS: CHOLECALCIFEROL (VITAMIN D3) 1,000 UNIT TABLET 2000 UNIT PO (08:44)
[2020-07-15] MEDS: carvediloL 3.125 MG TABLET PO ×2 (08:45→20:53)
[2020-07-15] MEDS: MULTIVIT,CALC,MINS/IRON/FOLIC 1 TABLET 1 TAB PO (08:59)
--- NOTE | 2020-07-15 10:58 | PC.NURSE ---
BARBARA drain removed by Dr. Biswas, with steri strips and gauze placed. Patient tolerated well. Dressing to left old ostomy site intact with allevyn dressing in place, discussed plan with Dr. Biswas and will anticipate changing packing in the morning with her. Right ostomy site and appliance intact without leaking. Midline incision ERIKA with lena. Call light within reach. Bed alarm for safety active. Continue with plan of care.
[2020-07-15] MEDS: ACETAMINOPHEN 325 MG TABLET 650 MG PO (11:04)
[2020-07-15] MEDS: CYCLOBENZAPRINE 10 MG TABLET PO (11:04)
--- NOTE | 2020-07-15 11:50 | PM.PN.1 ---
Subjective Subjective Date Patient Seen: 07/15/20 Time Patient Seen: 11:50 Interval history: Patient had worse pain overnight, and got behind on her pain medication. She is eating some, but says she has a poor appetite and feels very bloated. Exam Vital Signs (past 8 hours): - 07/15/20 07:55 07/15/20 08:45 07/15/20 11:00 Temperature 97.4 F L 97.7 F Pulse Rate 81 89 Respiratory Rate 20 20 Blood Pressure 113/65 113/69 125/67 Pulse Oximetry 98 99 Oxygen Delivery Method Room Air Oxygen Flow Rate 0 Narrative Exam Narrative: Gen: alert, fatigued appearing, non toxic HEENT: NG tube in place and sumping, with scant bilious fluid in canister CARDIOVASCULAR: Regular rate. No pedal edema. RESPIRATORY: Non-tachypneic, breathing comfortably on room air. GASTROINTESTINAL: Abdomen soft, obese, non-distended. Right side Ostomy pink, edematous, and budded, with gas and stool in the bag. BARBARA drain with scant serosanguinous output, was removed during exam. Old ostomy site clean with packing in place MUSCULOSKELETAL: Equal tone and mass bilaterally. SKIN: Warm, dry, soft, appropriate color for ethnicity. No other lesions, rashes, or wounds. Objective Labs Result Diagrams: 07/15/20 05:10 07/15/20 05:10 Labs: Laboratory Results - last 24 hr 07/15/20 07/15/20 05:10 05:10 WBC 5.5 RBC 2.73 L Hgb 7.8 L Hct 23.3 L MCV 85.3 MCH 28.6 MCHC 33.6 RDW 15.8 H Plt Count 238 Neut % (Auto) 59.0 Lymph % (Auto) 20.0 L [place] % (Auto) 8.0 Eos % (Auto) 10.6 H Baso % (Auto) 2.4 H Neut # (Auto) 3200 Lymph # (Auto) 1100 [place] # (Auto) 400 Eos # (Auto) 600 H Baso # (Auto) 100 Sodium 138 Potassium 3.8 Chloride 107 Carbon Dioxide 28 BUN 16 Creatinine 0.46 L Estimated GFR > 60.0 BUN/Creatinine Ratio 34.8 H Glucose 119 H Calcium 8.4 Phosphorus 4.0 Magnesium 1.9 [facility] Medical History Acquired hypothyroidism Chicken pox Essential hypertension Febrile illness Has 3 children Measles Mixed hyperlipidemia UTI (urinary tract infection) Vision disorder Family History Father No problems noted. Mother Hypertension Grandfather Pneumonia Social History household members: none Smoking Status: Former smoker alcohol intake: current Assessment & Plan Assessment and plan (1) Complication of ostomy: Status: Acute (2) Status post Herminia procedure: Status: Acute (3) Obesity (BMI 30.0-34.9): Problem details: The patient's abdominal obesity significantly increased the complexity and difficulty of her laparotomy and to bring up her end colostomy, because her abdominal wall was 2-3 inches thick. Her obesity also complicates her post op course because it increases the risk of wound infection, hernia, fascial dehiscense, ostomy ischemia, and ostomy retraction. Status: Acute (4) Severe protein-calorie malnutrition: Problem details: The patient came in on June 23 with 5 days of really not eating very much at all. She has had prolonged periods of fasting because of surgery, and bowel recovery after surgery. She is significantly behind nutritionally at this point and has significant protein calorie malnutrition, for which she is being put back on TPN at this time. I believe her malnutrition has affected her ability to heal from surgery, and has significantly impacted her hospital course. Status: Acute Assessment & Plan narrative: This patient is postop day 4 from exploratory laparotomy takedown of her sigmoid end colostomy, and creation of a loop transverse colostomy on the right. The ostomy looks well and is productive. The patient is doing much better, but is very slow to take p.o.. She has been very malnourished, due to prolonged poor p.o. intake prior to her initial surgery which was June 23, and then multiple stages of being NPO or having a low p.o. intake since then. Her BARBARA drain was removed today. She is now off antibiotics. We will closely watch her white blood cell count, and her incisions to ensure that she is not developing another infection. She has a significant alana to overcome with disposition to outpatient because she has family members that live about 100 miles away, and has not fully grasped how to manage her own ostomy care. We will continue to work on her nutrition, and begin weaning down her TPN to half a bag tonight. We will continue working on her wound care and ostomy care. She does have a wound that requires ongoing packing, and she has an ostomy that requires management. We will try to help her and her family prepare for this, as well as setting up home health. I had a long discussion with the social worker palliative care today, who is working on all of these things with her transition to outpatient. We are working on getting her home by Friday of next week. Plan: Cut TPN in half Continue home meds, pain meds as needed, full liquid diet, ambulation as tolerated, wound care, ostomy care, ostomy teaching, dispo planning COVID-19 COVID-19 status: Negative Result date/Date tested (Pos, Neg/Pending): 07/04/20 Time Spent With Patient Time with patient: 15-24 minutes Quality VTE Deep Vein Thrombosis/Pulmonary Embolism Present on Admission: No
--- NOTE | 2020-07-15 13:06 | PT.IPTN ---
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) Unspecified severe protein-calorie malnutrition (07/04/20) Unspecified protein-calorie malnutrition (07/04/20) Obesity, unspecified (07/04/20) Cutaneous abscess of abdominal wall (07/04/20) Infection following a procedure, other surgical site, initial encounter (07/04/20) Colostomy status (07/04/20) Surgery Performed Operation Date: 07/05/20 16:00 Actual Procedures p Wound wash out, colostomy revision - Yoli Biswas MD Operation Date: 07/11/20 11:45 Actual Procedures p Laparotomy, bowel resection, ostomy creation - Yoli Biswas MD Physical Therapy Treatment Note M2 PT-IP Current Condition Start: 07/10/20 11:53 Freq: NEEDED Status: Active Protocol: Document 07/14/20 14:30 MA (Rec: 07/14/20 14:53 MA [id number]) Physical Therapy Current Condition Current Condition Evaluation Date 07/13/20 Treatment Diagnosis revision colostomy; difficulty in walking Onset Date 07/05/20 Precautions Abdominal Surgery Precautions Log Roll,Lifting Restrictions, Gait Belt above Incisional Area M3 PT-IP Subjective Start: 07/10/20 11:53 Freq: NEEDED Status: Active Protocol: Document 07/15/20 13:06 AB (Rec: 07/15/20 15:51 AB [id number]) Subjective Physical Therapy Visit Type Type Treatment Note Visit Start Time 13:06 Visit Stop Time 13:32 Total Visit Minutes 26 Number of OIL FIELD RIG BUILDER Visits 0 Physical Therapy Visit Comments Patient Comments pt initially refusing PT due to pain. coordinated with nurse for pain medication and checked back on pt after ~ 45 min. pt agreed to do PT after pain meds. Therapy Pain Assessment Pain When Pain Assessed At Rest Pain Present Pain Present Pain Reported Location abd Scale Used pain scale not stated but increases with movement M4 PT-IP Mobility and Gait Start: 07/10/20 11:53 Freq: NEEDED Status: Active Protocol: Document 07/15/20 13:06 AB (Rec: 07/15/20 15:51 AB [id number]) PT-Bed Mobility Assessment Supine to Sit Supine to Sit Maximum Assistance,Head of Bed Elevated,Bedrails Sit to Supine Sit to Supine Standby Assistance,Head of Bed Elevated,Bedrails PT-Transfer Assessment Sit to and From Stand Sit to and from Stand Minimal Assistance,1 Person Assistance Equipment Transfer Assistive Device Gait Belt,Straight Cane Orthotic/Prosthetic Devices or Brace: No Transfers Transfer Destination Toilet Transfer Technique ambulated using SPC Transfer Ability Level of Assist Minimal Assistance,1 Person Assistance,Use of Upper Extremities Comments Mobility Comments pt with c/o increase abdominal pain and stated that by the time she is up sitting. she has too much pain and unable to move much. HOB elevated to assist pt at this time and completed supine to sit max A and cues. pt was able to sit on EOB SBA. pt refuse to use FWW. educated pt on safety and agreed to try a SPC. educated pt on how to use a SPC. completed sit to stand min A and ambulated in room ~ 20 ft using SPC min A. pt has a standing rest break then ambulated to the toilet using SPC min A. OT took over toileting needs and handwashing needs. pt ambulated again using SPC min A ~ 20 ft and requested to go back to bed afterwards. completed sit to supine SBA with HOB elevated to assist with bed mobiltiy and decrease abdominal strain at this time . positioned pt in bed. call light and table placed within reach. Gait Assessment Gait Gait Assistance Required: Minimum Assistance Distance (Feet) 20 Able to Maintain Weight Bearing Status Yes During Gait Assistive Devices Assistive Device Gait Belt,Straight Cane Gait Deviations General Gait Pattern Antalgic,Decreased Stride Length,Decreased Feet Clearance,Flexed Trunk Factors Limiting Gait Function Factors Limiting Gait Function Decreased Activity Tolerance, Decreased Strength,Limited Range of Motion,Pain,Poor Balance,Poor Safety Awareness Comments Gait Comments pt has difficulty to get to upright posture with c/o abdominal pain and stated that abdominal area cannot stretch much. M5 PT-IP Objective Assessments Start: 07/10/20 11:53 Freq: NEEDED Status: Active Protocol: Document 07/13/20 09:55 AW (Rec: 07/13/20 10:37 AW [id number]) Orientation Orientation/Cognition Level of Alertness Alert Orientation Name,Age,Birthday,Month,Date, Year,Day of Week,Place, Situation Language Function Ability No Deficits Noted Safety Awareness Understands Safety Issues Memory Description No Deficits Noted Gross Range of Motion Lower Extremity ROM Assessment Within Functional Limits Strength Lower Extremity Strength Assessment Bilaterally Impaired Hip 4-/5 Knee 4/5 Ankle 4+/5 Coordination Assessment Gross Coordination Gross Coordination WNL Sensation Assessment Sensation Gross Sensation WNL Muscle Tone Muscle Tone WNL Yes M6 PT-IP Treatment Start: 07/10/20 11:53 Freq: NEEDED Status: Active Protocol: Document 07/15/20 13:06 AB (Rec: 07/15/20 15:51 AB [id number]) Physical Therapy Treatment Education Education Provided Precautions,Safety M7 PT-IP Assessment and Plan Start: 07/10/20 11:53 Freq: NEEDED Status: Active Protocol: Document 07/15/20 13:06 AB (Rec: 07/15/20 15:51 AB [id number]) PT Summary Assessment and Plan Potential Rehabilitation Potential Good Summary Impairments Pain,ROM,Strength,Balance, Coordination,Sensation,Tone, Cognition,Bed Mobility, Transfers,Gait,Activity Tolerance Progress Towards Goals Slow Progress due to Pain,Slow Progress due to Medical Issues Assessment Summary pt was doing well but had to undergo another surgery and was needing more assistance afterwards and unable to tolerate much activity with c/o increase pain with movement. pt only able to ambulate ~ 20 ft using SPC and has to rest afterwards due to c/o pain and weakness. Pt plans to live with her son but stated that her son works from home and she cannot demand her son to stop his work to assist her to the toilet. pt will require SNF rehab to improve overall strength and mobility independence. Pt will need 24 /7 assist available at this time. Goals Bed Mobility Goal Standby Assistance Transfer Goal Standby Assistance,Cane Gait Goal Standby Assistance,Cane Gait Distance 100 Days to Meet Goals 10 Frequency of Treatment Frequency Of Treatment Once a Day Treatment Plan Physical Therapy Treatment Plan Bed Mobility Training,Transfer Training,Gait Training, Therapeutic Exercise,Balance Retraining,Post Op Education, Discharge Planning Precautions Abdominal Surgery Precautions Log Roll,Lifting Restrictions, Gait Belt above Incisional Area Recommendations To Nursing Amount of Assist Needed 1 Person Assist Discharge Recommendations PT Discharge Recommendations SNF Rehab Transportation Needs at Discharge Wheelchair/Cabulance
--- NOTE | 2020-07-15 13:06 | OT.IP.EVAL ---
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) Unspecified severe protein-calorie malnutrition (07/04/20) Unspecified protein-calorie malnutrition (07/04/20) Obesity, unspecified (07/04/20) Cutaneous abscess of abdominal wall (07/04/20) Infection following a procedure, other surgical site, initial encounter (07/04/20) Colostomy status (07/04/20) Surgery Performed Operation Date: 07/05/20 16:00 Actual Procedures p Wound wash out, colostomy revision - Yoli Biswas MD Operation Date: 07/11/20 11:45 Actual Procedures p Laparotomy, bowel resection, ostomy creation - Yoli Biswas MD Past Medical History (Last Reviewed 07/15/20 @ 11:53 by Yoli Biswas MD) Acquired hypothyroidism Chicken pox Essential hypertension Febrile illness Has 3 children Measles Mixed hyperlipidemia UTI (urinary tract infection) Vision disorder Occupational Therapy Inpatient Evaluation/Re-Eval M1 PT/OT-IP Prior Functional Status Start: 07/15/20 13:43 Freq: NEEDED Status: Active Protocol: Document 07/15/20 13:06 [facility] (Rec: 07/15/20 14:34 [facility] [id number]) Medical Review Prior Functional Status Medical History Reviewed Yes Communication WNL. Pt wears glasses for distance and has astigmatism. Mobility and Gait Prior to colectomy and ostomy in June, pt was active and independent in all regards. She used a FWW briefly after surgery, but has not been using any AD in the past week but admits to weakness and limited activity tolerance affecting her mobility. Activities of Daily Living and IADL's Independent. Pt has been needing assist with showers with her new ostomy appliance and wound. Prior Functional Level (Other details) Pt has newly diagnosed ovarian cancer. Social History Household Members none Living Arrangements RV Number of Floors (Floors) One Floor Number of Stairs To Enter/Railing? When finished with treatment and rehab, pt plans to move to her son's home in [place]. Details in this note will refer to her son's home. There are 2 short steps to enter with unilateral railing. Home Environment Standard Height Toilet,Walk in Shower Home Equipment Grab Bars In Shower Employment Status Retired Additional Social History Comment Pt plans to stay with her son and his once she has finished treatment and rehab. Both have flexible schedules and frequently wicker worker. Prior to recent admission, pt lived alone in an RV and walked her dog daily. Pt clarified that her son works from home and will not be able to assist her and that mainly she needs to be MOD I with all needs. M2 OT-IP Current Condition Start: 07/15/20 13:43 Freq: Status: Active Protocol: Document 07/15/20 13:06 [facility] (Rec: 07/15/20 14:34 [facility] [id number]) Occupational Therapy Current Condition Current Condition Evaluation Date 07/15/20 Treatment Diagnosis Revision colostomy Diagnosis Onset Date 07/04/20 M3 OT- IP Subjective and Pain Start: 07/15/20 13:43 Freq: Status: Active Protocol: Document 07/15/20 13:06 [facility] (Rec: 07/15/20 14:34 [facility] [id number]) OT- Subjective Occupational Therapy Visit Type Type Initial Evaluation Visit Start Time 13:06 Visit Stop Time 13:38 Total Visit Minutes 32 Occupational Therapy Visit Comments Patient Comments Pt willing to get up. PT present as pt has limited activity tolerance due to her pain. Patient/Caregiver Goals To go to her son's home. OT Pain Assessment Pain When Pain Assessed During Mobility Pain Present Pain Present Pain Reported Location abd Intensity 6 Scale Used Numeric (0 - 10) M4 OT- IP ADL's Start: 07/15/20 13:43 Freq: Status: Active Protocol: Document 07/15/20 13:06 [facility] (Rec: 07/15/20 14:34 [facility] [id number]) OT ADL-Grooming General Evaluation Grooming Ability Standby Assistance Areas Needing Assistance Retrieving/Set-up of Grooming Items Comments OT Grooming Comments SBA while standing at the sink after set-up. OT ADL-Oral Care General Eval Oral Care Ability Independent OT ADL-Dressing General Eval Lower Body Dressing Ability Maximum Assistance Areas Needing Assistance Socks Comments OT Dressing Comments Assist for socks and would need MAX A for LB dressing needs due to her pain level and inability to bend over due to her precautions and pain. OT ADL-Toileting General Evaluation Toileting Ability Maximum Assistance Areas Needing Assistance Perform Perineal Hygiene Comments OT Toileting Comments Pt unable to reach to do her own pericare needs at this time and would benefit from assist or use of toilet paper aid once her balance improves a little more. OT ADL-Bathing Comments OT Bathing Comments NOt at this time. M5 OT- IP IADL's Start: 07/15/20 13:43 Freq: Status: Active Protocol: Document 07/15/20 13:06 [facility] (Rec: 07/15/20 14:34 [facility] [id number]) OT-Instrumental Activities of Daily Living Home Safety Awareness Awareness of Need for Assistance at Home Good Awareness Ability to Problem Solve Emergency Able to Problem Solve Situations Medication Management Medication Management No Deficits Identified Money Management Money Management No Deficits Identified Meal Preparation Meal Preparation Caregiver Provides Assist Order Processing Specialist Order Processing Specialist Caregiver Provides Assist M6 OT- IP Functional Cognition Start: 07/15/20 13:43 Freq: Status: Active Protocol: Document 07/15/20 13:06 [facility] (Rec: 07/15/20 14:34 [facility] [id number]) Cognitive Factors Limiting Selfcare Function Cognitive Ability Level of Alertness Alert Patient Orientation Name,Age,Birthday,Month,Date, Year,Day of Week,Place, Situation Attention Span Ability Capable of Focused Attention, Capable of Sustained Attention Ability to Follow Commands Able to Follow One Step Commands Cognitive Comments Cognitive Assessment Comments Pt appears at baseline for cognitive needs. Pt just needing cues for new learning of how to use the single point cane. OT- Vision and Hearing OT- Hearing Assessment OT- Hearing Assessment WFL OT- Vision Assessment Visual Acuity Glasses All The Time M7 OT- IP Mobility and Balance Start: 07/15/20 13:43 Freq: Status: Active Protocol: Document 07/15/20 13:06 [facility] (Rec: 07/15/20 14:34 [facility] [id number]) OT- Bed Mobility Assessment Supine to Sit Supine to Sit Assist Moderate Assistance,Maximum Assistance,1 Person Assistance ,Head of Bed Elevated,Bedrails Sit to Supine Sit to Supine Assist Standby Assistance,Head of Bed Elevated,Bedrails OT-Transfer Assessment Sit to and From Stand Sit to and from Stand Minimal Assistance Transfers Transfer Ability Contact Guard Assistance Technique Transfer Destination Bed,Toilet Transfer Technique Stand Step Pivot Devices Transfer Assistive Devices Gait Belt,Straight Cane Comments Mobility Comments CGAto PATY with SPC, at times pt needing PATY to stand from lower surfaces. OT- Balance Assessment Sitting Balance and Reactions Static Sitting Balance Ability Normal Dynamic Sitting Balance Ability Good Standing Balance and Reactions Static Standing Balance Ability Fair M8 OT- IP Objective Assessments Start: 07/15/20 13:43 Freq: Status: Active Protocol: Document 07/15/20 13:06 [facility] (Rec: 07/15/20 14:34 [facility] [id number]) OT Gross Range of Motion Upper Extremity Range of Motion Assessment Within Functional Limits OT Strength Upper Extremity Strength Assessment Within Functional Limits OT-Muscle Tone Assessment Muscle Tone WNL Yes M9 OT- IP Assessment and Plan Start: 07/15/20 13:43 Freq: Status: Active Protocol: Document 07/15/20 13:06 [facility] (Rec: 07/15/20 14:34 [facility] [id number]) OT Summary Assessment and Plan Potential Rehabilitation Potential Good Analytic Complexity at Evaluation Low Summary OT Impairments Pain,Balance,Functional Mobility,Grooming,Dressing, Toileting,Bathing,Toilet Transfers,Shower Transfers, Activity Tolerance Progress Towards Goals Slow Progress due to Pain,Slow Progress due to Medical Issues,Slow Progress due to Activity Tolerance Assessment Summary Pt low complexity and main barriers since colostomy revision is needing MODA for bed mobility and MAX A for LB dressing and toileting needs. Pt looking to try to go to her son's home , but she needs to be able to be MOD I as he works for home. Pt would strongly benefit form skilled rehab prior to going to her son's home. Pt is very motivated and pleasant. Goals Grooming Goal Independent Dressing Goal Independent Toileting Goal Independent Bathing Goal Independent Toilet Transfer Goal Independent Shower Transfer Goal Independent Patient/Caregiver Education Goal Demonstrate Post-Op Precautions Days to Meet Goals 15 Frequency of Treatment Frequency Of Treatment Once a Day Treatment Plan OT Treatment Plan ADL Training,Functional Cognition Training,Functional Mobility,Patient/Family Education,Discharge Planning Other Treatment Recommendations and Next LB dressing. Treatment Focus Discharge Recommendations OT Discharge Recommendations SNF Rehab Home Equipment Needs defer to SNF Transportation Needs at Discharge Wheelchair/Cabulance
--- NOTE | 2020-07-15 15:22 | CM.DPNOTE ---
DCP Cont Lengthy conversation w/Dr Biswas this morning discussing DCP options; this FIRST LINE SUPERVISOR expressed concern about securing a SNF authorization from insurance. Dr Biswas feels it is reasonable to plan for patient's return home, especially since ostomy site (placement) appears more manageable. Attempt to wean patient off TPN has begun. Tentative goal for DC would be Friday 3.17.21. According to conversation w/ Dr Biswas and therapy team; In order for patient to successfully DC home w/family the following will be helpful: -Family (guille Wu) presence day before expected DC date for teaching from surgeon/nursing staff (ostomy care) and therapy team (caregiver training/stair training) -Home Health nursing for assist w/ostomy management and wound care/packing of previous surgery site- packing needed (ideally) on a daily basis -Outpatient [place] care, [facility] [place], appt[place] -Follow up with Dr Biswas for surgical f/u -Oncology f/u, hopeful to have pathology report back this week before patient's DC -DME to include walker, wheelchair and BSC (possibly hospital bed ?) -Transport via family auto Discussed above w/patient and she admits to feeling very weak, being in pain with movement, however, feeling more optimistic and confident about ostomy care and explains she is the most concerned with getting more information re: cancer dx in order to make additional decisions for termite control 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 Patient agreeable to home w/son and requests this FIRST LINE SUPERVISOR place call to guille Wu. Placed this call and had lengthy conversation w/guille Wu and his partner( a physician in the [facility], [facility]). Family very supportive of getting patient home. Guille Wu will plan to arrive to Friday w/a tentative DC date of Friday depending on patient's medical progress. Son has no agency preference, but requests [facility]. Son requests referral to outpatient wound care through [facility] if available. In addition, son will work on securing DME and does not feel hospital bed needed at this time, but can rent or order if needed. Patient will need to get up one porch step to enter their home and additional stairs to get up to the second floor where the bedrooms are located w/full bathroom. There is a living room and office downstairs, no full bathroom. Family concerned about patient leaving too early, family seem reasonably concerned about getting the plan in place before patient's DC. Son Bryce asks about staying in the parking lot one night w/patient's 21 ft RV (?) This FIRST LINE SUPERVISOR asks current security staff and he referred me to [employer] [facility] [employer] [facility]equ[facility] Martinez (back Friday). OT vanessa completed today and recommending SNF. Attempted multiple HH agencies; [facility] no longer has HH, [facility] ([facility]?), LM w/[facility] and philip spoke w/Ortiz at [facility], requested RN SABRINA Sisi assist w/initial referral to the [place] branch. RN/PT/OT/FAN ENGINE ENGINEER Plan: DC home w/family tentatively Friday 3..21, son requires caregiver training, F2F needed for HH (how often can HH RN provide wound care?), referral to [facility] wound care center, f/u w/ [employer] [facility] [facility] Friday (?) w/DME secured by family, 25/11 family assist available via private auto vs SNF near [place]...see prior notes JW
--- NOTE | 2020-07-15 15:41 | CM.DPNOTE ---
DCP: JAHAIRA Priest, faxed [facility] referral for home health services. Ortiz at [facility] indicated that they accept referrals that serve the [place] area. Fax number is: [phone]. Faxed over face sheet, both operative reports, today's progress note, nursing note, wound care orders, P.T. notes, dietary notes. Face to face is pending. Rachael Johnson RN/[employer]
[2020-07-15] MEDS: AA 5 %/CALCIUM/LYTES/DEXT 20 % 1,000 ML with MULTIVITAMIN 10 ML, TRACE ELEMENTS 1 ML, I... 40 ML IV (17:44)
[2020-07-16] VITALS (11 sets, daily range): BP systolic 94–127; BP diastolic 43–76; PULSE 75–89; RESP 16–20; TEMP 36.1–37.3; O2SAT 96–99
[2020-07-16] MEDS: OXYCODONE IR 5 MG TABLET PO ×2 (00:24→09:45)
[2020-07-16 05:59] LABS: Add Manual Diff / Slide Review NO; Basophils Absolute Auto 0 /uL (0-100); Basophils Percent Auto 0.3 % (0-2); Eosinophils Absolute Auto 500 /uL (0-450); Eosinophils Percent Auto 9.9 % (2-4); Hematocrit 22.8 % (36-46); Hemoglobin 7.4 g/dL (12.0-16.0); Lymphocytes Absolute Auto 1200 /uL (1100-4500); Lymphocytes Percent Auto 23.9 % (25-40); Mean Corpuscular HGB Conc 32.5 % (30-36); Mean Corpuscular Hemoglobin 28.8 PG (26-34); Mean Corpuscular Volume 88.5 fL (80-100); Monocytes Absolute Auto 400 /uL (0-900); Monocytes Percent Auto 7.6 % (3-14); Neutrophils Absolute Auto 2900 /uL (1500-7000); Neutrophils Percent Auto 58.3 % (50-75); Platelet Count 225 X10^3/uL (150-400); Red Blood Cell Count 2.58 X10^6/uL (4.0-5.2); Red Cell Distribution Width 15.6 % (11.6-14.8); White Blood Cell Count 4.9 X10^3/uL (4.5-11.0)
[2020-07-16] MEDS: LEVOTHYROXINE 25 MCG TABLET PO (06:15)
[2020-07-16 08:21] LABS: Blood Urea Nitrogen 17 mg/dL (7-17); Carbon Dioxide 28 mmol/L (22-32); Chloride 104 mmol/L (98-107); Estimated Glomerular Filt Rate > 60.0 mL/min (>60); Glucose 107 mg/dL (80-110); HEMOLYSIS < 15 (0-50); Sodium 136 mmol/L (137-145)
[2020-07-16] MEDS: MULTIVIT,CALC,MINS/IRON/FOLIC 1 TABLET 1 TAB PO (09:45)
[2020-07-16] MEDS: ROSUVASTATIN 10 MG TABLET 5 MG PO (09:46)
[2020-07-16] MEDS: KETOROLAC 30 MG/ML VIAL 15 MG IV (09:46)
[2020-07-16] MEDS: PANTOPRAZOLE 40 MG VIAL IV (09:46)
[2020-07-16] MEDS: CHOLECALCIFEROL (VITAMIN D3) 1,000 UNIT TABLET 2000 UNIT PO (09:46)
[2020-07-16] MEDS: SODIUM CHLORIDE 0.9% FLUSH 10 ML IV (09:46)
--- NOTE | 2020-07-16 10:01 | P.PN_ITS ---
Subjective Subjective Date Patient Seen: 07/16/20 Time Patient Seen: 11:19 Interval history: No acute events overnight. The patient feels weak, and becomes easily exhausted. Her pain is well controlled most of the time, but she occasionally has severe pain in the abdominal wall. She denies nausea. She has modest appetite, but is starting to take more p.o. Exam Vital Signs (past 8 hours): - 07/16/20 05:00 07/16/20 08:00 07/16/20 08:58 Temperature 97.6 F 98.6 F Pulse Rate 75 77 89 Respiratory Rate 16 17 Blood Pressure 94/62 115/60 107/43 L Pulse Oximetry 97 99 Oxygen Delivery Method Room Air Oxygen Flow Rate 0 Narrative Exam Narrative: Gen: alert, well appearing, pale, non toxic CARDIOVASCULAR: Regular rate. No pedal edema. RESPIRATORY: Non-tachypneic, breathing comfortably on room air. GASTROINTESTINAL: Abdomen soft, obese, non-distended. Ostomy pouch removed duri ng exam, and replaced. The skin around the ostomy site is nicely intact, without any injury, erythema, or tenderness. The ostomy is pink, slightly edematous, and well budded. The ostomy bar still in place. Old ostomy site clean with packing in place. Packing removed during exam. There is healthy bleeding granulation tissue growing into the wound, but it is about 3 cm wide and about 2 cm deep. The wound was repacked with saline moistened gauze. MUSCULOSKELETAL: Equal tone and mass bilaterally. Objective Labs Result Diagrams: 07/16/20 05:53 07/16/20 07:45 Labs: Laboratory Results - last 24 hr 07/16/20 07/16/20 05:53 07:45 WBC 4.9 RBC 2.58 L Hgb 7.4 L Hct 22.8 L MCV 88.5 D MCH 28.8 MCHC 32.5 RDW 15.6 H Plt Count 225 Neut % (Auto) 58.3 Lymph % (Auto) 23.9 L Hidalgo % (Auto) 7.6 Eos % (Auto) 9.9 H Baso % (Auto) 0.3 Neut # (Auto) 2900 Lymph # (Auto) 1200 Hidalgo # (Auto) 400 Eos # (Auto) 500 H Baso # (Auto) 0 Sodium 136 L Potassium 4.0 Chloride 104 Carbon Dioxide 28 BUN 17 Creatinine 0.46 L Estimated GFR > 60.0 BUN/Creatinine Ratio 37.0 H Glucose 107 Calcium 9.0 Magnesium 2.0 PFSH Medical History Acquired hypothyroidism Chicken pox Essential hypertension Febrile illness Has 3 children Measles Mixed hyperlipidemia UTI (urinary tract infection) Vision disorder Family History Father No problems noted. Mother Hypertension Grandfather Pneumonia Social History household members: none Smoking Status: Former smoker alcohol intake: current Assessment & Plan Assessment and plan (1) Severe protein-calorie malnutrition: Problem details: The patient came in on June 23 with 5 days of really not eating very much at all. She has had prolonged periods of fasting because of surgery, and bowel recovery after surgery. We are beginning to wean off her TPN, as she is beginning to take more p.o.. We will leave her PICC line in place for now, and if she does not tolerate adequate p.o. we may need to restart TPN again. Status: Acute (2) Acute blood loss anemia: Problem details: Her hemoglobin is 7.4 today. We will transfuse her 1 unit because she is having some episodes of hypotension, weakness, and lightheadedness in the setting of significant anemia. She has some oozing of blood from her old ostomy site wound, which may be the reason for the slight drop from 7.8 yesterday. Given that she is symptomatic, I believe the benefit outweighs the risk of going ahead with a transfusion of 1 unit of blood today. I discussed this with the patient who desires to proceed with transfusion. Status: Acute (3) Complication of ostomy: Status: Acute (4) Status post Herminia procedure: Status: Acute (5) Ovarian cancer: Qualifiers: Laterality: unspecified laterality Qualified Code(s): C56.9 - Malignant neoplasm of unspecified ovary Status: Acute (6) Postoperative wound infection: Status: Acute (7) Obesity (BMI 30.0-34.9): Problem details: The patient's abdominal obesity significantly increased the complexity and difficulty of her laparotomy and to bring up her end colostomy, because her abdominal wall was 2-3 inches thick. Her obesity also complicates her post op course because it increases the risk of wound infection, hernia, fascial dehiscense, ostomy ischemia, and ostomy retraction. Status: Acute Assessment & Plan narrative: 74-year-old woman postop day 5 status post laparotomy, reciting of ostomy, takedown of sigmoid colostomy, and excision of carcinomatosis for pathology. She is doing well in most respects. She is having good ostomy output, and the ostomy is nicely intact and budded. Her old ostomy site is healthy appearing, and does not have any signs of cellulitis or infection. It is oozing quite a bit as it is healthy granulation tissue, but I believe this has led to a decrease in her hemoglobin. We will transfuse her today, and hold her Lovenox today. We will encourage ambulation, wean off TPN, and continue to work on disposition. Plan: Transfuse 1 unit Daily labs Ambulate as tolerated P.o. diet as tolerated Ostomy care, wound care Dispo planning COVID-19 Result date/Date tested (Pos, Neg/Pending): 07/04/20 Time Spent With Patient Time with patient: 25 - 35 minutes Quality VTE Deep Vein Thrombosis/Pulmonary Embolism Present on Admission: No
[2020-07-16 10:53] LABS: Phosphorous 4.8 mg/dL (2.8-4.1)
--- NOTE | 2020-07-16 11:34 | PC.NURSE ---
Addendum entered by Josep Pennington R.N. 07/16/20 14:16: Blood transfusion of 1 unit PRBC per order infusing. Patient tolerating well, states she has been fatigued today but wants to try and walk more as pain and energy allows. Currently resting in bed without complaint at this time, call light within reach. Continue to follow. Original Note: Dr. Biswas and this RN changed dressing to left reversed ostomy wound, cleansed with saline and repacked with 2 pieces sterile gauze and saline, covered with allevyn gentle border dressing. Midline abdominal incision with lena, ERIKA, well approximated and without redness or drainage. Right colostomy appliance (wafer and bag) changed, stoma beefy red, diana stomal skin intact. Patient tolerated well. Call light within reach.
--- NOTE | 2020-07-16 13:25 | PT-IP ANOTE ---
Attempted to see pt at 1320 for PT treatment. Pt's H&H is 7.4/22.8. She complains of increased fatigue all day. RN is hanging 1st bag of blood for transfusion. Will follow up morning of 07/17 for PT.
--- NOTE | 2020-07-16 13:58 | CM.DPC ---
DCP Cont: Per Surgeon, pt continuing to make progress and have started weaning the TPN to determine how pt will tolerate advancing diet. Surgeon still agreeable with plan for d/c to son's home and HH and signed the F2F. SW called [facility] and confirmed with [facility] that they cover [facility] where pt's son lives and she is willing to get referral to their [facility] liaison and SW faxed referral (minus d/c summary, F2F or Orders yet) and [facility] will review and help coordinate HH for pt at son's house at d/c. SW met bedside with pt and explained role and pt remembers this SW and confirms that plan is for home to her son's house and he will come up and be bedside on this week 07/18/20 for caregiver training and wound care and be available for CG training with PT as well. Pt still agreeable with HH at d/c. SW discussed that referrals also sent to 3 SNF's closer to [place] that are contracted with pt's insurance as a backup plan but not a guarantee that insurance will approve SNF stay and pt acknowledges understanding. Pt again confirms her focus is healing but also on getting a cancer dx to begin a treatment plan and pt already has referral for Oncology down near [place] and already set up appointment after d/c. Pt was set up for Wound Care at [facility] but requesting support with contacting them to determine possible Wound Care Clinic near [place] and since today is Friday SW called [facility] [phone] and they are currently closed but will be open tomorrow Friday for further coordination efforts. SNF referrals: [facility]: could likely accept but their staff is pending COVID testing to determine if they have a positive case before they can determine if they can accept new admissions. [place] [facility]: SW called admissions phone [phone] and left msg inquiring about their review and if they can accept and begin auth process in case pt needs SNF. Mak Car: reviewing Plan: SW to follow closely for calling [facility] tomorrow Mon towards coordinating Wound Care near [place]. SW to follow for above SNF reviews in case pt needs SNF at d/c and sending [facility] signed F2F, orders, and d/c summary at discharge. JAHAIRA Giron
[2020-07-16] MEDS: MORPHINE 4 MG/ML INJ IV ×2 (15:55→23:04)
[2020-07-16] MEDS: carvediloL 3.125 MG TABLET PO (20:54)
[2020-07-17] VITALS (8 sets, daily range): BP systolic 108–130; BP diastolic 54–74; PULSE 78–91; RESP 18–22; TEMP 35.7–36.8; O2SAT 96–98
--- NOTE | 2020-07-17 00:54 | PC.NURSE ---
0002: patient is alert and oriented. Breath sounds CTA with RA sat of 96%. HRR. Denies nausea. Complained of 9/10 upper abdominal pain at shift change and was medicated with Morphine and now states pain is 4/10. BT present and abdomen is soft but tender. Ostomy putting out brown liquid stool. Midline incision is well approximated with intact lena and RIB CHOPPER. Drain site/previous ostomy site dressings are CDI. Denies dysuria, frequency or urgency with urination. Able to move self in bed. Assisted to BSC with 1 assist. Denies feeling weak or unsteady when up to commode. Wearing bilateral calf SCD's. Fall risk score is moderate and bed alarm is activated.
[2020-07-17] MEDS: SODIUM CHLORIDE 0.9% FLUSH 10 ML IV ×3 (04:48→21:11)
[2020-07-17 05:00] LABS: Add Manual Diff / Slide Review NO; Basophils Absolute Auto 0 /uL (0-100); Basophils Percent Auto 0.8 % (0-2); Eosinophils Absolute Auto 500 /uL (0-450); Eosinophils Percent Auto 10.1 % (2-4); Hemoglobin 8.9 g/dL (12.0-16.0); Lymphocytes Absolute Auto 1400 /uL (1100-4500); Lymphocytes Percent Auto 26.8 % (25-40); Mean Corpuscular HGB Conc 33.8 % (30-36); Mean Corpuscular Hemoglobin 28.5 PG (26-34); Mean Corpuscular Volume 84.4 fL (80-100); Monocytes Absolute Auto 500 /uL (0-900); Monocytes Percent Auto 8.5 % (3-14); Neutrophils Absolute Auto 2900 /uL (1500-7000); Neutrophils Percent Auto 53.8 % (50-75); Platelet Count 226 X10^3/uL (150-400); Red Blood Cell Count 3.12 X10^6/uL (4.0-5.2); Red Cell Distribution Width 15.3 % (11.6-14.8); White Blood Cell Count 5.4 X10^3/uL (4.5-11.0)
[2020-07-17 05:05] LABS: Hematocrit 26.3 % (36-46)
[2020-07-17 05:12] LABS: BUN Creatinine Ratio 21.7 (6-22); Blood Urea Nitrogen 13 mg/dL (7-17); Calcium 8.8 mg/dL (8.4-10.2); Carbon Dioxide 29 mmol/L (22-32); Chloride 104 mmol/L (98-107); Estimated Glomerular Filt Rate > 60.0 mL/min (>60); Glucose 92 mg/dL (80-110); HEMOLYSIS < 15 (0-50); Phosphorous 4.9 mg/dL (2.8-4.1); Potassium 4.2 mmol/L (3.4-5.1); Sodium 135 mmol/L (137-145)
[2020-07-17] MEDS: LEVOTHYROXINE 25 MCG TABLET PO (05:46)
[2020-07-17] MEDS: OXYCODONE IR 5 MG TABLET PO ×3 (05:46→19:47)
[2020-07-17] MEDS: PANTOPRAZOLE 40 MG VIAL IV (08:17)
[2020-07-17] MEDS: carvediloL 3.125 MG TABLET PO (08:17)
[2020-07-17] MEDS: HEPARIN 5,000 UNIT/ML VIAL 5000 UNIT SUBCUT ×2 (08:17→21:10)
[2020-07-17] MEDS: ROSUVASTATIN 10 MG TABLET 5 MG PO (08:17)
--- NOTE | 2020-07-17 09:18 | OT.IP.TRT ---
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) Acute posthemorrhagic anemia (07/04/20) Unspecified severe protein-calorie malnutrition (07/04/20) Unspecified protein-calorie malnutrition (07/04/20) Obesity, unspecified (07/04/20) Cutaneous abscess of abdominal wall (07/04/20) Infection following a procedure, other surgical site, initial encounter (07/04/20) Colostomy status (07/04/20) Surgery Performed Operation Date: 07/05/20 16:00 Actual Procedures p Wound wash out, colostomy revision - Yoli Biswas MD Operation Date: 07/11/20 11:45 Actual Procedures p Laparotomy, bowel resection, ostomy creation - Yoli Biswas MD Occupational Therapy Treatment Note M2 OT-IP Current Condition Start: 07/15/20 13:43 Freq: Status: Active Protocol: Document 07/15/20 13:06 [facility] (Rec: 07/15/20 14:34 [facility] [id number]) Occupational Therapy Current Condition Current Condition Evaluation Date 07/15/20 Treatment Diagnosis Revision colostomy Diagnosis Onset Date 07/04/20 M3 OT- IP Subjective and Pain Start: 07/15/20 13:43 Freq: Status: Active Protocol: Document 07/17/20 09:20 [facility] (Rec: 07/17/20 09:29 [facility] [id number]) OT- Subjective Occupational Therapy Visit Type Type Progress Note Visit Start Time 08:48 Visit Stop Time 09:18 Total Visit Minutes 30 Notes Pt is looking for her glasses with the help of the aide when Ot entered OT Pain Assessment Pain When Pain Assessed During Mobility Pain Present Pain Present Pain Reported Location abd Scale Used did not rate Pain Behaviors Guarding,Holding Area Management Techniques Distraction,Modification of Treatment,Re-positioning, Timing of Activity with Medications M4 OT- IP ADL's Start: 07/15/20 13:43 Freq: Status: Active Protocol: Document 07/17/20 09:20 [facility] (Rec: 07/17/20 09:29 [facility] [id number]) OT AGD-Huth-Ehonwls Comments OT Self-Feeding Comments Pt declines breakfast but requests tea OT ADL-Grooming General Evaluation Grooming Ability Standby Assistance Areas Needing Assistance Combing/Brushing Hair,Face Washing Comments OT Grooming Comments Pt stood at sink for ADLs OT ADL-Oral Care General Eval Oral Care Ability Standby Assistance Areas of Assistance Brushing Teeth,Retrieving/Set- Up of Items Comments Oral Care Comments Standing at sink for ADLs OT ADL-Dressing General Eval Lower Body Dressing Ability Maximum Assistance Areas Needing Assistance Socks Comments OT Dressing Comments Pt needs max a for donning socks but was able to use her feet to doff socks without assist. OT ADL-Toileting General Evaluation Toileting Ability Maximum Assistance Areas Needing Assistance Perform Perineal Hygiene Comments OT Toileting Comments Pt needed assist for pericare. Pt states she is unable to reach d/t the pain. Attempted to discuss toilet aide with pt but pt states that she will figure it out when she gets home and declined further education on the topic. OT ADL-Bathing Comments OT Bathing Comments Not performed M5 OT- IP IADL's Start: 07/15/20 13:43 Freq: Status: Active Protocol: Document 07/15/20 13:06 [facility] (Rec: 07/15/20 14:34 [facility] [id number]) OT-Instrumental Activities of Daily Living Home Safety Awareness Awareness of Need for Assistance at Home Good Awareness Ability to Problem Solve Emergency Able to Problem Solve Situations Medication Management Medication Management No Deficits Identified Money Management Money Management No Deficits Identified Meal Preparation Meal Preparation Caregiver Provides Assist Workshop Manager Workshop Manager Caregiver Provides Assist M6 OT- IP Functional Cognition Start: 07/15/20 13:43 Freq: Status: Active Protocol: Document 07/15/20 13:06 [facility] (Rec: 07/15/20 14:34 [facility] [id number]) Cognitive Factors Limiting Selfcare Function Cognitive Ability Level of Alertness Alert Patient Orientation Name,Age,Birthday,Month,Date, Year,Day of Week,Place, Situation Attention Span Ability Capable of Focused Attention, Capable of Sustained Attention Ability to Follow Commands Able to Follow One Step Commands Cognitive Comments Cognitive Assessment Comments Pt appears at baseline for cognitive needs. Pt just needing cues for new learning of how to use the single point cane. OT- Vision and Hearing OT- Hearing Assessment OT- Hearing Assessment WFL OT- Vision Assessment Visual Acuity Glasses All The Time M7 OT- IP Mobility and Balance Start: 07/15/20 13:43 Freq: Status: Active Protocol: Document 07/17/20 09:20 [facility] (Rec: 07/17/20 09:29 [facility] [id number]) OT- Bed Mobility Assessment Supine to Sit Supine to Sit Assist Moderate Assistance,1 Person Assistance,Head of Bed Elevated Sit to Supine Sit to Supine Assist Standby Assistance,Head of Bed Elevated,Bedrails Scooting Scooting to Edge of Bed Standby Assistance OT-Transfer Assessment Sit to and From Stand Sit to and from Stand Standby Assistance Transfers Transfer Ability Standby Assistance Technique Transfer Destination Bed,Bedside Commode Transfer Technique Stand Step Pivot Devices Transfer Assistive Devices Gait Belt Comments Mobility Comments Pt is moving well with SBA and gait belt donned. Pt appears careful with all mobility and displays good balance with mobility. Pt is requesting a rollator at this time. Will notify P.T. to try pt with rollator. OT- Balance Assessment Sitting Balance and Reactions Static Sitting Balance Ability Normal Dynamic Sitting Balance Ability Good M8 OT- IP Objective Assessments Start: 07/15/20 13:43 Freq: Status: Active Protocol: Document 07/15/20 13:06 [facility] (Rec: 07/15/20 14:34 [facility] [id number]) OT Gross Range of Motion Upper Extremity Range of Motion Assessment Within Functional Limits OT Strength Upper Extremity Strength Assessment Within Functional Limits OT-Muscle Tone Assessment Muscle Tone WNL Yes M9 OT- IP Assessment and Plan Start: 07/15/20 13:43 Freq: Status: Active Protocol: Document 07/17/20 09:20 [facility] (Rec: 07/17/20 09:29 [facility] [id number]) OT Summary Assessment and Plan Potential Rehabilitation Potential Good Analytic Complexity at Evaluation Low Summary OT Impairments Pain,Balance,Functional Mobility,Grooming,Dressing, Toileting,Bathing,Toilet Transfers,Shower Transfers, Activity Tolerance Progress Towards Goals Slow Progress due to Pain,Slow Progress due to Medical Issues,Slow Progress due to Activity Tolerance Assessment Summary Pt low complexity and main barriers since colostomy revision is needing MODA for bed mobility and MAX A for LB dressing and toileting needs. Pt looking to try to go to her son's home , but she needs to be able to be MOD I as he works for home. Pt would benefit from SNF but may be appropriate for home with a hospital bed, LB dressing aides, and toilet aid. Pt was not open to toilet aide discussion in todays session. Will continue to follow. Goals Grooming Goal Independent Dressing Goal Independent Toileting Goal Independent Bathing Goal Independent Toilet Transfer Goal Independent Shower Transfer Goal Independent Patient/Caregiver Education Goal Demonstrate Post-Op Precautions Days to Meet Goals 15 Frequency of Treatment Frequency Of Treatment Once a Day Treatment Plan OT Treatment Plan ADL Training,Functional Cognition Training,Functional Mobility,Patient/Family Education,Discharge Planning Other Treatment Recommendations and Next LB dressing. Treatment Focus Discharge Recommendations OT Discharge Recommendations Home with Assistance,SNF Rehab Home Equipment Needs defer to SNF, if not to SNF then BSC, toilet aide, LB dressing DME Transportation Needs at Discharge Private Vehicle,Wheelchair/ Cabulance
[2020-07-17] MEDS: CHOLECALCIFEROL (VITAMIN D3) 1,000 UNIT TABLET 2000 UNIT PO (10:31)
[2020-07-17] MEDS: MULTIVIT,CALC,MINS/IRON/FOLIC 1 TABLET 1 TAB PO (10:34)
--- NOTE | 2020-07-17 10:36 | CM.DANOTE ---
DCP/continued: Reviewed chart. Patient's son expected to be at [facility] tomorrow to do teaching. Current plan is for patient to d/c to son's. Per surgeon, d/c date possibly tomorrow 07-18 instead of 07-19? A[employer] EXT[employer]ION [employer]IST placed call to son to let provide him with update. Son aware and agreeable. Son unsure of actual time he will be at [facility] tomorrow? Son will check his schedule and let CM team know before the end of the day. AGRIC[employer] EXTENSION SPECIALIST placed call to [facility] at [facility] re: potential d/c tomorrow. Per [facility], she will attempt to get visit at residence on Friday07-19-20. P: CM team following closely. D/C anticipated tomorrow if all teaching can be completed. JAHAIRA Schmidt
--- NOTE | 2020-07-17 11:56 | CM.DPNOTE ---
Faxed [facility] order and face to face and order detail per Therese on 07/17/20. Fax confirmation received. Joan Santos CM Asst.
--- NOTE | 2020-07-17 15:13 | PT.IPTN ---
Addendum entered and electronically signed by Slime Veronica PT 07/17/20 15:40: Per conversation with AUTOMOTIVE PARTS INTERPRETER, pt may discharge Friday pending outcome of caregiver training (~1500) and pt's medical status. Original Note: 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) Acute posthemorrhagic anemia (07/04/20) Unspecified severe protein-calorie malnutrition (07/04/20) Unspecified protein-calorie malnutrition (07/04/20) Obesity, unspecified (07/04/20) Cutaneous abscess of abdominal wall (07/04/20) Infection following a procedure, other surgical site, initial encounter (07/04/20) Colostomy status (07/04/20) Surgery Performed Operation Date: 07/05/20 16:00 Actual Procedures p Wound wash out, colostomy revision - Yoli Biswas MD Operation Date: 07/11/20 11:45 Actual Procedures p Laparotomy, bowel resection, ostomy creation - Yoli Biswas MD Physical Therapy Treatment Note M2 PT-IP Current Condition Start: 07/10/20 11:53 Freq: NEEDED Status: Active Protocol: Document 07/14/20 14:30 MA (Rec: 07/14/20 14:53 MA [id number]) Physical Therapy Current Condition Current Condition Evaluation Date 07/13/20 Treatment Diagnosis revision colostomy; difficulty in walking Onset Date 07/05/20 Precautions Abdominal Surgery Precautions Log Roll,Lifting Restrictions, Gait Belt above Incisional Area M3 PT-IP Subjective Start: 07/10/20 11:53 Freq: NEEDED Status: Active Protocol: Document 07/17/20 15:13 AW (Rec: 07/17/20 15:38 AW [id number]) Subjective Physical Therapy Visit Type Type Treatment Note Visit Start Time 14:48 Visit Stop Time 15:13 Total Visit Minutes 25 Number of ENZYME CHEMIST Visits 0 Physical Therapy Visit Comments Patient Comments Pt required some encouragement but was ultimately willing to participate with PT Patient Goals Return home with son and son- in-law assisting Therapy Pain Assessment Pain When Pain Assessed During Mobility Pain Present Pain Present Reassessed Location abd Scale Used not quantified Description Pulling,Tightness Pain Behaviors Holding Area Pain Management Techniques Distraction,Re-positioning, Timing of Activity with Medications M4 PT-IP Mobility and Gait Start: 07/10/20 11:53 Freq: NEEDED Status: Active Protocol: Document 07/17/20 15:13 AW (Rec: 07/17/20 15:38 AW [id number]) PT-Bed Mobility Assessment Rolling Type of Rolling Log Rolling Level of Assist Contact Guard Assistance Supine to Sit Supine to Sit Minimal Assistance,1 Person Assistance,Bedrails Sit to Supine Sit to Supine Contact Guard Assistance,1 Person Assistance,Bedrails Scooting Scooting to Edge of Bed Contact Guard Assistance Scooting Up and Down in Bed Standby Assistance PT-Transfer Assessment Sit to and From Stand Sit to and from Stand Contact Guard Assistance,1 Person Assistance,Use of Upper Extremities Equipment Transfer Assistive Device Gait Belt,4 Wheeled Walker Orthotic/Prosthetic Devices or Brace: No Transfers Transfer Destination Bed Transfer Ability Level of Assist Contact Guard Assistance,Use of Upper Extremities Comments Mobility Comments Pt states she has been up several times today but is interested in trying to use the 4WW. Pt completed log roll and SL to sit CGA to min assist. She stood CGA and used the 4WW to ambulate several laps around the room. PT provided instruction in safe use of 4WW for sitting and pt returned demonstration. Pt requested return to bed, needing CGA and cues for sequencing. Pt was left with call light and all needs in reach. Bed alarm was armed for safety. Gait Assessment Gait Gait Assistance Required: Contact Guard Assist Distance (Feet) 100 Able to Maintain Weight Bearing Status Yes During Gait Assistive Devices Assistive Device Gait Belt,4 Wheeled Walker Gait Deviations General Gait Pattern Antalgic,Decreased Stride Length,Decreased Feet Clearance,Flexed Trunk Factors Limiting Gait Function Factors Limiting Gait Function Decreased Activity Tolerance, Decreased Strength,Limited Range of Motion,Pain,Poor Balance,Poor Safety Awareness Comments Gait Comments Pt initially complained that 4WW made her dizzy and nauseous but symptoms improved with distance. Pt safely managed 4WW including transition to and from sitting with good technique, pushing the walker against a wall prior to sitting. Posture improved with 4WW compared with SPC. Stair Climbing Assessment Comments Stair Climbing Comments Not assessed. PT-Balance Assessment Sitting Balance and Reactions Static Sitting Balance Ability Good Dynamic Sitting Balance Ability Fair Standing Balance and Reactions Static Standing Balance Ability Fair Dynamic Standing Balance Ability Fair Device Used 4WW Comments Other Balance Tests/Deviations/Treatment Standing balance with 4WW : support and cues for scapular retraction. M5 PT-IP Objective Assessments Start: 07/10/20 11:53 Freq: NEEDED Status: Active Protocol: Document 07/13/20 09:55 AW (Rec: 07/13/20 10:37 AW [id number]) Orientation Orientation/Cognition Level of Alertness Alert Orientation Name,Age,Birthday,Month,Date, Year,Day of Week,Place, Situation Language Function Ability No Deficits Noted Safety Awareness Understands Safety Issues Memory Description No Deficits Noted Gross Range of Motion Lower Extremity ROM Assessment Within Functional Limits Strength Lower Extremity Strength Assessment Bilaterally Impaired Hip 4-/5 Knee 4/5 Ankle 4+/5 Coordination Assessment Gross Coordination Gross Coordination WNL Sensation Assessment Sensation Gross Sensation WNL Muscle Tone Muscle Tone WNL Yes M6 PT-IP Treatment Start: 07/10/20 11:53 Freq: NEEDED Status: Active Protocol: Document 07/17/20 15:13 AW (Rec: 07/17/20 15:38 AW [id number]) Physical Therapy Treatment Education Education Provided Precautions,Safety M7 PT-IP Assessment and Plan Start: 07/10/20 11:53 Freq: NEEDED Status: Active Protocol: Document 07/17/20 15:13 AW (Rec: 07/17/20 15:38 AW [id number]) PT Summary Assessment and Plan Potential Rehabilitation Potential Good Summary Impairments Pain,ROM,Strength,Balance, Coordination,Sensation,Tone, Cognition,Bed Mobility, Transfers,Gait,Activity Tolerance Progress Towards Goals Progressing Toward Goals,Slow Progress due to Pain,Slow Progress due to Medical Issues Assessment Summary Pt walked further today with support of 4WW. Pt shows improved activity tolerance and improved posture with this device. Pt states she is considering acquiring one for home. PT to conduct caregiver training with pt's son tomorrow (no agreed-upon time yet) in anticipation of Friday discharge to home. Goals Bed Mobility Goal Standby Assistance Transfer Goal Standby Assistance,Cane Gait Goal Standby Assistance,Cane Gait Distance 100 Other Goals - improve ambulation to 100 feet without AD SBA IF going home - up/down 12 steps with unilateral rail SBA Days to Meet Goals 8 Frequency of Treatment Frequency Of Treatment Once a Day Treatment Plan Physical Therapy Treatment Plan Bed Mobility Training,Transfer Training,Gait Training, Therapeutic Exercise,Balance Retraining,Post Op Education, Discharge Planning Other Recommendations and Next Treatment CGT; gait training and stairs; Focus discuss equipment needs with pt's son Precautions Abdominal Surgery Precautions Log Roll,Lifting Restrictions, Gait Belt above Incisional Area Recommendations To Nursing Amount of Assist Needed Standby Assistance Discharge Recommendations PT Discharge Recommendations Home with 24/7 Assist Available,Home Health,SNF Rehab Other Discharge Recommendations Home with24/7 assist available and vs SNF Transportation Needs at Discharge Private Vehicle,Wheelchair/ Cabulance
--- NOTE | 2020-07-17 16:18 | CM.DPNOTE ---
Spoke to son Bryce to revisit Therese's am phone conversation with him about tomorrow's discharge. ASSISTANT SALES CENTER MANAGER told team that son's plan was to arrive about 3pm. Therapies requesting that he comes earlier in the day so he can have a full day of discharge education. Bryce begins by saying he thought the discharge was Friday. I redirected him to this morning's phone conversation that it would likely be Tu. Bryce said, Toby () was saying something about appealing the discharge so we can have another day since we have a lot of reasons we can't get there earlier in the day. I explained that his mom would need to appeal the discharge and that that appeal would have to go through [employer]. Toby was adamant that he would prefer a Friday discharge. I tried to explain discharge was based on medical stability so if pt. met medical criteria for discharge (which she does) the discharge will likely be tomorrow. Conversation was positive and respectful, but there is little doubt son will push back about any discharge plans that don't conform to his timeline.
--- NOTE | 2020-07-17 17:42 | PM.PN.1 ---
Subjective Subjective Date Patient Seen: 07/17/20 Time Patient Seen: 09:30 Interval history: No acute events overnight. Pt feeling better after tranfusion. Exam Vital Signs (past 8 hours): - 07/17/20 11:30 07/17/20 15:55 Temperature 98.1 F 97.7 F Pulse Rate 78 79 Respiratory Rate 22 18 Blood Pressure 130/54 L 123/64 Pulse Oximetry 97 Oxygen Delivery Method Room Air Oxygen Flow Rate 0 Narrative Exam Narrative: Gen: alert, well appearing, non toxic CARDIOVASCULAR: Regular rate. No pedal edema. RESPIRATORY: Non-tachypneic, breathing comfortably on room air. GASTROINTESTINAL: Abdomen soft, obese, non-distended. Ostomyp/p/p. Ostomy bar removed; incision c/d/i; old ostomy site dressing in place MUSCULOSKELETAL: Equal tone and mass bilaterally. Objective Labs Result Diagrams: 07/17/20 04:48 07/17/20 04:48 Labs: Laboratory Results - last 24 hr 07/17/20 07/17/20 04:48 04:48 WBC 5.4 RBC 3.12 L Hgb 8.9 L Hct 26.3 L MCV 84.4 D MCH 28.5 MCHC 33.8 RDW 15.3 H Plt Count 226 Neut % (Auto) 53.8 Lymph % (Auto) 26.8 [place] % (Auto) 8.5 Eos % (Auto) 10.1 H Baso % (Auto) 0.8 Neut # (Auto) 2900 Lymph # (Auto) 1400 [place] # (Auto) 500 Eos # (Auto) 500 H Baso # (Auto) 0 Sodium 135 L Potassium 4.2 Chloride 104 Carbon Dioxide 29 BUN 13 Creatinine 0.60 Estimated GFR > 60.0 BUN/Creatinine Ratio 21.7 Glucose 92 Calcium 8.8 Phosphorus 4.9 H Magnesium 2.0 PFSH Medical History Acquired hypothyroidism Chicken pox Essential hypertension Febrile illness Has 3 children Measles Mixed hyperlipidemia UTI (urinary tract infection) Vision disorder Family History Father No problems noted. Mother Hypertension Grandfather Pneumonia Social History household members: none Smoking Status: Former smoker alcohol intake: current Assessment & Plan Assessment and plan (1) Severe protein-calorie malnutrition: Problem details: The patient came in on June 23 with 5 days of really not eating very much at all. She has had prolonged periods of fasting because of surgery, and bowel recovery after surgery. We are beginning to wean off her TPN, as she is beginning to take more p.o.. We will leave her PICC line in place for now, and if she does not tolerate adequate p.o. we may need to restart TPN again. Status: Acute (2) Acute blood loss anemia: Problem details: Hgb corrected well with one unit. Will recheck CBC tomorrow. Status: Acute (3) Complication of ostomy: Status: Acute (4) Status post Herminia procedure: Status: Acute (5) Ovarian cancer: Qualifiers: Laterality: unspecified laterality Qualified Code(s): C56.9 - Malignant neoplasm of unspecified ovary Status: Acute (6) Postoperative wound infection: Status: Acute (7) Obesity (BMI 30.0-34.9): Problem details: The patient's abdominal obesity significantly increased the complexity and difficulty of her laparotomy and to bring up her end colostomy, because her abdominal wall was 2-3 inches thick. Her obesity also complicates her post op course because it increases the risk of wound infection, hernia, fascial dehiscense, ostomy ischemia, and ostomy retraction. Status: Acute Assessment & Plan narrative: 74-year-old woman postop day 6 status post laparotomy, reciting of ostomy, takedown of sigmoid colostomy, and excision of carcinomatosis for pathology. She is doing well in most respects. She is having good ostomy output, and the ostomy is nicely intact and budded. Her old ostomy site is healthy appearing, and does not have any signs of cellulitis or infection. We will encourage ambulation, wound care teaching, follow her hgb levels, and work on dispo planning. Plan: CBC tomorrow Ambulate as tolerated P.o. diet as tolerated Ostomy care, wound care Dispo planning COVID-19 COVID-19 status: Negative Result date/Date tested (Pos, Neg/Pending): 07/04/20 Time Spent With Patient Time with patient: 25 - 35 minutes Quality VTE Deep Vein Thrombosis/Pulmonary Embolism Present on Admission: No
--- NOTE | 2020-07-17 23:25 | PC.NURSE ---
VSS. A&O x4. Pain in abdomen escalated to 10/10 this evening and was given 5 mg of oxycodone which provided relief. Right sided colostomy red and beefy, brown/green liquid stool and gas in colostomy bag. Midline incision with lena without discharge, redness, or signs of infection. Dressing on left side of abdomen cdi. PICC line hep locked.Possible discharge tomorrow home with son.
[2020-07-18 00:29] VITALS: BP 113/68; PULSE 82; RESP 14; TEMP 36.8; O2SAT 96
--- NOTE | 2020-07-18 00:45 | PC.NURSE ---
patient is alert and oriented. Breath sounds CTA with RA sat of 96%. HRR. Denies nausea. BT present and abdomen is soft. Ostomy with yellow/brown soft stool + flatus present. Dressings to abdomen are both CDI. Midline incision is well approximated with intact lena and HEAT TREAT INSPECTOR. Denies dysuria, frequency or urgency with urination. Able to turn self in bed. Up to BSC with 1 assist; denies weakness. States abdominal pain is controlled with pain severity at 3/10 and declines intervention. Wearing bilateral calf SCD's. Fall risk score is moderate and bed alarm is activated although patient calls appropriately for assistance.
[2020-07-18 03:55] VITALS: BP 111/71; PULSE 81; RESP 14; TEMP 36.7; O2SAT 95
[2020-07-18] MEDS: LEVOTHYROXINE 25 MCG TABLET PO (05:24)
[2020-07-18] MEDS: SODIUM CHLORIDE 0.9% FLUSH 10 ML IV ×2 (05:24→09:03)
[2020-07-18 05:44] LABS: Hematocrit 27.6 % (36-46); Hemoglobin 9.4 g/dL (12.0-16.0); Mean Corpuscular HGB Conc 33.9 % (30-36); Mean Corpuscular Hemoglobin 28.8 PG (26-34); Mean Corpuscular Volume 84.8 fL (80-100); Platelet Count 231 X10^3/uL (150-400); Red Blood Cell Count 3.25 X10^6/uL (4.0-5.2); Red Cell Distribution Width 15.5 % (11.6-14.8); White Blood Cell Count 4.5 X10^3/uL (4.5-11.0)
[2020-07-18 05:48] LABS: Add Manual Diff / Slide Review YES
[2020-07-18 07:32] LABS: Neutrophils Absolute Manual 2295 /uL (3000-5900); Total Cells Counted 100
[2020-07-18 07:34] LABS: Anisocytosis 1+
[2020-07-18 08:56] VITALS: BP 113/67; PULSE 83; RESP 22; TEMP 36.8; O2SAT 98
[2020-07-18] MEDS: PANTOPRAZOLE 40 MG VIAL IV (08:58)
[2020-07-18] MEDS: ROSUVASTATIN 10 MG TABLET 5 MG PO (09:01)
[2020-07-18] MEDS: CHOLECALCIFEROL (VITAMIN D3) 1,000 UNIT TABLET 2000 UNIT PO (09:01)
[2020-07-18] MEDS: MULTIVIT,CALC,MINS/IRON/FOLIC 1 TABLET 1 TAB PO (09:01)
[2020-07-18] MEDS: HEPARIN 5,000 UNIT/ML VIAL 5000 UNIT SUBCUT (09:02)
[2020-07-18] MEDS: carvediloL 3.125 MG TABLET PO (09:02)
--- NOTE | 2020-07-18 10:42 | PC.NURSE ---
Addendum entered by Kelly Zhou R.N. 07/18/20 13:53: Patients prescriptions will be ready for roll picker later today, they have been filled at [facility]. Addendum entered by Kelly Zhou R.N. 07/18/20 11:16: Patient states that her son will be here between 1-2pm. Patient knows how to empty her colostomy and clean it. States that she has more of a hard time trying to put on the wafer and the bag when changing the whole appliance. Patient will have a nurse that will come in a couple days a week to help with this. She also has an open wound from where her first stoma was present, this stopped working and patient had to have a new one placed to her r.lower quadrant. The dressing change was just done, 4x4s with dampened with saline and packed in wound. One 4x4 is adequate for the depth of the wound. A second one applied on the top, slightly tucked upon first 4x4. Then allevyn dressing put over packing. She did have a some pain with packing, she was offered a pain medication earlier this morning but refused. She is getting up with one person assist, she brushed her teeth, and had a shower with assistance from occupational therapy. Original Note: Assess- Patient is A&Ox3, she denies pain. Dressings to lower abdomen are all cdi. Patient colostomy stoma beefy red and putting out yellow,soft stool. Patient may be discharging home to [facility] in [place] for extended care from family. Samaria's mood is down but she is easily encouraged and reassured that she will do well when she discharges from this hospital. She is a one person assist when ambulating in the room to bedside commode. Patient has voided and is back to bed. She is not eating to much at meals, she did eat some [place] yogurt that was given. Resting now.l
--- NOTE | 2020-07-18 11:03 | OT.IP.TRT ---
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) Acute posthemorrhagic anemia (07/04/20) Unspecified severe protein-calorie malnutrition (07/04/20) Unspecified protein-calorie malnutrition (07/04/20) Obesity, unspecified (07/04/20) Cutaneous abscess of abdominal wall (07/04/20) Infection following a procedure, other surgical site, initial encounter (07/04/20) Colostomy status (07/04/20) Surgery Performed Operation Date: 07/05/20 16:00 Actual Procedures p Wound wash out, colostomy revision - Yoli Biswas MD Operation Date: 07/11/20 11:45 Actual Procedures p Laparotomy, bowel resection, ostomy creation - Yoli Biswas MD Occupational Therapy Treatment Note M2 OT-IP Current Condition Start: 07/15/20 13:43 Freq: Status: Active Protocol: Document 07/15/20 13:06 [facility] (Rec: 07/15/20 14:34 [facility] [id number]) Occupational Therapy Current Condition Current Condition Evaluation Date 07/15/20 Treatment Diagnosis Revision colostomy Diagnosis Onset Date 07/04/20 M3 OT- IP Subjective and Pain Start: 07/15/20 13:43 Freq: Status: Active Protocol: Document 07/18/20 11:04 [facility] (Rec: 07/18/20 11:11 [facility] [id number]) OT- Subjective Occupational Therapy Visit Type Type Treatment Note Visit Start Time 10:25 Visit Stop Time 11:03 Total Visit Minutes 38 Occupational Therapy Visit Comments Patient Comments Pt wanting to shower. Patient/Caregiver Goals TO go to her son's house. Pt's son to come for caregiver training today. OT Pain Assessment Pain When Pain Assessed During Mobility Pain Present Pain Present Pain Reported Location abd Scale Used did not rate Pain Behaviors Guarding,Holding Area M4 OT- IP ADL's Start: 07/15/20 13:43 Freq: Status: Active Protocol: Document 07/18/20 11:04 [facility] (Rec: 07/18/20 11:11 [facility] [id number]) OT ADL-Dressing General Eval Lower Body Dressing Ability Maximum Assistance Areas Needing Assistance Socks OT ADL-Toileting General Evaluation Toileting Ability Maximum Assistance Areas Needing Assistance Perform Perineal Hygiene Comments OT Toileting Comments Pt still unable to reach from behind and continue to suggest use of toilet paper aid, pt states to get her son to order one when her comes later. OT ADL-Bathing Bathing Type Bathing Type Shower General Evaluation Bathing Ability Moderate Assistance Areas Needing Assistance Wash/Dry Back,Wash/Dry Perineal Area,Wash/Dry Lower Extremities Comments OT Bathing Comments Due to pain and unable to bend , needing assist for showering . A long handled sponge would be beneficial in addition to assist. M5 OT- IP IADL's Start: 07/15/20 13:43 Freq: Status: Active Protocol: Document 07/15/20 13:06 [facility] (Rec: 07/15/20 14:34 [facility] [id number]) OT-Instrumental Activities of Daily Living Home Safety Awareness Awareness of Need for Assistance at Home Good Awareness Ability to Problem Solve Emergency Able to Problem Solve Situations Medication Management Medication Management No Deficits Identified Money Management Money Management No Deficits Identified Meal Preparation Meal Preparation Caregiver Provides Assist Tax Assessor Tax Assessor Caregiver Provides Assist M6 OT- IP Functional Cognition Start: 07/15/20 13:43 Freq: Status: Active Protocol: Document 07/18/20 11:04 [facility] (Rec: 07/18/20 11:11 [facility] [id number]) Cognitive Factors Limiting Selfcare Function Cognitive Comments Cognitive Assessment Comments At baseline. M7 OT- IP Mobility and Balance Start: 07/15/20 13:43 Freq: Status: Active Protocol: Document 07/18/20 11:04 [facility] (Rec: 07/18/20 11:11 [facility] [id number]) OT- Bed Mobility Assessment Supine to Sit Supine to Sit Assist Moderate Assistance,1 Person Assistance,Head of Bed Elevated Sit to Supine Sit to Supine Assist Minimal Assistance OT-Transfer Assessment Sit to and From Stand Sit to and from Stand Standby Assistance,Contact Guard Assistance Transfers Transfer Ability Standby Assistance,Contact Guard Assistance Technique Transfer Destination Bed,Bedside Commode,Shower Stall Transfer Technique Stand Step Pivot Comments Mobility Comments SBA initially and after the shower got tired and needing for balance. OT- Balance Assessment Sitting Balance and Reactions Static Sitting Balance Ability Normal Dynamic Sitting Balance Ability Good Standing Balance and Reactions Static Standing Balance Ability Fair M8 OT- IP Objective Assessments Start: 07/15/20 13:43 Freq: Status: Active Protocol: Document 07/15/20 13:06 [facility] (Rec: 07/15/20 14:34 [facility] [id number]) OT Gross Range of Motion Upper Extremity Range of Motion Assessment Within Functional Limits OT Strength Upper Extremity Strength Assessment Within Functional Limits OT-Muscle Tone Assessment Muscle Tone WNL Yes M9 OT- IP Assessment and Plan Start: 07/15/20 13:43 Freq: Status: Active Protocol: Document 07/18/20 11:04 [facility] (Rec: 07/18/20 11:11 [facility] [id number]) OT Summary Assessment and Plan Potential Rehabilitation Potential Good Analytic Complexity at Evaluation Low Summary Progress Towards Goals Progressing Toward Goals Assessment Summary Pt possibly looking to go home with to her son's house. Pt mainly needing assist for wiping from behind and toilet paper wand has been suggested. Also to have someone assist with her dressing and bathing needs. Pt would benefit from a home health and a bath aid. Goals Grooming Goal Independent Dressing Goal Independent Toileting Goal Independent Bathing Goal Independent Toilet Transfer Goal Independent Shower Transfer Goal Independent Patient/Caregiver Education Goal Demonstrate Post-Op Precautions Days to Meet Goals 14 Frequency of Treatment Frequency Of Treatment Once a Day Treatment Plan OT Treatment Plan ADL Training,Functional Cognition Training,Functional Mobility,Patient/Family Education,Discharge Planning Other Treatment Recommendations and Next Caregiver training Treatment Focus Discharge Recommendations OT Discharge Recommendations Home with Assistance,Home Health Home Equipment Needs BSC, toilet aide, LB dressing DME Transportation Needs at Discharge Private Vehicle
--- NOTE | 2020-07-18 11:59 | P.DS_ITS ---
History of Present Illness History of Present Illness Date Patient Seen: 07/04/20 Time Patient Seen: 16:39 Chief complaint: WOUND INFECTION Narrative: This is a 74 yo woman with history of hypothyroid, hypertension, and obesity (BMI 32). She came into the ER on 06/23 with c/o five days of mid abdominal pain. This was the 3rd time she has had this pain. She says that on the 2 previous times she was given antibiotics at the Urgent Care, for a putative urinary tract infection/bladder infection. The pain did resolve each time after getting antibiotics. She says the pain began this time about 5 days ago. It was generalized abdominal pain, most significant in the left and right lower quadrants. She went in to see Dr. Mcgregor today thinking it may be a gynecology teacher issue. Dr. Mcgregor directed her to the ER. She has never had a colonoscopy. She has never had any abdominal surgery. She denies any heart or lung problems, other than her hypertension. In the ER she was found to have a white blood cell count of 13.1 with a left shift. CT scan shows a large perforated mass coming off of the sigmoid colon, suspicious for a perforated cancer. At that time she had a Herminia's procedure, and resection of her perforated colon. She was discharged to a long term facility after that admission, and returned 2 days later on July 04. She had drainage from her midline wound, and some mucocutaneous separation of her colostomy. ROS: Constitutional: Denies chills, Denies fever(s), Denies lethargy and Denies weakness Ears, Nose, Mouth, and Throat: Denies change in voice, Denies dizziness, Denies neck pain and Denies sore throat Cardiovascular: Denies chest pain, Denies syncope, Denies irregular heart rhythm, Denies lightheadedness, Denies palpitations and Denies orthopnea Gastrointestinal: Reports as per HPI Genitourinary: Denies urinary hesitancy and Denies urinary urgency Musculoskeletal: Denies back pain, Denies myalgias and Denies neck pain Skin/Breast: Denies pruritus, Denies erythema, Denies rash and Denies wounds Neurologic: Denies dizziness, Denies syncope and Denies weakness Psych: denies hallucinations, delusions; denies anxiety, depression PE: GENERAL: Well groomed and cooperative. Appears stated age. Answers questions p romptly and appropriately. Vital signs noted. HENT: Normocephalic, atraumatic. Hearing intact. EYES: Conjunctiva pink, sclera white, no periorbital swelling. CARDIOVASCULAR: Regular rate. No pedal edema. RESPIRATORY: Non-tachypneic, breathing comfortably on room air. GASTROINTESTINAL: Prelim fluid draining from the lower midline wound. Muco cutaneous separation of the ostomy GENITALURINARY: No flank tenderness. MUSCULOSKELETAL: Equal tone and mass bilaterally. SKIN: Warm, dry, soft, appropriate color for ethnicity. No other lesions, rashes, or wounds. NEURO: Alert and Oriented X 3. No gross sensory deficits, or cognitive issues. PSYCH: Appropriate affect and mood. Discharge Providers Provider Date of admission: 07/04/20 16:00 Discharge Date: 07/18/20 Primary care physician: Manuel Dawson MD Consults: 07/04/20 17:00 Consult to Pastoral Services Routine Comment: Per patient request 07/06/20 10:45 Consult to Dietitian, Adult Routine Comment: Pt was dc to [facility]. Says did not follow diet Reason For Exam: Pt vegetarian, new ostomy, confused on diet recs 07/10/20 10:49 Consult to Physical Therapy Evaluate & Treat Comment: Physician Instructions: Evaluate and Treat 07/15/20 12:58 Consult to Occupational Therapy Evaluate & Treat Comment: Physician Instructions: Evaluate and treat 07/17/20 11:37 Consult to Home Health Routine Comment: DX: New Ostomy Reason For Exam: Home Health for RN,PT,OT and TOOL CRIB LEAD Discharge provider: Yoli Biswas MD Summary Hospital Course Discharge Diagnosis: Ovarian cancer invading the colon, perforated colon, abdominal wall abscess, mucocutaneous separation of the colostomy Hospital Course: Patient was admitted, and taken the operating room for washout of her abdominal wall and revision of her colostomy. A few days later, her colostomy suffered a mucocutaneous separation due to multiple removal and replacement of her ostomy appliance, thickened abdominal wall, and short availa ble colon. She was taken back to the operating room, and her colostomy was taken down, and a new colostomy was treated on the right side, a loop colostomy. She recovered well from this procedure, and is eating well, ambulating, managing her ostomy, and having her Old ostomy site wound care packing done daily. Status at Discharge Cognitive/behavioral status at discharge: at baseline, oriented Overall status at discharge: patient is progressing back to baseline Time Spent with Patient Time spent: Greater than 30 minutes Exam Vital Signs (past 8 hours): - 07/18/20 08:56 Temperature 98.2 F Pulse Rate 83 Respiratory Rate 22 Blood Pressure 113/67 Pulse Oximetry 98 Oxygen Delivery Method Room Air Oxygen Flow Rate 0 Narrative Exam Narrative: Gen: alert, well appearing, non toxic CARDIOVASCULAR: Regular rate. No pedal edema. RESPIRATORY: Non-tachypneic, breathing comfortably on room air. GASTROINTESTINAL: Abdomen soft, obese, non-distended. Ostomyp/p/p. Ostomy bar removed; incision c/d/i; old ostomy site dressing in place MUSCULOSKELETAL: Equal tone and mass bilaterally. Objective Imaging CT scan - abdomen: Radiologist's impression: [address] [id number] Scan ReportSigned Patient: Samaria Pierre CMR#: [id number]: 5Acct:[id number]/Sex: 74 / FDate of Service: 07/04/20Loc: [id number] Number: [id number] Procedure: CT abdomen pelvis w con Ordering Provider: Yoli Biswas MD PROCEDURE: CT ABDOMEN PELVIS W CON INDICATIONS: suspect wound infection vs fascial dehiscence TECHNIQUE: After the administration of intravenous contrast, 5 mm thick sections acquired from the diaphragm to the symphysis. 5 mm coronal and sagittal reformats were acquired. For radiation dose reduction, the following was used: automated exposure control, adjustment of mA and/or kV according to patient size. COMPARISON: [facility], CT, CT ABDOMEN PELVIS W CON, 06/23/2020, 15:03. FINDINGS: Image quality: Excellent. ABDOMEN: Lung bases: Lung bases are clear. Heart size is normal. There is a small hiatal hernia. Solid organs: There is a small nonspecific curvilinear hypodensity peripherally in segment 8 of the right hepatic lobe. A small ill-defined hypodensities also demonstrated posteriorly in segment 6 measuring up to approximately 0.9 cm. There is a linear peripheral hypodensity also noted in segment 6 laterally. The findings are similar to the prior study. No subcapsular fluid collections. There is hypodensity along the falciform ligament in the left hepatic lobe likely representing focal fatty infiltration. The gallbladder appears within normal limits without calcified gallstones. Biliary system is non-dilated. Pancreas enhances normally. No peripancreatic fat stranding or fluid collections. No pancreatic duct dilatation. The spleen is normal in s ize. No adrenal nodules. Kidneys demonstrate no hydronephrosis. Peritoneum and bowel: Postsurgical changes are demonstrated status post partial colectomy with a diverting left abdominal colostomy. There is fluid and fat stranding anteriorly in the pelvis within the surgical bed extending to the bladder dome. There is a small loculated thick-walled collection within this region measuring kimberly roximately 0.8 x 2.6 x 1.3 cm likely representing a small abscess. This extends anteriorly to the abdominal wall and inferiorly to the bladder dome. No intraperitoneal free air. Nodes and vessels: No retroperitoneal or mesenteric adenopathy by size criteria. Aorta and inferior vena cava are normal in size. Miscellaneous: Postsurgical changes are demonstrated within the ventral abdominal wall inferiorly with subcutaneous fat stranding and loculated subcutaneous fluid deep to the midline incision site measuring approximately 2.9 x 4.3 x 7.5 cm which may represent a postsurgical hematoma or seroma versus abscess. There is also asymmetric enlargement of the right rectus abdominus muscle with internal heterogeneous enhancement. The findings may represent an intramuscular hematoma or myositis. There is a hypoattenuating region medially measuring up to 2.2 x 1.8 cm in transverse dimension which is nonspecific but may reflect a phlegmon. PELVIS: Genitourinary: There is wall thickening along the anterior bladder dome adjacent to inflammatory changes in the anterior pelvis. Miscellaneous: No inguinal hernias or adenopathy. Bones: No suspicious bony lesions. No vertebral body compression fractures. IMPRESSION: 1. Postsurgical changes demonstrated status post partial colectomy with a left diverting colostomy. Inflammatory changes are demonstrated in the surgical bed within the anterior pelvis with a small thick-walled collection likely representing an abscess. 2. Subcutaneous fluid collection deep to the incision site in the ventral abdominal wall is nonspecific and may represent a hematoma/seroma versus an abscess. 3. Asymmetric enlargement of the right rectus abdominus muscle with heterogeneous enhancement may reflect an intramuscular hematoma or myositis. Dictated by: Ja Jennings M.D. on 07/04/2020 at 16:51 Approved by: Ja Jennings M.D. on 07/04/2020 at 17:09 Labs Result Diagrams: 07/18/20 05:28 07/17/20 04:48 Labs: Laboratory Results - last 24 hr 07/18/20 05:28 WBC 4.5 RBC 3.25 L Hgb 9.4 L Hct 27.6 L MCV 84.8 MCH 28.8 MCHC 33.9 RDW 15.5 H Plt Count 231 Neut % (Auto) Not Reportable Lymph % (Auto) Not Reportable [place] % (Auto) Not Reportable Eos % (Auto) Not Reportable Baso % (Auto) Not Reportable Lymph # (Auto) Not Reportable [place] # (Auto) Not Reportable Baso # (Auto) Not Reportable Total Counted 100 Seg Neutrophils % 50.0 Band Neutrophils % 1.0 L Lymphocytes % (Manual) 25.0 Atypical Lymphs % 3.0 H Monocytes % (Manual) 8.0 Eosinophils % (Manual) 11.0 H Basophils % (Manual) 1.0 Myelocytes % 1.0 H Neutrophils # (Manual) 2295 L RBC Morphology See below Anisocytosis 1+ H PFSH Medical History Acquired hypothyroidism Chicken pox Essential hypertension Febrile illness Has 3 children Measles Mixed hyperlipidemia UTI (urinary tract infection) Vision disorder Family History Father No problems noted. Mother Hypertension Grandfather Pneumonia Social History household members: none Smoking Status: Former smoker alcohol intake: current Discharge Assessment & Plan Assessment and Plan Assessment: wound infection resolved. Plan of Treatment: Discharge to SNF with drain. Follow up with [facility] and oncology (for new diagnosis cancer) as arranged. Discharge Plan Discharge Plan Patient Disposition: Home Provider Discharge Comment: Wound care: You have an open wound at your prior ostomy site on the left side, an incisional wound with skin fabio, and an ostomy on the right side. Your old ostomy site on the left side will need to gradually heal in with scar tissue. You, your family members, or your home health nurse should change the wound packing daily. You will need to remove the outer dressing, remove the packing, and replace the packing with two clean 4x4 gauze soaked with saline, and cover with a dry dressing. You may need a wound vac, or a surgical procedure in the future to revise or close the wound if it does not completely fill in with scar tissue. Your old ostomy site dressing may be removed and the packing removed prior to showering, and replaced after showering. More comments below about showering. You may keep a dry dressing on the exposed portion of the midline incisional wound. You may shower and get the incisional wound wet. Pat it dry when you finish showering. Do not put any ointments, powders, or harsh cleansers on the incision/staple line. You will need to have your fabio removed on or around FridayJuly 25. This may be done by the home health nurse, another nurse, or a physician. If the fabio are left for too long it will be hard to remove them as the skin grows over them. Fabio are usually removed two to three weeks after surgery. Showering: You may shower. Your incisions and your ostomy may be exposed to water in the shower. Some people prefer to shower with their ostomy pouch on, and then change it at a separate time. After showering, keep a dry dressing over your incisional wounds as needed. Your old ostomy site dressing may be removed and the packing removed prior to showering, and replaced after showering. Ostomy care: Continue to follow the verbal and written instructions given by the nurses regarding care and management of your ostomy site. See additional attached instructions regarding ostomy care. Contact your local assigned home health provider for ongoing ostomy assistance at home and ostomy care supplies. If you prefer, you may contact the wound care nurse at [facility] [phone] in order to continue ostomy care, support, and teaching as an outpatient. Bowel regimen: You may use Metamucil or Miralax as needed if your ostomy output slows down or you begin to feel constipated. These have been ordered to the [facility] pharmacy in [place]. Pain management: Take your prescription pain medication only as needed so you are able to cough, take deep breaths, sleep, and walk around. Narcotic pain medicine can cause c onstipation and dependency. Please use caution with this medication. See attached notes about opioid use. You may also use Tylenol as needed for pain, as well as NSAIDs such as ibuprofen if you are able to do so without stomach upset. Make sure to take NSAIDs with food. Do not take more than the recommended dose of each. There may be Tylenol (also called Acetaminophen) in cold remedies, headache remedies, or combined in other prescription or over the counter pain medications. Do not take more than 3000mg of Tylenol in any 24 hour period from any/all sources. Activity: Keep active with light activity such as gentle exercise and taking walks. Avoid lifting over 10lbs, abdominal core work, or very strenuous activity. Avoid being sedentary for prolonged periods. Diet: Advance your diet as tolerated. Make sure you are staying hydrated and eating adequate nutrition and protein. You should avoid heavy roughage such as uncooked broccoli, kale, fruit peels, and other bulky fiber for about six to eight weeks after ostomy surgery. Normally, you will be released to normal diet about six to eight weeks after surgery. Other concerns: If you have any other concerns about your surgery or post operative care, please call the surgeon's office number and speak to the office nurse or the surgeon environmental field team member. Emergencies: If you become ill with significant chest pain, shortness of breath, significant bleeding, or other life threatening symptoms, please call 911 or go to the ER right away. Follow up: Please make sure you follow up for your staple removal, wound check, and overall medical follow up. You will need to establish care with a new primary care doctor in the community where you will be living, or see Dr. Dawson in the next 2 weeks. We would like you to see a General Surgeon in the community where you will be living or follow up with Dr. Biswas in the next 1-2 weeks at [facility]. You will need to follow up with a medical oncologist and gynocologic oncologist surgeon in the community, or follow up with Dr. Mtoa at [facility] if you prefer. Dr. Mota has recommended you seek a consult at [facility]: [facility] [place]. Discharge orders & Medications Prescriptions: New Metamucil Fiber Singles 3.4 gram Powder In Packet 1 packet PO BID 100 Days Qty: 60 RF: 0 polyethylene glycol 3350 17 gram Powder In Packet 17 gm PO BID 100 Days Qty: 200 RF: 4 oxycodone 5 mg tablet 5 mg PO Q8H PRN (Reason: post operative pain) Qty: 20 RF: 0 Continued carvedilol 3.125 mg tablet 3.125 mg PO BID Qty: 180 RF: 3 cholecalciferol (vitamin D3) 50 mcg (2,000 unit) capsule 50 mcg PO DAILY RF: 0 rosuvastatin [Crestor] 5 mg tablet 5 mg PO DAILY RF: 0 levothyroxine 25 mcg tablet 25 mcg PO DAILY RF: 0 Follow up/Referrals: Manuel Dawson MD [Primary Care Provider] - Stuart Mota MD [Physician] - ( ) Yoli Biswas MD [Physician] - ( ) Diet/Activity/Treatments Diet comment: Full liquid or low residue diet Activity: Ambulate as tolerated Skin/Wound/Dressing Care Report to your healthcare provider any signs of infection, such as:: chills, fever, night sweats, increased pain, unusual drainage and unusual redness Visit Report/Discharge Packet Instructions: How to Care for Your Colostomy or Ileostomy, Low-Fiber/Low-Residue Diet, DI for Prescription Opioid Use, [facility]: Wound Care Stand Alone Forms: Surgery Discharge Discharge Data Primary Care Provider: Manuel Dawson Quality VTE Deep Vein Thrombosis/Pulmonary Embolism Present on Admission: No
--- NOTE | 2020-07-18 12:02 | DIET.PN ---
Dietary Progress Note Pt tolerating full liquid diet c appropriate ONS to support PCM and post-surgical healing. Pt requested new ostomy nutrition paperwork as hers was left at SNF hanging on the wall when she was re-admitted. Provided pt 2 copies of Ostomy MNT with directions to follow for the next 14d along c ONS Eyad bid and ONS Ensure Max/Premier Protein to support good ostomy healing. Provided specific sheet on ONS reccs.
[2020-07-18 12:22] VITALS: BP 110/75; PULSE 81; RESP 16; TEMP 36.9
--- NOTE | 2020-07-18 14:35 | CM.DPC ---
DCP/continued: Reviewed chart. Spoke with Dr. Biswas this AM she confirms that patient is medically stable for discharge. Placed call to son/Bryce to confirm that he was planning to pick patient up today. No answer therefore, voice mail left. In addition to the above placed call to [facility] in [place] spoke with [place]. She confirms that patient will be seen at residence on 07-22-20. Per [place] she has spoken with son today and confirmed visit. [place] reports that they will order additional supplies for ostomy during first visit. CARE COORDINATION MANAGER met with patient re: d/c plan. Patient aware and agreeable to d/c plan today. Patient reports that her son is coming to pick her up this afternoon. Prescriptions ordered by surgeon and will be available at [facility] pharmacy in [place]. Patient aware and information will be on d/c instructions as well. Patient made aware that HH has been confirmed. Brochure for [facility] provided to patient. P: Home with son. All d/c planning arrangements completed. Patient aware and agreeable. Important Message from [place] provided. JAHAIRA Schmidt
[2020-07-18] MEDS: OXYCODONE IR 5 MG TABLET PO (16:33)
--- NOTE | 2020-07-18 17:00 | PT.IPTN ---
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) Acute posthemorrhagic anemia (07/04/20) Unspecified severe protein-calorie malnutrition (07/04/20) Unspecified protein-calorie malnutrition (07/04/20) Obesity, unspecified (07/04/20) Cutaneous abscess of abdominal wall (07/04/20) Infection following a procedure, other surgical site, initial encounter (07/04/20) Colostomy status (07/04/20) Surgery Performed Operation Date: 07/05/20 16:00 Actual Procedures p Wound wash out, colostomy revision - Yoli Biswas MD Operation Date: 07/11/20 11:45 Actual Procedures p Laparotomy, bowel resection, ostomy creation - Yoli Biswas MD Physical Therapy Treatment Note M2 PT-IP Current Condition Start: 07/10/20 11:53 Freq: NEEDED Status: Active Protocol: Document 07/14/20 14:30 MA (Rec: 07/14/20 14:53 MA [id number]) Physical Therapy Current Condition Current Condition Evaluation Date 07/13/20 Treatment Diagnosis revision colostomy; difficulty in walking Onset Date 07/05/20 Precautions Abdominal Surgery Precautions Log Roll,Lifting Restrictions, Gait Belt above Incisional Area M3 PT-IP Subjective Start: 07/10/20 11:53 Freq: NEEDED Status: Active Protocol: Document 07/18/20 17:00 AW (Rec: 07/18/20 17:18 AW [id number]) Subjective Physical Therapy Visit Type Type Treatment Note Visit Start Time 16:33 Visit Stop Time 16:59 Total Visit Minutes 26 Notes Pt's son, Bryce, was present for caregiver training . Number of FREEZER MACHINE OPERATOR Visits 0 Physical Therapy Visit Comments Patient Comments Pt is preparing for discharge. Therapy Pain Assessment Pain When Pain Assessed During Mobility Pain Present Pain Present Pain Reported Location abd Scale Used did not rate Description Aching Pain Behaviors Holding Area Pain Management Techniques Distraction,Re-positioning, Timing of Activity with Medications M4 PT-IP Mobility and Gait Start: 07/10/20 11:53 Freq: NEEDED Status: Active Protocol: Document 07/18/20 17:00 AW (Rec: 07/18/20 17:18 AW [id number]) PT-Bed Mobility Assessment Rolling Type of Rolling Log Rolling Level of Assist Standby Assistance Supine to Sit Supine to Sit Contact Guard Assistance,1 Person Assistance Scooting Scooting to Edge of Bed Standby Assistance PT-Transfer Assessment Sit to and From Stand Sit to and from Stand Standby Assistance,Use of Upper Extremities Equipment Transfer Assistive Device Straight Cane Orthotic/Prosthetic Devices or Brace: No Transfers Transfer Destination Bed Transfer Technique Stand Step Pivot Transfer Ability Level of Assist Standby Assistance,Use of Upper Extremities Comments Mobility Comments Pt was lying in the bed as MD and RN were finishing ostomy teaching with pt's son. Pt then log rolled to her left side SBA and needed CGA for SL to sit - provided safely by her son. PT taught her son to don the gait belt. Pt then stood SBA and ambulated 150 feet SBA to CGA. She completed stair training with her son providing assist and then walked back to her room SBA and transferred to her chair and to her bed SBA. Pt was left with RN attending to her discharge. Gait Assessment Gait Gait Assistance Required: Standby Assistance,Contact Guard Assist Distance (Feet) 300 Able to Maintain Weight Bearing Status Yes During Gait Assistive Devices Assistive Device Gait Belt Orthotic/Prosthetic Devices or Brace: No Gait Deviations General Gait Pattern Antalgic,Decreased Stride Length,Decreased Feet Clearance,Flexed Trunk Factors Limiting Gait Function Factors Limiting Gait Function Decreased Activity Tolerance, Decreased Strength,Limited Range of Motion,Pain,Poor Balance,Poor Safety Awareness Comments Gait Comments Pt's son provided appropriate SBA to CGA for ambulation. Gait pattern and endurance are significantly improved. Stair Climbing Assessment Evaluation Level of Assist On Stairs Standby Assistance Devices Stair Climbing Assistive Devices Right Railing Technique/Endurance Stair Climbing Direction Ascend and Descend Stair Climbing Technique Step Over Step Number of Steps Climbed 9 Stair Climbing Set # Repetitions (reps) 1 Comments Stair Climbing Comments Pt's son provided assist safely. PT-Balance Assessment Sitting Balance and Reactions Static Sitting Balance Ability Good Dynamic Sitting Balance Ability Good Standing Balance and Reactions Static Standing Balance Ability Good Dynamic Standing Balance Ability Good Device Used no AD M5 PT-IP Objective Assessments Start: 07/10/20 11:53 Freq: NEEDED Status: Active Protocol: Document 07/13/20 09:55 AW (Rec: 07/13/20 10:37 AW [id number]) Orientation Orientation/Cognition Level of Alertness Alert Orientation Name,Age,Birthday,Month,Date, Year,Day of Week,Place, Situation Language Function Ability No Deficits Noted Safety Awareness Understands Safety Issues Memory Description No Deficits Noted Gross Range of Motion Lower Extremity ROM Assessment Within Functional Limits Strength Lower Extremity Strength Assessment Bilaterally Impaired Hip 4-/5 Knee 4/5 Ankle 4+/5 Coordination Assessment Gross Coordination Gross Coordination WNL Sensation Assessment Sensation Gross Sensation WNL Muscle Tone Muscle Tone WNL Yes M6 PT-IP Treatment Start: 07/10/20 11:53 Freq: NEEDED Status: Active Protocol: Document 07/18/20 17:00 AW (Rec: 07/18/20 17:18 AW [id number]) Physical Therapy Treatment Education Education Provided Precautions,Safety Other Treatments Other Treatment Performed Educated pt's son on abdominal surgery precautions. M7 PT-IP Assessment and Plan Start: 07/10/20 11:53 Freq: NEEDED Status: Active Protocol: Document 07/18/20 17:00 AW (Rec: 07/18/20 17:18 AW [id number]) PT Summary Assessment and Plan Potential Rehabilitation Potential Good Summary Impairments Pain,ROM,Strength,Balance, Coordination,Sensation,Tone, Cognition,Bed Mobility, Transfers,Gait,Activity Tolerance Progress Towards Goals Progressing Toward Goals,Safe For Discharge,Goals Met Assessment Summary Pt and her son participated in caregiver training session. Pt's son states he has acquired a FWW and BSC for use at home. Between he and his , someone will be home to assist Samaria at all times . Pt is safe to discharge home with assist and home health therapy. Goals Bed Mobility Goal Standby Assistance Transfer Goal Standby Assistance,Cane Gait Goal Standby Assistance,Cane Gait Distance 100 Other Goals - improve ambulation to 100 feet without AD SBA IF going home - up/down 12 steps with unilateral rail SBA Days to Meet Goals 8 Frequency of Treatment Frequency Of Treatment Discharge Precautions Abdominal Surgery Precautions Log Roll,Lifting Restrictions, Gait Belt above Incisional Area Recommendations To Nursing Amount of Assist Needed Standby Assistance Discharge Recommendations PT Discharge Recommendations Home with 25/11 Assist Available,Home Health Transportation Needs at Discharge Private Vehicle
--- NOTE | 2020-07-18 17:56 | PC.NURSE ---
late entry: Dressing to Lt abdomen changed, family(son) teaching was done. felicity supplies given to patient. This nurse went over discharge instructions with son. all other patient teaching was done by day shift RN. Midline and PICC dc'd and pt tolerated well. pt was given oxycodone before leaving. sutures removed by Dr. Biswas.
--- NOTE | 2020-07-19 13:27 | CM.DPNOTE ---
Faxed DC summary to [facility] at [phone] per [place]. Received fax confirmation. Joan Santos CM Asst.
== END 2020-07-18 17:30 | disposition home health service (06) | DRG 856 ==
LOC: AC 07-11 08:38 → ICU 07-12 10:58 → AC 07-13 16:37
PROVIDERS: Specialist; Surgery; Admitting Provider Surgery; PCP Internal Medicine; Referring Provider Surgery; Visit Provider Surgery
PROC: 0W9F00Z Drainage of Abdominal Wall with Drainage Device, Open Approach (ICD-10-PCS; CPT 49000; principal; 2020-07-05 16:00)
PROC: 0DSL0ZZ Reposition Transverse Colon, Open Approach (ICD-10-PCS; CPT 49000; principal; 2020-07-11 11:45)
DX: T81.41XA Infection following a procedure, superficial incisional surgical site, initial encounter (principal); E43 Unspecified severe protein-calorie malnutrition; L02.211 Cutaneous abscess of abdominal wall; K94.09 Other complications of colostomy; C78.6 Secondary malignant neoplasm of retroperitoneum and peritoneum; C56.9 Malignant neoplasm of unspecified ovary; D62 Acute posthemorrhagic anemia; Z68.31 Body mass index [BMI] 31.0-31.9, adult; K66.0 Peritoneal adhesions (postprocedural) (postinfection); E03.9 Hypothyroidism, unspecified; I10 Essential (primary) hypertension; E78.2 Mixed hyperlipidemia; Z20.822 Contact with and (suspected) exposure to COVID-19
CPT/HCPCS: 36415; 36430; 36573; 36592; 71045; 74177; 80048; 82962; 83605; 83735; 84100; 84145; 85007; 85014; 85018; 85025; 86850; 86900; 86901; 87070; 87075; 87077; 87147; 87186; 87205; 87635; 94762; 97116; 97162; 97164; 97165; 97530; 97535; C9803; P9016; B4185; B4189; C9113; C9290; J1100; J1642; J1644; J1650; J1885; J2270; J2405; J2543; J2704; J3010; J3475; J3480; Q9967